=== PATIENT | female | born 1955 | race Two or more races ===

== ENCOUNTER → 2020-01-13 13:39 | Outpatient (REF) | payer MEDICAID, SELFPAY ==
--- NOTE | 2020-01-13 14:00 | CA_ITS ---
Transthoracic Echocardiogram Patient (Last, First, Middle): Zina Kennedy M Gender: Female Date of : 1955 Age: 64 Procedure Date: 01/13/2020 Procedure Type: Transthoracic Echocardiogram Location: OP Height: 157.48 cm Weight: 75.3 kg BSA: 1.77 m2 Heart Rate: bpm BP: 125 / 80 mmHg Svp: BIJAN Referring MD: Vic See MD Symptoms: Orthopnea and shortness of breath on exertion Study Quality: Fair ECG Rhythm: Sinus Conclusions: - The left ventricular systolic function is normal. The visually estimated ejection fraction is between 55-60%. - No obvious valvular pathology seen on this study. Findings Left Ventricle Normal left ventricular cavity size. There is normal left ventricular wall thickness. The left ventricular systolic function is normal. The visually estimated ejection fraction is between 55-60%. There is no evidence of regional wall motion abnormalities. Diastolic function is normal for age. Right Ventricle Normal right ventricular cavity size and systolic function. Atria The left atrium is normal in size. The right atrium is normal in size. Aortic Valve There is a normal trileaflet aortic valve. There is no aortic valve stenosis. There is trace (trivial) aortic valve regurgitation. Mitral Valve The mitral valve appears normal. There is trace mitral valve regurgitation. There is no mitral valve stenosis. Pulmonic Valve The pulmonic valve was not well visualized. Tricuspid Valve Normal tricuspid valve structure. There is trace tricuspid valve regurgitation. The pulmonary artery systolic pressure is normal. Great Vessels The aortic annulus, sinuses of valsalva, and asc aorta are normal in size. Venous The inferior vena cava is normal in size and collapses greater than 50% with inspiration. Pericardium/Pleural There is no evidence of pericardial effusion. Prior Study Comparison No prior study available for comparison. Recommendations, Care & Conclusions No obvious valvular pathology seen on this study. Measurements 2D Linear Measurements IVSd: 0.91 0.6-0.9/0.6-1.0 cm LVIDd: 4.58 3.9-5.3/4.2-5.9 cm LVIDd Index: 2.59 2.4-3.2/2.2-3.1 cm/m2 LVIDs: 3.36 2.0-3.6 cm LVPWd: 0.90 0.7-1.1 cm Ao Root: 2.60 2.1-3.5 cm LA Diam: 3.20 2.7-3.8/3.0-4.0 cm LAIDs Index: 1.81 1.5-2.3 cm/m2 LV Mass: 172.33 67-162/88-224 g LV Mass Index: 97.36 43-95/49-115 g/m2 LVOT Diam: 2.10 3.0+(-)1.3 cm 2D Systolic Function EF 4C: 65.00 >55% EF 2C: 53.70 >55% EF BiP: 59.30 >55% Mitral Valve MV Pk E: 0.66 MV PK A: 0.87 MV Decel Time: 157.00 E/A: 0.80 E'Lateral: 9.96 E'Medial: 8.03 E/E' Med: 8.20 E/E' Lat: 6.60 PHT: 46.00 MVA PHT: 4.78 Decel Colbert: 4.20 Aortic Valve AoV Pk Tone: 1.26 AoV Pk Grad: 6.00 LVOT LVOT Pk Tone: 0.98 LVOT Mn Tone: 0.66 LVOT VTI: 0.20 LVOT Pk Grad: 4.00 LVOT Mn Grad: 2.00 LVOT Diam: 2.10 LVOT Area: 3.46 Diastolic Function MV Pk E: 0.66 MV Pk A: 0.87 E/A: 0.80 E'Medial: 8.03 E/E' Med: 8.20 E' Laterial: 9.96 E/E' Lat: 6.60 Tricuspid Valve TR Pk Tone: 2.23 TR Pk Grad: 20.00 RA Press: 3.00 RVSP: 23.00 Great Vessels Aorta Ao Root-2D: 2.60 2.0-3.7 cm Ao Asc: 3.00 2.1-3.4 cm Updated in Other Vendor System with Status of Final Jaya Rosas MD electronically signed on 01/15/2020 4:58:11 PM with status of Final
== END ==
LOC: HO.CARD 13:39
PROVIDERS: PCP Internal Medicine; Visit Provider Internal Medicine
DX: R06.01 Orthopnea (principal)
CPT/HCPCS: 93306

== ENCOUNTER 2020-01-20 08:40 | Outpatient (REF) | payer MEDICAID, SELFPAY ==
--- NOTE | 2020-01-20 | PFT_ITS ---
FLOWS: FEV1 98% of predicted at 2.19 L. FVC 85% of predicted at 2.44 L. FEV1 to FVC ratio of 0.90. No bronchodilator response. LUNG VOLUMES: Total lung capacity 91% of predicted at 4.35 L. Residual volume 84% of predicted at 1.66 L. Slow vital capacity 96% of predicted at 2.68 L. Expiratory reserve volume 3% of predicted at 0.05 L. Diffusion capacity is normal. IMPRESSION: No obstructive or restrictive ventilatory defect. No bronchodilator response. Decreased expiratory reserve volume suggests extrathoracic restriction likely secondary to abdominal obesity. Miguel Rodriguez MD AP/MODL / [id number] MTDD
== END 2020-01-20 08:41 | disposition home or self-care (01) ==
LOC: HO.RESP 08:40
PROVIDERS: Visit Provider Internal Medicine Pulmonary Disease
DX: G47.33 Obstructive sleep apnea (adult) (pediatric) (principal); J45.991 Cough variant asthma; R05 Cough; R06.02 Shortness of breath; Z79.51 Long term (current) use of inhaled steroids
CPT/HCPCS: 94060; 94727; 94729; 95806

== ENCOUNTER → 2020-03-30 10:57 | Outpatient (BNVA) | payer MEDICAID, SELFPAY | PROVIDERS: PCP Internal Medicine; Visit Provider Internal Medicine Pulmonary Disease | DX: R05 Cough (principal); J45.30 Mild persistent asthma, uncomplicated; G47.33 Obstructive sleep apnea (adult) (pediatric) | CPT/HCPCS: 99212 ==

== ENCOUNTER 2020-06-02 10:21 | Outpatient (REF) | payer MEDICARE, MEDICAID, SELFPAY ==
--- NOTE | ~2020-06-02 | MM_ITS ---
EXAMINATION: BONE DENSITOMETRY CLINICAL INDICATION: Menopause. COMPARISON: None (current study represents initial baseline exam). TECHNIQUE: Using a MYTRND DXA System (software version: 13.1) manufactured by [employer], dual-energy x-ray absorptiometry was performed of the lumbar spine and left hip. The images are of good technical quality. Summary results are attached. FINDINGS: AP SPINE L1-L4: BMD 1.095 g/cm2, Z-score 0.5, T-score -0.7, normal. LEFT FEMUR, NECK: BMD 0.789 g/cm2, Z-score -0.6, T-score -1.8, osteopenia. LEFT FEMUR, TOTAL: BMD 0.933 g/cm2, Z-score 0.3, T-score -0.6, normal. IDENTIFIED RISK FACTORS: Early menopause, secondary osteoporosis. HISTORY OF FRACTURE: None listed. MEDICATIONS: Vitamin D. MM/XR DEXA axial skeleton IMPRESSION: 1. DIAGNOSIS: Osteopenia based on the lowest T-score value of -1.8 in the femoral neck applying World Health Organization criteria. 2. 10-YEAR FRACTURE RISK PREDICTION, FRAX: Major osteoporotic fracture (clinical spine, forearm, hip or shoulder) 5.3%. Hip fracture 0.7%. 3. Treatment Recommendations: NOF guidelines recommend consideration for treatment in postmenopausal women and men age 50 and older presenting with the following: -A hip or vertebral (clinical or morphometric) fracture. -T-score less than or equal to -2.5 at the femoral neck or spine after appropriate evaluation to exclude secondary causes. -Low bone mass at the hip or spine and a 10-year fracture probability by FRAX of greater than or equal to 3% for hip fracture or greater than or equal to 20% for major osteoporotic fracture based on the [place] adapted WHO algorithm. 4. Other Recommendations: All treatment decisions require clinical judgment and consideration of individual patient factors, including patient preferences, comorbidities, previous drug use, risk factors not captured in the FRAX model (e.g. frailty, falls, vitamin D deficiency, increased bone turnover, interval significant decline in bone density) and possible under or overestimation of fracture risk by FRAX. Additional medical evaluation for secondary cause of low bone mineral density may be appropriate. FUTURE SCAN RECOMMENDATION: People with diagnosed cases of osteoporosis or at high risk for fracture should have regular bone mineral density tests. For patients eligible for Medicare, routine testing is allowed once every 2 years. The testing frequency can be increased to one year for patients who have rapidly progressing disease, those who are receiving or discontinuing medical therapy to restore bone mass, or have additional risk factors.
--- NOTE | ~2020-06-02 | MM_ITS ---
EXAMINATION: MM SCREENING DIGITAL BREAST TOMOSYNTHESIS, BILATERAL CLINICAL INFORMATION: Screening. Asymptomatic. The lifetime risk of breast cancer based on the Tyrer-Cuzick Model is 4%. COMPARISON: Mammography: 05/27/2019, 03/18/2018 TECHNIQUE: Digital breast tomosynthesis is performed in both the craniocaudal and mediolateral oblique views along with computer-aided detection (CAD). Synthesized 2D images are generated from the tomosynthesis. FINDINGS: There are scattered areas of fibroglandular density (ACR BI-RADS breast composition Category b). There are no significant masses, abnormal calcifications, or other abnormalities. Parenchymal pattern is similar to prior studies. No developing density. No significant changes. MM/MM tomosynthesis screening BI IMPRESSION: No mammographic evidence of malignancy. ASSESSMENT: BI-RADS 1: Negative RECOMMENDATION: Routine annual mammography screening. This patient's information was entered into a reminder system with a target due date for their next mammogram.
== END 2020-06-02 10:22 | disposition home or self-care (01) ==
LOC: HO.MAMMO 10:21
PROVIDERS: PCP Internal Medicine; Visit Provider Internal Medicine
DX: Z12.31 Encounter for screening mammogram for malignant neoplasm of breast (principal); Z13.820 Encounter for screening for osteoporosis; Z78.0 Asymptomatic menopausal state; Z79.899 Other long term (current) drug therapy
CPT/HCPCS: 77063; 77067; 77080

== ENCOUNTER 2020-07-12 12:49 | Outpatient (REF) | payer MEDICARE, MEDICAID, SELFPAY ==
[2020-07-12 13:00] VITALS: BP 121/67; PULSE 63; RESP 16; TEMP 36.4; O2SAT 99; BMI 31.4
[2020-07-12 13:15] VITALS: BP 113/68; PULSE 76; RESP 16; O2SAT 99
== END 2020-07-12 12:50 | disposition home or self-care (01) ==
LOC: HO.MS 12:49
PROVIDERS: PCP Internal Medicine; Visit Provider Ophthalmology
PROC: (CPT 67840; principal; 2020-07-12 15:20)
DX: H02.824 Cysts of left upper eyelid (principal); H40.1231 Low-tension glaucoma, bilateral, mild stage; Z79.899 Other long term (current) drug therapy
CPT/HCPCS: 67840; 88304; 88305

== ENCOUNTER → 2020-10-21 10:35 | Outpatient (REF) | payer MEDICARE, MEDICAID, SELFPAY | LOC: HO.SL 10:35 | PROVIDERS: PCP Internal Medicine; Visit Provider Internal Medicine Pulmonary Disease | DX: G47.33 Obstructive sleep apnea (adult) (pediatric) (principal) | CPT/HCPCS: 95806 ==

== ENCOUNTER 2020-10-27 10:35 | Outpatient (REF) | payer MEDICARE, MEDICAID, SELFPAY ==
--- NOTE | ~2020-10-27 | XR_ITS ---
EXAMINATION: XR KNEE, RIGHT CLINICAL INFORMATION: Fibromyalgia COMPARISON: None TECHNIQUE: 3 views of the right knee of the right knee. FINDINGS: There is no evidence of acute fracture or dislocation of the right knee. No right knee effusion. There is irregularity with spurring about the undersurface of the patella. This is most prominent about the medial facet. XR/XR knee RT 3V IMPRESSION: Degenerative change of the right patellofemoral joint.
== END 2020-10-27 10:36 | disposition home or self-care (01) ==
LOC: HO.XRAY 10:35
PROVIDERS: PCP Internal Medicine; Visit Provider Student in an Organized Health Care Education/Training Program
DX: M79.7 Fibromyalgia (principal)
CPT/HCPCS: 73562; 99212

== ENCOUNTER → 2020-11-03 10:03 | Outpatient (BNVA) | payer MEDICARE, MEDICAID, SELFPAY | PROVIDERS: PCP Internal Medicine; Visit Provider Internal Medicine Pulmonary Disease | DX: J45.30 Mild persistent asthma, uncomplicated (principal); G47.33 Obstructive sleep apnea (adult) (pediatric); Z79.899 Other long term (current) drug therapy | CPT/HCPCS: 99212 ==

== ENCOUNTER 2020-12-08 10:21 | Outpatient (REF) | payer MEDICARE, MEDICAID, SELFPAY ==
[2020-12-08 11:47] LABS: Hematocrit 41.7 % (37-47); Hemoglobin 13.8 g/dl (12.0-16.0); Mean Corpuscular HGB Conc 33.1 g/dl (31.0-35.0); Mean Corpuscular Hemoglobin 29.2 pg (27.0-33.0); Mean Corpuscular Volume 88.3 fL (80-98); Mean Platelet Volume 10.5 fL (9.4-12.3); Platelet Count 272 X10*3/uL (160-400); Red Blood Count 4.72 X10*6/uL (4.20-5.50); Red Cell Distribution Width 12.4 % (11.0-16.0); White Blood Count 6.8 X10*3/uL (4.8-10.8)
[2020-12-08 12:20] LABS: Alanine Aminotransferase 21 U/L (0-31); Albumin Level 4.4 g/dL (3.5-5.0); Alkaline Phosphatase 76 U/L (39-117); Anion Gap 12 (12-20); Aspartate Amino Transferase 18 U/L (5-31); Bilirubin Total 0.4 mg/dL (0.0-1.0); Blood Urea Nitrogen 12 mg/dL (9-16); C Reactive Protein 0.74 mg/dL (< or = 0.50); Calcium 10.3 mg/dL (8.4-10.2); Carbon Dioxide 29 mmol/L (22-29); Chloride 104 mmol/L (96-108); Estimated Glomerular Filt Rate > 60; Glucose Random 92 mg/dL (60-115); Potassium 4.4 mmol/L (3.3-5.1); Sodium 141 mmol/L (135-145)
[2020-12-08 12:40] LABS: TSH reflex Free T4 0.88 uIU/mL (0.32-4.0)
[2020-12-10 21:41] LABS: Transglutaminase Ab IgG 1 U/mL; Transglutaminase IgA 1 U/mL
== END 2020-12-08 10:22 | disposition home or self-care (01) ==
LOC: HO.LAB 10:21
PROVIDERS: PCP Internal Medicine; Referring Provider Internal Medicine; Visit Provider Nurse Practitioner Family
DX: K58.2 Mixed irritable bowel syndrome (principal); K21.9 Gastro-esophageal reflux disease without esophagitis; R14.0 Abdominal distension (gaseous); R10.11 Right upper quadrant pain; Z79.899 Other long term (current) drug therapy
CPT/HCPCS: 36415; 80053; 83516; 84443; 85027; 86140; 99202

== ENCOUNTER 2020-12-10 11:58 | Outpatient (REF) | payer MEDICARE, MEDICAID, SELFPAY | END 2020-12-10 11:59 | disposition home or self-care (01) | LOC: HO.LNP 11:58 | PROVIDERS: Visit Provider Nurse Practitioner Family | DX: K21.9 Gastro-esophageal reflux disease without esophagitis (principal) | CPT/HCPCS: 87338 ==

== ENCOUNTER 2021-01-12 10:16 | Outpatient (REF) | payer MEDICARE, MEDICAID, SELFPAY ==
--- NOTE | ~2021-01-12 | XR_ITS ---
EXAMINATION: XR KNEE, LEFT CLINICAL INFORMATION: Pain. COMPARISON: None TECHNIQUE: AP, lateral, tunnel, and sunrise views of the left knee. FINDINGS: Bony alignment and mineralization are normal. The lateral and medial joint space compartments are well-maintained. The patellofemoral joint space compartment is well-maintained. There are tiny peripheral osteophytes of the upper, lateral and lower articular surfaces of the patella. There is no fracture or dislocation. There is a very small joint effusion. No foreign body is seen. XR/XR knee LT 4V IMPRESSION: 1. No left knee fracture or dislocation is seen. 2. There is a very small left knee joint effusion. 3. There is mild osteoarthritic change of the left patellofemoral compartment.
== END 2021-01-12 10:17 | disposition home or self-care (01) ==
LOC: HO.XRAY 10:16
PROVIDERS: Absent Provider Internal Medicine; PCP Internal Medicine; Visit Provider General Practice
DX: M25.562 Pain in left knee (principal)
CPT/HCPCS: 73564

== ENCOUNTER → 2021-01-21 10:44 | Outpatient (BNVA) | payer MEDICARE, MEDICAID, SELFPAY | PROVIDERS: Referring Provider Internal Medicine; Visit Provider Nurse Practitioner Family | DX: Z12.11 Encounter for screening for malignant neoplasm of colon (principal); K58.2 Mixed irritable bowel syndrome; K21.9 Gastro-esophageal reflux disease without esophagitis; G47.33 Obstructive sleep apnea (adult) (pediatric) | CPT/HCPCS: 99212 ==

== ENCOUNTER → 2021-01-27 10:39 | Outpatient (BNVA) | payer MEDICARE, MEDICAID, SELFPAY | PROVIDERS: PCP Internal Medicine; Visit Provider Internal Medicine Pulmonary Disease | DX: J45.30 Mild persistent asthma, uncomplicated (principal); G47.33 Obstructive sleep apnea (adult) (pediatric) | CPT/HCPCS: 99212 ==

== ENCOUNTER 2021-03-29 08:48 | Day surgery (SDC) | payer MEDICARE, MEDICAID, SELFPAY ==
[2021-03-22 15:17] VITALS: BMI 31.8
--- NOTE | 2021-03-28 10:07 | P.CONAN_ITS ---
Documented by User: Keiry Garcia NP 03/28/21 10:08 HPI - Anesthesia Eval Consult details Narrative: 65yo F for Upper Endoscopy and Colonoscopy PMFSH Active Problems Active Problems: All Active Problems (Updated 03/22/21 @ 15:17 by Yesi Watson RN) Mild persistent asthma (Acute) ИВАН (obstructive sleep apnea) (Acute) Fibromyalgia (Acute) Past Medical History Medical History (Updated 03/22/21 @ 15:17 by Yesi Watson RN) Asthma GERD (gastroesophageal reflux disease) IBS (irritable bowel syndrome) Sleep apnea Surgical History Surgical History (Updated 03/22/21 @ 14:54 by Yesi Watson RN) Hx of colonoscopy Hx of endoscopy Hx of eye surgery Social History Social History (Updated 03/22/21 @ 15:20 by Yesi Watson RN) Household Members: Spouse and Children Housing: House Are you a primary home health care social worker to a significant other at home: No Do you presently have visiting nurse or other home services: No Patient Tobacco Use Status: Never used Tobacco Use of substances other than those prescribed or required for medical reasons: No Have you been hit, kicked, punched, or otherwise hurt by someone within the past year? If so, by whom?: No Are you DNR?: No Advance Directives: No Advance Directives Information Provided: Yes (informational brochure mailed) Advance Directives on File: No Recently lost weight without trying: No Nutrition Risks: No Nutritional Risk Meds Allergies Allergy/AdvReac Type Severity Reaction Status Date / Time No Known Allergies Allergy Verified 01/27/21 10:44 Home Medications Medication Instructions Recorded Confirmed Last Taken Type acetaminophen 650 mg 650 mg PO Q8H 03/30/20 03/22/21 Unknown History tablet,extended release (Tylenol Arthritis Pain) cetirizine 10 mg capsule (Zyrtec) 10 mg PO DAILY 03/30/20 03/22/21 Unknown History cholecalciferol (vitamin D3) 25 25 mcg PO DAILY 03/30/20 03/22/21 Unknown History mcg (1,000 unit) capsule latanoprost 0.005 % eye drops 1 drp OPHTHALMIC (EYE) DAILY 03/30/20 03/22/21 Unknown History omeprazole 20 mg capsule,delayed 20 mg PO DAILY 03/30/20 03/22/21 Unknown History release fluticasone furoate 200 1 puff PO DAILY 03/22/21 03/22/21 03/29/21 History mcg-vilanterol 25 mcg/dose inhalation powder (Breo Ellipta) Exam Exam Date and Time: March 28, 2021 1007 Height,Weight and Vital Signs: Height 5 ft 2 in Weight 78.925 kg Pertinent Lab Results Pertinent Lab Results: Laboratory Tests 12/08/20 12/08/20 11:15 11:15 WBC 6.8 Hgb 13.8 Hct 41.7 Plt Count 272 Sodium 141 Potassium 4.4 Chloride 104 Carbon Dioxide 29 BUN 12 Creatinine 0.72 Assessment and Plan Assessment Anesthesia Assessment: Chart Reviewed Documented by User: Soren Magana 03/29/21 10:23 [facility] Past Medical History Medical History (Updated 03/22/21 @ 15:17 by Yesi Watson RN) Asthma GERD (gastroesophageal reflux disease) IBS (irritable bowel syndrome) Sleep apnea Functional capacity: independent ambulation Family History Family history of problems with anesthesia: No Surgical History Surgical History (Updated 03/22/21 @ 14:54 by Yesi Watson RN) Hx of colonoscopy Hx of endoscopy Hx of eye surgery History of Problems with Anesthesia: No Social History Social History (Updated 03/22/21 @ 15:20 by Yesi Watson RN) Household Members: Spouse and Children Housing: House Are you a primary home health care social worker to a significant other at home: No Do you presently have visiting nurse or other home services: No Patient Tobacco Use Status: Never used Tobacco Use of substances other than those prescribed or required for medical reasons: No Have you been hit, kicked, punched, or otherwise hurt by someone within the past year? If so, by whom?: No Are you DNR?: No Advance Directives: No Advance Directives Information Provided: Yes (informational brochure mailed) Advance Directives on File: No Recently lost weight without trying: No Nutrition Risks: No Nutritional Risk Meds Allergies Allergy/AdvReac Type Severity Reaction Status Date / Time No Known Allergies Allergy Verified 01/27/21 10:44 Home Medications Medication Instructions Recorded Confirmed Last Taken Type acetaminophen 650 mg 650 mg PO Q8H 03/30/20 03/22/21 Unknown History tablet,extended release (Tylenol Arthritis Pain) cetirizine 10 mg capsule (Zyrtec) 10 mg PO DAILY 03/30/20 03/22/21 Unknown History cholecalciferol (vitamin D3) 25 25 mcg PO DAILY 03/30/20 03/22/21 Unknown History mcg (1,000 unit) capsule latanoprost 0.005 % eye drops 1 drp OPHTHALMIC (EYE) DAILY 03/30/20 03/22/21 Unknown History omeprazole 20 mg capsule,delayed 20 mg PO DAILY 03/30/20 03/22/21 Unknown History release fluticasone furoate 200 1 puff PO DAILY 03/22/21 03/22/21 03/29/21 History mcg-vilanterol 25 mcg/dose inhalation powder (Breo Ellipta) Exam Airway Mallampati Class: II Loose/Missing/Broken Teeth: Yes (Caps) Assessment and Plan Final Anesthetic Review Family History of Problems with Anesthesia: No History of Problems with Anesthesia: No NPO: Yes ASA Class: II Final Preanesthetic Review: Meds/Allgs Chart Reviewed Patient Risk: Intermediate Procedure Risk: Intermediate Anesthetic Plan Anesthetic Plan: MAC: Disposition: Standard PACU
[2021-03-29 09:13] VITALS: BP 149/70; PULSE 82; RESP 17; TEMP 36.6; O2SAT 96
[2021-03-29] MEDS: Lactated Ringers 1,000 ML 100 ML IVCONT (09:26)
--- NOTE | 2021-03-29 10:15 | MHC.SHP ---
Pre-Procedural Eval Section A Date of Service: 03/29/21 The patient is an INPATIENT: No The History & Physical has been completed within 30 days and I have reviewed it.: No Section B Chief Complaint: Screening, Acid Reflux Details of Present Illness: GERD, colon cancer screening Relevant Family History (Specify if Yes): No Relevant Social History: None Present Medications: see Short Stay Collaborative assessment Medical History: Significant History (asthma, ИВАН, Fibromyalgia, IBS) History of Previous Operations: Relevant previous surgery/procedure and date(s) (Hx of colonoscopy Hx of endoscopy) Allergies: Allergies Allergy/AdvReac Type Severity Reaction Status Date / Time No Known Allergies Allergy Verified 01/27/21 10:44 Review of Systems Sugical H&P ROS: Negative: Constitution, Cardiovascular, Respiratory and Gastrointestinal Exam Surgical H&P Exam: Normal: Heart, Normal: Lungs, Normal: Extremities and Normal: Abdomen Plan Diagnosis/Plan: Change (EGD and Colonoscopy) I have reviewed the history and physical and performed a pertinent physical examination on my patient. No changes have occurred unless specified.
--- NOTE | 2021-03-29 10:17 | PCN2_ITS ---
Brief Operative Note Date of procedure: 03/29/21 Pre-op diagnosis: Colon cancer screening, GERD, history of H pylori infection Post-op diagnosis: other (GERD, gastritis, colon polyps, diverticulosis, hemorrhoids) Procedure: Procedure:? FLEXIBLE TRANSORAL UPPER GASTROINTESTINAL ENDOSCOPY WITH BIOPSIES AND COLONOSCOPY TILL CECUM WITH SNARE POLYPECTOMY AND SUBMUCOSAL INJECTION UPPER ENDOSCOPY Consent:?Indications for the procedure and potential complications of bleeding, perforation, reaction to medications and missed diagnosis were discussed with the patient and informed consent was obtained. Instrument:?Olympus GIF H 190 mid size upper endoscope Monitoring: Vital signs and clinical assessment, continuous EKG monitoring, Pulse oximetry, Carbon Dioxide monitoring and blood pressure monitoring were done throughout the procedure. Procedure:?The patient was placed in the left lateral decubitis position and pre-procedure medications were administered and a bite block was placed. The endoscope was inserted into the mouth and advanced under direct vision to the third part of duodenum. A careful inspection was made as the upper endoscope was withdrawn including a retroflexed examination of the proximal stomach; Findings and interventions are described below. Findings: Larynx:? Normal Esophagus:?GE junction at 34 cms.? Multiple 1-2 cms tongues of possible Bhat's - biopsied. Stomach:?Mild gastric erythema. Biopsies were obtained. Grade 2 flap valve on retroflexed examination of the cardia. Duodenum:?Normal bulb and descending duodenum.? Biopsies were obtained from 3rd part of duodenum to check for celiac sprue. Intervention:?Biopsies as noted above COLONOSCOPY PROCEDURE NOTE Consent:?Indications for the procedure and potential complications of bleeding, perforation, reaction to medications and missed diagnosis were discussed with the patient and informed consent was obtained. Instrument:?Olympus PCF H 190 L variable stiffness pediatric colonoscope Monitoring:?Vital signs and clinical assessment, intermittent blood pressure monitoring, continuous EKG monitoring, Pulse oximetry and Carbon Dioxide monitoring were done throughout the procedure. Colon withdrawl time was 28 minutes. Procedure:?The patient was placed in the left lateral decubitis position and pre-procedure medications were administered. After a digital rectal examination of the ano-rectum, the video colonoscope was inserted into the rectum and advanced through the colon to the cecum. The colonoscope was slowly withdrawn in a retrograde panoramic fashion and the colon mucosa was carefully examined including a retroflexed view of the rectum. Findings and interventions are described below. Procedure Difficulty:?: Without difficulty Findings: Terminal Ileum: Not evaluated Cecum:? Normal Ascending Colon:??An 8-9 mm sessile polyp removed with a cold snare.? Four 1.5 to 2 cms sessile polyps at 80 cms removed with a hot snare.? Polypectomy site of largest polyp was marked with soo ink Transverse Colon:??Normal Descending Colon:? Moderate diverticulosis Sigmoid Colon:??Moderate diverticulosis Rectum:??Normal Ano-rectum:??Moderate internal hemorrhoids Colon preparation:? Good? Impression and Post Procedure Diagnosis: Endoscopy Findings: ESOPHAGUS: GE junction at 34 cms.? Multiple 1-2 cms tongues of possible Bhat's - biopsied. STOMACH:? Gastritis DUODENUM:? Normal - biopsied to check for celiac sprue Colonoscopy Findings: Six medium to large sized polyps removed Moderate diverticulosis seen in the left colon Moderate hemorrhoids on retroflexed exam. Plan: Await pathology results Patient has an appointment on 04/11/20 in the GI Clinic with Blanquita Hawkins FNP- BC. Repeat Colonoscopy interval based on path results - in 1-2 years if polyps are adenomatous and 10 years if polyps are hyperplastic. Above findings were reviewed with the patient and GERD, colon polyps and diverticulosis handouts were given in the discharge area Surgeon:?King Morales MD Anesthesia: MAC (Yanelis Johnson CRNA) Surgeon: King Morales Cutting Machine Tender: Ronda Sr Estimated blood loss (mL): 0 Pathology: other (A. small bowel bxs, R/O sprue? B. gastric antrum bxs, R/O H. pylori? C. distal esophagus bxs, R/O Bhat's? D. ascending colon polyps at 80cm? x4? e- sigmoid polyp)) Condition: stable Disposition: PACU
--- NOTE | 2021-03-29 10:17 | PM.OP ---
Brief Operative Note Date of Service: 03/29/21 Pre-op diagnosis: Colon cancer screening, GERD, hx of H Pylori infection Post-op diagnosis: other (GERD, gastritis, colon polyp, diverticulosis, hemorrhoids) Procedure: FLEXIBLE TRANSORAL UPPER GASTROINTESTINAL ENDOSCOPY WITH BIOPSIES AND COLONOSCOPY TILL CECUM WITH SNARE POLYPECTOMY AND SUBMUCOSAL INJECTION UPPER ENDOSCOPY Consent: Indications for the procedure and potential complications of bleeding, perforation, reaction to medications and missed diagnosis were discussed with the patient and informed consent was obtained. Instrument: Olympus GIF H 190 mid size upper endoscope Monitoring: Vital signs and clinical assessment, continuous EKG monitoring, Pulse oximetry, Carbon Dioxide monitoring and blood pressure monitoring were done throughout the procedure. Procedure: The patient was placed in the left lateral decubitis position and pre-procedure medications were administered and a bite block was placed. The endoscope was inserted into the mouth and advanced under direct vision to the third part of duodenum. A careful inspection was made as the upper endoscope was withdrawn including a retroflexed examination of the proximal stomach; Findings and interventions are described below. Findings: Larynx: Normal Esophagus: GE junction at 34 cms. Multiple 1-2 cms tongues of possible Bhat's - biopsied. Stomach: Mild gastric erythema. Biopsies were obtained. Grade 2 flap valve on retroflexed examination of the cardia. Duodenum: Normal bulb and descending duodenum. Biopsies were obtained from 3rd part of duodenum to check for celiac sprue. Intervention: Biopsies as noted above COLONOSCOPY PROCEDURE NOTE Consent: Indications for the procedure and potential complications of bleeding, perforation, reaction to medications and missed diagnosis were discussed with the patient and informed consent was obtained. Instrument: Olympus PCF H 190 L variable stiffness pediatric colonoscope Monitoring: Vital signs and clinical assessment, intermittent blood pressure monitoring, continuous EKG monitoring, Pulse oximetry and Carbon Dioxide monitoring were done throughout the procedure. Colon withdrawl time was 28 minutes. Procedure: The patient was placed in the left lateral decubitis position and pre-procedure medications were administered. After a digital rectal examination of the ano-rectum, the video colonoscope was inserted into the rectum and advanced through the colon to the cecum. The colonoscope was slowly withdrawn in a retrograde panoramic fashion and the colon mucosa was carefully examined including a retroflexed view of the rectum. Findings and interventions are described below. Procedure Difficulty: : Without difficulty Findings: Terminal Ileum: Not evaluated Cecum: Normal Ascending Colon: An 8-9 mm sessile polyp removed with a cold snare. Four 1.5 to 2 cms sessile polyps at 80 cms removed with a hot snare. Polypectomy site of largest polyp was marked with soo ink Transverse Colon: Normal Descending Colon: Moderate diverticulosis Sigmoid Colon: Moderate diverticulosis Rectum: Normal Ano-rectum: Moderate internal hemorrhoids Colon preparation: Good Impression and Post Procedure Diagnosis: Endoscopy Findings: ESOPHAGUS: GE junction at 34 cms. Multiple 1-2 cms tongues of possible Bhat's - biopsied. STOMACH: Gastritis DUODENUM: Normal - biopsied to check for celiac sprue Colonoscopy Findings: Six medium to large sized polyps removed Moderate diverticulosis seen in the left colon Moderate hemorrhoids on retroflexed exam. Plan: Await pathology results Patient has an appointment on 04/11/20 in the GI Clinic with Blanquita Hawkins FNP-BC. Repeat Colonoscopy interval based on path results - in 1-2 years if polyps are adenomatous and 10 years if polyps are hyperplastic. Above findings were reviewed with the patient and GERD, colon polyps and diverticulosis handouts were given in the discharge area Surgeon: King Morales MD Anesthesia: MAC (Yanelis Johnson CRNA) Was an Correctional Maintenance Technician used for this Procedure?: Yes Correctional Maintenance Technician: Ronda Sr Estimated blood loss (mL): 0 Pathology: other (A. small bowel bxs, R/O sprue B. gastric antrum bxs, R/O H. pylori C. distal esophagus bxs, R/O Bhat's D. ascending colon polyps at 80cm x4 e- sigmoid polyp) Condition: stable Disposition: PACU
[2021-03-29 11:33] VITALS: BP 116/62; PULSE 92; RESP 13; TEMP 36.3; O2SAT 100
[2021-03-29 11:48] VITALS: BP 130/70; PULSE 75; RESP 17; TEMP 36.3; O2SAT 99
== END 2021-03-29 12:10 ==
LOC: HO.SSS 08:48
PROVIDERS: PCP Internal Medicine; Visit Provider Internal Medicine Gastroenterology
PROC: (CPT 45385; principal; 2021-03-29 10:10)
DX: Z12.11 Encounter for screening for malignant neoplasm of colon (principal); D12.2 Benign neoplasm of ascending colon; D12.5 Benign neoplasm of sigmoid colon; K57.30 Diverticulosis of large intestine without perforation or abscess without bleeding; K64.8 Other hemorrhoids; K58.2 Mixed irritable bowel syndrome; K21.9 Gastro-esophageal reflux disease without esophagitis; K29.50 Unspecified chronic gastritis without bleeding; Z86.19 Personal history of other infectious and parasitic diseases; J45.30 Mild persistent asthma, uncomplicated; G47.33 Obstructive sleep apnea (adult) (pediatric); Z79.899 Other long term (current) drug therapy
CPT/HCPCS: 45385; 45381; 43239; 88305; 88342

== ENCOUNTER → 2021-05-11 10:19 | Outpatient (BNVA) | payer MEDICARE, MEDICAID, SELFPAY | PROVIDERS: PCP Internal Medicine; Referring Provider Internal Medicine; Visit Provider Nurse Practitioner Family | DX: K21.9 Gastro-esophageal reflux disease without esophagitis (principal); K59.04 Chronic idiopathic constipation; D36.9 Benign neoplasm, unspecified site; Z98.890 Other specified postprocedural states | CPT/HCPCS: 99212 ==

== ENCOUNTER 2021-06-20 10:50 | Outpatient (REF) | payer MEDICARE, MEDICAID, SELFPAY ==
--- NOTE | ~2021-06-20 | MM_ITS ---
EXAMINATION: MM SCREENING DIGITAL BREAST TOMOSYNTHESIS, BILATERAL CLINICAL INFORMATION: Screening. Asymptomatic. The lifetime risk of breast cancer based on the Tyrer-Cuzick Model is 3%. COMPARISON: Mammography: 06/02/2020, 05/27/2019, 03/18/2018 TECHNIQUE: Digital breast tomosynthesis is performed in both the craniocaudal and mediolateral oblique views along with computer-aided detection (CAD). Synthesized 2D images are generated from the tomosynthesis. FINDINGS: There are scattered areas of fibroglandular density (ACR BI-RADS breast composition Category b). There are no significant masses, abnormal calcifications, or other abnormalities. Parenchymal pattern is similar to prior studies. There is no developing density or architectural abnormality. The axilla and skin contours are unremarkable. No significant changes. MM/MM tomosynthesis screening BI IMPRESSION: No mammographic evidence of malignancy. ASSESSMENT: BI-RADS 1: Negative RECOMMENDATION: Routine annual mammography screening. This patient's information was entered into a reminder system with a target due date for their next mammogram.
== END 2021-06-20 10:51 | disposition home or self-care (01) ==
LOC: HO.MAMMO 10:50
PROVIDERS: PCP Internal Medicine; Visit Provider Internal Medicine
DX: Z12.31 Encounter for screening mammogram for malignant neoplasm of breast (principal)
CPT/HCPCS: 77063; 77067

== ENCOUNTER 2021-07-27 09:43 | Outpatient (REF) | payer MEDICARE, MEDICAID, SELFPAY ==
[2021-07-27 10:45] LABS: MANUAL DIFF FLAG NO
[2021-07-27 11:45] LABS: Basophils Percent Auto 0.9 % (0-2); Eosinophils Absolute Auto 0.1 X10*3/uL (0.0-0.4); Eosinophils Percent Auto 2.8 % (0-4); Hematocrit 43.1 % (37.0-47.0); Hemoglobin 14.1 g/dl (12.0-16.0); Imm Gran Abs Auto 0.01 X10*3/uL (0.00-0.03); Imm Gran Pct Auto 0.2 % (0.0-0.4); Mean Corpuscular HGB Conc 32.7 g/dl (31.0-35.0); Mean Corpuscular Volume 88.7 fL (80.0-98.0); Mean Platelet Volume 10.7 fL (9.4-12.3); Monocytes Absolute Auto 0.4 X10*3/uL (0.1-1.2); Monocytes Percent Auto 9.2 % (2-11); Neutrophils Absolute Auto 3.1 x10*3/uL (2.0-8.3); Neutrophils Percent Auto 65.9 % (45-73); Platelet Count 252 X10*3/uL (160-400); Red Blood Count 4.86 X10*6/uL (4.20-5.50); Red Cell Distribution Width 12.4 % (11.0-16.0); White Blood Count 4.7 X10*3/uL (4.8-10.8)
[2021-07-30 07:18] LABS: Rast Allergen SEE NOTES
== END 2021-07-27 09:44 | disposition home or self-care (01) ==
LOC: HO.LAB 09:43
PROVIDERS: PCP Internal Medicine; Visit Provider Internal Medicine Pulmonary Disease
DX: Z91.09 Other allergy status, other than to drugs and biological substances (principal); J45.909 Unspecified asthma, uncomplicated
CPT/HCPCS: 36415; 82785; 85025; 86003; 99212

== ENCOUNTER 2021-08-16 09:52 | Outpatient (REF) | payer MEDICARE, MEDICAID, SELFPAY ==
[2021-08-16 12:09] LABS: Lipase 24 U/L (8-78)
[2021-08-16 12:35] LABS: Folate 12.3 ng/mL (> or = 4.0); Vitamin B12 499 pg/mL (200-900)
[2021-08-20 16:25] LABS: Vitamin D 25-OH, D2 32 ng/mL; Vitamin D 25-OH, D3 15 ng/mL; Vitamin D 25-OH, Total 47 ng/mL (30-100)
== END 2021-08-16 09:53 | disposition home or self-care (01) ==
LOC: HO.LAB 09:52
PROVIDERS: PCP Internal Medicine; Referring Provider Internal Medicine; Visit Provider Nurse Practitioner Family
DX: R19.7 Diarrhea, unspecified (principal); R10.9 Unspecified abdominal pain; E55.9 Vitamin D deficiency, unspecified; Z12.11 Encounter for screening for malignant neoplasm of colon
CPT/HCPCS: 36415; 82306; 82607; 82746; 83690; 84443; 99212

== ENCOUNTER 2021-08-18 09:51 | Outpatient (REF) | payer MEDICARE, MEDICAID, SELFPAY | END 2021-08-18 09:52 | disposition home or self-care (01) | LOC: HO.MDS 09:51 | PROVIDERS: PCP Internal Medicine; Visit Provider Internal Medicine Pulmonary Disease | DX: J45.50 Severe persistent asthma, uncomplicated (principal) | CPT/HCPCS: 96372; J2357 ==

== ENCOUNTER → 2021-09-07 15:20 | Outpatient (BNVA) | payer MEDICARE, MEDICAID, SELFPAY | PROVIDERS: PCP Internal Medicine; Visit Provider Internal Medicine Pulmonary Disease | DX: J45.909 Unspecified asthma, uncomplicated (principal); Z91.09 Other allergy status, other than to drugs and biological substances | CPT/HCPCS: 99212 ==

== ENCOUNTER 2021-09-15 08:55 | Outpatient (REF) | payer MEDICARE, MEDICAID, SELFPAY ==
--- NOTE | ~2021-09-15 | US_ITS ---
EXAMINATION: US ABDOMEN COMPLETE CLINICAL INFORMATION: Unspecified abdominal pain. COMPARISON: None TECHNIQUE: Real-time imaging of the abdominal viscera. FINDINGS: PANCREAS: The head of the pancreas are normal. The body and tail are not well visualized due to bowel gas. ABDOMINAL AORTA: The proximal, mid, and distal segments are normal in caliber. INFERIOR VENA CAVA: Visualized portions are normal. LIVER: Liver echotexture is increased probably representing fatty infiltration. There are hypoechoic areas adjacent to the gallbladder, characteristic location of focal fatty sparing. No other focal liver lesion. No biliary duct dilatation. GALLBLADDER: Normal. The gallbladder is physiologically distended without evidence of stones, sludge, polyps, wall thickening or pericholecystic fluid. COMMON BILE DUCT: Normal in caliber measuring 0.6 cm in diameter. RIGHT KIDNEY: Normal. No hydronephrosis. No renal calculi or focal parenchymal lesions. The kidney measures 12.5 cm in maximum dimension. LEFT KIDNEY: Normal. No hydronephrosis. No renal calculi or focal parenchymal lesions. The kidney measures 11.8 cm in maximum dimension. SPLEEN: Normal. The spleen measures 8.9 cm in maximum dimension. FREE FLUID: None. US/US abdomen complete IMPRESSION: Echogenic liver probably representing fatty infiltration. Limited visualization of the pancreas.
== END 2021-09-15 08:56 | disposition home or self-care (01) ==
LOC: HO.US 08:55
PROVIDERS: PCP Internal Medicine; Visit Provider Nurse Practitioner Family
DX: R10.9 Unspecified abdominal pain (principal); K52.9 Noninfective gastroenteritis and colitis, unspecified
CPT/HCPCS: 76700

== ENCOUNTER 2021-10-14 09:44 | Outpatient (REF) | payer MEDICARE, MEDICAID, SELFPAY | END 2021-10-14 09:45 | disposition home or self-care (01) | LOC: HO.MDS 09:44 | PROVIDERS: PCP Internal Medicine; Visit Provider Internal Medicine Pulmonary Disease | DX: J45.50 Severe persistent asthma, uncomplicated (principal) | CPT/HCPCS: 96372; J2357 ==

== ENCOUNTER → 2021-10-19 09:48 | Outpatient (BNVA) | payer MEDICARE, MEDICAID, SELFPAY | PROVIDERS: PCP Internal Medicine; Visit Provider Internal Medicine Pulmonary Disease | DX: J45.909 Unspecified asthma, uncomplicated (principal); G47.33 Obstructive sleep apnea (adult) (pediatric); Z91.09 Other allergy status, other than to drugs and biological substances; Z99.89 Dependence on other enabling machines and devices | CPT/HCPCS: 99212 ==

== ENCOUNTER → 2021-10-27 10:50 | Outpatient (BNVA) | payer MEDICARE, MEDICAID, SELFPAY | PROVIDERS: PCP Internal Medicine; Visit Provider Nurse Practitioner Family | DX: Z79.899 Other long term (current) drug therapy (principal); M79.7 Fibromyalgia | CPT/HCPCS: Q3014 ==

== ENCOUNTER 2021-11-10 09:06 | Outpatient (REF) | payer MEDICARE, MEDICAID, SELFPAY ==
[2021-11-10 10:12] LABS: Alanine Aminotransferase 31 U/L (0-31); Aspartate Amino Transferase 29 U/L (5-31); Estimated Glomerular Filt Rate > 60
== END 2021-11-10 09:07 | disposition home or self-care (01) ==
LOC: HO.LAB 09:06
PROVIDERS: PCP Internal Medicine; Visit Provider Nurse Practitioner Family
DX: Z79.899 Other long term (current) drug therapy (principal)
CPT/HCPCS: 36415; 82565; 84450; 84460

== ENCOUNTER 2021-11-11 09:48 | Outpatient (REF) | payer MEDICARE, MEDICAID, SELFPAY | END 2021-11-11 09:49 | disposition home or self-care (01) | LOC: HO.MDS 09:48 | PROVIDERS: Visit Provider Internal Medicine Pulmonary Disease | DX: J45.50 Severe persistent asthma, uncomplicated (principal) | CPT/HCPCS: 96372; J2357 ==

== ENCOUNTER 2021-12-09 09:49 | Outpatient (REF) | payer MEDICARE, MEDICAID, SELFPAY | END 2021-12-09 09:50 | disposition home or self-care (01) | LOC: HO.MDS 09:49 | PROVIDERS: PCP Internal Medicine; Visit Provider Internal Medicine Pulmonary Disease | DX: J45.50 Severe persistent asthma, uncomplicated (principal) | CPT/HCPCS: 96372; J2357 ==

== ENCOUNTER 2022-01-06 09:47 | Outpatient (REF) | payer MEDICARE, MEDICAID, SELFPAY | END 2022-01-06 09:48 | disposition home or self-care (01) | LOC: HO.MDS 09:47 | PROVIDERS: Visit Provider Internal Medicine Pulmonary Disease | DX: J45.50 Severe persistent asthma, uncomplicated (principal) | CPT/HCPCS: 96372; J2357 ==

== ENCOUNTER 2022-02-03 09:54 | Outpatient (REF) | payer MEDICARE, MEDICAID, SELFPAY | END 2022-02-03 09:55 | disposition home or self-care (01) | LOC: HO.MDS 09:54 | PROVIDERS: Visit Provider Internal Medicine Pulmonary Disease | DX: J45.50 Severe persistent asthma, uncomplicated (principal) | CPT/HCPCS: 96372; J2357 ==

== ENCOUNTER → 2022-02-07 10:50 | Outpatient (BNVA) | payer MEDICARE, MEDICAID, SELFPAY | PROVIDERS: PCP Internal Medicine; Visit Provider Internal Medicine Pulmonary Disease | DX: J45.909 Unspecified asthma, uncomplicated (principal); Z91.09 Other allergy status, other than to drugs and biological substances; G47.33 Obstructive sleep apnea (adult) (pediatric) | CPT/HCPCS: 99212 ==

== ENCOUNTER → 2022-02-14 11:07 | Outpatient (BNVA) | payer MEDICARE, MEDICAID, SELFPAY | PROVIDERS: PCP Internal Medicine; Referring Provider Internal Medicine; Visit Provider Nurse Practitioner Family | DX: M79.7 Fibromyalgia (principal) | CPT/HCPCS: 99212 ==

== ENCOUNTER 2022-02-22 10:09 | Outpatient (REF) | payer MEDICARE, MEDICAID, SELFPAY ==
--- NOTE | ~2022-02-22 | XR_ITS ---
EXAMINATION: XR LUMBOSACRAL SPINE CLINICAL INFORMATION: Low back pain COMPARISON: Previous x-ray January 2019 TECHNIQUE: Three views of the lumbosacral spine. FINDINGS: Bone alignment is normal. No fracture or dislocation. Mild disc space narrowing at L2-L3. Lower lumbar spine facet arthritis. XR/XR lumbar spine 2-3V IMPRESSION: Mild degenerative changes.
== END 2022-02-22 10:10 | disposition home or self-care (01) ==
LOC: HO.XRAY 10:09
PROVIDERS: PCP Internal Medicine; Visit Provider Nurse Practitioner Family
DX: M54.50 Low back pain, unspecified (principal)
CPT/HCPCS: 72100

== ENCOUNTER → 2022-02-28 10:03 | Outpatient (BNVA) | payer MEDICARE, MEDICAID, SELFPAY | PROVIDERS: PCP Internal Medicine; Visit Provider Nurse Practitioner Family | DX: R10.13 Epigastric pain (principal); R10.12 Left upper quadrant pain; R14.0 Abdominal distension (gaseous) | CPT/HCPCS: 99212 ==

== ENCOUNTER 2022-03-10 08:51 | Outpatient (REF) | payer MEDICARE, MEDICAID, SELFPAY ==
[2022-03-10 09:50] LABS: Blood Urea Nitrogen 10 mg/dL (9-16); Estimated Glomerular Filt Rate > 60; Lipase 31 U/L (8-78)
== END 2022-03-10 08:52 | disposition home or self-care (01) ==
LOC: HO.LAB 08:51
PROVIDERS: PCP Nurse Practitioner Family; Visit Provider Nurse Practitioner Family
DX: Z13.89 Encounter for screening for other disorder (principal)
CPT/HCPCS: 36415; 82565; 83690; 84520

== ENCOUNTER 2022-03-10 09:02 | Outpatient (REF) | payer MEDICARE, MEDICAID, SELFPAY | END 2022-03-10 09:03 | disposition home or self-care (01) | LOC: HO.MDS 09:02 | PROVIDERS: Visit Provider Internal Medicine Pulmonary Disease | DX: J45.50 Severe persistent asthma, uncomplicated (principal) | CPT/HCPCS: 36415; 82565; 82656; 83690; 84520; 87177; 87209; 89055; 96372 ==

== ENCOUNTER 2022-03-10 09:17 | Outpatient (REF) | payer MEDICARE, MEDICAID, SELFPAY ==
[2022-03-10 10:28] LABS: Leukocytes Stool Qualitative NEGATIVE (NEGATIVE)
[2022-03-17 20:49] LABS: Pancreatic Elastase-1 >500 mcg/g
== END 2022-03-10 09:18 | disposition home or self-care (01) ==
LOC: HO.LNP 09:17
PROVIDERS: Visit Provider Nurse Practitioner Family
DX: Z13.89 Encounter for screening for other disorder (principal)
CPT/HCPCS: 82656; 87177; 87209; 87507; 89055

== ENCOUNTER 2022-03-16 12:58 | Outpatient (REF) | payer MEDICARE, MEDICAID, SELFPAY ==
[2022-03-16 15:07] LABS: Campylobacter Not Detected (Not Detect.); Cryptosporidium Not Detected (Not Detect.); Cyclospora cayetanensis Not Detected (Not Detect.); E. coli EAEC Not Detected (Not Detect.); E. coli EPEC Not Detected (Not Detect.); E. coli ETEC Not Detected (Not Detect.); E. coli STEC Not Detected (Not Detect.); Entamoeba histolytica Not Detected (Not Detect.); Giardia lamblia Not Detected (Not Detect.); Plesiomonas shigelloides Not Detected (Not Detect.); Salmonella Not Detected (Not Detect.); Sapovirus Not Detected (Not Detect.); Shigella sp./EIEC Not Detected (Not Detect.); Vibrio Not Detected (Not Detect.); Vibrio Cholerae Not Detected (Not Detect.)
[2022-03-16 15:08] LABS: Adenovirus F 40/41 Not Detected (Not Detect.); Astrovirus Not Detected (Not Detect.); Norovirus GI/GII Not Detected (Not Detect.); Rotavirus A Not Detected (Not Detect.)
[2022-03-16 15:45] LABS: Yersinia enterocolitica Detected (Not Detect.)
[2022-03-23 13:09] LABS: Pancreatic Elastase-1 >500 mcg/g
== END 2022-03-16 12:59 | disposition home or self-care (01) ==
LOC: HO.LNP 12:58
PROVIDERS: Visit Provider Nurse Practitioner Family
DX: R19.7 Diarrhea, unspecified (principal); R10.13 Epigastric pain; R14.0 Abdominal distension (gaseous)
CPT/HCPCS: 82656; 87177; 87209; 87507

== ENCOUNTER 2022-03-27 08:52 | Outpatient (REF) | payer MEDICARE, MEDICAID, SELFPAY ==
--- NOTE | ~2022-03-27 | CT_ITS ---
EXAMINATION: CT ABDOMEN AND PELVIS WITH CONTRAST CLINICAL INFORMATION: Unspecified abdominal pain. COMPARISON: None TECHNIQUE: Multidetector volumetric images were obtained from the superior aspect of the liver through the pubic symphysis following administration 85 mL of Omnipaque 350 intravenous contrast. Sagittal and coronal reformatted images were obtained on the technologist's workstation. Oral contrast: No This CT examination was performed using dose optimization techniques as appropriate, variously including the following: *Automated exposure control *Adjustment of mA and/or kV according to patient size (this includes techniques or standardized protocols for targeted exams where dose is matched to indication/reason for exam; i.e. extremities or head) *Use of iterative reconstruction technique DLP: 703 mGy-cm FINDINGS: LUNG BASES: The visualized lung bases are unremarkable. LIVER, GALLBLADDER, AND BILIARY TREE: The liver is normal in size, shape, and attenuation. No focal hepatic lesion or biliary ductal dilatation is present. The gallbladder is unremarkable with no evidence of radiopaque gallstones, gallbladder wall thickening, or obvious pericholecystic inflammatory changes. PANCREAS: Unremarkable SPLEEN: Unremarkable ADRENAL GLANDS: Unremarkable KIDNEYS AND URETERS: The kidneys are normal in size, shape, and attenuation. No hydronephrosis, hydroureter, or calculi seen. No perinephric stranding. BLADDER: Unremarkable GASTROINTESTINAL TRACT: There is scattered stool, gas and diverticuli seen throughout the colon without distention. The small bowel loops are normal caliber. Appendix normal caliber. The stomach is nondistended. No free air or free fluid seen. ABDOMINAL WALL: No significant hernia is appreciated. LYMPH NODES: Normal VASCULAR: Unremarkable PELVIC VISCERA: The uterus is anteverted and appears unremarkable. No free air or free fluid seen. OSSEOUS STRUCTURES: No aggressive lytic or sclerotic process seen. CT/CT abdomen pelvis w IV con IMPRESSION: 1. No acute intra-abdominal process seen. 2. Mild colonic diverticulosis and constipation. Normal appendix. Fleischner guidelines were followed.
[2022-03-27] MEDS: Barium Sulfate Oral (Vanilla) 450 ML ORAL.SUSP 900 ML PO (11:21)
[2022-03-27] MEDS: iohexoL 350 MG/ML 100 ML INFUS..BTL IV (11:21)
== END 2022-03-27 08:53 | disposition home or self-care (01) ==
LOC: HO.CT 08:52
PROVIDERS: PCP Internal Medicine; Visit Provider Nurse Practitioner Family
DX: R10.13 Epigastric pain (principal); R14.0 Abdominal distension (gaseous)
CPT/HCPCS: 74177; Q9967

== ENCOUNTER 2022-04-17 12:31 | Outpatient (REF) | payer MEDICARE, MEDICAID, SELFPAY | END 2022-04-17 12:32 | disposition home or self-care (01) | LOC: HO.MDS 12:31 | PROVIDERS: Visit Provider Internal Medicine Pulmonary Disease | DX: J45.50 Severe persistent asthma, uncomplicated (principal); A28 Other zoonotic bacterial diseases, not elsewhere classified; R10.13 Epigastric pain; R14.0 Abdominal distension (gaseous); R19.7 Diarrhea, unspecified | CPT/HCPCS: 96372; 99212 ==

== ENCOUNTER 2022-05-15 09:54 | Outpatient (REF) | payer MEDICARE, MEDICAID, SELFPAY | END 2022-05-15 09:55 | disposition home or self-care (01) | LOC: HO.MDS 09:54 | PROVIDERS: Visit Provider Internal Medicine Pulmonary Disease | DX: J45.50 Severe persistent asthma, uncomplicated (principal) | CPT/HCPCS: 96372 ==

== ENCOUNTER → 2022-05-17 10:11 | Outpatient (BNVA) | payer MEDICARE, MEDICAID, SELFPAY | PROVIDERS: Visit Provider Nurse Practitioner Family | DX: A09 Infectious gastroenteritis and colitis, unspecified (principal); R10.13 Epigastric pain | CPT/HCPCS: 99212 ==

== ENCOUNTER → 2022-07-05 11:05 | Outpatient (BNVA) | payer MEDICARE, MEDICAID, SELFPAY | PROVIDERS: Visit Provider Nurse Practitioner Family | DX: K59.1 Functional diarrhea (principal); K58.2 Mixed irritable bowel syndrome; R10.13 Epigastric pain | CPT/HCPCS: 99212 ==

== ENCOUNTER 2022-07-06 12:19 | Outpatient (REF) | payer MEDICARE, MEDICAID, SELFPAY | END 2022-07-06 12:20 | disposition home or self-care (01) | LOC: HO.MDS 12:19 | PROVIDERS: Visit Provider Internal Medicine Pulmonary Disease | DX: J45.50 Severe persistent asthma, uncomplicated (principal) | CPT/HCPCS: 96372; J2357 ==

== ENCOUNTER 2022-07-28 12:08 | Outpatient (REF) | payer MEDICARE, MEDICAID, SELFPAY ==
--- NOTE | ~2022-07-28 | MM_ITS ---
EXAMINATION: MM SCREENING DIGITAL BREAST TOMOSYNTHESIS, BILATERAL CLINICAL INFORMATION: Screening. Asymptomatic. The lifetime risk of breast cancer based on the Tyrer-Cuzick Model is 3%. COMPARISON: Mammography: 06/20/2021, 06/02/2020, 05/27/2019 TECHNIQUE: Digital breast tomosynthesis is performed in both the craniocaudal and mediolateral oblique views along with computer-aided detection (CAD). Synthesized 2D images are generated from the tomosynthesis. FINDINGS: There are scattered areas of fibroglandular density (ACR BI-RADS breast composition Category b). There are no significant masses, abnormal calcifications, or other abnormalities. No architectural abnormality or developing density or significant change from prior studies. The axilla are unremarkable. The skin contours are smooth. MM/MM tomosynthesis screening BI IMPRESSION: No mammographic evidence of malignancy. ASSESSMENT: BI-RADS 1: Negative RECOMMENDATION: Routine annual mammography screening. This patient's information was entered into a reminder system with a target due date for their next mammogram.
== END 2022-07-28 12:09 | disposition home or self-care (01) ==
LOC: HO.MAMMO 12:08
PROVIDERS: Visit Provider Internal Medicine
DX: Z12.31 Encounter for screening mammogram for malignant neoplasm of breast (principal)
CPT/HCPCS: 77063; 77067

== ENCOUNTER 2022-08-03 09:10 | Outpatient (REF) | payer MEDICARE, MEDICAID, SELFPAY | END 2022-08-03 09:11 | disposition home or self-care (01) | LOC: HO.MDS 09:10 | PROVIDERS: Visit Provider Internal Medicine Pulmonary Disease | DX: J45.50 Severe persistent asthma, uncomplicated (principal) | CPT/HCPCS: 96372 ==

== ENCOUNTER → 2022-08-24 11:01 | Outpatient (BNVA) | payer MEDICARE, MEDICAID, SELFPAY | PROVIDERS: Visit Provider Nurse Practitioner Family | DX: M79.7 Fibromyalgia (principal); R20.0 Anesthesia of skin; R20.2 Paresthesia of skin | CPT/HCPCS: 99212 ==

== ENCOUNTER 2022-09-01 09:43 | Outpatient (REF) | payer MEDICARE, MEDICAID, SELFPAY | END 2022-09-01 09:44 | disposition home or self-care (01) | LOC: HO.MDS 09:43 | PROVIDERS: Visit Provider Internal Medicine Pulmonary Disease | DX: J45.50 Severe persistent asthma, uncomplicated (principal) | CPT/HCPCS: 96372 ==

== ENCOUNTER → 2022-09-18 09:56 | Outpatient (BNVA) | payer OTHER, SELFPAY | PROVIDERS: PCP General Practice; Visit Provider Nurse Practitioner Family | DX: K58.9 Irritable bowel syndrome, unspecified (principal); K21.9 Gastro-esophageal reflux disease without esophagitis; D36.9 Benign neoplasm, unspecified site; R10.13 Epigastric pain | CPT/HCPCS: 99212 ==

== ENCOUNTER 2022-09-29 11:39 | Outpatient (REF) | payer OTHER, SELFPAY | END 2022-09-29 11:40 | disposition home or self-care (01) | LOC: HO.MDS 11:39 | PROVIDERS: Visit Provider Internal Medicine Pulmonary Disease | DX: J45.50 Severe persistent asthma, uncomplicated (principal) | CPT/HCPCS: 96372; 99212 ==

== ENCOUNTER 2022-10-24 10:07 | Outpatient (REF) | payer OTHER, SELFPAY | END 2022-10-24 10:08 | disposition home or self-care (01) | LOC: HO.MDS 10:07 | PROVIDERS: Visit Provider Internal Medicine Pulmonary Disease | DX: J45.50 Severe persistent asthma, uncomplicated (principal) | CPT/HCPCS: 96372; J2357 ==

== ENCOUNTER 2022-11-17 10:34 | Day surgery (SDC) | payer OTHER, SELFPAY ==
[2022-11-15 09:18] VITALS: BMI 32.6
--- NOTE | 2022-11-16 10:29 | HO.ANESPROP2 ---
Documented by User: Keiry Garcia NP 11/16/22 10:31 HPI - Anesthesia Eval Consult details Narrative: 67yo F for Upper Endoscopy and Colonoscopy PMFSH Active Problems Active Problems: All Active Problems (Updated 09/18/22 @ 10:42 by Blanquita Hawkins, [facility]) ИВАН (obstructive sleep apnea) (Acute) Fibromyalgia (Acute) Environmental allergies (Acute) Tubulovillous adenoma (Acute) Extraintestinal yersiniosis (Acute) Asthma (Acute) Past Medical History Medical History Asthma Extraintestinal yersiniosis GERD (gastroesophageal reflux disease) IBS (irritable bowel syndrome) Sleep apnea Tubulovillous adenoma Family History Family History Mother Diabetes Hypertension Father Prostate cancer Family history of problems with anesthesia: No Surgical History Surgical History Hx of colonoscopy Hx of endoscopy Hx of eye surgery History of Problems with Anesthesia: No Social History Social History Household Members: Spouse and Children Housing: House Are you a primary animal care worker to a significant other at home: No Do you presently have visiting nurse or other home services: No Patient Tobacco Use Status: Never used Tobacco Use of substances other than those prescribed or required for medical reasons: No Are you DNR?: No Advance Directives: No Advance Directives Information Provided: Yes Meds Allergies Allergy/AdvReac Type Severity Reaction Status Date / Time No Known Allergies Allergy Verified 09/29/22 13:19 Home Medications Medication Instructions Recorded Confirmed Last Taken Type acetaminophen 650 mg 650 mg PO Q8H 03/30/20 11/15/22 Unknown History tablet,extended release (Tylenol Arthritis Pain) cetirizine 10 mg capsule (Zyrtec) 10 mg PO DAILY 03/30/20 11/15/22 Unknown History latanoprost 0.005 % eye drops 1 drp ophthalmic (eye) DAILY 03/30/20 11/15/22 Unknown History cyanocobalamin (vitamin B-12) 50 50 mcg PO DAILY 10/27/21 11/15/22 Unknown History mcg tablet (Vitamin B-12) cholecalciferol (vitamin D3) 50 50 mcg PO DAILY 02/14/22 11/15/22 Unknown History mcg (2,000 unit) capsule (Vitamin D3) escitalopram oxalate 10 mg tablet 10 mg PO DAILY 02/14/22 11/15/22 Unknown History rosuvastatin 5 mg tablet 5 mg PO DAILY 02/14/22 11/15/22 Unknown History ibuprofen 800 mg tablet 800 mg PO TID 08/24/22 11/15/22 Unknown History losartan 25 mg tablet 25 mg PO QAM 09/18/22 11/15/22 11/17/22 History Exam Exam Date and Time: November 16, 2022 1029 Height,Weight and Vital Signs: Height 5 ft 2 in Weight 80.739 kg Assessment and Plan Assessment Anesthesia Assessment: Chart Reviewed Final Anesthetic Review Family History of Problems with Anesthesia: No History of Problems with Anesthesia: No Documented by User: Orquidea Molina MD 11/17/22 13:12 [facility] Past Medical History Medical History Asthma Extraintestinal yersiniosis GERD (gastroesophageal reflux disease) IBS (irritable bowel syndrome) Sleep apnea Tubulovillous adenoma Family History Family History Mother Diabetes Hypertension Father Prostate cancer Surgical History Surgical History Hx of colonoscopy Hx of endoscopy Hx of eye surgery Social History Social History Household Members: Spouse and Children Housing: House Are you a primary animal care worker to a significant other at home: No Do you presently have visiting nurse or other home services: No Patient Tobacco Use Status: Never used Tobacco Use of substances other than those prescribed or required for medical reasons: No Are you DNR?: No Advance Directives: No Advance Directives Information Provided: Yes Meds Allergies Allergy/AdvReac Type Severity Reaction Status Date / Time No Known Allergies Allergy Verified 09/29/22 13:19 Home Medications Medication Instructions Recorded Confirmed Last Taken Type acetaminophen 650 mg 650 mg PO Q8H 03/30/20 11/15/22 Unknown History tablet,extended release (Tylenol Arthritis Pain) cetirizine 10 mg capsule (Zyrtec) 10 mg PO DAILY 03/30/20 11/15/22 Unknown History latanoprost 0.005 % eye drops 1 drp ophthalmic (eye) DAILY 03/30/20 11/15/22 Unknown History cyanocobalamin (vitamin B-12) 50 50 mcg PO DAILY 10/27/21 11/15/22 Unknown History mcg tablet (Vitamin B-12) cholecalciferol (vitamin D3) 50 50 mcg PO DAILY 02/14/22 11/15/22 Unknown History mcg (2,000 unit) capsule (Vitamin D3) escitalopram oxalate 10 mg tablet 10 mg PO DAILY 02/14/22 11/15/22 Unknown History rosuvastatin 5 mg tablet 5 mg PO DAILY 02/14/22 11/15/22 Unknown History ibuprofen 800 mg tablet 800 mg PO TID 08/24/22 11/15/22 Unknown History losartan 25 mg tablet 25 mg PO QAM 09/18/22 11/15/22 11/17/22 History Exam Airway Mallampati Class: II TM Dist: >3cm Neck ROM: Full Heart: rrr Lungs: cta Assessment and Plan Assessment Anesthesia Assessment: Anesthesia Plan Discussed Final Anesthetic Review NPO: Yes ASA Class: II Final Preanesthetic Review: No Changes in Pt Med Stat, Meds/Allgs Chart Reviewed, Consent Obtained/Reviewed and Anes Risks/Benef Reviewed Patient Risk: Low Procedure Risk: Low Anesthetic Plan Anesthetic Plan: MAC: Disposition: Standard PACU
--- NOTE | 2022-11-17 12:43 | MHC.SHP ---
Pre-Procedural Eval Section A Date of Service: 11/17/22 The patient is an INPATIENT: No The History & Physical has been completed within 30 days and I have reviewed it.: No Section B Chief Complaint: Surveillance for colon polyps, GERD Relevant Family History (Specify if Yes): No Present Medications: see Short Stay Collaborative assessment Medical History: Significant History (Asthma Extraintestinal yersiniosis GERD (gastroesophageal reflux disease) IBS (irritable bowel syndrome) Sleep apnea Tubulovillous adenoma) History of Previous Operations: Relevant previous surgery/procedure and date(s) (Hx of colonoscopy Hx of endoscopy Hx of eye surgery) Allergies: Allergies Allergy/AdvReac Type Severity Reaction Status Date / Time No Known Allergies Allergy Verified 09/29/22 13:19 Review of Systems Sugical H&P ROS: Negative: Constitution, Cardiovascular, Respiratory and Gastrointestinal Exam Surgical H&P Exam: Normal: Heart, Normal: Lungs, Normal: Extremities and Normal: Abdomen Plan Diagnosis/Plan: Unchanged I have reviewed the history and physical and performed a pertinent physical examination on my patient. No changes have occurred unless specified. Time Spent With Patient Time: Total time managing care of this patient today ____ minutes.
[2022-11-17 12:48] VITALS: PULSE 68; RESP 18; TEMP 36.4; O2SAT 98; BMI 32.0
[2022-11-17 12:52] VITALS: BMI 32.0
[2022-11-17] MEDS: Lactated Ringers 1,000 ML 100 ML IVCONT (13:13)
[2022-11-17 13:14] VITALS: BP 149/67
--- NOTE | 2022-11-17 13:24 | P.OP_ITS ---
Operative Note Operative Note Date of Service: 11/17/22 Narrative: FLEXIBLE TRANSORAL UPPER GASTROINTESTINAL ENDOSCOPY WITH BIOPSIES AND COLONOSCOPY TILL CECUM WITH BIOPSIES Pre-op diagnosis: Surveillance of colon polyps, GERD Post-op diagnosis: GERD, gastritis, gastric polyps, colon polyps, diverticulosis hemorrhoids? Endoscopist:? King Morales MD Anesthesia:?MAC UPPER ENDOSCOPY Consent: Indications for the procedure and potential complications of bleeding, perforation, reaction to medications and missed diagnosis were discussed with the patient and informed consent was obtained. Instrument: Olympus GIF H 190 mid size upper endoscope Monitoring: Vital signs and clinical assessment, continuous EKG monitoring, Pulse oximetry, Carbon Dioxide monitoring and blood pressure monitoring were done throughout the procedure. Procedure: The patient was placed in the left lateral decubitis position and pre-procedure medications were administered and a bite block was placed. The endoscope was inserted into the mouth and advanced under direct vision to the third part of duodenum. A careful inspection was made as the upper endoscope was withdrawn including a retroflexed examination of the proximal stomach; Findings and interventions are described below. Findings: Larynx: Normal Esophagus: GE junction at 34 cms.? Multiple 1-2 cms tongues of possible Bhat's - biopsied. Stomach:?Multiple 10 to 15 mm benign appearing nodules in the antrum with central erosions - biopsied. Mild gastric antral erythema. Biopsies were obtained. Grade 2 flap valve on retroflexed examination of the cardia. Duodenum: Normal bulb and descending duodenum Intervention: Biopsies as noted above COLONOSCOPY PROCEDURE NOTE Consent: Indications for the procedure and potential complications of bleeding, perforation, reaction to medications and missed diagnosis were discussed with the patient and informed consent was obtained. Instrument: Olympus PCF H 190 L variable stiffness pediatric colonoscope Monitoring: Vital signs and clinical assessment, intermittent blood pressure monitoring, continuous EKG monitoring, Pulse oximetry and Carbon Dioxide monitoring were done throughout the procedure. Colon withdrawl time was 15 minutes. Procedure: The patient was placed in the left lateral decubitis position and pre-procedure medications were administered. After a digital rectal examination of the ano-rectum, the video colonoscope was inserted into the rectum and advanced through the colon to the cecum. The colonoscope was slowly withdrawn in a retrograde panoramic fashion and the colon mucosa was carefully examined including a retroflexed view of the rectum. Findings and interventions are described below. Procedure Difficulty: : Without difficulty Findings: Terminal Ileum: Not evaluated Cecum: Normal Ascending Colon: Polypectomy site visualized at 80 cms and no recurrent polyp seen. Scattered moderate diverticulosis in the entire colon Transverse Colon: A 4-5 mm sessile polyp - removed with a cold biopsy. Scattered moderate diverticulosis in the entire colon Descending Colon: Scattered moderate diverticulosis in the entire colon Sigmoid Colon: Moderate diverticulosis Rectum: Normal Ano-rectum: Moderate internal hemorrhoids Colon preparation: Good Impression and Post Procedure Diagnosis: Endoscopy Findings: ESOPHAGUS: Multiple 1-2 cms tongues of possible Bhat's - biopsied. STOMACH: Multiple 10 to 15 mm benign appearing nodules in the antrum with central erosions - biopsied. Mild gastric antral erythema. Biopsies were obtained. Colonoscopy Findings: One small polyp removed Moderate diverticulosis seen in the entire colon Moderate hemorrhoids on retroflexed exam. Plan: Await pathology results Patient has an appointment on 11/28/22 in the GI [facility] with Blanquita Hawkins FNP- [facility]. Repeat Colonoscopy interval based on path results - in 3 years if polyps are adenomatous and due to a history of multiple adenomatous colon polyps. Above findings were reviewed with the patient and colon polyps handout was given in the discharge area
[2022-11-17 14:45] VITALS: BP 99/55; PULSE 102; RESP 16; TEMP 36.8; O2SAT 96
[2022-11-17 14:59] VITALS: BP 112/55; PULSE 84; RESP 18; O2SAT 98
== END 2022-11-17 15:18 | disposition home or self-care (01) ==
PROVIDERS: PCP General Practice; Visit Provider Internal Medicine Gastroenterology
PROC: (CPT 45380; principal; 2022-11-17 12:50)
DX: Z12.11 Encounter for screening for malignant neoplasm of colon (principal); Z86.010 Personal history of colon polyps; K63.5 Polyp of colon; K57.30 Diverticulosis of large intestine without perforation or abscess without bleeding; K64.8 Other hemorrhoids; K58.9 Irritable bowel syndrome, unspecified; K21.9 Gastro-esophageal reflux disease without esophagitis; K29.50 Unspecified chronic gastritis without bleeding; K31.89 Other diseases of stomach and duodenum; J45.909 Unspecified asthma, uncomplicated; A28 Other zoonotic bacterial diseases, not elsewhere classified; G47.33 Obstructive sleep apnea (adult) (pediatric); Z79.899 Other long term (current) drug therapy
CPT/HCPCS: 45380; 43239; 88305; 88342

== ENCOUNTER → 2022-11-17 10:34 | Outpatient (BNV) | payer OTHER, SELFPAY | PROVIDERS: PCP General Practice; Visit Provider Internal Medicine Gastroenterology | DX: Z12.11 Encounter for screening for malignant neoplasm of colon (principal); Z86.010 Personal history of colon polyps; K29.70 Gastritis, unspecified, without bleeding; D12.3 Benign neoplasm of transverse colon; K57.30 Diverticulosis of large intestine without perforation or abscess without bleeding | CPT/HCPCS: 43239; 45380 ==

== ENCOUNTER 2022-11-21 10:43 | Outpatient (REF) | payer OTHER, SELFPAY | END 2022-11-21 10:44 | disposition home or self-care (01) | LOC: HO.MDS 10:43 | PROVIDERS: Visit Provider Internal Medicine Pulmonary Disease | DX: J45.50 Severe persistent asthma, uncomplicated (principal) | CPT/HCPCS: 96372 ==

== ENCOUNTER 2022-11-28 10:05 | Outpatient (AMB) | payer OTHER, MEDICAID, SELFPAY ==
--- NOTE | 2022-11-28 10:26 | A.OFFVIS_ITS ---
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 Patient will be scheduled for repeat colonoscopy today. Patient denies any melena, hematochezia, unintentional weight loss ribbon like stools. Patient denies any respiratory or cardiac symptoms. Taking her asthma medication and reports having no issues. No trouble with anesthesia in the past. No history of sleep apnea. Patient is not on any anticoagulation medication. Reminded patient about the importance of good bowel prep in clear liquid diet day before the procedure. What to expect before, during and after the procedure discussed with patient. Postprandial epigastric pain Occasional postprandial abdominal cramping and epigastric discomfort. Continue avoiding dietary triggers. IBS (irritable bowel syndrome) Occasional abdominal cramping and soft stool with certain food. Continue low FODMAP diet GERD (gastroesophageal reflux disease) Occasional postprandial epigastric discomfort. Discussed with patient avoiding dietary triggers in late night snacking. Staying upright for minimum 3 hours after meals discussed with patient. Patient will go for upper endoscopy. If patient continues to have inflammatory changes we will need to increase her pantoprazole to twice a day. I will see patient after the procedure, sooner on as needed basis. Patient is agreeable to this plan and verbalizes understanding of instructions. She was given the opportunity to ask questions and all questions answered. ? Thank you for allowing me to participate in her care Plan Medications New bisacodyl (Dulcolax (bisacodyl)) take 2 tabs at noon the day before your colonoscopy 10 mg (2 x 5 mg) PO ONCE 1 day 2 tabs 0RF Z12.11 polyethylene glycol 3350 (Miralax) As directed by gastroenterology department at [facility] 238 grams PO ONCE 238 grams 0RF Z12.11 Refilled pantoprazole 40 mg PO DAILY 90 tabs 2RF K21.9 UPPER ENDOSCOPY AND COLONOSCOPY Findings: Larynx:? Normal Esophagus:?GE junction at 34 cms.? Multiple 1-2 cms tongues of possible Bhat's - biopsied. Stomach:?Multiple 10 to 15 mm benign appearing nodules in the antrum with central erosions - biopsied. Mild gastric antral erythema. Biopsies were obtained. Grade 2 flap valve on retroflexed examination of the cardia. Duodenum:?Normal bulb and descending duodenum Intervention:?Biopsies as noted above Findings: Terminal Ileum: Not evaluated Cecum:? Normal Ascending Colon:??Polypectomy site visualized at 80 cms and no recurrent polyp seen. Scattered moderate diverticulosis in the entire colon Transverse Colon:??A 4-5 mm sessile polyp - removed with a cold biopsy.?? Scattered moderate diverticulosis in the entire colon Descending Colon:? Scattered moderate diverticulosis in the entire colon Sigmoid Colon:??Moderate diverticulosis Rectum:??Normal Ano-rectum:??Moderate internal hemorrhoids Colon preparation:? Good? Impression and Post Procedure Diagnosis: Endoscopy Findings: ESOPHAGUS: Multiple 1-2 cms tongues of possible Bhat's - biopsied. STOMACH: Multiple 10 to 15 mm benign appearing nodules in the antrum with central erosions - biopsied. Mild gastric antral erythema. Biopsies were obtained. Colonoscopy Findings: One small polyp removed Moderate diverticulosis seen in the entire colon Moderate hemorrhoids on retroflexed exam. Plan: Repeat Colonoscopy interval based on path results - in 3 years if polyps are adenomatous and due to a history of multiple adenomatous colon polyps. PATHOLOGY RESULTS Diagnosis A.? Stomach, antrum, biopsy:? Antral-type mucosa with mild chronic inactive inflammation; no Helicobacter organisms seen. B.? Stomach, antral nodule:? Antral-type mucosa with surface hyperplastic and regenerative changes, focal intestinal metaplasia and moderate chronic inactive inflammation; negative for dysplasia; no Helicobacter organisms seen. C.? EG junction, biopsy: - Cardiofundic-type mucosa with moderate chronic, focally active, inflammation; no intestinal metaplasia seen. - Squamous mucosa within normal limits. D.? Colon, transverse, polypectomy:? Hyperplastic mucosal polyp. TODAY'S VISIT: Patient is here today for follow-up and to discuss upper endoscopy and colonoscopy results. Patient reports that she has been feeling well for the most part. Reports that pantoprazole has been working. Patient states that she is having less epigastric discomfort and dyspepsia. Patient denies dysphagia or odynophagia. However patient does admit that occasionally she will feel anxious or depressed and will munch on food. Patient states that sometimes she feels like she overeats. She is seeing therapist right now. Patient does want to lose weight. Patient denies any ill effects from the prep, anesthesia or procedure itself. Patient denies melena, hematochezia, unintentional weight loss or ribbon like stools. Upper endoscopy and colonoscopy results and biopsy results discussed with patient. [facility] Medical History Asthma Extraintestinal yersiniosis GERD (gastroesophageal reflux disease) IBS (irritable bowel syndrome) Sleep apnea Tubulovillous adenoma Surgical History (Updated 11/28/22 @ 10:32 by Jatin Sanchez) History of esophagogastroduodenoscopy (EGD) Hx of colonoscopy Hx of endoscopy Hx of eye surgery Family History Mother Diabetes Hypertension Father Prostate cancer Social History Household Members: Spouse and Children Housing: House Are you a primary hospice care transitions coordinator to a significant other at home: No Do you presently have visiting nurse or other home services: No Patient Tobacco Use Status: Never used Tobacco Review of Systems Const Denies weight gain and Denies weight loss ENT Reports no additional complaints, Denies dysphagia and Denies odynophagia Card Reports no additional complaints Resp Reports no additional complaints GI Denies abdominal pain, Denies belching, Denies melena, Denies bloating, Denies change in bowel habits, Denies dysphagia, Denies excessive flatus, Denies dyspepsia, Denies heartburn, Denies diarrhea, Denies loose stools, Denies nause a, Denies odynophagia and Denies vomiting Musc Reports no additional complaints Neuro Reports no additional complaints Psych Reports no additional complaints Endo Reports no additional complaints Physical Exam Vital Signs: Last Vital Signs Pulse 66 11/28/22 10:27 BP 149/80 H 11/28/22 10:27 BMI result Body Mass Index 32.7 Const General: healthy appearing, no acute distress and well developed Nutritional Appearance: obese Orientation/consciousness: patient oriented x3 HEENT Head: Yes normal to inspection, Yes normocephalic and Yes atraumatic Face and sinus: Yes normal facial exam Mouth: Normal oral and palatal mucosa present Throat: Yes posterior oropharynx normal, Yes tonsils normal and Yes uvula midline Eyes General: appearance normal, both eyes and all related structures Neck Neck: Yes normal visual inspection, Yes full ROM and Yes trachea midline Thyroid: Thyroid normal Resp Effort & Inspection: normal respiratory effort, able to speak in complete sentences, no tracheal deviation and symmetric chest movement Auscultation: clear to auscultation bilaterally Cardio Rate: regular rate Heart sounds: S1 normal heart sound present and S2 normal heart sound present GI Inspection: Yes normal to inspection, No distended and Yes obesity Palpation (GI): Soft to palpation, not firm, nontender and No hepatosplenomegaly present Auscultation: normal bowel sounds General: Yes no CVA tenderness Back/Spine/Pelvis Back: no CVA tenderness Skin General skin exam: elasticity normal, turgor normal and dry skin Neuro General: patient oriented x3 Psych Appearance: grossly normal Mental Status: mental status grossly normal Speech and movement: Normal speech and movement present Affect: normal affect Assessment & Plan Assessment & Plan (1) Postprandial epigastric pain: Code(s): R10.13 - Epigastric pain Plan: Occasional postprandial epigastric pain. Patient was encouraged to eat smaller meals and more often avoid eating late at night. (2) IBS (irritable bowel syndrome): Code(s): K58.9 - Irritable bowel syndrome without diarrhea Qualifiers: Irritable bowel syndrome type: without diarrhea Qualified Code(s): K58.9 - Irritable bowel syndrome without diarrhea Plan: Low FODMAP diet discussed with patient. Patient admits that when she eats bread she has postprandial bloating. Patient will try to decrease carbs. Patient will increase fluid intake and activity to promote better bowel motility (3) Status post colonoscopy: Code(s): Z98.890 - Other specified postprocedural states Plan: Patient denies any ill effects from the prep, anesthesia or procedure itself. Hyperplastic polyp found however patient had tubulovillous adenoma in 2020 and will need to repeat colonoscopy in 3 years, sooner if clinically necessary (4) GERD (gastroesophageal reflux disease): Code(s): K21.9 - Gastro-esophageal reflux disease without esophagitis Qualifiers: Esophagitis presence: with esophagitis Esophagitis bleeding: without hemorrhage Qualified Code(s): K21.00 - Gastro-esophageal reflux disease with esophagitis, without bleeding Plan: Continue pantoprazole every morning half an hour before breakfast. Avoid dietary triggers and late night snacking. Staying upright for minimum 3 hours after meals discussed with patient. I will see patient in 6 months, sooner on as needed basis. Patient is agreeable to this plan and verbalizes understanding of instructions. She was given the opportunity to ask questions and all questions answered. Thank you for allowing me to participate in her care see his Medications: Discontinued sennosides (Natural Senna Laxative) Discontinued Reason: Patient no longer taking 8.6 mg PO BEDTIME 90 tabs 3RF constipation K59.00 - Constipation, unspecified Coding Level of Care Code Est Pt Level 3 (92431) Diagnoses Postprandial epigastric pain R10.13 IBS (irritable bowel syndrome) K58.9 Irritable bowel syndrome type: without diarrhea Status post colonoscopy Z98.890 GERD (gastroesophageal reflux disease) K21.00 Esophagitis presence: with esophagitis Esophagitis bleeding: without hemorrhage Time Spent (min) 35 Comment 20 minutes spent with patient and additional 15 minutes spent reviewing her records
[2022-11-28 10:27] VITALS: BP 149/80; PULSE 66; BMI 32.7
== END 2022-11-28 11:15 | disposition home or self-care (01) ==
PROVIDERS: PCP General Practice; Visit Provider Nurse Practitioner Family
DX: R10.13 Epigastric pain (principal); K58.9 Irritable bowel syndrome, unspecified; Z98.890 Other specified postprocedural states; K21.00 Gastro-esophageal reflux disease with esophagitis, without bleeding
CPT/HCPCS: 99213

== ENCOUNTER → 2022-11-28 10:05 | Outpatient (BNVA) | payer OTHER, MEDICAID, SELFPAY | PROVIDERS: PCP General Practice; Visit Provider Nurse Practitioner Family | DX: R10.13 Epigastric pain (principal); K21.00 Gastro-esophageal reflux disease with esophagitis, without bleeding; K58.9 Irritable bowel syndrome, unspecified; Z98.890 Other specified postprocedural states | CPT/HCPCS: 99212 ==

== ENCOUNTER 2022-12-19 11:09 | Outpatient (REF) | payer OTHER, MEDICAID, SELFPAY | END 2022-12-19 11:10 | disposition home or self-care (01) | LOC: HO.MDS 11:09 | PROVIDERS: Visit Provider Internal Medicine Pulmonary Disease | DX: J45.50 Severe persistent asthma, uncomplicated (principal) | CPT/HCPCS: 96372 ==

== ENCOUNTER 2023-01-08 11:33 | Outpatient (AMB) | payer OTHER, SELFPAY ==
[2023-01-08 11:35] VITALS: BP 130/67; PULSE 78; O2SAT 95; BMI 33.1
--- NOTE | 2023-01-08 11:35 | A.OFFVIS_ITS ---
Intake Vital Signs 01/08/23 11:35 Height 5 ft 2 in Weight 180 lb 12.465 oz BMI 33.1 BP 130/67 Blood Pressure Location Rt brachial Position Sitting Pulse 78 Pulse Source Doppler Pulse Oximetry (%) 95 Oxygen Delivery Method Room Air Intake Visit Reasons: asthma Allergies No Known Allergies Allergy (Verified 01/08/23 11:36) HPI asthma HPI Details 67-year-old lady, nonsmoker, followed fo r asthma and severe obstructive sleep apnea.? She continues to use CPAP with good control of her underlying sleep apnea symptoms.? After the last office visit patient states that his symptoms worsen despite being on Xolair. She continues to use Symbicort and albuterol MDI. She denies an acute exacerbation. [facility] Medical History Tubulovillous adenoma Extraintestinal yersiniosis GERD (gastroesophageal reflux disease) IBS (irritable bowel syndrome) Sleep apnea Asthma Surgical History (Updated 11/28/22 @ 10:32 by Jatin Sanchez) History of esophagogastroduodenoscopy (EGD) Hx of eye surgery Hx of endoscopy Hx of colonoscopy Family History Mother Diabetes Hypertension Father Prostate cancer Social History Household Members: Spouse and Children Housing: House Are you a primary manager critical care unit to a significant other at home: No Do you presently have visiting nurse or other home services: No Patient Tobacco Use Status: Never used Tobacco Review of Systems Const Denies daytime sleepiness, Denies excessive sweating, Denies fatigue, Denies fever(s), Denies lethargy, Denies malaise, Denies night sweats, Denies snoring and Denies weight loss Eyes Denies blurry vision and Denies itchy eyes ENT Denies nasal congestion, Denies post nasal drip, Denies sinus pain, Denies sinus pressure and Denies other ( Thrush) Card Denies chest pain, Denies pedal edema, Denies dyspnea, Denies orthopnea and Denies paroxysmal nocturnal dyspnea Resp Reports cough, Denies hemoptysis, Denies excessive phlegm production, Denies dyspnea, Denies snoring and Denies wheezing GI Denies abdominal pain and Denies heartburn Musc Denies myalgias, Denies arthralgias and Denies joint swelling Skin/Breast Denies rash Neuro Denies memory loss and Denies seizure-like activity Psych Denies abnormal sleep pattern, Denies anxiety and Denies memory loss Endo Denies excessive sweating, Denies fatigue and Denies heat intolerance Jose/Lymph Denies easy bruising Aller/Immun Denies itchy eyes, Denies seasonal rhinorrhea and Denies wheezing Physical Exam Vital Signs: Last Vital Signs Pulse 78 01/08/23 11:35 BP 130/67 01/08/23 11:35 Pulse Ox 95 01/08/23 11:35 Oxygen Delivery Method Room Air 01/08/23 11:35 BMI result Body Mass Index 33.1 Const General: no acute distress and alert Nutritional Appearance: not obese Orientation/consciousness: Other orientation findings ( oriented) HEENT Head: Yes atraumatic Eyes General: appearance normal, both eyes and all related structures Sclerae: sclerae normal EOM: EOMs intact bilaterally Neck Neck: Yes supple Lymphatic: no lymphadenopathy noted Resp Effort & Inspection: normal respiratory effort and no use of accessory muscles Auscultation: clear to auscultation bilaterally Cardio Rate: regular rate Rhythm: regular rhythm Heart sounds: no gallops, no murmurs and no rubs Skin General skin exam: other ( warm) Extrem General: No clubbing, No cyanosis and No edema Assessment & Plan Assessment & Plan (1) Asthma: Code(s): J45.909 - Unspecified asthma, uncomplicated Plan: Suboptimal control on Xolair, will switch to Dupixent. Continue Symbicort and albuterol MDI. (2) Environmental allergies: Code(s): Z91.09 - Other allergy status, other than to drugs and biological substances Plan: Expect to improve Dupixent. (3) ИВАН (obstructive sleep apnea): Code(s): G47.33 - Obstructive sleep apnea (adult) (pediatric) Plan: Well controlled on current CPAP therapy. Continue CPAP therapy. Coding Level of Care Code Est Pt Level 4 (91702) Diagnoses Asthma J45.909 Environmental allergies Z91.09 ИВАН (obstructive sleep apnea) G47.33
== END 2023-01-08 11:52 | disposition home or self-care (01) ==
PROVIDERS: PCP General Practice; Visit Provider Internal Medicine Pulmonary Disease
DX: J45.909 Unspecified asthma, uncomplicated (principal); Z91.09 Other allergy status, other than to drugs and biological substances; G47.33 Obstructive sleep apnea (adult) (pediatric)
CPT/HCPCS: 99214

== ENCOUNTER → 2023-01-08 11:33 | Outpatient (BNVA) | payer OTHER, SELFPAY | PROVIDERS: PCP General Practice; Visit Provider Internal Medicine Pulmonary Disease | DX: J45.909 Unspecified asthma, uncomplicated (principal); G47.33 Obstructive sleep apnea (adult) (pediatric); Z91.09 Other allergy status, other than to drugs and biological substances; Z99.89 Dependence on other enabling machines and devices | CPT/HCPCS: 99212 ==

== ENCOUNTER 2023-01-29 09:57 | Outpatient (AMB) | payer MEDICARE, SELFPAY ==
[2023-01-29 11:19] VITALS: BP 122/60; PULSE 79; O2SAT 94
--- NOTE | 2023-01-29 11:19 | MHC.OFFVIS ---
Intake Vital Signs 01/29/23 11:19 Weight 81 kg BP 122/60 Blood Pressure Location Rt brachial Position Sitting Pulse 79 Pulse Source Pulse Oximeter Pulse Oximetry (%) 94 Oxygen Delivery Method Room Air Intake Visit Reasons: Dupixent teach Allergies No Known Allergies Allergy (Verified 01/29/23 11:20) Medication List - Last Reconciled 01/29/23 by Kathy Jimenes LPN acetaminophen ER (Tylenol Arthritis Pain) 650 mg PO Q8H albuterol sulfate 90 mcg/actuation (Ventolin HFA) 2 puffs PO Q4-6H PRN budesonide-formoterol 160-4.5 mcg/actuation (Symbicort) 2 puffs PO BID 30 days cetirizine (Zyrtec) 10 mg PO DAILY cholecalciferol (vitamin D3) (Vitamin D3) 50 mcg PO DAILY [cock up splint wear at night ] cyanocobalamin (vitamin B-12) (Vitamin B-12) 50 mcg PO DAILY dupilumab (Dupixent) 300 mg (2 mL) subcut Q2W 28 days escitalopram oxalate 10 mg PO DAILY ibuprofen 800 mg PO TID latanoprost 0.005% 1 drp ophthalmic (eye) DAILY losartan 25 mg PO QAM methylcellulose (laxative) (Citrucel) 500 mg PO DAILY pantoprazole 40 mg PO DAILY rosuvastatin 5 mg PO DAILY tizanidine 4 mg PO BEDTIME PRN HPI Dupixent teach HPI Details Zina is here for a Dupixent teach she was educated on hand washing, injection preparation, administration, and disposal.?Zina was able to return demonstrate proper technique for hand washing, injection preparation, administration and disposal of needle and states she has no questions at this time. Medication Dupixent 300mg/2mL pre-filled pens (patient?s own meds) Loading dose of 600mg given by the patient in 2 SQ injections; injection #1 R abdomen ;? injection #2 L abdomen Lot# [id number] expires 11/06/2024. Patient aware her next injection is in 15 days. Nurse visit only.? [facility] Medical History Tubulovillous adenoma Extraintestinal yersiniosis GERD (gastroesophageal reflux disease) IBS (irritable bowel syndrome) Sleep apnea Asthma Surgical History (Updated 11/28/22 @ 10:32 by Jatin Sanchez) History of esophagogastroduodenoscopy (EGD) Hx of eye surgery Hx of endoscopy Hx of colonoscopy Family History Mother Diabetes Hypertension Father Prostate cancer Social History Household Members: Spouse and Children Housing: House Are you a primary director of managed care to a significant other at home: No Do you presently have visiting nurse or other home services: No Patient Tobacco Use Status: Never used Tobacco Assessment & Plan Assessment & Plan (1) Asthma: Code(s): J45.909 - Unspecified asthma, uncomplicated Coding Level of Care Code Established Pt Est Pt Level 1 (21302) Patient Type Established Diagnoses Asthma J45.909 Comment NURSE VISIT ONLY
== END 2023-01-29 10:38 | disposition home or self-care (01) ==
PROVIDERS: PCP General Practice; Visit Provider Internal Medicine Pulmonary Disease
DX: J45.909 Unspecified asthma, uncomplicated (principal)

== ENCOUNTER → 2023-01-29 09:57 | Outpatient (BNVA) | payer MEDICARE, SELFPAY | PROVIDERS: PCP General Practice; Visit Provider Internal Medicine Pulmonary Disease | DX: Z71.89 Other specified counseling (principal); J45.909 Unspecified asthma, uncomplicated | CPT/HCPCS: 99211 ==

== ENCOUNTER 2023-03-08 11:01 | Outpatient (REF) | payer MEDICARE, SELFPAY ==
--- NOTE | ~2023-03-08 | XR_ITS ---
EXAMINATION: XR HIP, RIGHT CLINICAL INFORMATION: Chronic hip pain radiating from lower back no fracture or dislocation. COMPARISON: None available. TECHNIQUE: Two views of the right hip. FINDINGS: No significant hip joint narrowing. Visualized SI joint within normal limits. Visualized bony pelvis is intact. Phleboliths. XR/XR hip RT min 2V IMPRESSION: No acute bony pathology right hip.
== END 2023-03-08 11:02 | disposition home or self-care (01) ==
LOC: HO.HHCX 11:01
PROVIDERS: Visit Provider General Practice
DX: M25.551 Pain in right hip (principal)
CPT/HCPCS: 73502

== ENCOUNTER 2023-03-13 10:13 | Outpatient (AMB) | payer MEDICARE, SELFPAY ==
[2023-03-13 10:15] VITALS: BP 118/74; PULSE 83; O2SAT 95; BMI 33.1
--- NOTE | 2023-03-13 10:15 | A.OFFVIS_ITS ---
Intake Vital Signs 03/13/23 10:15 Height 5 ft 2 in Weight 180 lb 12.465 oz BMI 33.1 BP 118/74 Blood Pressure Location Rt brachial Position Sitting Pulse 83 Pulse Source Doppler Pulse Oximetry (%) 95 Oxygen Delivery Method Room Air Intake Visit Reasons: Asthma f/u Allergies No Known Allergies Allergy (Verified 03/13/23 10:19) HPI Asthma f/u HPI Details 67-year-old lady, nonsmoker, followed fo r asthma and severe obstructive sleep apnea.? Patient states that she can on the use CPAP as she fell that her symptoms are worse while using it. She also continues Symbicort, Ventolin, and she has been recently switched from Xolair to Dupixent though still with suboptimal control of her underlying chronic cough. [facility] Medical History (Updated 03/13/23 @ 10:28 by Miguel Rodriguez MD) Tubulovillous adenoma Extraintestinal yersiniosis GERD (gastroesophageal reflux disease) IBS (irritable bowel syndrome) Sleep apnea Asthma Surgical History (Updated 11/28/22 @ 10:32 by Jatin Sanchez) History of esophagogastroduodenoscopy (EGD) Hx of eye surgery Hx of endoscopy Hx of colonoscopy Family History Mother Diabetes Hypertension Father Prostate cancer Social History Household Members: Spouse and Children Housing: House Are you a primary geriatric personal care aide to a significant other at home: No Do you presently have visiting nurse or other home services: No Patient Tobacco Use Status: Never used Tobacco Review of Systems Const Denies daytime sleepiness, Denies excessive sweating, Denies fatigue, Denies fever(s), Denies lethargy, Denies malaise, Denies night sweats, Denies snoring and Denies weight loss Eyes Denies blurry vision and Denies itchy eyes ENT Denies nasal congestion, Denies post nasal drip, Denies sinus pain, Denies sinus pressure and Denies other ( Thrush) Card Denies chest pain, Denies pedal edema, Denies dyspnea, Denies orthopnea and Denies paroxysmal nocturnal dyspnea Resp Reports cough, Denies hemoptysis, Denies excessive phlegm production, Denies dyspnea, Denies snoring and Denies wheezing GI Denies abdominal pain and Denies heartburn Musc Denies myalgias, Denies arthralgias and Denies joint swelling Skin/Breast Denies rash Neuro Denies memory loss and Denies seizure-like activity Psych Denies abnormal sleep pattern, Denies anxiety and Denies memory loss Endo Denies excessive sweating, Denies fatigue and Denies heat intolerance Jose/Lymph Denies easy bruising Aller/Immun Denies itchy eyes, Denies seasonal rhinorrhea and Denies wheezing Physical Exam Vital Signs: Last Vital Signs Pulse 83 03/13/23 10:15 BP 118/74 03/13/23 10:15 Pulse Ox 95 03/13/23 10:15 Oxygen Delivery Method Room Air 03/13/23 10:15 BMI result Body Mass Index 33.1 Const General: no acute distress and alert Nutritional Appearance: not obese Orientation/consciousness: Other orientation findings ( oriented) HEENT Head: Yes atraumatic Eyes General: appearance normal, both eyes and all related structures Sclerae: sclerae normal EOM: EOMs intact bilaterally Neck Neck: Yes supple Lymphatic: no lymphadenopathy noted Resp Effort & Inspection: normal respiratory effort and no use of accessory muscles Auscultation: clear to auscultation bilaterally Cardio Rate: regular rate Rhythm: regular rhythm Heart sounds: no gallops, no murmurs and no rubs Skin General skin exam: other ( warm) Extrem General: No clubbing, No cyanosis and No edema Assessment & Plan Assessment & Plan (1) Asthma: Code(s): J45.909 - Unspecified asthma, uncomplicated Plan: Seizure from Xolair to Dupixent and had only several injections so far. Continue to monitor clinically. Continue Symbicort and albuterol MDI. (2) Environmental allergies: Code(s): Z91.09 - Other allergy status, other than to drugs and biological substances Plan: Expect to improve after switching Xolair to Dupixent. (3) ИВАН (obstructive sleep apnea): Code(s): G47.33 - Obstructive sleep apnea (adult) (pediatric) Plan: Patient is unable to tolerate CPAP at this time. (4) ILD (interstitial lung disease): Code(s): J84.9 - Interstitial pulmonary disease, unspecified Plan: Will obtain CT chest for further evaluation. Orders: Orders CT chest wo IV con Today J84.9 - Interstitial pulmonary disease, unspecified Medications: New codeine-guaifenesin 10-100 mg/5 mL 10 mL PO Q4-6H PRN 473 mL 0RF cold symptoms 15 days Coding Level of Care Code Est Pt Level 4 (33401) Diagnoses Asthma J45.909 Environmental allergies Z91.09 ИВАН (obstructive sleep apnea) G47.33 ILD (interstitial lung disease) J84.9
== END 2023-03-13 10:29 | disposition home or self-care (01) ==
PROVIDERS: PCP General Practice; Visit Provider Internal Medicine Pulmonary Disease
DX: J45.909 Unspecified asthma, uncomplicated (principal); Z91.09 Other allergy status, other than to drugs and biological substances; G47.33 Obstructive sleep apnea (adult) (pediatric); J84.9 Interstitial pulmonary disease, unspecified
CPT/HCPCS: 99214

== ENCOUNTER → 2023-03-13 10:13 | Outpatient (BNVA) | payer MEDICARE, SELFPAY | PROVIDERS: PCP General Practice; Visit Provider Internal Medicine Pulmonary Disease | DX: J45.909 Unspecified asthma, uncomplicated (principal); G47.33 Obstructive sleep apnea (adult) (pediatric); J84.9 Interstitial pulmonary disease, unspecified; Z91.09 Other allergy status, other than to drugs and biological substances | CPT/HCPCS: 99212 ==

== ENCOUNTER 2023-03-23 09:50 | Outpatient (AMB) | payer MEDICARE, SELFPAY ==
--- NOTE | 2023-03-23 10:00 | MHC.OFFVIS ---
Intake Vital Signs 03/23/23 10:01 Height 5 ft 2 in Weight 181 lb 10.574 oz BMI 33.2 BP 132/72 Blood Pressure Location Rt brachial Position Sitting Pulse 68 Pulse Source Pulse Oximeter Pulse Oximetry (%) 96 Oxygen Delivery Method Room Air Intake Visit Reasons: FM Intake Note: Patient presents today to follow up on fibromyalgia and hand pains.Patient presents today to follow up on fibromyalgia and hand pains. [employer] Required: No Allergies No Known Allergies Allergy (Verified 03/23/23 10:05) HPI HPI Comments History of Present Illness Details Mrs. Izaguirre is a 67yoF who presents for follow-up of fibromyalgia and multiple joint pain. Last seen in August 2022. His reports nothing has changed she continues to have pain over her body. Sleeping is a challenge at night she cannot sleep on either side due to the pain in her hips. The pain is also present more significantly on her right side when she tries to get up from seated position and walk. She also demonstrated that there is pain across her low back involving the top part of her buttocks right across. Patient reports that she has received an injection to her hips before that has helped her. The last injection was over 3 years ago. She reports that she has not received an injection since she started in this practice in though she has asked for it. She continues with ibuprofen 800 mg and tizanidine. She is also reporting of general feeling of malaise, fatigue and weakness. Prior visit Patient states she had increased low back pain last month. She states she saw her PCP and was prescribed flexeril and ibuprofen 800mg, she took these medications for a week and her symptoms improved. She states she is taking ibuprofen intermittently and was referred to physiatry, her first appt. is tomorrow. She states that her back pain is well controlled today. She reports bilateral hand pain and swelling in the morning. She states the swelling is throughout the entire hand and resolves during the day. She she reports a tingling feeling throughout both hands at this time. She reports continued head to toe pain due to her fibromyalgia. Fibromyalgia was diagnosed over 20 years ago. She states that pain is in her muscles and joints. She admits to skin sensitivity and feeling that ants are crawling on her skin. Admits to depression now follows with a psychiatrist. She admits to increased stress at home, she has a daughter with cerebral palsy. She admits to sleep disturbance. She states that she sleeps 1-2 hours a night. She states that she gets up to take care of her daughter at night. She tried multiple sleep medications in the past but they did not help her sleep. She continues to take escitalopram by her PCP. She states she does not exercise. She states that she tried Lyrica for 13 years and then gabapentin and found neither helpful. She has tried Cymbalta and had side effect of feeling in fight or flight. She states that the tizanidine helps her some and she continues to take this. Follows with [facility] for knee injections which help, last injection was approximately 1.5 yearsago. Also following with [facility] for a previous partial meniscus tear on the left knee. She states that her knee pain is intermittent and stable at this time. Following with pulmonary for asthma. She was started on Xolair with improvement in her symptoms. Following with GI for irritable bowel. Blood work in 2018 per review of note by Dr. Pfeiffer- C3, C4 normal, CRP 0.3, RF negative, TSH normal, FT4 normal, CMP wnl, BEN 1/80, CBC wnl, CCP negative, YO negative, SSA, SSB negative. These labs are not available to me for review. [facility] Medical History (Updated 03/26/23 @ 10:01 by NIKI SchroederH[facility]) Right sciatic nerve pain Piriformis syndrome of right side Inflammatory arthropathy Tubulovillous adenoma Extraintestinal yersiniosis GERD (gastroesophageal reflux disease) IBS (irritable bowel syndrome) Sleep apnea Asthma Surgical History History of esophagogastroduodenoscopy (EGD) Hx of eye surgery Hx of endoscopy Hx of colonoscopy Family History Mother Diabetes Hypertension Father Prostate cancer Social History Household Members: Spouse and Children Housing: House Are you a primary manager progressive care to a significant other at home: No Do you presently have visiting nurse or other home services: No Patient Tobacco Use Status: Never used Tobacco Review of Systems Const All systems reviewed & are unremarkable except as noted in HPI and below Physical Exam Vital Signs: Last Vital Signs Pulse 68 03/23/23 10:01 BP 132/72 03/23/23 10:01 Pulse Ox 96 03/23/23 10:01 Oxygen Delivery Method Room Air 03/23/23 10:01 BMI result Body Mass Index 33.2 APPEARANCE: Patient in no acute distress, well groomed and nourished. EYES: no redness, eyelids normal THROAT: Oral mucosa moist, no ulcerations NECK: No thyromegaly or masses, no adenopathy, trachea midline. HEART: Regular rhythm, S1-S2 heard, no murmurs, rubs or gallops. LUNG: Clear to auscultation, respiratory rate regular and non-labored. EXTREMITIES: No edema, no calf tenderness, normal peripheral pulses. NEURO: Oriented and alert x3. No focal weakness. Gait normal. SKIN: No inflammatory or neoplastic lesions. Normal color and turgor JOINT EXAM:.?? Cervical Spine:? Full range of motion without pain; no tenderness to palpation of the cervical spine. Wide spread diffuse tenderness to palpation of the cervical spinal muscles. Thoracic Spine:? No tenderness on palpation. Lumbar Spine:? Alignment normal.? Full range of motion without pain. No tenderness. Hands:? Normal pain-free range of motion. Slight tenderness to palpation of bilateral CMC. No swelling, increased warmth or erythema. Able to make a full fist and has a good miller rod mill strength. Possibly some early Heberden's nodes throughout bilaterally. Tingling reported throughout both hands. Wrists:? Normal pain-free range of motion without tenderness, swelling, increased warmth or erythema. Elbows: Normal pain-free range of motion without tenderness, swelling, increased warmth or erythema. Shoulders:? Full range of motion without pain. No tenderness, weakness, swelling, increased warmth or erythema. Wide spread diffuse tenderness to palpation over the biceps and forearms. Hips: Full range of motion without pain. Marked tenderness to glutes right greater than left in the area of the piriformis Hip bursa: Mild tenderness R>L Knees: Normal pain-free range of motion without tenderness, swelling, increased warmth or erythema.? There is no effusion or crepitation Ankles:? Normal pain-free range of motion without tenderness, swelling, increased warmth or erythema. Feet:? Normal pain-free range of motion without tenderness, swelling, increased warmth or erythema. Tender points: Tenderness to digital palpation at the occiput, trapezius, second rib, lateral epicondyle, knees, greater trochanter and gluteal area bilaterally. Office Procedures Joint Injection/Drain Joint Injection/Drain Injected: 40 mg of, Kenalog, with 1 mL of and 1% plain lidocaine Approach Used: posterolateral Coding 82433 - Sternocleidomastoid/Piriformis Procedure code (CPT) selection complete Results Reviewed Results Reviewed: 07/28/2022 mammogram within normal limits 02/25/2022 abdominal/pelvis CT CT/CT abdomen pelvis w IV con IMPRESSION: 1. No acute intra-abdominal process seen. 2. Mild colonic diverticulosis and constipation. Normal appendix. 02/22/2022 lumbar sacral spine x-ray FINDINGS: Bone alignment is normal. No fracture or dislocation. Mild disc space narrowing at L2-L3. Lower lumbar spine facet arthritis. XR/XR lumbar spine 2-3V IMPRESSION: Mild degenerative changes. 01/12/2021 left knee x-ray FINDINGS: Bony alignment and mineralization are normal. The lateral and medial joint space compartments are well-maintained. The patellofemoral joint space compartment is well-maintained. There are tiny peripheral osteophytes of the upper, lateral and lower articular surfaces of the patella. There is no fracture or dislocation. There is a very small joint effusion. No foreign body is seen. XR/XR knee LT 4V IMPRESSION: 1. No left knee fracture or dislocation is seen. 2. There is a very small left knee joint effusion 3. There is mild osteoarthritic change of the left patellofemoral compartment. 10/27/2020 right knee x-ray FINDINGS: There is no evidence of acute fracture or dislocation of the right knee. No right knee effusion. There is irregularity with spurring about the undersurface of the patella. This is most prominent about the medial facet. XR/XR knee RT 3V IMPRESSION: Degenerative change of the right patellofemoral joint. 06/02/2020 bone density MM/XR DEXA axial skeleton IMPRESSION: 1. DIAGNOSIS: Osteopenia based on the lowest T-score value of -1.8 in the femoral neck applying World Health Organization criteria. 2. 10-YEAR FRACTURE RISK PREDICTION, FRAX: Major osteoporotic fracture (clinical spine, forearm, hip or shoulder) 5.3%. Hip fracture 0.7%. Assessment & Plan Assessment & Plan (1) Fibromyalgia: Code(s): M79.7 - Fibromyalgia (2) Numbness and tingling in both hands: Code(s): R20.0 - Anesthesia of skin; R20.2 - Paresthesia of skin Plan: Will trial cock-up splints as above. 30 minutes spent reviewing chart, evaluating patient and documenting. (3) Right sciatic nerve pain: Code(s): M54.31 - Sciatica, right side (4) Piriformis syndrome of right side: Code(s): G57.01 - Lesion of sciatic nerve, right lower limb Plan # Right Piriformis syndrome/sciatic nerve pain: There was marked tenderness to these areas on exam today. It seems reasonable that I gave her a cortisone injection to help to ease the discomfort. Also explained to patient that it is important to exercise to strgnthen and stretch these muscles to help reduce the risk of recurrent and persistence. We discuss and demonstrated what exercises can be beneficial - also recommended Youtube. #Hand Pain/Paraesthesia:There was no synovitis or joint dysfunction noted but she does have tenderness and mild redness to some heberden nodes She does have some osteoarthritis in both hands, I will obtain Xrays today to evaluate further for features of inflammation such as Osteopenia and erosions. She continues to use the cock-up splints at night and it helps her to s;eep with less feelings of paraesthesia. #Fibromyalgia: Patient with widespread diffuse tenderness to palpation over her muscles and multiple fibromyalgia tender points on exam. She has tried and failed lyrica, gabapentin and cymbalta. She is able to tolerate tizanidine, will continue tizanidine as needed. Encouraged patient to follow up with PCP and mental health providers. Continue escitalopram. Her back pain also continues on exam today. We will obtain updated labs for CB, CMP and inflammatory markers and others to assess any contributory causes to her general feeling of malaise, fatigue and weakness. Last available from 03/2022. Orders: Orders XR hand LT min 3V 03/23/23 M19.90 - Unspecified osteoarthritis, unspecified site XR foot RT min 3V 03/23/23 M19.90 - Unspecified osteoarthritis, unspecified site Comprehensive Met. Panel 03/23/23 M1. - Unspecified osteoarthritis, unspecified site Hepatitis A,B,C Profile 03/23/23 - Unspecified osteoarthritis, unspecified site T Spot TB 03/23/23 M1. - Unspecified osteoarthritis, unspecified site Cyclic Citrullinated Peptide 03/23/23 M1. - Unspecified osteoarthritis, unspecified site Rheumatoid Factor 03/23/23 - Unspecified osteoarthritis, unspecified site Creatine Kinase Total 03/23/23 - Unspecified osteoarthritis, unspecified site AMB Joint Injection/Aspiration 03/23/23 G57.01 - Lesion of sciatic nerve, right lower limb, M54.31 - Sciatica, right side XR hand RT min 3V 03/23/23 M1 - Unspecified osteoarthritis, unspecified site XR foot LT min 3V 03/23/23 M1 - Unspecified osteoarthritis, unspecified site Complete Blood Count Auto Diff 03/23/23 - Unspecified osteoarthritis, unspecified site C Reactive Protein 03/23/23. - Unspecified osteoarthritis, unspecified site Erythrocyte Sedimentation Rate 03/23/23. - Unspecified osteoarthritis, unspecified site Uric Acid 03/23/23 - Unspecified osteoarthritis, unspecified site HLA B27 03/23/23 - Unspecified osteoarthritis, unspecified site Medications: New prednisone 3 tablets per x 7 days, 2 tablets per day x 7 days, 1 tablet per day x 7 days 60 tabs 0RF Coding Level of Care Code Est Pt Level 4 (87663) Diagnoses Fibromyalgia M79.7 Numbness and tingling in both hands R20.0; R20.2 Right sciatic nerve pain M54.31 Piriformis syndrome of right side G57.01 CPT Codes Coding - Joint 3: 03448 - Sternocleidomastoid/Piriformis ([id number])
[2023-03-23 10:01] VITALS: BP 132/72; PULSE 68; O2SAT 96; BMI 33.2
== END 2023-03-23 11:14 | disposition home or self-care (01) ==
PROVIDERS: PCP General Practice; Visit Provider Nurse Practitioner Family
DX: M79.7 Fibromyalgia (principal); R20.0 Anesthesia of skin; R20.2 Paresthesia of skin; M54.31 Sciatica, right side; G57.01 Lesion of sciatic nerve, right lower limb
CPT/HCPCS: 20552; 99214

== ENCOUNTER 2023-03-23 09:50 | Outpatient (REF) | payer MEDICARE, SELFPAY ==
--- NOTE | ~2023-03-23 | XR_ITS ---
EXAMINATION: XR BILATERAL HAND AND WRIST SERIES XR BILATERAL FOOT SERIES CLINICAL INFORMATION: Unspecified arthritis. COMPARISON: None available. TECHNIQUE: 3 views of each hand and wrist. 3 views of each foot. FINDINGS: RIGHT HAND AND WRIST: First Carpometacarpal Joint: Mild osteoarthritis manifested by marginal osteophytes. No marginal erosions or joint space narrowing. The remaining bones, joints and soft tissues are unremarkable. LEFT HAND AND WRIST: The bones, joints and soft tissues are normal. No marginal erosions or joint space narrowing. RIGHT FOOT: First Metatarsophalangeal Joint: Small marginal osteophytes without joint space narrowing indicative of mild osteoarthritis. Fourth DIP and PIP Joint: Mild osteoarthritis manifested by small subchondral cysts. Third DIP Joint: Subchondral cyst in the middle phalanx. No marginal erosions. No soft tissue calcification or malalignment. Small calcaneal spurs. LEFT FOOT: Small calcaneal spurs. The bones, joints and soft tissues are otherwise normal. No marginal erosions, joint space narrowing or abnormal soft tissue calcifications. XR/XR foot LT min 3V IMPRESSION: RIGHT HAND AND WRIST: Mild osteoarthritis of the 1st carpometacarpal joint. LEFT HAND AND WRIST: Normal. RIGHT FOOT: Mild osteoarthritis of the 1st metatarsophalangeal joint. Mild osteoarthritis of the 4th DIP and PIP joint. Calcaneal spurs. Left foot: Small calcaneal spurs.
--- NOTE | ~2023-03-23 | XR_ITS ---
EXAMINATION: XR BILATERAL HAND AND WRIST SERIES XR BILATERAL FOOT SERIES CLINICAL INFORMATION: Unspecified arthritis. COMPARISON: None available. TECHNIQUE: 3 views of each hand and wrist. 3 views of each foot. FINDINGS: RIGHT HAND AND WRIST: First Carpometacarpal Joint: Mild osteoarthritis manifested by marginal osteophytes. No marginal erosions or joint space narrowing. The remaining bones, joints and soft tissues are unremarkable. LEFT HAND AND WRIST: The bones, joints and soft tissues are normal. No marginal erosions or joint space narrowing. RIGHT FOOT: First Metatarsophalangeal Joint: Small marginal osteophytes without joint space narrowing indicative of mild osteoarthritis. Fourth DIP and PIP Joint: Mild osteoarthritis manifested by small subchondral cysts. Third DIP Joint: Subchondral cyst in the middle phalanx. No marginal erosions. No soft tissue calcification or malalignment. Small calcaneal spurs. LEFT FOOT: Small calcaneal spurs. The bones, joints and soft tissues are otherwise normal. No marginal erosions, joint space narrowing or abnormal soft tissue calcifications. XR/XR hand RT min 3V IMPRESSION: RIGHT HAND AND WRIST: Mild osteoarthritis of the 1st carpometacarpal joint. LEFT HAND AND WRIST: Normal. RIGHT FOOT: Mild osteoarthritis of the 1st metatarsophalangeal joint. Mild osteoarthritis of the 4th DIP and PIP joint. Calcaneal spurs. Left foot: Small calcaneal spurs.
--- NOTE | ~2023-03-23 | XR_ITS ---
EXAMINATION: XR BILATERAL HAND AND WRIST SERIES XR BILATERAL FOOT SERIES CLINICAL INFORMATION: Unspecified arthritis. COMPARISON: None available. TECHNIQUE: 3 views of each hand and wrist. 3 views of each foot. FINDINGS: RIGHT HAND AND WRIST: First Carpometacarpal Joint: Mild osteoarthritis manifested by marginal osteophytes. No marginal erosions or joint space narrowing. The remaining bones, joints and soft tissues are unremarkable. LEFT HAND AND WRIST: The bones, joints and soft tissues are normal. No marginal erosions or joint space narrowing. RIGHT FOOT: First Metatarsophalangeal Joint: Small marginal osteophytes without joint space narrowing indicative of mild osteoarthritis. Fourth DIP and PIP Joint: Mild osteoarthritis manifested by small subchondral cysts. Third DIP Joint: Subchondral cyst in the middle phalanx. No marginal erosions. No soft tissue calcification or malalignment. Small calcaneal spurs. LEFT FOOT: Small calcaneal spurs. The bones, joints and soft tissues are otherwise normal. No marginal erosions, joint space narrowing or abnormal soft tissue calcifications. XR/XR hand LT min 3V IMPRESSION: RIGHT HAND AND WRIST: Mild osteoarthritis of the 1st carpometacarpal joint. LEFT HAND AND WRIST: Normal. RIGHT FOOT: Mild osteoarthritis of the 1st metatarsophalangeal joint. Mild osteoarthritis of the 4th DIP and PIP joint. Calcaneal spurs. Left foot: Small calcaneal spurs.
--- NOTE | ~2023-03-23 | XR_ITS ---
EXAMINATION: XR BILATERAL HAND AND WRIST SERIES XR BILATERAL FOOT SERIES CLINICAL INFORMATION: Unspecified arthritis. COMPARISON: None available. TECHNIQUE: 3 views of each hand and wrist. 3 views of each foot. FINDINGS: RIGHT HAND AND WRIST: First Carpometacarpal Joint: Mild osteoarthritis manifested by marginal osteophytes. No marginal erosions or joint space narrowing. The remaining bones, joints and soft tissues are unremarkable. LEFT HAND AND WRIST: The bones, joints and soft tissues are normal. No marginal erosions or joint space narrowing. RIGHT FOOT: First Metatarsophalangeal Joint: Small marginal osteophytes without joint space narrowing indicative of mild osteoarthritis. Fourth DIP and PIP Joint: Mild osteoarthritis manifested by small subchondral cysts. Third DIP Joint: Subchondral cyst in the middle phalanx. No marginal erosions. No soft tissue calcification or malalignment. Small calcaneal spurs. LEFT FOOT: Small calcaneal spurs. The bones, joints and soft tissues are otherwise normal. No marginal erosions, joint space narrowing or abnormal soft tissue calcifications. XR/XR foot RT min 3V IMPRESSION: RIGHT HAND AND WRIST: Mild osteoarthritis of the 1st carpometacarpal joint. LEFT HAND AND WRIST: Normal. RIGHT FOOT: Mild osteoarthritis of the 1st metatarsophalangeal joint. Mild osteoarthritis of the 4th DIP and PIP joint. Calcaneal spurs. Left foot: Small calcaneal spurs.
[2023-03-23 11:44] LABS: MANUAL DIFF FLAG NO
[2023-03-23 11:57] LABS: Basophils Absolute Auto 0.1 X10*3/uL (0.0-0.2); Basophils Percent Auto 0.9 % (0-2); Eosinophils Absolute Auto 0.1 X10*3/uL (0.0-0.4); Hemoglobin 14.3 g/dl (12.0-16.0); Imm Gran Abs Auto 0.01 X10*3/uL (0.00-0.03); Imm Gran Pct Auto 0.2 % (0.0-0.4); Lymphocytes Absolute Auto 1.5 X10*3/uL (1.2-4.9); Lymphocytes Percent Auto 27.5 % (20-40); Mean Corpuscular Hemoglobin 29.7 pg (27.0-33.0); Mean Corpuscular Volume 87.3 fL (80.0-98.0); Mean Platelet Volume 10.4 fL (9.4-12.3); Monocytes Absolute Auto 0.5 X10*3/uL (0.1-1.2); Monocytes Percent Auto 8.8 % (2-11); Neutrophils Absolute Auto 3.4 x10*3/uL (2.0-8.3); Neutrophils Percent Auto 60.6 % (45-73); Platelet Count 291 X10*3/uL (160-400); Red Blood Count 4.81 X10*6/uL (4.20-5.50); Red Cell Distribution Width 12.3 % (11.0-16.0); White Blood Count 5.6 X10*3/uL (4.8-10.8)
[2023-03-23 12:18] LABS: Rheumatoid Factor < 13.0 IU/mL (<15.0)
[2023-03-23 12:21] LABS: Alanine Aminotransferase 18 U/L (0-31); Albumin Level 4.4 g/dL (3.5-5.0); Alkaline Phosphatase 71 U/L (39-117); Anion Gap 12 (12-20); Aspartate Amino Transferase 19 U/L (5-31); Bilirubin Total 0.3 mg/dL (0.0-1.0); Blood Urea Nitrogen 14 mg/dL (9-16); C Reactive Protein 0.41 mg/dL (< or = 0.50); Calcium 9.5 mg/dL (8.4-10.2); Carbon Dioxide 27 mmol/L (22-29); Chloride 104 mmol/L (96-108); Estimated Glomerular Filt Rate > 60; Glucose Random 100 mg/dL (60-115); Potassium 3.8 mmol/L (3.3-5.1); Sodium 139 mmol/L (135-145); Total Protein 7.3 g/dL (6.5-8.0); Uric Acid 3.7 mg/dL (2.4-5.7)
[2023-03-23 12:34] LABS: Erythrocyte Sedimentation Rate 9 MM/HR (0-20)
[2023-03-23 12:39] LABS: HBS Num1 0.62 mIU/mL (0-7.99); HBc Num1 0.13 S/CO (0.00-0.79); HBsAGNum1 0.24 S/CO (0.00-0.99); Hepatitis A Antibody IgM 0.21 Index (0-0.79); Hepatitis B Core Antibody Nonreactive (Nonreactive); Hepatitis B Surface Antigen Negative (Negative); ~HepC Num1 0.24 S/CO (0.00-0.79); ~Hepatitis A Antibody IgM Nonreactive (Nonreactive); ~Hepatitis B Surface Antibody NONREACTIVE (Nonreactive); ~Hepatitis C Antibody Nonreactive (Nonreactive)
[2023-03-25 23:54] LABS: TS Negative Control Passed; TS Panel A 0; TS Panel B 0; TS Positive Control Passed; TSpotTB Negative (Negative)
[2023-03-26 15:32] LABS: Cyclic Citrullinated Peptide <16 UNITS
[2023-03-28 20:22] LABS: HLA B27 Negative (Negative)
== END 2023-03-23 09:51 | disposition home or self-care (01) ==
LOC: HO.XRAY 09:50
PROVIDERS: PCP General Practice; Visit Provider Nurse Practitioner Family
DX: Z11.1 Encounter for screening for respiratory tuberculosis (principal); G57.01 Lesion of sciatic nerve, right lower limb; M19.90 Unspecified osteoarthritis, unspecified site; M79.7 Fibromyalgia; R20.0 Anesthesia of skin; R20.2 Paresthesia of skin
CPT/HCPCS: 20552; 36415; 73130; 73630; 80053; 82550; 84550; 85025; 85652; 86140; 86200; 86431; 86481; 86704; 86706; 86709; 86803; 86812; 87340; 99212

== ENCOUNTER 2023-04-18 08:52 | Outpatient (REF) | payer MEDICARE, SELFPAY ==
--- NOTE | ~2023-04-18 | CT_ITS ---
EXAMINATION: CT CHEST WITHOUT CONTRAST CLINICAL INFORMATION: Interstitial pulmonary disease. COMPARISON: CT abdomen and pelvis 03/27/2022, chest radiograph 12/23/2019. TECHNIQUE: Multidetector volumetric CT imaging of the chest was done. Axial MIP volume rendering provided. Sagittal and coronal reformatted images were obtained. This CT examination was performed using dose optimization techniques as appropriate, variously including the following: *Automated exposure control *Adjustment of mA and/or kV according to patient size (this includes techniques or standardized protocols for targeted exams where dose is matched to indication/reason for exam; i.e. extremities or head) *Use of iterative reconstruction technique DLP: 181 mGy-cm FINDINGS: CORPORATE TRAVEL EXPERT: Unremarkable. LUNGS: There is a 2 mm subpleural right upper lobe pulmonary nodule (11:69). The lungs are otherwise clear with no evidence of inflammation or concerning nodules. There is no evidence of interstitial lung disease. MEDIASTINUM: The mediastinum is normal. CORONARY ARTERY CALCIFICATION: None visualized on this study. PLEURA: There is no pleural effusion. No pleural mass or thickening. AXILLA: No lymphadenopathy. UPPER ABDOMEN: Liver demonstrates decreased attenuation consistent with steatosis. OSSEOUS STRUCTURES: Unremarkable. CT/CT chest wo IV con IMPRESSION: 1. No evidence of interstitial lung disease. 2. A 2 mm subpleural right upper lobe pulmonary nodule should need no followup. 3. Hepatic steatosis. According to the UPDATED 2017 Fleischner Society recommendations, the advised follow-up imaging for nodules <6 mm in the upper lobes is not necessarily required in low-risk patients. In high-risk patients with a nodule in the upper lobe and/or demonstrating suspicious morphology, an optional CT followup at 12 months may be obtained. If stable at 12 months, no further follow-up is recommended.
== END 2023-04-18 08:53 | disposition home or self-care (01) ==
LOC: HO.CT 08:52
PROVIDERS: PCP General Practice; Visit Provider Internal Medicine Pulmonary Disease
DX: J84.9 Interstitial pulmonary disease, unspecified (principal)
CPT/HCPCS: 71250

== ENCOUNTER 2023-05-08 10:38 | Outpatient (AMB) | payer MEDICARE, SELFPAY ==
--- NOTE | 2023-05-08 10:39 | A.OFFVIS_ITS ---
Intake Vital Signs 05/08/23 10:40 Height 5 ft 2 in Weight 182 lb 5.156 oz BMI 33.3 BP 102/60 Blood Pressure Location Lt brachial Position Sitting Pulse 72 Pulse Source Pulse Oximeter Temp 97 F Temp Source Skin Pulse Oximetry (%) 94 Oxygen Delivery Method Room Air Intake Visit Reasons: INflammatory Arthropathy, Right Sciatic Intake Note: Patient last seen 03/23/23 by Karl, presents today for follow up and test results. 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 Izaguirre is a 67yoF who presents for follow-up of Right sciatica and piriformis pain after injection at last visit 03/23/2023. She reports that her hips and buttocks is feeling beter and has no tenderness and she can sleep better, walk and sit without hesitation. She has been doing exercises whiich she says also helps. She still continues diffused body pain for which takes ibuprofen 800 mg, tylenol and tizanidine. Prior visit Patient states she had increased low back pain last month. She states she saw her PCP and was prescribed flexeril and ibuprofen 800mg, she took these medications for a week and her symptoms improved. She states she is taking ib uprofen intermittently and was referred to physiatry, her first appt. is tomorrow. She states that her back pain is well controlled today. She reports bilateral hand pain and swelling in the morning. She states the swelling is throughout the entire hand and resolves during the day. She she reports a tingling feeling throughout both hands at this time. She reports continued head to toe pain due to her fibromyalgia. Fibromyalgia was diagnosed over 20 years ago. She states that pain is in her muscles and joints. She admits to skin sensitivity and feeling that ants are crawling on her skin. Admits to depression now follows with a psychiatrist. She admits to increased stress at home, she has a daughter with cerebral palsy. She admits to sleep disturbance. She states that she sleeps 1-2 hours a night. She states that she gets up to take care of her daughter at night. She tried multiple sleep medications in the past but they did not help her sleep. She continues to take escitalopram by her PCP. She states she does not exercise. She states that she tried Lyrica for 13 years and then gabapentin and found neither helpful. She has tried Cymbalta and had side effect of feeling in fight or flight. She states that the tizanidine helps her some and she continues to take this. Follows with [facility] for knee injections which help, last injection was approximately 1.5 yearsago. Also following with [facility] for a previous partial meniscus tear on the left knee. She states that her knee pain is intermittent and stable at this time. Following with pulmonary for asthma. She was started on Xolair with improvement in her symptoms. Following with GI for irritable bowel. Blood work in 2018 per review of note by Dr. Pfeiffer- C3, C4 normal, CRP 0.3, RF negative, TSH normal, FT4 normal, CMP wnl, BEN 1/80, CBC wnl, CCP negative, YO negative, SSA, SSB negative. These labs are not available to me for review. [facility] Medical History (Updated 05/08/23 @ 11:26 by GABRIEL Schroeder-DRE) Elevated CK Osteoarthritis of hands, bilateral Right sciatic nerve pain Piriformis syndrome of right side Inflammatory arthropathy Tubulovillous adenoma Extraintestinal yersiniosis GERD (gastroesophageal reflux disease) IBS (irritable bowel syndrome) Sleep apnea Asthma Surgical History History of esophagogastroduodenoscopy (EGD) Hx of eye surgery Hx of endoscopy Hx of colonoscopy Family History Mother Diabetes Hypertension Father Prostate cancer Social History Household Members: Spouse and Children Housing: House Are you a primary reproductive healthcare assistant to a significant other at home: No Do you presently have visiting nurse or other home services: No Patient Tobacco Use Status: Never used Tobacco Review of Systems Const All systems reviewed & are unremarkable except as noted in HPI and below Physical Exam Vital Signs: Last Vital Signs Temp 97 F 05/08/23 10:40 Pulse 72 05/08/23 10:40 BP 102/60 05/08/23 10:40 Pulse Ox 94 05/08/23 10:40 Oxygen Delivery Method Room Air 05/08/23 10:40 BMI result Body Mass Index 33.3 APPEARANCE: Patient in no acute distress, well groomed and nourished. EYES: no redness, eyelids normal THROAT: Oral mucosa moist, no ulcerations NECK: No thyromegaly or masses, no adenopathy, trachea midline. HEART: Regular rhythm, S1-S2 heard, no murmurs, rubs or gallops. LUNG: Clear to auscultation, respiratory rate regular and non-labored. EXTREMITIES: No edema, no calf tenderness, normal peripheral pulses. NEURO: Oriented and alert x3. No focal weakness. Gait normal. SKIN: No inflammatory or neoplastic lesions. Normal color and turgor JOINT EXAM:.?? Cervical Spine:? Full range of motion without pain; no tenderness to palpation of the cervical spine. Wide spread diffuse tenderness to palpation of the cervical spinal muscles. Thoracic Spine:? No tenderness on palpation. Lumbar Spine:? Alignment normal.? Full range of motion without pain. No tenderness. Hands:? Normal pain-free range of motion. Slight tenderness to palpation of bilateral CMC. No swelling, increased warmth or erythema. Able to make a full fist and has a good associate director of development strength. Possibly some early Heberden's nodes throughout bilaterally. Tingling reported throughout both hands. Wrists:? Normal pain-free range of motion without tenderness, swelling, increased warmth or erythema. Elbows: Normal pain-free range of motion without tenderness, swelling, increased warmth or erythema. Shoulders:? Full range of motion without pain. No tenderness, weakness, swelling, increased warmth or erythema. Wide spread diffuse tenderness to palpation over the biceps and forearms. Hips: Full range of motion without pain. mild tenderness to left prirformis Hip bursa: Mild tenderness to Left Knees: Normal pain-free range of motion without tenderness, swelling, increased warmth or erythema.? There is no effusion or crepitation Ankles:? Normal pain-free range of motion without tenderness, swelling, increased warmth or erythema. Feet:? Normal pain-free range of motion without tenderness, swelling, increased warmth or erythema. Tender points: Tenderness to digital palpation at the occiput, trapezius, second rib, lateral epicondyle, knees. Results Reviewed Results Reviewed: Laboratory Tests 03/23/23 11:42 ESR 9 BUN 14 Creatinine 0.72 Estimated GFR > 60 Uric Acid 3.7 Total Creatine Kinase 216 H C-Reactive Protein 0.41 Rheumatoid Factor < 13.0 Cycl Citrul Peptide IgG <16 HLA-B27 Negative EXAMINATION: XR BILATERAL HAND AND WRIST SERIES XR BILATERAL FOOT SERIES CLINICAL INFORMATION: Unspecified arthritis. COMPARISON: None available. TECHNIQUE: 3 views of each hand and wrist. 3 views of each foot. FINDINGS: RIGHT HAND AND WRIST: First Carpometacarpal Joint: Mild osteoarthritis manifested by marginal osteophytes. No marginal erosions or joint space narrowing. The remaining bones, joints and soft tissues are unremarkable. LEFT HAND AND WRIST: The bones, joints and soft tissues are normal. No marginal erosions or joint space narrowing. RIGHT FOOT: First Metatarsophalangeal Joint: Small marginal osteophytes without joint space narrowing indicative of mild osteoarthritis. Fourth DIP and PIP Joint: Mild osteoarthritis manifested by small subchondral cysts. Third DIP Joint: Subchondral cyst in the middle phalanx. No marginal erosions. No soft tissue calcification or malalignment. Small calcaneal spurs. LEFT FOOT: Small calcaneal spurs. The bones, joints and soft tissues are otherwise normal. No marginal erosions, joint space narrowing or abnormal soft tissue calcifications. XR/XR hand RT min 3V IMPRESSION: RIGHT HAND AND WRIST: Mild osteoarthritis of the 1st carpometacarpal joint. LEFT HAND AND WRIST: Normal. RIGHT FOOT: Mild osteoarthritis of the 1st metatarsophalangeal joint. Mild osteoarthritis of the 4th DIP and PIP joint. Calcaneal spurs. Left foot: Small calcaneal spurs. Assessment & Plan Assessment & Plan (1) Right sciatic nerve pain: Code(s): M54.31 - Sciatica, right side (2) Piriformis syndrome of right side: Code(s): G57.01 - Lesion of sciatic nerve, right lower limb (3) Osteoarthritis of hands, bilateral: Code(s): M19.041 - Primary osteoarthritis, right hand; M19.042 - Primary osteoarthritis, left hand Qualifiers: Osteoarthritis type: primary Qualified Code(s): M19.041 - Primary osteoarthritis, right hand; M19.042 - Primary osteoarthritis, left hand (4) Elevated CK: Code(s): R74.8 - Abnormal levels of other serum enzymes Plan # Right Piriformis syndrome/sciatic nerve pain: The patient reports that this is better for her. The tenderness is resolved and she can walk and sleep better. She has also been doing exercises to stregnthen and stretch these muscles to help reduce the risk of recurrence and persistence. #OA/Hand Pain/Paraesthesia: Conitnues without synovitis or joint dysfunction. There is no tenderness or mild redness heberden nodes today. Xrays does show mild osteoarthritis in both hands,without features of inflammation such as Osteopenia and erosions. She says she occasionally uses the cock-up splints at night and it helps her to sleep with less feelings of paraesthesia. The serology for CCP, RF, HLAB27 and BEN is negative; Uric acid, ESR/CRP are WNL and no signs of symptoms of underlying CTD or inflammatory process. #Elevated CK: She was foind to have mild elevation (216). I do not know if this is chronic so will monitor with labs. She was started on statin last year and this may be related. The Liver enzymes are WNL. There is no marked weakness to her muscles on exams. -Fibromyalgia: Patient with widespread diffuse tenderness to palpation over her muscles and multiple fibromyalgia tender points on exam. She has tried and failed lyrica, gabapentin and cymbalta. She is able to tolerate tizanidine, will continue tizanidine as needed. Encouraged patient to follow up with PCP and mental health providers. Continue escitalopram. I spent 25 minutes reviewing chart and diagnostics, evaluating patient and documenting. Orders: Orders Erythrocyte Sedimentation Rate Today M19.041 - Primary osteoarthritis, right hand, M19.042 - Primary osteoarthritis, left hand, R74.8 - Abnormal levels of other serum enzymes C Reactive Protein Today M19.041 - Primary osteoarthritis, right hand, M19.042 - Primary osteoarthritis, left hand, R74.8 - Abnormal levels of other serum enzymes Creatine Kinase Total Today M19.041 - Primary osteoarthritis, right hand, M19.042 - Primary osteoarthritis, left hand, R74.8 - Abnormal levels of other serum enzymes Aldolase Today M19.041 - Primary osteoarthritis, right hand, M19.042 - Primary osteoarthritis, left hand, R74.8 - Abnormal levels of other serum enzymes Coding Level of Care Code Est Pt Level 3 (23204) Diagnoses Right sciatic nerve pain M54.31 Piriformis syndrome of right side G57.01 Primary osteoarthritis of both hands M19.041; M19.042 Osteoarthritis type: primary Elevated CK R74.8
[2023-05-08 10:40] VITALS: BP 102/60; PULSE 72; TEMP 36.1; O2SAT 94; BMI 33.3
== END 2023-05-08 11:07 | disposition home or self-care (01) ==
PROVIDERS: PCP General Practice; Visit Provider Nurse Practitioner Family
DX: G57.01 Lesion of sciatic nerve, right lower limb (principal); M19.041 Primary osteoarthritis, right hand; M19.042 Primary osteoarthritis, left hand; R74.8 Abnormal levels of other serum enzymes
CPT/HCPCS: 99213

== ENCOUNTER → 2023-05-08 10:38 | Outpatient (BNVA) | payer MEDICARE, SELFPAY | PROVIDERS: PCP General Practice; Visit Provider Nurse Practitioner Family | DX: M54.31 Sciatica, right side (principal); G57.01 Lesion of sciatic nerve, right lower limb; M19.041 Primary osteoarthritis, right hand; M19.042 Primary osteoarthritis, left hand; R74.8 Abnormal levels of other serum enzymes | CPT/HCPCS: 99212 ==

== ENCOUNTER 2023-05-16 10:23 | Outpatient (AMB) | payer MEDICARE, SELFPAY ==
[2023-05-16 10:26] VITALS: BP 132/78; PULSE 85; O2SAT 95; BMI 34.1
--- NOTE | 2023-05-16 10:26 | A.OFFVIS_ITS ---
Intake Vital Signs 05/16/23 10:26 Height 5 ft 2 in Weight 186 lb 4.65 oz BMI 34.1 BP 132/78 Blood Pressure Location Rt brachial Position Sitting Pulse 85 Pulse Source Doppler Pulse Oximetry (%) 95 Oxygen Delivery Method Room Air Intake Visit Reasons: Asthma Allergies No Known Allergies Allergy (Verified 05/16/23 10:30) HPI Asthma HPI Details 68-year-old lady, nonsmoker, followed fo r asthma and severe obstructive sleep apnea.? Patient states that she can on the use CPAP as she fell that her symptoms are worse while using it. She also continues Symbicort, Ventolin, and Dupixent with some improvement in symptoms. However, she still continues to complain of her chronic cough. She did have COVID in the beginning of April, but now has recovered from it. [facility] Medical History (Updated 05/16/23 @ 10:38 by Miguel Rodriguez MD) Elevated CK Osteoarthritis of hands, bilateral Right sciatic nerve pain Piriformis syndrome of right side Inflammatory arthropathy Tubulovillous adenoma Extraintestinal yersiniosis GERD (gastroesophageal reflux disease) IBS (irritable bowel syndrome) Sleep apnea Asthma Surgical History History of esophagogastroduodenoscopy (EGD) Hx of eye surgery Hx of endoscopy Hx of colonoscopy Family History Mother Diabetes Hypertension Father Prostate cancer Social History Household Members: Spouse and Children Housing: House Are you a primary skin care technician to a significant other at home: No Do you presently have visiting nurse or other home services: No Patient Tobacco Use Status: Never used Tobacco Review of Systems Const Denies daytime sleepiness, Denies excessive sweating, Denies fatigue, Denies fever(s), Denies lethargy, Denies malaise, Denies night sweats, Denies snoring and Denies weight loss Eyes Denies blurry vision and Denies itchy eyes ENT Denies nasal congestion, Denies post nasal drip, Denies sinus pain, Denies sinus pressure and Denies other ( Thrush) Card Denies chest pain, Denies pedal edema, Denies dyspnea, Denies orthopnea and Denies paroxysmal nocturnal dyspnea Resp Reports cough, Denies hemoptysis, Denies excessive phlegm production, Denies dyspnea, Denies snoring and Denies wheezing GI Denies abdominal pain and Denies heartburn Musc Denies myalgias, Denies arthralgias and Denies joint swelling Skin/Breast Denies rash Neuro Denies memory loss and Denies seizure-like activity Psych Denies abnormal sleep pattern, Denies anxiety and Denies memory loss Endo Denies excessive sweating, Denies fatigue and Denies heat intolerance Jose/Lymph Denies easy bruising Aller/Immun Denies itchy eyes, Denies seasonal rhinorrhea and Denies wheezing Physical Exam Vital Signs: Last Vital Signs Pulse 85 05/16/23 10:26 BP 132/78 05/16/23 10:26 Pulse Ox 95 05/16/23 10:26 Oxygen Delivery Method Room Air 05/16/23 10:26 BMI result Body Mass Index 34.1 Const General: no acute distress and alert Nutritional Appearance: not obese Orientation/consciousness: Other orientation findings ( oriented) HEENT Head: Yes atraumatic Eyes General: appearance normal, both eyes and all related structures Sclerae: sclerae normal EOM: EOMs intact bilaterally Neck Neck: Yes supple Lymphatic: no lymphadenopathy noted Resp Effort & Inspection: normal respiratory effort and no use of accessory muscles Auscultation: clear to auscultation bilaterally Cardio Rate: regular rate Rhythm: regular rhythm Heart sounds: no gallops, no murmurs and no rubs Skin General skin exam: other ( warm) Extrem General: No clubbing, No cyanosis and No edema Assessment & Plan Assessment & Plan (1) Asthma: Code(s): J45.909 - Unspecified asthma, uncomplicated Plan: Baseline control on Symbicort and albuterol MDI. Cough component with some improvement on Dupixent. Will continue with therapeutic trial for another few months. (2) Environmental allergies: Code(s): Z91.09 - Other allergy status, other than to drugs and biological substances Plan: Some improvement on Dupixent, continue current regimen. Coding Level of Care Code Est Pt Level 4 (24649) Diagnoses Asthma J45.909 Environmental allergies Z91.09
== END 2023-05-16 10:37 | disposition home or self-care (01) ==
PROVIDERS: PCP General Practice; Visit Provider Internal Medicine Pulmonary Disease
DX: J45.909 Unspecified asthma, uncomplicated (principal); Z91.09 Other allergy status, other than to drugs and biological substances
CPT/HCPCS: 99214

== ENCOUNTER → 2023-05-16 10:23 | Outpatient (BNVA) | payer MEDICARE, SELFPAY | PROVIDERS: PCP General Practice; Visit Provider Internal Medicine Pulmonary Disease | DX: J45.909 Unspecified asthma, uncomplicated (principal); Z91.09 Other allergy status, other than to drugs and biological substances | CPT/HCPCS: 99212 ==

== ENCOUNTER 2023-05-29 10:11 | Outpatient (AMB) | payer MEDICARE, SELFPAY ==
[2023-05-29 10:16] VITALS: BP 141/66; PULSE 74; BMI 33.5
--- NOTE | 2023-05-29 10:16 | A.OFFVIS_ITS ---
Intake Vital Signs 05/29/23 10:16 Height 5 ft 2 in Weight 183 lb BMI 33.5 BP 141/66 H Blood Pressure Location Rt brachial Position Sitting Pulse 74 Pulse Source Monitor Intake Visit Reasons: 6 month follow up Intake Note: Patient states she is feeling well no GI concerns for today. 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 Patient was encouraged to eat smaller meals and more often avoid eating late at night. IBS (irritable bowel syndrome) Low FODMAP diet discussed with patient. Patient admits that when she eats bread she has postprandial bloating. Patient will try to decrease carbs. Patient will increase fluid intake and activity to promote better bowel motility Status post colonoscopy Patient denies any ill effects from the prep, anesthesia or procedure itself. Hyperplastic polyp found however patient had tubulovillous adenoma in 2020 and will need to repeat colonoscopy in 3 years, sooner if clinically necessary GERD (gastroesophageal reflux disease) Continue pantoprazole every morning half an hour before breakfast. Avoid dietary triggers and late night snacking. Staying upright for minimum 3 hours after meals discussed with patient. I will see patient in 6 months, sooner on as needed basis. Patient is agreeable to this plan and verbalizes understanding of instructions. She was given the opportunity to ask questions and all questions answered. ? Thank you for allowing me to participate in her care see his Plan Medications Discontinued sennosides (Natural Senna Laxative) Discontinued Reason: Patient no longer taking 8.6 mg PO BEDTIME 90 tabs 3RF constipation K59.00 - Constipation, unspecified TODAY'S VISIT Patient is here today for follow-up. Patient reports that she has been feeling better. Continues to take pantoprazole every morning in her symptoms of acid reflux are suppressed. Patient denies any dyspepsia, dysphagia or odynophagia. Patient reports that she is moving her bowels well and using senna only on as needed basis. Patient however does admit that she came few lb, recently has been more depressed as she is having issues taking care of her daughter. Patient reports that she is having hard time managing her daughter's behavior. Patient states that her daughter was diagnosed with cerebral palsy and it has been harder to take care of her. Patient denies any melena, hematochezia, unintentional weight loss or ribbon like stools. Patient denies any other GI concerning symptoms. [facility] Medical History (Updated 05/16/23 @ 10:38 by Miguel Rodriguez MD) Elevated CK Osteoarthritis of hands, bilateral Right sciatic nerve pain Piriformis syndrome of right side Inflammatory arthropathy Tubulovillous adenoma Extraintestinal yersiniosis GERD (gastroesophageal reflux disease) IBS (irritable bowel syndrome) Sleep apnea Asthma Surgical History History of esophagogastroduodenoscopy (EGD) Hx of eye surgery Hx of endoscopy Hx of colonoscopy Family History Mother Diabetes Hypertension Father Prostate cancer Social History Household Members: Spouse and Children Housing: House Are you a primary school child care attendant to a significant other at home: No Do you presently have visiting nurse or other home services: No Patient Tobacco Use Status: Never used Tobacco Review of Systems Const Denies weight gain and Denies weight loss ENT Reports no additional complaints, Denies dysphagia and Denies odynophagia Card Reports no additional complaints Resp Reports no additional complaints GI Denies abdominal pain, Denies belching, Denies melena, Denies bloating, Denies change in bowel habits, Denies dysphagia, Denies excessive flatus, Denies dyspepsia, Denies heartburn, Denies diarrhea, Denies loose stools, Denies nausea, Denies odynophagia and Denies vomiting Musc Reports no additional complaints Neuro Reports no additional complaints Psych Reports no additional complaints Endo Reports no additional complaints Physical Exam Vital Signs: Last Vital Signs Pulse 74 05/29/23 10:16 BP 141/66 H 05/29/23 10:16 BMI result Body Mass Index 33.5 Const General: healthy appearing, no acute distress and well developed Nutritional Appearance: obese Orientation/consciousness: patient oriented x3 Resp Effort & Inspection: normal respiratory effort, able to speak in complete sentences, no tracheal deviation and symmetric chest movement Auscultation: clear to auscultation bilaterally Cardio Rate: regular rate GI Inspection: Yes normal to inspection, No distended and Yes obesity Palpation (GI): Soft to palpation, not firm, nontender and No hepatosplenomegaly present Auscultation: normal bowel sounds General: Yes no CVA tenderness Back/Spine/Pelvis Back: no CVA tenderness Skin General skin exam: elasticity normal, turgor normal and dry skin Neuro General: patient oriented x3 Psych Appearance: grossly normal Mental Status: mental status grossly normal Assessment & Plan Assessment & Plan (1) Postprandial epigastric pain: Code(s): R10.13 - Epigastric pain (2) IBS (irritable bowel syndrome): Code(s): K58.9 - Irritable bowel syndrome without diarrhea Qualifiers: Irritable bowel syndrome type: without diarrhea Qualified Code(s): K58.9 - Irritable bowel syndrome without diarrhea (3) GERD (gastroesophageal reflux disease): Code(s): K21.9 - Gastro-esophageal reflux disease without esophagitis Qualifiers: Esophagitis presence: without esophagitis Qualified Code(s): K21.9 - Gastro-esophageal reflux disease without esophagitis Plan Patient will continue taking pantoprazole every morning. Discussed with patient avoiding dietary triggers and late night snacking. Staying upright for minimum 3 hours after meals discussed with patient. Patient was encouraged to increase fluid intake and activity to promote better bowel motility. I will see patient in 6 months, sooner on as needed basis. Patient is agreeable to this plan and verbalizes understanding of instructions. She was given the opportunity to ask questions all questions answered. Thank you for allowing me to participate in her care Medications: Refilled pantoprazole 40 mg PO DAILY 90 tabs 2RF K21.9 - Gastro-esophageal reflux disease without esophagitis Coding Level of Care Code Est Pt Level 3 (43179) Diagnoses Postprandial epigastric pain R10.13 Irritable bowel syndrome without diarrhea K58.9 Irritable bowel syndrome type: without diarrhea Gastroesophageal reflux disease without esophagitis K21.9 Esophagitis presence: without esophagitis Time Spent (min) 25 Comment 15 minutes spent with patient and additional 10 minutes spent reviewing her records
== END 2023-05-29 10:44 | disposition home or self-care (01) ==
PROVIDERS: PCP General Practice; Visit Provider Nurse Practitioner Family
DX: R10.13 Epigastric pain (principal); K58.9 Irritable bowel syndrome, unspecified; K21.9 Gastro-esophageal reflux disease without esophagitis
CPT/HCPCS: 99213

== ENCOUNTER → 2023-05-29 10:11 | Outpatient (BNVA) | payer MEDICARE, SELFPAY | PROVIDERS: PCP General Practice; Visit Provider Nurse Practitioner Family | DX: K58.9 Irritable bowel syndrome, unspecified (principal); K21.9 Gastro-esophageal reflux disease without esophagitis; R10.13 Epigastric pain | CPT/HCPCS: 99212 ==

== ENCOUNTER 2023-08-01 10:09 | Outpatient (AMB) | payer MEDICARE, MEDICAID, SELFPAY ==
--- NOTE | 2023-08-01 10:13 | A.OFFVIS_ITS ---
Vital Signs 08/01/23 10:14 Height 5 ft 2 in Weight 187 lb BMI 34.2 BP 136/78 Blood Pressure Location Rt brachial Position Sitting Pulse 81 Pulse Source Doppler Pulse Oximetry (%) 95 Oxygen Delivery Method Room Air Intake Visit Reasons: Asthma Allergies No Known Allergies Allergy (Verified 05/29/23 10:20) HPI HPI Asthma: Details: 68-year-old lady, nonsmoker, followed for asthma and severe obstructive sleep apnea.? Patient states that she cannot the use CPAP as she fell that her symptoms are worse while using it. She also continues Symbicort, Ventolin, and Dupixent with Good control of her underlying symptoms. She denies recent exacerbations. [facility] Medical History (Updated 05/16/23 @ 10:38 by Miguel Rodriguez MD) Elevated CK Osteoarthritis of hands, bilateral Right sciatic nerve pain Piriformis syndrome of right side Inflammatory arthropathy Tubulovillous adenoma Extraintestinal yersiniosis GERD (gastroesophageal reflux disease) IBS (irritable bowel syndrome) Sleep apnea Asthma Surgical History History of esophagogastroduodenoscopy (EGD) Hx of eye surgery Hx of endoscopy Hx of colonoscopy Family History Mother Diabetes Hypertension Father Prostate cancer Social History Household Members: Spouse and Children Housing: House Are you a primary career advisor to a significant other at home: No Do you presently have visiting nurse or other home services: No Patient Tobacco Use Status: Never used Tobacco Review of Systems Const Denies daytime sleepiness, Denies excessive sweating, Denies fatigue, Denies fever(s), Denies lethargy, Denies malaise, Denies night sweats, Denies snoring and Denies weight loss Eyes Denies blurry vision and Denies itchy eyes ENT Denies nasal congestion, Denies post nasal drip, Denies sinus pain, Denies sinus pressure and Denies other ( Thrush) Card Denies chest pain, Denies pedal edema, Denies dyspnea, Denies orthopnea and Denies paroxysmal nocturnal dyspnea Resp Denies cough, Denies hemoptysis, Denies excessive phlegm production, Denies dyspnea, Denies snoring and Denies wheezing GI Denies abdominal pain and Denies heartburn Musc Denies myalgias, Denies arthralgias and Denies joint swelling Skin/Breast Denies rash Neuro Denies memory loss and Denies seizure-like activity Psych Denies abnormal sleep pattern, Denies anxiety and Denies memory loss Endo Denies excessive sweating, Denies fatigue and Denies heat intolerance Jose/Lymph Denies easy bruising Aller/Immun Denies itchy eyes, Denies seasonal rhinorrhea and Denies wheezing Physical Exam Vital Signs: Last Vital Signs Pulse 81 08/01/23 10:14 BP 136/78 08/01/23 10:14 Pulse Ox 95 08/01/23 10:14 Oxygen Delivery Method Room Air 08/01/23 10:14 BMI result Body Mass Index 34.2 Const General: no acute distress and alert Nutritional Appearance: obese Orientation/consciousness: Other orientation findings ( oriented) HEENT Head: Yes atraumatic Eyes General: appearance normal, both eyes and all related structures Sclerae: sclerae normal EOM: EOMs intact bilaterally Neck Neck: Yes supple Lymphatic: no lymphadenopathy noted Resp Effort & Inspection: normal respiratory effort and no use of accessory muscles Auscultation: clear to auscultation bilaterally Cardio Rate: regular rate Rhythm: regular rhythm Heart sounds: no gallops, no murmurs and no rubs Skin General skin exam: other ( warm) Extrem General: No clubbing, No cyanosis and No edema Assessment & Plan Assessment & Plan (1) Environmental allergies: Code(s): Z91.09 - Other allergy status, other than to drugs and biological substances Category: Medical Plan: Well controlled on Dupixent and Zyrtec. Continue current regimen. (2) Asthma: Code(s): J45.909 - Unspecified asthma, uncomplicated Category: Medical Plan: Well controlled on Dupixent, Symbicort, and albuterol MDI. Continue current regimen. Coding Level of Care Code Est Pt Level 4 (14438) Diagnoses Environmental allergies Z91.09 Asthma J45.909
[2023-08-01 10:14] VITALS: BP 136/78; PULSE 81; O2SAT 95; BMI 34.2
== END 2023-08-01 10:26 | disposition home or self-care (01) ==
PROVIDERS: PCP General Practice; Visit Provider Internal Medicine Pulmonary Disease
DX: Z91.09 Other allergy status, other than to drugs and biological substances (principal); J45.909 Unspecified asthma, uncomplicated
CPT/HCPCS: 99214

== ENCOUNTER → 2023-08-01 10:09 | Outpatient (BNVA) | payer MEDICARE, SELFPAY | PROVIDERS: PCP General Practice; Visit Provider Internal Medicine Pulmonary Disease | DX: J45.909 Unspecified asthma, uncomplicated (principal); Z91.09 Other allergy status, other than to drugs and biological substances | CPT/HCPCS: 99212 ==

== ENCOUNTER 2023-08-03 09:03 | Outpatient (REF) | payer MEDICARE, SELFPAY | END 2023-08-03 09:04 | disposition home or self-care (01) | LOC: HO.MAMMO 09:03 | PROVIDERS: PCP General Practice | DX: Z12.31 Encounter for screening mammogram for malignant neoplasm of breast (principal) | CPT/HCPCS: 77063; 77067 ==

== ENCOUNTER → 2023-08-03 09:30 | Outpatient (BNV) | payer MEDICARE, SELFPAY | PROVIDERS: PCP General Practice; Visit Provider Radiology Diagnostic Radiology | DX: Z12.31 Encounter for screening mammogram for malignant neoplasm of breast (principal) | CPT/HCPCS: 77063; 77067 ==

== ENCOUNTER 2023-11-06 10:23 | Outpatient (AMB) | payer MEDICARE, SELFPAY ==
--- NOTE | 2023-11-06 10:24 | MHC.OFFVIS ---
Vital Signs 11/06/23 10:27 Height 5 ft 2 in Weight 185 lb 10.067 oz BMI 33.9 BP 140/80 H Blood Pressure Location Rt brachial Position Sitting Pulse 67 Pulse Source Pulse Oximeter Pulse Oximetry (%) 94 Oxygen Delivery Method Room Air Intake Visit Reasons: RIght Sicatica/Piriformis. Intake Note: Patient presents for right Sicatica/Piriformis. Allergies No Known Allergies Allergy (Verified 11/06/23 10:27) Medication List - Last Reconciled 11/06/23 by Rosita Al MD acetaminophen ER (Tylenol Arthritis Pain) 650 mg PO Q8H albuterol sulfate 90 mcg/actuation (Ventolin HFA) 2 puffs PO Q4-6H PRN budesonide-formoterol 160-4.5 mcg/actuation (Symbicort) 2 puffs PO BID bupropion HCl XL 150 mg PO DAILY cetirizine (Zyrtec) 10 mg PO DAILY cholecalciferol (vitamin D3) (Vitamin D3) 50 mcg PO DAILY [cock up splint wear at night ] codeine-guaifenesin 10-100 mg/5 mL 10 mL PO Q4-6H PRN 15 days cyanocobalamin (vitamin B-12) (Vitamin B-12) 50 mcg PO DAILY dupilumab (Dupixent) 300 mg (2 mL) subcut Q2W 28 days escitalopram oxalate 10 mg PO DAILY ibuprofen 800 mg PO TID latanoprost 0.005% 1 drp ophthalmic (eye) DAILY losartan 25 mg PO QAM methylcellulose (laxative) (Citrucel) 500 mg PO DAILY pantoprazole 40 mg PO DAILY prednisone orally as directed PRN; 3 tablets per x 7 days, 2 tablets per day x 7 days, 1 tablet per day x 7 days rosuvastatin 5 mg PO DAILY tizanidine 4 mg PO BEDTIME PRN HPI Comments Details: This is a 68-year-old female with fibromyalgia who presents for follow-up. When evaluated by Kathryn 03/2023 she had a right pyriformis injection with relief. Patient states that the pain has come back. She has pain across her lower back bilaterally and radiates down her right lower extremity, she also has pain in her shoulders and pain on the outside of her right hip. [facility] Medical History Osteoarthritis of hands, bilateral Right sciatic nerve pain Piriformis syndrome of right side Tubulovillous adenoma Extraintestinal yersiniosis GERD (gastroesophageal reflux disease) IBS (irritable bowel syndrome) Sleep apnea Asthma Surgical History History of esophagogastroduodenoscopy (EGD) Hx of eye surgery Hx of endoscopy Hx of colonoscopy Family History Mother Diabetes Hypertension Father Prostate cancer Social History Household Members: Spouse and Children Housing: House Are you a primary hearing care professional to a significant other at home: No Do you presently have visiting nurse or other home services: No Patient Tobacco Use Status: Never used Tobacco Review of Systems Musc Reports back pain, Reports arthralgias and Reports radiating pain into limb Physical Exam Vital Signs: Last Vital Signs Pulse 67 11/06/23 10:27 BP 140/80 H 11/06/23 10:27 Pulse Ox 94 11/06/23 10:27 Oxygen Delivery Method Room Air 11/06/23 10:27 BMI result Body Mass Index 33.9 Const General: no acute distress and alert Nutritional Appearance: obese HEENT Head: Yes normocephalic and Yes atraumatic Resp Effort & Inspection: normal respiratory effort, able to speak in complete sentences and no use of accessory muscles Extrem Other: Few fibromyalgia tender points Bilateral lower lumbar paraspinal muscle tenderness Right trochanteric bursa area tenderness with negative Kellen's test Right buttock tenderness Positive straight leg raise test on the right Assessment & Plan Assessment & Plan (1) Right sciatic nerve pain: Code(s): M54.31 - Sciatica, right side Category: Medical Plan: This is a 68-year-old female with history of fibromyalgia who presents for follow-up. On exam patient has multiple pain generators. Some of it is fibromyalgia however has enough findings suggesting right lumbar radiculopathy as well as right trochanteric bursitis. I will refer patient to pain management for further evaluation follow-up with me as needed Plan I spent 15 minutes reviewing patient's chart, evaluating patient, counseling patient and documenting in the chart Orders: Referrals Pain Management Referral M54.31 - Sciatica, right side Coding Level of Care Code Est Pt Level 3 (85740) Diagnoses Right sciatic nerve pain M54.31
[2023-11-06 10:27] VITALS: BP 140/80; PULSE 67; O2SAT 94; BMI 33.9
== END 2023-11-06 10:44 | disposition home or self-care (01) ==
PROVIDERS: PCP General Practice; Visit Provider Student in an Organized Health Care Education/Training Program
DX: M54.31 Sciatica, right side (principal)
CPT/HCPCS: 99213

== ENCOUNTER → 2023-11-06 10:23 | Outpatient (BNVA) | payer MEDICARE, SELFPAY | PROVIDERS: PCP General Practice; Visit Provider Student in an Organized Health Care Education/Training Program | DX: M54.31 Sciatica, right side (principal) | CPT/HCPCS: 99212 ==

== ENCOUNTER 2023-11-19 09:23 | Outpatient (AMB) | payer MEDICARE, SELFPAY ==
--- NOTE | 2023-11-19 09:24 | MHC.OFFVIS ---
Vital Signs 11/19/23 09:30 Height 5 ft 2 in Weight 185 lb BMI 33.8 BP 141/66 H Blood Pressure Location Rt brachial Position Sitting Pulse 67 Pulse Source Pulse Oximeter Pulse Oximetry (%) 98 Oxygen Delivery Method Room Air Intake Visit Reasons: Sciatica, right side Intake Note: Pain today 08/16 Social Work Supervisor Required: No Accompanied by: Self / Same As Patient Allergies No Known Allergies Allergy (Verified 11/19/23 09:30) HPI HPI Sciatica, right side: Details: Patient is a pleasant 68-year-old female with history of osteoarthritis, glaucoma, asthma, osteopenia, chronic low back pain, fibromyalgia, right hip and knee pain, right sciatic nerve pain, piriformis syndrome of right side, presents today for initial evaluation of low back pain with radiation into her right lateral hip. Denies any past recent trauma, injury or falls. Patient reports she takes care of her 41-year-old daughter the cerebral palsy who has been wheelchair dependent since 2017. Patient's also assists with daughter's care. Patient reports increasing pain with bending,heavy lifting, twisting, movements, ADLs, and flexing forward. She reports imbalance with walking or movements at times. Patient completed physical therapy at [facility] in May this year and has received therapeutic injections by Rheumatology provider with partial relief. Denies previous spine surgery or injections. Pain affects her daily activities, functioning, mobility, sleep, mood, and social interactions. Back pain has been resistant to conservative treatments. Denies any fever, chills, weight loss, abdominal or groin pain, bladder or bowel dysfunction or saddle anesthesia. Oswestry low back disability score =24 (moderate disability) Location: Right lateral hip, lower back, widespread body pain Duration: Chronic pain for 10 + years Characteristics of symptom or complaint: Aching, searing, tingling, numbness, burning, stabbing, throbbing Aggravating or associated factors: Standing, sitting, laying flat, bending, pulling, heavy lifting, twisting Relieving factors: Ibuprofen, heat therapy, rest, Tylenol, tizanidine Treatment: PT, injections [facility] Medical History Osteoarthritis of hands, bilateral Right sciatic nerve pain Piriformis syndrome of right side Tubulovillous adenoma Extraintestinal yersiniosis GERD (gastroesophageal reflux disease) IBS (irritable bowel syndrome) Sleep apnea Asthma Surgical History History of esophagogastroduodenoscopy (EGD) Hx of eye surgery Hx of endoscopy Hx of colonoscopy Family History Mother Diabetes Hypertension Father Prostate cancer Social History Household Members: Spouse and Children Housing: House Are you a primary medicare specialist to a significant other at home: No Do you presently have visiting nurse or other home services: No Patient Tobacco Use Status: Never used Tobacco Review of Systems Const All systems reviewed & are unremarkable except as noted in HPI and below Physical Exam Vital Signs: Last Vital Signs Pulse 67 11/19/23 09:30 BP 141/66 H 11/19/23 09:30 Pulse Ox 98 11/19/23 09:30 Oxygen Delivery Method Room Air 11/19/23 09:30 BMI result Body Mass Index 33.8 General: Appears afebrile. Alert and oriented. Mood and affect appropriate. Follows and participates in conversation appropriately. Respiratory effort is unlabored. No cough. Able to transition from sit to stand unassisted. Ambulates with bilaterally normal heel strike and toe off. General: Yes no CVA tenderness Back/Spine/Pelvis Other: Limited lumbar ROM. Mildly antalgic gait with no limping. Can flex forward to 70-75 degrees and extend to 5-10 degrees before experiencing lumbar pain. Lumbar extension and flexion forward reproduces moderate pain. Demonstrates 5/5 left 4/5 right strength of quadriceps bilaterally as well as flexion/dorsiflexion of bilateral feet against resistance. 2+ pedal pulses bilaterally. Seated and supine straight leg rise with dorsiflexion negative bilaterally. +2 patellar and achilles reflexes bilaterally. Facet loading test positive bilaterally. Kai sign, Gu[place]ito?s, Gaenslen, Pelvic compression and Stinchfield tests are positive on the right. No groin pain with I/E hip rotations. Valsalva maneuver negative. Back: no CVA tenderness Cervical Spine: loss of normal cervical lordosis, cervical muscular tenderness, pain with cervical ROM and No Cervical spine tenderness Thoracic/Lumbar Spine: thoracic and lumbar spine normal to inspection, No Thoracic/lumbar spine scar(s), Lasegue's sign positive on the right and localized, pain with thoraco-lumbar ROM, paraspinal muscle tenderness, thoraco-lumbar ROM limited, No thoracic spinal tenderness and lumbar spinal tenderness (L3-S1) Pelvis: buttock tenderness on the right Sacroiliac joints: bilaterally tender to palpation Results Reviewed Results Reviewed: XR LUMBOSACRAL SPINE 02/22/22 CLINICAL INFORMATION: Low back pain COMPARISON: Previous x-ray January 2019 FINDINGS: Bone alignment is normal. No fracture or dislocation. Mild disc space narrowing at L2-L3. Lower lumbar spine facet arthritis. IMPRESSION: Mild degenerative changes. XR DEXA axial skeleton 06/02/20 Osteopenia based on the lowest T-score value of -1.8 in the femoral neck applying World Health Organization criteria. Assessment & Plan Assessment & Plan (1) Lumbosacral spondylosis: Code(s): M47.817 - Spondylosis without myelopathy or radiculopathy, lumbosacral region Category: Medical (2) Sacroiliac joint pain: Code(s): M53.3 - Sacrococcygeal disorders, not elsewhere classified Category: Medical (3) Right sciatic nerve pain: Code(s): M54.31 - Sciatica, right side Category: Medical (4) Lumbar radiculopathy, right: Code(s): M54.16 - Radiculopathy, lumbar region Category: Medical Plan Discussed treatments for right sacroiliac joint pain, axial low back pain and radiculopathy. Tentatively plan for Right Diagnostic Sacroiliac Joint Injection with local and fluoroscopy. Expectations, risks and benefits were reviewed. Patient is aware she will be contacted to schedule this procedure after review of imaging. Will obtain imaging of her lumbar spine and sacroiliac joint to assess degree of degenerative changes, any subluxation, listhesis, compression fractures or pars defects and MRI to assess for neural integrity and compression. All questions were answered and the patient is in agreement of plan. Follow-up after injections and sooner as needed. Orders: Orders XR lumbar spine 4V min 11/19/23 M47.817 - Spondylosis without myelopathy or radiculopathy, lumbosacral region, M53.3 - Sacrococcygeal disorders, not elsewhere classified MR lumbar spine wo con 11/19/23 M47.817 - Spondylosis without myelopathy or radiculopathy, lumbosacral region, M54.16 - Radiculopathy, lumbar region XR sacroiliac joint min 3V 11/19/23 M47.817 - Spondylosis without myelopathy or radiculopathy, lumbosacral region, M53.3 - Sacrococcygeal disorders, not elsewhere classified Coding Level of Care Code New Pt Level 4 (00821) Diagnoses Lumbosacral spondylosis M47.817 Sacroiliac joint pain M53.3 Right sciatic nerve pain M54.31 Lumbar radiculopathy, right M54.16
[2023-11-19 09:30] VITALS: BP 141/66; PULSE 67; O2SAT 98; BMI 33.8
== END 2023-11-19 10:15 | disposition home or self-care (01) ==
PROVIDERS: PCP General Practice; Visit Provider Nurse Practitioner Family
DX: M47.817 Spondylosis without myelopathy or radiculopathy, lumbosacral region (principal); M53.3 Sacrococcygeal disorders, not elsewhere classified; M54.31 Sciatica, right side; M54.16 Radiculopathy, lumbar region
CPT/HCPCS: 99204

== ENCOUNTER → 2023-11-19 09:23 | Outpatient (BNVA) | payer MEDICARE, SELFPAY | PROVIDERS: PCP General Practice; Visit Provider Nurse Practitioner Family | DX: M47.817 Spondylosis without myelopathy or radiculopathy, lumbosacral region (principal); M53.3 Sacrococcygeal disorders, not elsewhere classified; M54.31 Sciatica, right side; M54.16 Radiculopathy, lumbar region | CPT/HCPCS: 99202 ==

== ENCOUNTER 2023-11-27 10:02 | Outpatient (REF) | payer MEDICARE, SELFPAY ==
--- NOTE | ~2023-11-27 | XR_ITS ---
EXAMINATION: XR SACROILIAC JOINTS CLINICAL INFORMATION: Sacrococcygeal disorders, not elsewhere classified. COMPARISON: Right hip radiographs dated 03/13/2023. TECHNIQUE: AP and bilateral Judet views of the sacroiliac joints FINDINGS: Bones and soft tissues are normal. No fracture. Alignment is anatomic. Sacroiliac joint spaces are well-maintained without erosions or surrounding sclerosis. The acetabular joint spaces are well-maintained, and the femoral heads appear smooth. There are right pelvic phleboliths. XR/XR sacroiliac joint min 3V IMPRESSION: Normal sacroiliac joints. Electronically signed by: Jesus Polk MD 12/20/2023 04:06 PM EDT
--- NOTE | ~2023-11-27 | XR_ITS ---
EXAMINATION: XR LUMBOSACRAL SPINE CLINICAL INFORMATION: Lumbar spondylosis, without myelopathy radiculopathy. COMPARISON: Radiographs dated 02/22/2022. TECHNIQUE: AP , bilateral oblique and lateral views of the lumbar spine and lateral view of the lumbosacral junction. FINDINGS: The vertebral bodies and posterior elements are normal. The disc spaces are preserved , and the vertebral alignment is normal. There is multi-level mild lumbar endplate arthropathy. The paraspinal soft tissues are normal. XR/XR lumbar spine 4V min IMPRESSION: 1. No acute fracture or spondylolisthesis is seen. There is no spondylolysis defect. 2. The lumbar disc spaces are well-maintained. 3. There is multi-level mild lumbar endplate arthropathy. Electronically signed by: Jesus Polk MD 12/20/2023 04:09 PM EDT
== END 2023-11-27 10:03 | disposition home or self-care (01) ==
LOC: HO.XRAY 10:02
PROVIDERS: PCP General Practice; Visit Provider Nurse Practitioner Family
DX: M47.817 Spondylosis without myelopathy or radiculopathy, lumbosacral region (principal); M53.3 Sacrococcygeal disorders, not elsewhere classified
CPT/HCPCS: 72110; 72202

== ENCOUNTER 2023-12-27 12:54 | Outpatient (REF) | payer MEDICARE, SELFPAY ==
[2023-12-27 13:34] LABS: MANUAL DIFF FLAG NO
[2023-12-27 13:44] LABS: Basophils Percent Auto 0.6 % (0-2); Eosinophils Absolute Auto 0.1 X10*3/uL (0.0-0.4); Eosinophils Percent Auto 2.1 % (0-4); Hematocrit 38.8 % (37.0-47.0); Imm Gran Abs Auto 0.01 X10*3/uL (0.00-0.03); Imm Gran Pct Auto 0.2 % (0.0-0.4); Lymphocytes Absolute Auto 1.2 X10*3/uL (1.2-4.9); Lymphocytes Percent Auto 25.6 % (20-40); Mean Corpuscular HGB Conc 33.5 g/dl (31.0-35.0); Mean Corpuscular Hemoglobin 29.3 pg (27.0-33.0); Mean Corpuscular Volume 87.6 fL (80.0-98.0); Mean Platelet Volume 10.5 fL (9.4-12.3); Monocytes Absolute Auto 0.4 X10*3/uL (0.1-1.2); Monocytes Percent Auto 8.7 % (2-11); Neutrophils Percent Auto 62.8 % (45-73); Platelet Count 255 X10*3/uL (160-400); Red Blood Count 4.43 X10*6/uL (4.20-5.50); Red Cell Distribution Width 12.9 % (11.0-16.0); White Blood Count 4.7 X10*3/uL (4.8-10.8)
[2023-12-27 13:49] LABS: INTERNATIONAL NORM RATIO 0.9 (0.9-1.1); Prothrombin Time 10.7 SEC (10.9-12.4)
[2023-12-27 13:52] LABS: Partial Thromboplastin Time 29.2 SEC (26.0-36.8)
[2023-12-27 14:22] LABS: Alanine Aminotransferase 23 U/L (0-31); Albumin Level 4.2 g/dL (3.5-5.0); Alkaline Phosphatase 61 U/L (39-117); Anion Gap 10 (12-20); Aspartate Amino Transferase 24 U/L (5-31); Bilirubin Total 0.3 mg/dL (0.0-1.0); Blood Urea Nitrogen 17 mg/dL (9-16); Calcium 9.7 mg/dL (8.4-10.2); Carbon Dioxide 29 mmol/L (22-29); Chloride 105 mmol/L (96-108); Estimated Glomerular Filt Rate > 60; Glucose Random 100 mg/dL (60-115); Potassium 3.3 mmol/L (3.3-5.1); Sodium 141 mmol/L (135-145); Total Protein 6.9 g/dL (6.5-8.0)
== END 2023-12-27 12:55 | disposition home or self-care (01) ==
LOC: HO.HHCL 12:54
PROVIDERS: Visit Provider Student in an Organized Health Care Education/Training Program
DX: R23.3 Spontaneous ecchymoses (principal)
CPT/HCPCS: 36415; 80053; 85025; 85610; 85730

== ENCOUNTER 2023-12-29 14:15 | Outpatient (REF) | payer MEDICARE, SELFPAY ==
--- NOTE | ~2023-12-29 | MR_ITS ---
MRI OF THE LUMBAR SPINE WITHOUT CONTRAST CLINICAL INFORMATION: Spondylosis without myelopathy radiculopathy. COMPARISON: Lumbar spine radiographs November 27, 2023. TECHNIQUE: Multiplanar multisequence MR imaging of the lumbar spine obtained without contrast. FINDINGS: There are 5 nonrib-bearing lumbar-type vertebral bodies. Lumbar alignment is normal. The vertebral body heights are maintained. There is mild disc volume loss at L2-L3. The remaining disc volumes are preserved. There is disc desiccation at all lumbar levels. There is no bone marrow edema. There are no acute fractures. The conus terminates at the T12-L1 level. Left-sided parapelvic cysts. No significant extraspinal soft tissue findings. L1-L2: Disc contour is normal. Mild bilateral facet arthropathy. No central canal stenosis and no foraminal stenosis. L2-L3: Small annular disc bulge and mild bilateral facet arthropathy. There is no central canal stenosis and there is no foraminal stenosis. L3-L4: Small diffuse annular disc bulge and moderate bilateral facet arthropathy and ligamentum flavum containing. Findings in concert result in mild central canal stenosis and mild left-sided foraminal encroachment. L4-L5: There is a diffuse annular disc bulge with a superimposed shallow right paracentral disc protrusion and there is severe bilateral facet arthropathy and ligamentum flavum giving. Findings in concert result in severe central canal stenosis, severe right greater than left subarticular zone stenosis with compression of the traversing right greater than the left L5 nerve roots, and a right lateral disc protrusion results in moderate right-sided foraminal stenosis and mild mass effect on the exiting right L4 nerve root. L5-S1: There is a diffuse annular disc bulge and there is severe bilateral facet arthropathy and ligamentum flavum thickening. There is no central canal stenosis. There is mild foraminal encroachment bilaterally. MR/MR lumbar spine wo con IMPRESSION: Multilevel lumbar spondylosis that is greatest at L4-L5 where multifactorial degenerative changes result in severe central canal stenosis, severe right greater than left subarticular zone stenosis with compression of the traversing right greater than the left L5 nerve roots, and a right lateral disc protrusion results in moderate right-sided foraminal stenosis and mild mass effect on the exiting right L4 nerve root. Additional degenerative changes as discussed above. Electronically signed by: Corby Pena MD 12/29/2023 04:01 PM EDT RP
== END 2023-12-29 14:16 | disposition home or self-care (01) ==
LOC: HO.MRI 14:15
PROVIDERS: PCP General Practice; Visit Provider Nurse Practitioner Family
DX: M47.817 Spondylosis without myelopathy or radiculopathy, lumbosacral region (principal); M54.16 Radiculopathy, lumbar region
CPT/HCPCS: 72148

== ENCOUNTER 2024-01-11 10:49 | Outpatient (AMB) | payer MEDICARE, SELFPAY ==
--- NOTE | 2024-01-11 10:55 | HO.SPINEOV ---
Intake Visit Reasons: lumbar radiculopathy Intake Note: Ms. Kennedy is here today c/o low back pain Real Estate Paralegal Required: No Allergies No Known Allergies Allergy (Verified 01/11/24 10:59) Assessment & Plan Assessment & Plan (1) Lumbar spinal stenosis: Code(s): M48.061 - Spinal stenosis, lumbar region without neurogenic claudication Category: Medical Plan Dear Ivette, Thank you for referring Mrs Kennedy to our office today. She is a very nice 68-year-old female who has had chronic back pain for decades. 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 She has had chronic back pain and chronic right hip pain into her lateral thigh for years. She has gone through numerous rounds of conservative treatment including physical therapy, chiropractic, cortisone injections and acupuncture. She does not recall if she ever specifically had a shot in her back but she has had hip injections numerous times. These do seem to give her some relief. It is only temporary however. Standing for any length of time is particularly difficult or bending forward. She takes Motrin 800 mg every day. She has tried other things like Celebrex and Lodine but they do not seem to give her the same relief is the Motrin. She is here today to see us for evaluation of an MRI showing disc degeneration and stenosis at L4-5. PMH: Hypertension, fibromyalgia, glaucoma, gastritis, asthma, seasonal allergies, tubal ligation. Other than that she tells me she is reasonably healthy with no other major medical problems Social hx: She does not smoke, occasionally uses alcohol, no marijuana Medications: Pantoprazole, Zyrtec, losartan, Ventolin, Symbicort, bupropion, sertraline Allergies: No known Physical exam: Awake alert oriented no acute distress, able to get up on examining table without any issue. When she lies flat on the examining table she does get back pain. Her strength and reflexes are normal. She does have some pain with JOSIE testing on the right which does give her some back pain and it goes down into her lateral thigh. Some local tenderness over the right lateral hip region as well. Imaging review: Lumbar MRI shows excellent quality of her discs including disc height. She does have some [id number] degeneration at L4-5 that is causing some crowding of the central canal. There is a very tiny disc bulge on the right at L4-5 causing some crowding of the lateral recess. It extends into the foramen slightly but no overt compression in the foramen. Impression: 68-year-old female presents with chronic low back pain localized over the middle of her lumbar spine radiating out to both sides and intermittent pain in the right hip and lateral thigh. In terms of anatomical structure of her lumbar spine, her disc quality is excellent. I do not think her pain is discogenic. There are no Modic endplate changes, spondylolisthesis or other significant osteophyte overgrowth. There are no disc herniations. She does have some mild disc bulging on the right at L4-5 which may cause some crowding of the lateral recess impinging on the right L5 nerve root. I am not sure if her symptoms qualify as a true radiculopathy or if it is more localized to the hip. She does respond to the hip injections. I told her we could consider doing a right L5 TFESI with Dr. Heath to see if the L5 nerve is involved in her right hip pain and lateral thigh pain. She really did not want to proceed with injections at this time. In terms of the back pain, things get a little more complicated because she does significant amount of lifting of her disabled 40-year-old daughter and certainly she could have some overuse and muscular strain in her back. Certainly she has no discogenic issues as her disc quality is excellent given her age. I do not think spinal fusion would help her back pain. Right now she is really not interested in surgery or intervention at all. Thank you for allowing us to care for your patient. The total time spent with this visit with this patient was 45 minutes reviewing history, physical exam, lumbar imaging review, and implementation of treatment plan or further diagnostic testing Monster Brennan MD,PhD [facility] Coding Level of Care Code New Pt Level 4 (31048) Diagnoses Lumbar spinal stenosis M48.061
== END 2024-01-11 11:29 | disposition home or self-care (01) ==
PROVIDERS: PCP General Practice; Referring Provider Nurse Practitioner Family; Visit Provider Physician Assistant
DX: M48.061 Spinal stenosis, lumbar region without neurogenic claudication (principal)
CPT/HCPCS: 99204

== ENCOUNTER → 2024-01-11 10:49 | Outpatient (BNVA) | payer MEDICARE, SELFPAY | PROVIDERS: PCP General Practice; Visit Provider Physician Assistant | DX: M48.061 Spinal stenosis, lumbar region without neurogenic claudication (principal) | CPT/HCPCS: 99202 ==

== ENCOUNTER 2024-01-14 13:11 | Outpatient (REF) | payer MEDICARE, SELFPAY ==
--- NOTE | ~2024-01-14 | US_ITS ---
EXAMINATION: MM DIAGNOSTIC DIGITAL BREAST TOMOSYNTHESIS, LEFT US BREAST LIMITED, LEFT MAMMOGRAPHY: CLINICAL INFORMATION: Lower inner quadrant palpable lump x3 weeks with large overlying bruise. Patient denies known injury. 68-year-old female, no history of surgery or family history of breast CA. COMPARISON: Mammography: 08/03/2023, 07/28/2022, 06/20/2021, 03/18/2018. TECHNIQUE: Digital left breast tomosynthesis is performed in both the craniocaudal and mediolateral oblique views along with computer-aided detection (CAD). Synthesized 2D images are generated from the tomosynthesis. In addition, a full field 3-D left mediolateral view was obtained, as well as 3-D spot compression left MLO and CC views. FINDINGS: There are scattered areas of fibroglandular density (ACR BI-RADS breast composition Category b). BB marker has been placed over the palpable abnormality in the lower inner quadrant of the left breast, approximate 7:00 axis, anterior one third. Immediately subjacent to the BB marker, there is a dense circumscribed oval mass with subtle internal fat density, measuring an estimated 8 mm in diameter. This is in the region of bruising. Findings are consistent with either a small hematoma or focus of fat necrosis. We will evaluate this region with ultrasound. No additional abnormalities in the left breast. ULTRASOUND: CLINICAL INFORMATION: As above COMPARISON: None relevant TECHNIQUE: Targeted sonographic evaluation was performed using a high frequency linear transducer. Attention was given to the 8:00 axis left breast, to include the area of palpable concern. Selected archived documentation. FINDINGS: LEFT BREAST: -There is a fairly classic focus of fat necrosis with cystic component lying within echogenic fat correlating with the mammographic abnormality and the palpable abnormality. This lies at the 8:00 axis, 4 cm from the nipple, with the cystic component measuring 5 x 7 x 6 mm. No internal color Doppler flow or solid component. There are echogenic contusive changes surrounding the abnormality with minimal skin thickening consistent with fat contusion/bruising. This finding is benign. No further follow-up recommended. No suspicious findings identified. US/US breast LT limited mamm only IMPRESSION: There are no findings suspicious for malignancy left breast. Palpable focus with overlying bruising correlates to a developing/evolving region of fat necrosis measuring 5 x 7 x 6 mm. This is benign and no further follow-up recommended. Recommend the patient resume routine annual screening. OVERALL ASSESSMENT: Mammography: BI-RADS 2 - Benign Findings Ultrasound: BI-RADS 2 - Benign Findings RECOMMENDATION: 1 year F/U This patient's information was entered into a reminder system with a target due date for their next mammogram. Electronically signed by: Mani Das MD 01/14/2024 02:07 PM EDT RP
== END 2024-01-14 13:12 | disposition home or self-care (01) ==
LOC: HO.MAMMO 13:11
PROVIDERS: PCP General Practice; Visit Provider Student in an Organized Health Care Education/Training Program
DX: N63.24 Unspecified lump in the left breast, lower inner quadrant (principal)
CPT/HCPCS: 76642; 77061; 77065

== ENCOUNTER → 2024-01-14 13:30 | Outpatient (BNV) | payer MEDICARE, SELFPAY | PROVIDERS: PCP General Practice; Visit Provider Radiology Diagnostic Radiology | DX: N64.1 Fat necrosis of breast (principal) | CPT/HCPCS: 76642; 77065; G0279 ==

== ENCOUNTER 2024-01-23 10:13 | Outpatient (AMB) | payer MEDICARE, SELFPAY ==
[2024-01-23 10:21] VITALS: BP 122/74; PULSE 80; O2SAT 96; BMI 34.1
--- NOTE | 2024-01-23 10:21 | MHC.OFFVIS ---
Vital Signs 01/23/24 10:21 Height 5 ft 2 in Weight 186 lb 4.65 oz BMI 34.1 BP 122/74 Blood Pressure Location Lt brachial Position Sitting Pulse 80 Pulse Source Doppler Pulse Oximetry (%) 96 Oxygen Delivery Method Room Air Intake Visit Reasons: Asthma Allergies No Known Allergies Allergy (Verified 01/11/24 10:59) HPI HPI Asthma: Details: 68-year-old lady, nonsmoker, followed for asthma and severe obstructive sleep apnea.? Patient states that she cannot the use CPAP as she fell that her symptoms are worse while using it. She also continues Symbicort, Ventolin, and Dupixent with suboptimal control of her underlying symptoms. She denies recent exacerbations. Patient does not think that Dupixent as helping at all at this time. She does think Symbicort provide the most relief, however still insufficient. [facility] Medical History Osteoarthritis of hands, bilateral Right sciatic nerve pain Piriformis syndrome of right side Tubulovillous adenoma Extraintestinal yersiniosis GERD (gastroesophageal reflux disease) IBS (irritable bowel syndrome) Sleep apnea Asthma Surgical History History of esophagogastroduodenoscopy (EGD) Hx of eye surgery Hx of endoscopy Hx of colonoscopy Family History Mother Diabetes Hypertension Father Prostate cancer Social History Household Members: Spouse and Children Housing: House Are you a primary laboratory animal care veterinarian to a significant other at home: No Do you presently have visiting nurse or other home services: No Patient Tobacco Use Status: Never used Tobacco Review of Systems Const Denies daytime sleepiness, Denies excessive sweating, Denies fatigue, Denies fever(s), Denies lethargy, Denies malaise, Denies night sweats, Denies snoring and Denies weight loss Eyes Denies blurry vision and Denies itchy eyes ENT Denies nasal congestion, Denies post nasal drip, Denies sinus pain, Denies sinus pressure and Denies other ( Thrush) Card Denies chest pain, Denies pedal edema, Denies dyspnea, Denies orthopnea and Denies paroxysmal nocturnal dyspnea Resp Reports cough, Denies hemoptysis, Denies excessive phlegm production, Denies dyspnea, Denies snoring and Denies wheezing GI Denies abdominal pain and Denies heartburn Musc Denies myalgias, Denies arthralgias and Denies joint swelling Skin/Breast Denies rash Neuro Denies memory loss and Denies seizure-like activity Psych Denies abnormal sleep pattern, Denies anxiety and Denies memory loss Endo Denies excessive sweating, Denies fatigue and Denies heat intolerance Jose/Lymph Denies easy bruising Aller/Immun Denies itchy eyes, Denies seasonal rhinorrhea and Denies wheezing Physical Exam Vital Signs: Last Vital Signs Pulse 80 01/23/24 10:21 BP 122/74 01/23/24 10:21 Pulse Ox 96 01/23/24 10:21 Oxygen Delivery Method Room Air 01/23/24 10:21 BMI result Body Mass Index 34.1 Const General: no acute distress and alert Nutritional Appearance: obese Orientation/consciousness: Other orientation findings ( oriented) HEENT Head: Yes atraumatic Eyes General: appearance normal, both eyes and all related structures Sclerae: sclerae normal EOM: EOMs intact bilaterally Neck Neck: Yes supple Lymphatic: no lymphadenopathy noted Resp Effort & Inspection: normal respiratory effort and no use of accessory muscles Auscultation: clear to auscultation bilaterally Cardio Rate: regular rate Rhythm: regular rhythm Heart sounds: no gallops, no murmurs and no rubs Skin General skin exam: other ( warm) Extrem General: No clubbing, No cyanosis and No edema Assessment & Plan Assessment & Plan (1) Asthma: Code(s): J45.909 - Unspecified asthma, uncomplicated Category: Medical Plan: Suboptimal control. Patient does not think Dupixent is helping. Will stop Dupixent. Will switch Symbicort to BrezTri. Continue albuterol MDI. (2) Environmental allergies: Code(s): Z91.09 - Other allergy status, other than to drugs and biological substances Category: Medical Plan: Poor response to Dupixent. Will stop at this time. Will start on Singulair. Medications: New montelukast 10 mg PO DAILY 30 tabs 6RF jdvyqgjplp-jbgegfwc-ugjhyukffl 160-9-4.8 mcg/actuation (Breztri Aerosphere) 2 inhalations inhalation BID 1 ea 6RF Discontinued dupilumab (Dupixent) Discontinued Reason: Doctor's Order 300 mg (2 mL) subcut Q2W 28 days 4 mL 12RF budesonide-formoterol 160-4.5 mcg/actuation (Symbicort) Discontinued Reason: Doctor's Order 2 puffs PO BID 10.2 grams 6RF Coding Level of Care Code Est Pt Level 4 (93984) Diagnoses Asthma J45.909 Environmental allergies Z91.09
== END 2024-01-23 10:46 | disposition home or self-care (01) ==
PROVIDERS: PCP General Practice; Visit Provider Internal Medicine Pulmonary Disease
DX: J45.909 Unspecified asthma, uncomplicated (principal); Z91.09 Other allergy status, other than to drugs and biological substances
CPT/HCPCS: 99214

== ENCOUNTER → 2024-01-23 10:13 | Outpatient (BNVA) | payer MEDICARE, SELFPAY | PROVIDERS: PCP General Practice; Visit Provider Internal Medicine Pulmonary Disease | DX: J45.909 Unspecified asthma, uncomplicated (principal); Z91.09 Other allergy status, other than to drugs and biological substances | CPT/HCPCS: 99212 ==

== ENCOUNTER 2024-02-13 10:04 | Outpatient (AMB) | payer MEDICARE, SELFPAY ==
[2024-02-13 10:07] VITALS: BP 130/64; PULSE 68; O2SAT 94; BMI 33.1
--- NOTE | 2024-02-13 10:07 | A.OFFVIS_ITS ---
Vital Signs 02/13/24 10:07 Height 5 ft 2 in Weight 181 lb 3.52 oz BMI 33.1 BP 130/64 Blood Pressure Location Rt brachial Position Sitting Pulse 68 Pulse Source Pulse Oximeter Pulse Oximetry (%) 94 Oxygen Delivery Method Room Air Intake Visit Reasons: 6 mnth follow up Intake Note: PRESCRIPTIONS LAST GENERATED pantoprazole 40 mg tablet,delayed release?40 mg PO DAILY 90 tabs 2RF Blanquita Hawkins D 05/29/23 10:39 (Transmitted) Pt has still been taking this but needs a refill. Relevant Flags or Indicators ? Requires Residential Supervisor? N Zina presents in office today for a scheduled 6 mos FUV. CC; No recent diagnostics, placed. Pt has had med order as well as labs within the last 2 mos. Relevant GI Sx as reported per pt? Reflux -- Due to not having pantoprazole. ? Hx of any recent surgeries? None Residential Supervisor Required: Yes Allergies No Known Allergies Allergy (Verified 02/22/24 10:25) HPI HPI 6 mnth follow up: Details: LAST VISIT: Postprandial epigastric pain IBS (irritable bowel syndrome) GERD (gastroesophageal reflux disease) Plan Patient will continue taking pantoprazole every morning. Discussed with patient avoiding dietary triggers and late night snacking. Staying upright for minimum 3 hours after meals discussed with patient. Patient was encouraged to increase fluid intake and activity to promote better bowel motility. I will see patient in 6 months, sooner on as needed basis. Patient is agreeable to this plan and verbalizes understanding of instructions. She was given the opportunity to ask questions all questions answered. ? Thank you for allowing me to participate in her care Medications Refilled pantoprazole 40 mg PO DAILY 90 tabs 2RF K21.9 TODAY'S VISIT Patient is here today for follow-up. Patient reports that in the past few weeks she has been having worsening symptoms of acid reflux and dyspepsia without dysphagia or odynophagia. Patient reports that she has not received refills for the past few weeks of pantoprazole. Patient did not have any pkok-yqb-ztduaqs medication to help her with her symptoms. Patient denies nausea or vomiting. Denies any abdominal pain or discomfort. Epigastric pain postprandially occasionally. Patient denies any nausea or vomiting. Denies any melena, hematochezia, unintentional weight loss or ribbon like stools. Patient denies any other GI concerning symptoms. [facility] Medical History (Updated 02/24/24 @ 16:28 by GABRIEL Rosado) Glaucoma Osteoarthritis of hands, bilateral Right sciatic nerve pain Piriformis syndrome of right side Tubulovillous adenoma Extraintestinal yersiniosis GERD (gastroesophageal reflux disease) IBS (irritable bowel syndrome) Sleep apnea Asthma Surgical History History of esophagogastroduodenoscopy (EGD) Hx of eye surgery Hx of endoscopy Hx of colonoscopy Family History Mother Diabetes Hypertension Father Prostate cancer Social History Household Members: Spouse and Children Housing: House Are you a primary animal caretaker supervisor to a significant other at home: No Do you presently have visiting nurse or other home services: No Patient Tobacco Use Status: Never used Tobacco Review of Systems Const Denies weight gain and Denies weight loss ENT Reports no additional complaints, Denies dysphagia and Denies odynophagia Card Reports no additional complaints Resp Reports no additional complaints GI Denies abdominal pain, Denies belching, Denies melena, Denies bloating, Denies change in bowel habits, Denies dysphagia, Denies excessive flatus, Denies dyspepsia, Reports heartburn, Denies diarrhea, Denies loose stools, Denies nausea, Denies odynophagia and Denies vomiting Reports no additional complaints Musc Reports no additional complaints Neuro Reports no additional complaints Psych Reports no additional complaints Endo Reports no additional complaints Physical Exam Vital Signs: Last Vital Signs Pulse 68 02/13/24 10:07 BP 130/64 02/13/24 10:07 Pulse Ox 94 02/13/24 10:07 Oxygen Delivery Method Room Air 02/13/24 10:07 BMI result Body Mass Index 33.1 Const General: healthy appearing and no acute distress Nutritional Appearance: obese Orientation/consciousness: patient oriented x3 Resp Effort & Inspection: normal respiratory effort, able to speak in complete sentences, no tracheal deviation and symmetric chest movement Auscultation: clear to auscultation bilaterally Cardio Rate: regular rate GI Inspection: Yes normal to inspection, No distended and Yes obesity Palpation (GI): Soft to palpation, not firm, nontender and No hepatosplenomegaly present Auscultation: normal bowel sounds General: Yes no CVA tenderness Back/Spine/Pelvis Back: no CVA tenderness Skin General skin exam: elasticity normal, turgor normal and dry skin Neuro General: patient oriented x3 Psych Appearance: grossly normal Mental Status: mental status grossly normal Assessment & Plan Assessment & Plan (1) Postprandial epigastric pain: Code(s): R10.13 - Epigastric pain (2) IBS (irritable bowel syndrome): Code(s): K58.9 - Irritable bowel syndrome, unspecified Qualifiers: Irritable bowel syndrome type: without diarrhea Qualified Code(s): K58.9 - Irritable bowel syndrome, unspecified (3) GERD (gastroesophageal reflux disease): Code(s): K21.9 - Gastro-esophageal reflux disease without esophagitis Qualifiers: Esophagitis presence: esophagitis presence not specified Qualified Code(s): K21.9 - Gastro-esophageal reflux disease without esophagitis Plan Patient will restart taking pantoprazole as she reports that she was doing well she was taking it. Patient was also encouraged to avoid dietary triggers and late night snacking. Staying upright for minimum 3 hours after meals discussed with patient. Patient was instructed to call our office if at any time she will not receive her medications. Patient will be due to go for colonoscopy in November of 2025. Follow-up in the office in 6 months, sooner on as needed basis. She is agreeable to this plan and verbalizes understanding of instructions. She was given the opportunity to ask questions and all questions answered. Thank you for allowing me to participate in her care Medications: Refilled pantoprazole 40 mg PO DAILY 90 tabs 4RF K21.9 - Gastro-esophageal reflux disease without esophagitis Coding Level of Care Code Est Pt Level 3 (10909) Diagnoses Postprandial epigastric pain R10.13 Irritable bowel syndrome without diarrhea K58.9 Irritable bowel syndrome type: without diarrhea Gastroesophageal reflux disease, unspecified whether esophagitis present K21.9 Esophagitis presence: esophagitis presence not specified Time Spent (min) 25 Comment 15 minutes spent with patient and additional 10 minutes spent reviewing her records
== END 2024-02-13 10:47 | disposition home or self-care (01) ==
PROVIDERS: PCP General Practice; Visit Provider Nurse Practitioner Family
DX: R10.13 Epigastric pain (principal); K58.9 Irritable bowel syndrome, unspecified; K21.9 Gastro-esophageal reflux disease without esophagitis
CPT/HCPCS: 99213

== ENCOUNTER → 2024-02-13 10:04 | Outpatient (BNVA) | payer MEDICARE, SELFPAY | PROVIDERS: PCP General Practice; Visit Provider Nurse Practitioner Family | DX: K21.9 Gastro-esophageal reflux disease without esophagitis (principal); K58.9 Irritable bowel syndrome, unspecified; R10.13 Epigastric pain | CPT/HCPCS: 99212 ==

== ENCOUNTER 2024-02-20 12:36 | Outpatient (AMB) | payer MEDICARE, SELFPAY ==
--- NOTE | 2024-02-20 13:02 | MHC.OFFVIS ---
Vital Signs 02/20/24 13:03 Weight 182 lb 15.739 oz BP 132/70 Blood Pressure Location Rt brachial Position Sitting Pulse 90 Pulse Source Pulse Oximeter Pulse Oximetry (%) 98 Oxygen Delivery Method Room Air Intake Visit Reasons: Asthma Allergies No Known Allergies Allergy (Verified 02/20/24 13:09) Medication List - Last Reconciled 02/20/24 by Kathy Jimenes LPN acetaminophen ER (Tylenol Arthritis Pain) 650 mg PO Q8H albuterol sulfate 90 mcg/actuation (Ventolin HFA) 2 puffs PO Q4-6H PRN qhzambmeog-tntkyien-tqpdoqyiix 160-9-4.8 mcg/actuation (Breztri Aerosphere) 2 inhalations inhalation BID bupropion HCl XL 150 mg PO DAILY cetirizine (Zyrtec) 10 mg PO DAILY cholecalciferol (vitamin D3) (Vitamin D3) 50 mcg PO DAILY [cock up splint wear at night ] cyanocobalamin (vitamin B-12) (Vitamin B-12) 50 mcg PO DAILY ibuprofen 800 mg PO TID latanoprost 0.005% 1 drp ophthalmic (eye) DAILY losartan 100 mg PO DAILY methylcellulose (laxative) (Citrucel) 500 mg PO DAILY montelukast 10 mg PO DAILY pantoprazole 40 mg PO DAILY rosuvastatin 5 mg PO DAILY sertraline 25 mg PO DAILY tizanidine 4 mg PO BEDTIME PRN HPI HPI Asthma: Details: 68-year-old lady, nonsmoker, followed for asthma and severe obstructive sleep apnea.? Patient states that she cannot the use CPAP as she fell that her symptoms are worse while using it. Patient was tried on Dupixent, however she did not have any significant symptomatic benefit. At the last office visit she was switched to Breztri and Singulair with improved symptom control. She denies any recent exacerbations. [facility] Medical History Osteoarthritis of hands, bilateral Right sciatic nerve pain Piriformis syndrome of right side Tubulovillous adenoma Extraintestinal yersiniosis GERD (gastroesophageal reflux disease) IBS (irritable bowel syndrome) Sleep apnea Asthma Surgical History History of esophagogastroduodenoscopy (EGD) Hx of eye surgery Hx of endoscopy Hx of colonoscopy Family History Mother Diabetes Hypertension Father Prostate cancer Social History Household Members: Spouse and Children Housing: House Are you a primary careers counsellor to a significant other at home: No Do you presently have visiting nurse or other home services: No Patient Tobacco Use Status: Never used Tobacco Review of Systems Const Denies daytime sleepiness, Denies excessive sweating, Denies fatigue, Denies fever(s), Denies lethargy, Denies malaise, Denies night sweats, Denies snoring and Denies weight loss Eyes Denies blurry vision and Denies itchy eyes ENT Denies nasal congestion, Denies post nasal drip, Denies sinus pain, Denies sinus pressure and Denies other ( Thrush) Card Denies chest pain, Denies pedal edema, Denies dyspnea, Denies orthopnea and Denies paroxysmal nocturnal dyspnea Resp Denies cough, Denies hemoptysis, Denies excessive phlegm production, Denies dyspnea, Denies snoring and Denies wheezing GI Denies abdominal pain and Denies heartburn Musc Denies myalgias, Denies arthralgias and Denies joint swelling Skin/Breast Denies rash Neuro Denies memory loss and Denies seizure-like activity Psych Denies abnormal sleep pattern, Denies anxiety and Denies memory loss Endo Denies excessive sweating, Denies fatigue and Denies heat intolerance Jose/Lymph Denies easy bruising Aller/Immun Denies itchy eyes, Denies seasonal rhinorrhea and Denies wheezing Physical Exam Vital Signs: Last Vital Signs Pulse 90 02/20/24 13:03 BP 132/70 02/20/24 13:03 Pulse Ox 98 02/20/24 13:03 Oxygen Delivery Method Room Air 02/20/24 13:03 Const General: no acute distress and alert Nutritional Appearance: not obese Orientation/consciousness: Other orientation findings ( oriented) HEENT Head: Yes atraumatic Eyes General: appearance normal, both eyes and all related structures Sclerae: sclerae normal EOM: EOMs intact bilaterally Neck Neck: Yes supple Lymphatic: no lymphadenopathy noted Resp Effort & Inspection: normal respiratory effort and no use of accessory muscles Auscultation: clear to auscultation bilaterally Cardio Rate: regular rate Rhythm: regular rhythm Heart sounds: no gallops, no murmurs and no rubs Skin General skin exam: other ( warm) Extrem General: No clubbing, No cyanosis and No edema Assessment & Plan Assessment & Plan (1) Asthma: Code(s): J45.909 - Unspecified asthma, uncomplicated Category: Medical Plan: Well controlled on Breztri, Singulair, and albuterol MDI. Continue current regimen. (2) Environmental allergies: Code(s): Z91.09 - Other allergy status, other than to drugs and biological substances Category: Medical Plan: Well controlled on Singulair. Continue current regimen. Coding Level of Care Code Est Pt Level 4 (03799) Diagnoses Asthma J45.909 Environmental allergies Z91.09
[2024-02-20 13:03] VITALS: BP 132/70; PULSE 90; O2SAT 98
== END 2024-02-20 13:20 | disposition home or self-care (01) ==
PROVIDERS: PCP General Practice; Visit Provider Internal Medicine Pulmonary Disease
DX: J45.909 Unspecified asthma, uncomplicated (principal); Z91.09 Other allergy status, other than to drugs and biological substances
CPT/HCPCS: 99214

== ENCOUNTER → 2024-02-20 12:36 | Outpatient (BNVA) | payer MEDICARE, SELFPAY | PROVIDERS: PCP General Practice; Visit Provider Internal Medicine Pulmonary Disease | DX: J45.909 Unspecified asthma, uncomplicated (principal); G47.33 Obstructive sleep apnea (adult) (pediatric); Z91.09 Other allergy status, other than to drugs and biological substances; Z79.899 Other long term (current) drug therapy | CPT/HCPCS: 99212 ==

== ENCOUNTER 2024-02-22 10:20 | Outpatient (AMB) | payer MEDICARE, SELFPAY ==
--- NOTE | 2024-02-22 10:21 | A.OFFVIS_ITS ---
Vital Signs 02/22/24 10:25 Height 5 ft 2 in Weight 180 lb BMI 32.9 BP 145/67 H Blood Pressure Location Lt brachial Position Sitting Pulse 65 Pulse Source Pulse Oximeter Pulse Oximetry (%) 97 Oxygen Delivery Method Room Air Intake Visit Reasons: discuss right L5 TFESI Intake Note: Pain today 07/17 Sustainable Communities Designer Required: No Accompanied by: Self / Same As Patient Allergies No Known Allergies Allergy (Verified 02/22/24 10:25) HPI Comments Details: Patient presents today for follow-up to discuss potential right L5 selective nerve block after recent neurosurgical evaluation at [facility]. She continues to endorse right-sided radiculopathy with activities, rest and sleep. Lumbar spine MRI was completed on 12/29/23 as noted below. Denies any recent cough, cold, infection, fever or other significant changes in medical history since last office visit. Neurosurgery evaluation by Monster Garcia PA-C 01/11/24: 68-year-old female presents with chronic low back pain localized over the middle of her lumbar spine radiating out to both sides and intermittent pain in the right hip and lateral thigh. In terms of anatomical structure of her lumbar spine, her disc quality is excellent. I do not think her pain is discogenic. There are no Modic endplate changes, spondylolisthesis or other significant osteophyte overgrowth. There are no disc herniations. She does have some mild disc bulging on the right at L4-5 which may cause some crowding of the lateral recess impinging on the right L5 nerve root. I am not sure if her symptoms qualify as a true radiculopathy or if it is more localized to the hip. She does respond to the hip injections. I told her we could consider doing a right L5 TFESI with Dr. Heath to see if the L5 nerve is involved in her right hip pain and lateral thigh pain. She really did not want to proceed with injections at this time. In terms of the back pain, things get a little more complicated because she does significant amount of lifting of her disabled 40-year-old daughter and certainly she could have some overuse and muscular strain in her back. Certainly she has no discogenic issues as her disc quality is excellent given her age. I do not think spinal fusion would help her back pain. Right now she is really not interested in surgery or intervention at all. PRIOR: Patient is a pleasant 68-year-old female with history of osteoarthritis, glaucoma, asthma, osteopenia, chronic low back pain, fibromyalgia, right hip and knee pain, right sciatic nerve pain, piriformis syndrome of right side, presents today for initial evaluation of low back pain with radiation into her right lateral hip. Denies any past recent trauma, injury or falls. Patient reports she takes care of her 41-year-old daughter the cerebral palsy who has been wheelchair dependent since 2017. Patient's also assists with daughter's care. Patient reports increasing pain with bending,heavy lifting, twisting, movements, ADLs, and flexing forward. She reports imbalance with walking or movements at times. Patient completed physical therapy at [facility] in May this year and has received therapeutic injections by Rheumatology provider with partial relief. Denies previous spine surgery or injections. Pain affects her daily activities, functioning, mobility, sleep, mood, and social interactions. Back pain has been resistant to conservative treatments. Denies any fever, chills, weight loss, abdominal or groin pain, bladder or bowel dysfunction or saddle anesthesia. Oswestry low back disability score =24 (moderate disability) Location: Right lateral hip, lower back, widespread body pain Duration: Chronic pain for 10 + years Characteristics of symptom or complaint: Aching, searing, tingling, numbness, burning, stabbing, throbbing Aggravating or associated factors: Standing, sitting, laying flat, bending, pulling, heavy lifting, twisting Relieving factors: Ibuprofen, heat therapy, rest, Tylenol, tizanidine Treatment: PT, injections PFSH Medical History (Updated 02/24/24 @ 16:28 by GABRIEL Rosado) Glaucoma Osteoarthritis of hands, bilateral Right sciatic nerve pain Piriformis syndrome of right side Tubulovillous adenoma Extraintestinal yersiniosis GERD (gastroesophageal reflux disease) IBS (irritable bowel syndrome) Sleep apnea Asthma Surgical History History of esophagogastroduodenoscopy (EGD) Hx of eye surgery Hx of endoscopy Hx of colonoscopy Family History Mother Diabetes Hypertension Father Prostate cancer Social History (Reviewed 02/24/24 @ 16:22 by TALA Rosado Household Members: Spouse and Children Housing: House Are you a primary managed care specialist to a significant other at home: No Do you presently have visiting nurse or other home services: No Patient Tobacco Use Status: Never used Tobacco Review of Systems Const All systems reviewed & are unremarkable except as noted in HPI and below Physical Exam Vital Signs: Last Vital Signs Pulse 65 02/22/24 10:25 BP 145/67 H 02/22/24 10:25 Pulse Ox 97 02/22/24 10:25 Oxygen Delivery Method Room Air 02/22/24 10:25 BMI result Body Mass Index 32.9 General: Appears afebrile. Alert and oriented. Mood and affect appropriate. Follows and participates in conversation appropriately. Respiratory effort is unlabored. No cough. Able to transition from sit to stand unassisted. Ambulates with bilaterally normal heel strike and toe off. General: Yes no CVA tenderness Back/Spine/Pelvis Other: Limited lumbar ROM. Mildly antalgic gait with no limping. Can flex forward to 65-70 degrees and extend to 5-10 degrees before experiencing lumbar pain. Lumbar extension and flexion forward reproduces moderate pain. Demonstrates 5/5 left 4/5 right strength of quadriceps bilaterally as well as flexion/dorsiflexion of bilateral feet against resistance. 2+ pedal pulses bilaterally. Straight leg rise with dorsiflexion positive on the right. +1 patellar and achilles reflexes bilaterally. Facet loading test positive biljoey alejo. Kai sign, [place]ito?s, Ga[place]len, Pelvic compression and Stinchfield tests reproduce right hip and right low back pain. Slight groin pain with right I/E hip rotations. Valsalva maneuver negative. Back: no CVA tenderness Cervical Spine: loss of normal cervical lordosis, cervical muscular tenderness, pain with cervical ROM and No Cervical spine tenderness Thoracic/Lumbar Spine: thoracic and lumbar spine normal to inspection, No Thoracic/lumbar spine scar(s), Lasegue's sign positive on the right and local ized, pain with thoraco-lumbar ROM, paraspinal muscle tenderness, thoraco-lumbar ROM limited, No thoracic spinal tenderness and lumbar spinal tenderness (L3-S1) Pelvis: buttock tenderness on the right Sacroiliac joints: bilaterally (right>left) tender to palpation Extrem General: Yes capillary refill normal, Yes no clubbing, cyanosis or edema and Yes no calf tenderness Results Reviewed Results Reviewed: XR LUMBOSACRAL SPINE 02/22/22 CLINICAL INFORMATION: Low back pain COMPARISON: Previous x-ray January 2019 FINDINGS: Bone alignment is normal. No fracture or dislocation. Mild disc space narrowing at L2-L3. Lower lumbar spine facet arthritis. IMPRESSION: Mild degenerative changes. XR DEXA axial skeleton 06/02/20 Osteopenia based on the lowest T-score value of -1.8 in the femoral neck applying World Health Organization criteria. MRI OF THE LUMBAR SPINE WITHOUT CONTRAST 12/29/23 CLINICAL INFORMATION: Spondylosis without myelopathy radiculopathy. COMPARISON: Lumbar spine radiographs November 27, 2023. FINDINGS: There are 5 nonrib-bearing lumbar-type vertebral bodies. Lumbar alignment is normal. The vertebral body heights are maintained. There is mild disc volume loss at L2-L3. The remaining disc volumes are preserved. There is disc desiccation at all lumbar levels. There is no bone marrow edema. There are no acute fractures. The conus terminates at the T12-L1 level. Left-sided parapelvic cysts. No significant extraspinal soft tissue findings. L1-L2: Disc contour is normal. Mild bilateral facet arthropathy. No central canal stenosis and no foraminal stenosis. L2-L3: Small annular disc bulge and mild bilateral facet arthropathy. There is no central canal stenosis and there is no foraminal stenosis. L3-L4: Small diffuse annular disc bulge and moderate bilateral facet arthropathy and ligamentum flavum containing. Findings in concert result in mild central canal stenosis and mild left-sided foraminal encroachment. L4-L5: There is a diffuse annular disc bulge with a superimposed shallow right paracentral disc protrusion and there is severe bilateral facet arthropathy and ligamentum flavum giving. Findings in concert result in severe central canal stenosis, severe right greater than left subarticular zone stenosis with compression of the traversing right greater than the left L5 nerve roots, and a right lateral disc protrusion results in moderate right-sided foraminal stenosis and mild mass effect on the exiting right L4 nerve root. L5-S1: There is a diffuse annular disc bulge and there is severe bilateral facet arthropathy and ligamentum flavum thickening. There is no central canal stenosis. There is mild foraminal encroachment bilaterally. IMPRESSION: Multilevel lumbar spondylosis that is greatest at L4-L5 where multifactorial degenerative changes result in severe central canal stenosis, severe right greater than left subarticular zone stenosis with compression of the traversing right greater than the left L5 nerve roots, and a right lateral disc protrusion results in moderate right-sided foraminal stenosis and mild mass effect on the exiting right L4 nerve root. Additional degenerative changes as discussed above. Assessment & Plan Assessment & Plan (1) Lumbosacral spondylosis: Code(s): M47.817 - Spondylosis without myelopathy or radiculopathy, lumbosacral region Category: Medical (2) Lumbar radiculopathy, right: Code(s): M54.16 - Radiculopathy, lumbar region Category: Medical (3) Lumbar spinal stenosis: Code(s): M48.061 - Spinal stenosis, lumbar region without neurogenic claudication Category: Medical (4) Sacroiliac joint pain: Code(s): M53.3 - Sacrococcygeal disorders, not elsewhere classified Category: Medical (5) Right sciatic nerve pain: Code(s): M54.31 - Sciatica, right side Category: Medical Plan Discussed treatments for right sacroiliac joint pain, axial low back pain and right sided radiculopathy. Per Neurosurgery evaluation and recent lumbar spine MRI findings, will proceed with Right L5 TFESI without steroids (patient reports glaucoma) with local and fluoroscopy. Expectations, risks and benefits were reviewed. Patient is aware she will be contacted to schedule this procedure after review of imaging. Script provided for oral diclofenac. Patient will hold Ibuprofen. Side effects and precautions were discussed with patient. All questions were answered and the patient is in agreement of plan. Follow-up after injections and sooner as needed. Medications: New diclofenac sodium Take it with food and glass of water. Avoid Ibuprofen while taking this. 50 mg PO Q12H 30 days PRN 60 tabs 0RF pain M47.817 - Spondylosis without myelopathy or radiculopathy, lumbosacral region, M48.061 - Spinal stenosis, lumbar region without neurogenic claudication, M54.16 - Radiculopathy, lumbar region Coding Level of Care Code Est Pt Level 4 (60811) Complex EM visit Add On G2211 Diagnoses Lumbosacral spondylosis M47.817 Lumbar radiculopathy, right M54.16 Lumbar spinal stenosis M48.061 Sacroiliac joint pain M53.3 Right sciatic nerve pain M54.31
[2024-02-22 10:25] VITALS: BP 145/67; PULSE 65; O2SAT 97; BMI 32.9
== END 2024-02-22 10:53 | disposition home or self-care (01) ==
PROVIDERS: PCP General Practice; Visit Provider Nurse Practitioner Family
DX: M47.817 Spondylosis without myelopathy or radiculopathy, lumbosacral region (principal); M54.16 Radiculopathy, lumbar region; M48.061 Spinal stenosis, lumbar region without neurogenic claudication; M53.3 Sacrococcygeal disorders, not elsewhere classified; M54.31 Sciatica, right side
CPT/HCPCS: 99214; G2211

== ENCOUNTER → 2024-02-22 10:20 | Outpatient (BNVA) | payer MEDICARE, SELFPAY | PROVIDERS: PCP General Practice; Visit Provider Nurse Practitioner Family | DX: M47.817 Spondylosis without myelopathy or radiculopathy, lumbosacral region (principal); M54.16 Radiculopathy, lumbar region; M48.061 Spinal stenosis, lumbar region without neurogenic claudication; M53.3 Sacrococcygeal disorders, not elsewhere classified; M54.31 Sciatica, right side | CPT/HCPCS: 99212 ==

== ENCOUNTER 2024-08-04 11:00 | Outpatient (AMB) | payer MEDICARE, SELFPAY ==
--- NOTE | 2024-08-04 11:04 | A.SPINEOV_ITS ---
Intake Visit Reasons: back pain getting worse Intake Note: Ms. Kennedy is here today c/o back pain that is getting worse. Student Development Dean Required: No Allergies No Known Allergies Allergy (Verified 08/04/24 11:04) Assessment & Plan Assessment & Plan (1) Lumbar radiculopathy, right: Code(s): M54.16 - Radiculopathy, lumbar region Category: Medical Plan Mrs Kennedy comes back in today to discuss her symptoms again. Please refer to my previous note for the specifics of the problem, but this is a 69-year-old female who has had chronic right-sided low back pain going down into her right leg, lateral thigh into her calf now for number of months. When I originally saw her the leg pain was more localize just over to her hip and it was often related to her lifting her daughter who is disabled. Her disc quality overall is quite good for her age, but there was a small disc bulge on the right at L4-5 which is crowding the lateral recess slightly. Since she did not have typical radiculopathy symptoms, we deferred and wanted to just see how this would evolve and consider a cortisone injection as 1 potential treatment. The symptoms are now starting to evolve into more of a radicular symptom shooting down the leg into her calf. She has been trying to avoid lifting her daughter but obviously there some limitations here with how much she can avoid. She is responsible for a lot of the care involved with her. She is also reporting new symptoms today which is feeling of stumbling and that her feet are not coordinated. There is no numbness or tingling of her feet it is just a feeling of lack of coordination. On examination, she has full strength and normal reflexes and can stand up out of a chair and ambulate without any obvious distress, antalgia or instability. At this point, I can explain the right leg pain, but I am at a loss to explain the issue with the feet. I would like to get a new MRI just to be sure the disc bulge did not retract itself. Her last MRI is 8-month-old. I would also like to get the MRI just to exclude something going on that might explain this clumsiness of her feet. I will see her back after the MRI. Total amount of time spent in this visit was 20 minutes in discussion of symptoms, ordering lumbar imaging and subsequent plan of care Monster Brennan MD,PhD [facility] Orders: Orders MR lumbar spine wo con Today M54.16 - Radiculopathy, lumbar region Coding Level of Care Code Est Pt Level 3 (80965) Diagnoses Lumbar radiculopathy, right M54.16
--- OUTSIDE RECORDS SUMMARY | 2024-08-04 13:15 | XMS_ITS | Encounter Summary ---
Author Organization [employer] [facility] Address [address] [place] [address] Care Team Providers Care Carbide Powder Processor Name Role Phone Vic See MD Primary Care Provider Erlinda Johnson Primary Care Provider [phone] Vera Crowe MD Primary Care Provider [phone] Encounter Details Date Type Department Care Team (Latest Contact Info) Description 04/30/2018 Abstract [facility] Dental, Provider, DDS Social History Tobacco Use Types Packs/Day Years Used Date Smoking Tobacco: Never Assessed Comments Unknown Sex and Gender Information Value Date Recorded Sex Assigned at Female 02/06/2022 10:32 AM EDT Legal Sex Female 10:32 AM EDT Gender Identity Female 02/06/2022 10:32 AM EDT Sexual Orientation Choose not to disclose 2021 10:32 AM EDT documented as of this encounter Plan of Treatment Upcoming Encounters Date Type Department Care Team (Late st Contact Info) Description 09/05/2024 11:15 AM EDT Office Visit [facility] [address] [place] [address] Vera Crowe MD [address] [place] [address] documented as of this encounter Visit Diagnoses Not on filedocumented in this encounter Care Teams Carbide Powder Processor Relationship Specialty Start Date End Date Vic See MD PCP - General Family Medicine 09/26/19 05/02/22 Erlinda Fink FNP PCP - General Family Medicine 05/03/22 06/15/22 Vera Crowe MD [address] [place] [address] PCP - General Family Medicine 06/16/22 documented as of this encounter
--- OUTSIDE RECORDS SUMMARY | 2024-08-04 13:15 | XMS_ITS | Encounter Summary ---
Author Organization [employer] Address [address] [place] [address] Care Team Providers Care Java Analyst Name Role Phone Vera Crowe MD Primary Care Provider [phone] Reason for Visit * Reason Comments Med Refill Encounter Details Date Type Department Care Team ([facility] st Contact Info) Description 08/15/2023 Refill [facility] [address] [place], [place] [phone] Vera Crowe MD [address], [place] [phone] Social History Tobacco Use Types Packs/Day Years Used Date Smoking Tobacco: Never Passive Smoke Exposure: Never Smokeless Tobacco: Never Alcohol Use Standard Drinks/Week Comments Never 0 (1 standard drink = 0.6 oz pur e alcohol) Housing Stability Answer Date Recorded What is your housing situation today? I have lreoyadam fisher 01/24/[address] you li ve. Do you have problems with any of the following? None of the above 01/24/2023 Food Insecurity Answer Date Recorded Within the past 12 months, y ou worried that your food would run out before you got money to buy more: Never True 01/24/2023 Within the past 12 months,th e food you bought just didn't last and you didn't have enough money to get more: Never True Transportation Answer Date Recorded In the past 12 months, has l ack of transportation kept you from medical appts, meetings, work or from getting things needed for daily living? Yes, it has kept me from medical appointments or getting medications. 01/14/2023 Utilities Answer Date Recorded In the past 12 months, has t he electric, gas, oil or water company threatened to shut off services in your home? No 01/24/2023 Depression Answer Date Recorded Patient Health Questionnaire-2 Score 0 08/25/2022 Comments Unknown Sex and Gender Information Value [...] Description 09/05/2024 11:15 AM EDT Office Visit [facility] [address] [place] [address] Vera Crowe MD [address] [place] [phone] documented as of this encounter Visit Diagnoses Not on filedocumented in this encounter Care Teams Java Analyst Relationship Specialty Start Date End Date Vera Crowe MD [address] [place] [phone] PCP - General Family Medicine 06/16/22 documented as of this encounter
--- OUTSIDE RECORDS SUMMARY | 2024-08-04 13:15 | XMS_ITS | Clinical Summary ---
Author Organization [employer] Address [address] [place] [address] Care Team Providers Care Biodiesel Process Control Technician Name Role Phone Vera Crowe MD Primary Care Provider [phone] Allergies No known active allergies Medications Ventolin HFA 108 (90 Base) MCG/ACT inhaler INHALE 2 PUFFS BY MOUTH EVERY 4 TO 6 HOURS NEEDED FOR WHEEZING OR SHORTNESS OF BREATH 3 Active Symbicort 160-4.5 MCG/ACT inhaler Inhale 2 puffs 2 times daily. 3 Active diphenhydrAMINE (BENADryl) 25 MG capsule TAKE 2 CAPSULES BY MOUTH EVERY 4 TO 6 HOURS NEEDED 2 Active latanoprost (Xalatan) 0.005 % ophthalmic solution INSTILL 1 DROP IN EACH EYE AT BEDTIME 3 Active SM Fiber Laxative 500 MG tablet TAKE 1 TABLET BY MOUTH DAILY WITH GLASS OF WATER 3 Active pantoprazole (ProtoNix) 40 MG EC tablet Take 40 mg by mouth in the morning. 3 Active Senna-Time 8.6 MG tablet TAKE 1 TABLET BY MOUTH AT BEDTIME FOR CONSTIPATION 3 Active escitalopram (Lexapro) 10 MG tabletIndication s:Depression, unspecified depression type TAKE 1 TABLET BY MOUTH EVERY DAY 90 tablet 3 3 Active cholecalciferol (D3 Super Strength) 50 MCG (2000 UT) capsule Take 1 capsule (50 mcg) by mouth in the morning. 90 capsule 1 3 Active cetirizine (ZyrTEC) 10 MG tablet Take 1 tablet (10 mg) by mouth if needed each day for allergies. 90 tablet 3 3 Active ibuprofen 800 MG tabletIndication s:Low back pain at multiple sites TAKE 1 TABLET BY MOUTH THREE TIMES DAILY 90 tablet 3 Active Bisacodyl EC 5 MG EC tablet TAKE 2 TABLETS BY MOUTH AT NOON THE DAY BEFORE COLONOSCOPY 3 Active polyethylene glycol, PEG, 3350 (Glycolax) 17 GM/SCOOP powder MIX 238 GRAM WITH WATER AND TAKE BY MOUTH DIRECTED BY PHYSICIAN. 3 Active cyanocobalamin (Vitamin B-12) 500 MCG tabletIndication s:Gastroesophage al reflux disease without esophagitis TAKE 1 TABLET BY MOUTH EVERY DAY 90 tablet 3 3 Active buPROPion XL (Wellbutrin XL) 150 MG 24 hr tablet Take 1 tablet (150 mg) by mouth in the morning. Do not crush, chew, or split. For anxiety 30 tablet 11 3 Active Dupixent 300 MG/2ML injection 3 Active guaiFENesin-code ine (Robitussin-AC) 100-10 MG/5ML syrup TAKE 10 ML BY MOUTH EVERY 4 TO 6 HOURS NEEDED FOR SYMPTOMS del resfriado FOR 15 DAYS 3 Active rosuvastatin (Crestor) 5 MG tablet TAKE 1 TABLET BY MOUTH DAILY IN THE MORNING 90 tablet 3 4 Active QUEtiapine (SEROquel) 25 MG tablet TAKE 1 TABLET BY MOUTH EVERY DAY BEFORE BEDTIME NEEDED 4 Active ramelteon (Rozerem) 8 MG tablet Take 8 mg by mouth at bedtime. for sleep 4 Active sertraline (Zoloft) 25 MG tablet Take 25 mg by mouth Once per day. 4 Active Breztri Aerosphere 160-9-4.8 MCG/ACT aerosol 4 Active montelukast (Singulair) 10 MG tablet 4 Active losartan (Cozaar) 100 MG tabletIndication s:Essential hypertension TAKE 1 TABLET BY MOUTH EVERY DAY 90 tablet 5 Active Active Problems Problem Noted Date Diagnosed Date Acute upper respiratory infection 06/10/2024 Assessment & Plan (06/10/2024 11:44 AM EST): COVID and follow up negative. No evidence of respiratory distress. Symptoms mild. No evidence of dehydration. Has been ongoing for >1 week, will start on abx. -Prescribed Augmentin, Take 1 tablet by mouth 2 times daily for 10 days, due to being on amoxicillin previously In the past month. -Supportive care advised. -Isolation recommendations discussed. Fat necrosis (segmental) of breast 01/30/2024 Overview (01/30/2024): FINDINGS: There are scattered areas of fibroglandular density (ACR BI-RADS breast composition Category b). BB marker has been placed over the palpable abnormality in the lower inner quadrant of the left breast, approximate 7:00 axis, anterior one third. Immediately subjacent to the BB marker, there is a dense circumscribed oval mass with subtle internal fat density, measuring an estimated 8 mm in diameter. This is in the region of bruising. Findings are consistent with either a small hematoma or focus of fat necrosis. We will evaluate this region with ultrasound. No additional abnormalities in the left breast. ULTRASOUND: CLINICAL INFORMATION: As above COMPARISON: None relevant TECHNIQUE: Targeted sonographic evaluation was performed using a high frequency linear transducer. Attention was given to the 8:00 axis left breast, to include the area of palpable concern. Selected archived documentation. FINDINGS: LEFT BREAST: -There is a fairly classic focus of fat necrosis with cystic component lying within echogenic fat correlating with the mammographic abnormality and the palpable abnormality. This lies at the 8:00 axis, 4 cm from the nipple, with the cystic component measuring 5 x 7 x 6 mm. No internal color Doppler flow or solid component. There are echogenic contusive changes surrounding the abnormality with minimal skin thickening consistent with fat contusion/bruising. This finding is benign. No further follow-up recommended. No suspicious findings identified. Assessment & Plan (01/30/2024 11:34 AM EDT): Continue to monitor Breast mass 12/27/2023 Assessment & Plan (12/27/2023 8:04 PM EDT): Spontaneous bruise in her left breast w small mass palpation beneath -MM 07/2023 BIRADS 2 -CBC and chem 03/2023 wnl -referred today for Dx MM and US in left breast -CBC,chem,PT,INR -continue care w PCP --scheduled already for 01/14/2024 Obesity (BMI 30.0-34.9) 07/23/2023 Assessment & Plan (07/23/2023 1:27 PM EDT): Continue Topimax Start Metformin 500mg BID, A1C 5.9 today Has seen merchandising consultant Urinary frequency 07/20/2023 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 Assessment & Plan (02/28/2023 11:31 AM EST): Seen on 07/2022 colonoscopy, will need repeat Right hip pain 02/28/2023 Assessment & Plan (02/28/2023 12:09 PM EST): Will get xray and then decide rheum, ortho, pain mgmt referral Anxiety 11/06/2022 Assessment & Plan (02/28/2023 12:10 PM EST): Continue Wellbutrin 150mg XR in the morning to Lexapro 10mg daily Await therapy coverage with insurance Assessment & Plan (11/06/2022 6:24 AM EDT): Add Wellbutrin 150mg XR in the morning to Lexapro 10mg daily Moderate persistent asthma without complication 08/28/2022 Assessment & Plan (06/10/2024 11:42 AM EST): Controlled on current regimen. No indication for steroids at this time. Lungs clear on exam. Suspect upper respiratory infection. Assessment & Plan (02/28/2023 12:11 PM EST): Continue Dupixent, Symbicort, TIM Cont f/u with pulm Lungs are clear today and normal O2 sat 97% Assessment & Plan (11/06/2022 6:20 AM EDT): Continue Xolair, Symbicort, TIM See pulm next month, they will switch to Dupixent if not better Assessment & Plan (08/28/2022 5:20 AM EDT): Continue Flovent, Symbicort, TIM See pulm next month Low back pain at multiple sites 07/20/2022 Assessment & Plan (08/28/2022 5:21 AM EDT): Start PT Continue OTC meds as needed Assessment & Plan (07/20/2022 11:15 AM EDT): No red flags Low back pain versus piriformis syndrome Ibuprofen 800mg and Flexeril 5mg TID prn PT referral for strengthening followup with me in 4 weeks for transfer patient and we will revisit her pain then Essential hypertension 05/01/2022 Assessment & Plan (12/27/2023 8:04 PM EDT): Multiple times elevtaed BP up to 160s at house per pt -increase losartan 100 mg daily -advised to Bring BP readings at next apt -continue care w PCP --scheduled already for 01/14/2024 --will need repeat chem after losartan dose was increased today Assessment & Plan (07/23/2023 1:25 PM EDT): On average, BP above 140/90 Increase Losartan to 50mg daily Assessment & Plan (11/06/2022 6:21 AM EDT): On average, BP above 140/90 Continue Losartan 25mg daily, will increase at next visit if > 140/90 Assessment & Plan (08/28/2022 5:20 AM EDT): On average, BP above 140/90 Start Losartan 25mg daily Assessment & Plan (07/20/2022 11:16 AM EDT): Ordered CMP, A1C, lipids today After results are available, will recommend medication, likely CCB versus ARB Continue daily BP monitoring at home Call/come to clinic if >160/100 Obstructive sleep apnea syndrome 05/01/2022 Assessment & Plan (11/06/2022 6:20 AM EDT): Trial of other masks to see if she can tolerate Aim for at least 4 hours a night of usage Cont Pulm followup Assessment & Plan (08/28/2022 5:19 AM EDT): Trial of other masks to see if she can tolerate Aim for at least 4 hours a night of usage Allergic rhinitis 03/20/2017 Fibromyalgia 03/20/2017 Gastroesophageal reflux disease 03/20/2017 Assessment & Plan (11/06/2022 6:21 AM EDT): Continue PPI Wean if possible, take as needed Assessment & Plan (08/28/2022 5:20 AM EDT): Continue PPI Wean if possible, take as needed Glaucoma 03/20/2017 Overview (05/01/2022): Care managed by [facility] Appt 03/23/22 Continue medications for eyes: Latanoprost Followup 4 months Primary insomnia 03/20/2017 Assessment & Plan (08/28/2022 5:19 AM EDT): Sleep hygiene Challenging because her daughter needs care during the night Primary osteoarthritis involving multiple joints 03/20/2017 Assessment & Plan (11/06/2022 6:21 AM EDT): Hips are especially bothersome Will communicate with rheum to request hip injections Encounters Date Type Department Care Team Description 06/18/2024 Refill [facility] [address] [address] Haile Mccoy MD Essential hypertension 06/10/2024 11:20 AM EST Office Visit [facility] [address] [address] Meghan Phoenix MD Moderate persistent asthma without complication (Primary Dx); Acute upper respiratory infection 05/29/2024 Patient Outreach [facility] [address] [place] [phone] Vera Crowe MD Pre-visit Planning (SDOH screening negative and tobacco screening negative) from Last 3 Months Immunizations Name Administration Dates Next Due Influenza High-dose Quadrivalent Preservative Fr ee 02/28/2023,12/22/2021 Influenza injectable quadriv alent IIV4 with preservative 05/15/2017 Influenza injectable quadrivalent preservative f ree 01/22/2019 Moderna Covid-19 Vaccine 12+ 05/13/2020 Pfizer Covid-19 Vaccine 12+ Bivalent 03/16/2022 Tdap 12/22/2021 Zoster, Recombinant 01/09/2022,07/24/2021 Social History Tobacco Use Types Packs/Day Years Used Date Smoking Tobacco: Never Passive Smoke Exposure: Never Smokeless Tobacco: Never Tobacco Cessation:Counseling Given: Not Answered Alcohol Use Standard Drinks/Week Comments Never 0 (1 standard drink = 0.6 oz pur e alcohol) Housing Stability Answer Date Recorded What is your housing situation today? I have leroy fisher 05/29/[address] you li ve. Do you have problems with any of the following? None of the above 05/29/2024 Food Insecurity Answer Date Recorded Within the past 12 months, y ou worried that your food would run out before you got money to buy more: Never True 05/29/2024 Within the past 12 months,th e food you bought just didn't last and you didn't have enough money to get more: Never True Transportation Answer Date Recorded In the past 12 months, has l ack of transportation kept you from medical appts, meetings, work or from getting things needed for daily living? No 05/29/2024 Utilities Answer Date Recorded In the past 12 months, has t he electric, gas, oil or water company threatened to shut off services in your home? No 05/29/2024 Depression Answer Date Recorded Patient Health Questionnaire-2 Score 0 08/25/2022 Internet Access Answer Date Recorded Internet Access Q1 Yes 05/29/2024 Internet Access Q2 Not on file 05/29/2024 Comments Unknown Sex and Gender Information Value Date Recorded Sex Assigned at Female 02/06/2022 10:32 AM EDT Legal Sex Female 10:32 AM EDT Gender Identity Female 02/06/2022 10:32 AM EDT Sexual Orientation Choose not to disclose 2021 10:32 AM EDT Last Filed Vital Signs Vital Sign Reading Time Taken Comments Blood Pressure 166/92 06/10/2024 11:19 AM EST Pulse 93 06/10/2024 11:19 AM EST Temperature 37.2 ??C (98.9 ??F) 06/10/2024 11:[address] Respiratory Rate 20 06/10/2024 11:19 AM EST Oxygen Saturation 97% 06/10/2024 11:36 AM EST Inhaled Oxygen Concentration - - Weight 84.1 kg (185 lb 6.4 oz) 06/10/2024 11:19 AM EST Height 157.5 cm (5' 2 ) 01/30/2024 10:28 AM EDT Body Mass Index 33.91 01/30/2024 10:28 AM EDT Plan of Treatment Upcoming Encounters Date Type Department Care Team (Late st Contact Info) Description 09/05/2024 11:15 AM EDT Office Visit [facility] [address], [place] [phone] Vera Crowe MD [address] [place], [place] [phone] Health Maintenance Due Date Last Done Comments CT Colonography 1955 FIT DNA/Cologuard 1955 FIT 1955 FOBT 1955 Sigmoidoscopy 1955 Alcohol/Substance Use Screening 1967 Pneumococcal Vaccine: 50+ Years (1 of 2 - PCV) 1974 RSV Patients and Patients Aged 60 years or older (1 - Risk 60-74 years 1-dose series) 2015 Depression Screening 08/26/2023 08/25/2022, 08/26/19 23 COVID-19 Vaccine ( season) 2023 03/16/2022, 07/24/2021, 02/24/2021, Additional history exists Influenza Vaccine (#1) 2023 , 12/22/2021, 01/22/2019, Additional history exists Tobacco Screening 01/29/2025 01/30/2024 SDOH Screening 05/29/2025 05/29/2024 Mammogram 01/13/2026 01/14/2024, 10/2023, 08/03/2023, Additional history exists Lipid Panel 07/21/2027 07/20/2022, 12/08, 10/21/2020 Colonoscopy 03/29/2031 03/29/2021 Colorectal Cancer Screening 03/29/2031 DTaP/Tdap/Td Vaccines (2 - Td or Tdap) 12/23/2031 12/22/2021 Zoster Vaccines Completed 01/09/2022, 07/24/2021 Hepatitis C Screening Completed 03/23/2023 HIB Vaccines Aged Out No longer eligi ble based on patient's age to complete this topic HPV Vaccines Aged Out No longer eligi ble based on patient's age to complete this topic Hepatitis A Vaccines Aged Out No long er eligible based on patient's age to complete this topic Hepatitis B Vaccines Aged Out No long er eligible based on patient's age to complete this topic IPV Vaccines Aged Out No longer eligi ble based on patient's age to complete this topic Meningococcal Vaccine Aged Out No michelle suzette eligible based on patient's age to complete this topic RSV under 20 months Aged Out No longe r eligible based on patient's age to complete this topic Rotavirus Vaccines Aged Out No longer eligible based on patient's age to complete this topic Procedures Procedure Name Priority Date/Time Associated Diagnosis Comments POCT INFLUENZA B Routine 06/10/2024 11:3 8 AM EST Moderate persistent asthma without complication POCT INFLUENZA A Routine 06/10/2024 11:3 8 AM EST Moderate persistent asthma without complication POCT RAPID COVID ANTIGEN Routine 06/10/2024 11:37 AM EST Moderate persistent asthma without complication BI US BREAST LIMITED LEFT Routine 01/14/2024 1:42 PM EDT HEPATITIS PANEL, GENERAL Routine 03/23/2023 11:42 AM EST LIPID PANEL, STANDARD Routine 07/20/2022 11:15 AM EDT Essential hypertension HM COLONOSCOPY Routine 03/29/2021 from Last 3 Months or Most Recently Relevant to Health Maintenance Results * POCT Influenza B manually resulted (06/10/2024 11:38 AM EST) Rapid Influenza B Ag Negative Negative, Indeterminate QC Media Lot # [id number] Lot# Expiration Date [id number] Swab 06/10/2024 11:3 8 AM EST us Meghan Phoenix MD POINT OF CARE TEST ENTER/E DIT ORDERABLES Final Result * POCT Influenza A manually resulted (06/10/2024 11:38 AM EST) Rapid Influenza A Ag Negative Negative, Indeterminate QC Media Lot # [id number] Lot# Expiration Date 826 Swab Nasopharyngeal structure / Unknown 06/10/2024 11:38 AM EST Meghan Phoenix MD POINT OF CARE TEST ENTER/E DIT ORDERABLES Final Result * POCT Rapid COVID Ag (06/10/2024 11:37 AM EST) Rapid COVID Ag Negative QC Media Lot # [id number] Lot# Expiration Date [id number] Swab 06/10/2024 11:3 7 AM EST us Meghan Phoenix MD POINT OF CARE TEST ENTER/E DIT ORDERABLES Final Result * BI US Breast Limited Left (01/14/2024 1:42 PM EDT) Anatomical Region Laterality Modality Breast Left Ultrasound 01/14/2024 1:42 PM EDT Narrative 01/14/2024 2:10 PM EDT ? [facility] ? [address] ?[place] [address] ? Ultrasound Report ? Signed ? Patient: Kennedy,Caty ?MR#: [id number] ?? 0 ? : 1955 ?Acct:[id number] ? Age/Sex: 68 / F ?ADM Date: 10/07/24 ? Loc: HO.MAMMO ? Attending Dr: Zina Honeycutt MD ? Ordering Physician: Zina Mejia MD ?? Date of Service: 01/14/24 ?? Procedure(s): US breast LT limited mamm only ?? Accession Number(s): [id number] ? cc: Vera Crowe; Zina Mejia MD ? EXAMINATION: ?? MM DIAGNOSTIC DIGITAL BREAST TOMOSYNTHESIS, LEFT ?? US BREAST LIMITED, LEFT ? MAMMOGRAPHY: ?? CLINICAL INFORMATION: ? Lower inner quadrant palpable lump x3 weeks with large overlying ?? bruise. Patient denies known injury. 68-year-old female, no history of ?? surgery or family history of breast CA. ? COMPARISON: ?? Mammography: 08/03/2023, 07/28/2022, 06/20/2021, 03/18/2018. ? TECHNIQUE: ?? Digital left breast tomosynthesis is performed in both the craniocaudal ?? and mediolateral oblique views along with computer-aided detection ?? (CAD). Synthesized 2D images are generated from the tomosynthesis. In ?? addition, a full field 3-D left mediolateral view was obtained, as well ?? as 3-D spot compression left MLO and CC views. ? FINDINGS: ?? There are scattered areas of fibroglandular density (ACR BI-RADS breast ?? composition Category b). ? BB marker has been placed over the palpable abnormality in the lower ?? inner quadrant of the left breast, approximate 7:00 axis, anterior one ?? third. ? Immediately subjacent to the BB marker, there is a dense circumscribed ?? oval mass with subtle internal fat density, measuring an estimated 8 mm ?? in diameter. This is in the region of bruising. Findings are consistent ?? with either a small hematoma or focus of fat necrosis. We will evaluate ?? this region with ultrasound. ? No additional abnormalities in the left breast. ? ULTRASOUND: ?? CLINICAL INFORMATION: ?? As above ? COMPARISON: ?? None relevant ? TECHNIQUE: ?? Targeted sonographic evaluation was performed using a high frequency ?? linear transducer. Attention was given to the 8:00 axis left breast, to ?? include the area of palpable concern. Selected archived documentation. ? FINDINGS: ? LEFT BREAST: ?? -There is a fairly classic focus of fat necrosis with cystic component ?? lying within echogenic fat correlating with the mammographic ?? abnormality and the palpable abnormality. This lies at the 8:00 axis, 4 ?? cm from the nipple, with the cystic component measuring 5 x 7 x 6 mm. ?? No internal color Doppler flow or solid component. There are echogenic ?? contusive changes surrounding the abnormality with minimal skin ?? thickening consistent with fat contusion/bruising. ? This finding is benign. No further follow-up recommended. ? No suspicious findings identified. ? US/US breast LT limited mamm only ?? IMPRESSION: ?? There are no findings suspicious for malignancy left breast. ? Palpable focus with overlying bruising correlates to a ?? developing/evolving region of fat necrosis measuring 5 x 7 x 6 mm. This ?? is benign and no further follow-up recommended. ? Recommend the patient resume routine annual screening. ? OVERALL ASSESSMENT: ?? Mammography: BI-RADS 2 - Benign Findings ?? Ultrasound: BI-RADS 2 - Benign Findings ? RECOMMENDATION: ?? 1 year F/U ? This patient's information was entered into a reminder system with a ?? target due date for their next mammogram. ? Electronically signed by: ??Mani Das MD ??01/14/2024 02:07 PM EDT RP ? Dictated By: ?Mani Das MD ? Signed By: ?<Electronically signed by Mani Das MD in OV> ?01/14/24 1407 ? DD/ 1342 ? TD/TT: 01/14/24 1353 ? Systems Spec: ? Procedure Note Stacey, Image - 01/14/2024 [facility] [address] [place] [address] Dr. Larios, PRANEETH [address] Ultrasound Report Signed Patient: Zina Kennedy MMR#: [id number] 0 : 6Acct:[id number] Age/Sex: 68 / FADM Date: 01/14/24 Loc: [facility] Attending Dr: Zina Honeycutt MD Ordering Physician: Zina Mejia MD Date of Service: 01/14/24 Procedure(s): US breast LT limited mamm only Accession Number(s): [id number] cc: Vera Crowe; Zina Mejia MD EXAMINATION: MM DIAGNOSTIC DIGITAL BREAST TOMOSYNTHESIS, LEFT US BREAST LIMITED, LEFT MAMMOGRAPHY: CLINICAL INFORMATION: Lower inner quadrant palpable lump x3 weeks with large overlying bruise. Patient denies known injury. 68-year-old female, no history of surgery or family history of breast CA. COMPARISON: Mammography: 08/03/2023, 07/28/2022, 06/20/2021, 03/18/2018. TECHNIQUE: Digital left breast tomosynthesis is performed in both the craniocaudal and mediolateral oblique views along with computer-aided detection (CAD). Synthesized 2D images are generated from the tomosynthesis. In addition, a full field 3-D left mediolateral view was obtained, as well as 3-D spot compression left MLO and CC views. FINDINGS: There are scattered areas of fibroglandular density (ACR BI-RADS breast composition Category b). BB marker has been placed over the palpable abnormality in the lower inner quadrant of the left breast, approximate 7:00 axis, anterior one third. Immediately subjacent to the BB marker, there is a dense circumscribed oval mass with subtle internal fat density, measuring an estimated 8 mm in diameter. This is in the region of bruising. Findings are consistent with either a small hematoma or focus of fat necrosis. We will evaluate this region with ultrasound. No additional abnormalities in the left breast. ULTRASOUND: CLINICAL INFORMATION: As above COMPARISON: None relevant TECHNIQUE: Targeted sonographic evaluation was performed using a high frequency linear transducer. Attention was given to the 8:00 axis left breast, to include the area of palpable concern. Selected archived documentation. FINDINGS: LEFT BREAST: -There is a fairly classic focus of fat necrosis with cystic component lying within echogenic fat correlating with the mammographic abnormality and the palpable abnormality. This lies at the 8:00 axis, 4 cm from the nipple, with the cystic component measuring 5 x 7 x 6 mm. No internal color Doppler flow or solid component. There are echogenic contusive changes surrounding the abnormality with minimal skin thickening consistent with fat contusion/bruising. This finding is benign. No further follow-up recommended. No suspicious findings identified. US/US breast LT limited mamm only IMPRESSION: There are no findings suspicious for malignancy left breast. Palpable focus with overlying bruising correlates to a developing/evolving region of fat necrosis measuring 5 x 7 x 6 mm. This is benign and no further follow-up recommended. Recommend the patient resume routine annual screening. OVERALL ASSESSMENT: Mammography: BI-RADS 2 - Benign Findings Ultrasound: BI-RADS 2 - Benign Findings RECOMMENDATION: 1 year F/U This patient's information was entered into a reminder system with a target due date for their next mammogram. Electronically signed by: Mani Das MD 01/14/2024 02:07 PM EDT Workstation: [employer] Dictated By: Mani Das MD Signed By: <Electronically signed by Mani Das MD in OV> 01/14/24 1407 DD/ 1342 TD/TT: 01/14/24 1353 Systems Spec: us Zina Honeycutt MD IMG US PROCEDURES Final Result * Hepatitis Panel, General (03/23/2023 11:42 AM EST) Hepatitis A IgM Nonreactive Nonreactive [facility] Comment:IgM antibodies to HOWARD V not detected; does not exclude earlyacute or recovered HAV infection. ~Hepatitis B Surface Antibody NONREACTIVE Nonreactive [facility] Comment:Nonreactive: < 8.00 mIU/mL Hepatitis B Core Antibody Nonreactive Nonreactive [facility] Hepatitis C Antibody Nonreactive Nonreactive [facility] Comment:Antibodies to HCV no t detected; does not exclude early acuteHCV infection. Hepatitis B Surface Ag Negative Negative [facility] 03/23/2023 11:4 2 AM EST 03/23/2023 11:42 AM EST us Generic External Data Provider LAB BLOOD ORDERAB LES Final Result [facility] [address] [place] [phone] * Lipid Panel, Standard (07/20/2022 11:15 AM EDT) Cholesterol, Total 149 <200 mg/dL [facility] [employer] HDL Cholesterol 62 > OR = 50 mg/dL [facility] Triglycerides 130 <150 mg/dL [facility] [employer] LDL Cholesterol 66 mg/dL (calc) [facility] Comment: Reference range: <100 Desirable range <100 mg/dL for primary prevention; ?? <70 mg/dL for patients with CHD or diabetic patients with > or = 2 CHD risk factors. LDL-C is now calculated using the Vinay calculation, which is a validated novel method providing better accuracy than the Friedewald equation in the estimation of LDL-C. Wolf SS et al. DALILA. 2013;310(19): 3526-4409 (http://education.[employer]/faq/ZPZ200) Chol/HDLC Ratio 2.4 <5.0 (calc) [facility] Non-HDL Cholesterol 87 <130 mg/dL (calc) [facility] Comment: For patients with diabetes plus 1 major ASCVD risk factor, treating to a non-HDL-C goal of <100 mg/dL (LDL-C of <70 mg/dL) is considered a therapeutic option. Blood Venous blood specimen / Unknown 07/20/2022 11:15 AM EDT 07/20/2022 11:15 AM EDT Narrative [facility] - 07/21/2022 6:33 AM EDT FASTING:NO FASTING: NO Vera Crowe MD LAB BLOOD ORDERABLES Final Res ult [facility] [address], [place] [address] [facility] [address] [place] [address] * Hm Colonoscopy (03/29/2021) Colonoscopy Normal Normal Comment:Repeat procedure in 10 yrs, ( see scanned report) 03/29/2021 Vera Crowe MD HEALTH MAINTENANCE Final Resul t from Last 3 Months or Most Recently Relevant to Health Maintenance Insurance [id number] ASSISTED OPTIONS (HMO D-SNP) [employer]ELD [id number] Care Teams Biodiesel Process Control Technician Relationship Specialty Start Date End Date Vera Crowe MD [address] [place] [id number] PCP - General Family Medicine 06/16/22
== END 2024-08-04 11:19 | disposition home or self-care (01) ==
LOC: HO.HNS 11:01
PROVIDERS: PCP General Practice; Visit Provider Physician Assistant
DX: M54.16 Radiculopathy, lumbar region (principal)
CPT/HCPCS: 99213

== ENCOUNTER → 2024-08-04 11:00 | Outpatient (BNVA) | payer MEDICARE, SELFPAY | PROVIDERS: PCP General Practice; Visit Provider Physician Assistant | DX: M54.16 Radiculopathy, lumbar region (principal) | CPT/HCPCS: 99212 ==

== ENCOUNTER 2024-08-11 10:03 | Outpatient (AMB) | payer MEDICARE, MEDICAID, SELFPAY ==
--- NOTE | 2024-08-11 10:05 | A.OFFVIS_ITS ---
Vital Signs 08/11/24 10:14 Height 5 ft 2 in Weight 180 lb BMI 32.9 BP 152/66 H Blood Pressure Location Rt brachial Position Sitting Pulse 68 Pulse Source Pulse Oximeter Pulse Oximetry (%) 95 Oxygen Delivery Method Room Air Intake Visit Reasons: 6 mo f/u Intake Note: ESTABLISHED PATIENT for mgmt of GERD + IBS. 6 mos FUV. Chief Complaint; Pt denies any sx or concerns at this time. PPI still effective. Pt states that she stopped her citrucel as she no longer felt it was necessary and is doing fine without it. Flat Surfacer Jewel Required: No Accompanied by: Self / Same As Patient Allergies No Known Allergies Allergy (Verified 08/11/24 10:05) HPI HPI 6 mo f/u: Details: LAST VISIT Postprandial epigastric pain IBS (irritable bowel syndrome) GERD (gastroesophageal reflux disease) Plan Patient will restart taking pantoprazole as she reports that she was doing well she was taking it. Patient was also encouraged to avoid dietary triggers and late night snacking. Staying upright for minimum 3 hours after meals discussed with patient. Patient was instructed to call our office if at any time she will not receive her medications. Patient will be due to go for colonoscopy in November of 2025. Follow-up in the office in 6 months, sooner on as needed basis. She is agreeable to this plan and verbalizes understanding of instructions. She was given the opportunity to ask questions and all questions answered. ? Thank you for allowing me to participate in her care Medications Refilled pantoprazole 40 mg PO DAILY 90 tabs 4RF K21.9 TODAY'S VISIT Patient is here today for follow-up. Patient reports that since last visit she has been doing better. Patient is taking pantoprazole every morning and her symptoms are suppressed. Patient denies any acid reflux, dyspepsia, dysphagia or odynophagia. Patient also reports changing her diet. Denies having any abdominal pain or discomfort. Denies any abdominal bloating. Reports that she is moving her bowels well. However patient states that she was placed on antibiotics for to infection and she started with diarrhea. Patient denies any abdominal pain or discomfort with these symptoms. Denies melena, hematochezia. Patient encouraged to continue her antibiotic and take Citrucel or [id number] Imodium. Patient is due to go for colonoscopy next year in November. [facility] Medical History Glaucoma Osteoarthritis of hands, bilateral Right sciatic nerve pain Piriformis syndrome of right side Tubulovillous adenoma Extraintestinal yersiniosis GERD (gastroesophageal reflux disease) IBS (irritable bowel syndrome) Sleep apnea Asthma Surgical History History of esophagogastroduodenoscopy (EGD) Hx of eye surgery Hx of endoscopy Hx of colonoscopy Family History Mother Diabetes Hypertension Father Prostate cancer Social History Household Members: Spouse and Children Housing: House Are you a primary nanny caregiver to a significant other at home: No Do you presently have visiting nurse or other home services: No Patient Tobacco Use Status: Never used Tobacco Review of Systems Const Denies weight gain and Denies weight loss ENT Reports no additional complaints, Denies dysphagia and Denies odynophagia Card Reports no additional complaints Resp Reports no additional complaints GI Denies abdominal pain, Denies belching, Denies melena, Denies bloating, Denies change in bowel habits, Denies dysphagia, Denies excessive flatus, Denies dyspepsia, Reports heartburn (occasional), Reports diarrhea (taking antibiotics), Denies loose stools, Denies nausea, Denies odynophagia and Denies vomiting Reports no additional complaints Musc Reports no additional complaints Neuro Reports no additional complaints Psych Reports no additional complaints Endo Reports no additional complaints Physical Exam Vital Signs: Last Vital Signs Pulse 68 08/11/24 10:14 BP 152/66 H 08/11/24 10:14 Pulse Ox 95 08/11/24 10:14 Oxygen Delivery Method Room Air 08/11/24 10:14 BMI result Body Mass Index 32.9 Const General: healthy appearing and no acute distress Nutritional Appearance: obese Orientation/consciousness: patient oriented x3 Resp Effort & Inspection: normal respiratory effort, able to speak in complete sentences, no tracheal deviation and symmetric chest movement Auscultation: clear to auscultation bilaterally Cardio Rate: regular rate GI Inspection: Yes normal to inspection, No distended and Yes obesity Palpation (GI): Soft to palpation, not firm, nontender and No hepatosplenomegaly present Auscultation: normal bowel sounds General: Yes no CVA tenderness Back/Spine/Pelvis Back: no CVA tenderness Skin General skin exam: elasticity normal, turgor normal and dry skin Neuro General: patient oriented x3 Psych Appearance: grossly normal Mental Status: mental status grossly normal Assessment & Plan Assessment & Plan (1) Postprandial epigastric pain: Code(s): R10.13 - Epigastric pain (2) IBS (irritable bowel syndrome): Code(s): K58.9 - Irritable bowel syndrome, unspecified Qualifiers: Irritable bowel syndrome type: with diarrhea Qualified Code(s): K58.0 - Irritable bowel syndrome with diarrhea (3) GERD (gastroesophageal reflux disease): Code(s): K21.9 - Gastro-esophageal reflux disease without esophagitis Qualifiers: Esophagitis presence: esophagitis presence not specified Qualified Code(s): K21.9 - Gastro-esophageal reflux disease without esophagitis Plan Continue pantoprazole 40 mg daily. Patient is taking it after breakfast, however she was encouraged to take it before breakfast. Avoid dietary triggers in late night snacking. Staying upright for minimal 3 hours after meals discussed with patient. Continue antibiotic for her to infection. Patient can take Citrucel to help her bulk stools and if she continues to have diarrhea patient can take Imodium. Patient will follow-up in 1 year, we will discuss going for colonoscopy and possible endoscopy. Patient will call our office if she will have any GI concerning symptoms. She is agreeable to current plan of care and verbalizes understanding of instructions. She was given the opportunity to ask questions and all questions answered. Thank you for allowing me to participate in her care Medications: Refilled pantoprazole 40 mg PO DAILY 90 tabs 4RF K21.9 - Gastro-esophageal reflux disease without esophagitis Coding Level of Care Code Est Pt Level 3 (07118) Diagnoses Postprandial epigastric pain R10.13 Irritable bowel syndrome with diarrhea K58.0 Irritable bowel syndrome type: with diarrhea Gastroesophageal reflux disease, unspecified whether esophagitis present K21.9 Esophagitis presence: esophagitis presence not specified Time Spent (min) 25 Comment 15 minutes spent with patient and additional 10 minutes spent reviewing her records
[2024-08-11 10:14] VITALS: BP 152/66; PULSE 68; O2SAT 95; BMI 32.9
--- OUTSIDE RECORDS SUMMARY | 2024-08-11 11:19 | XMS_ITS | Encounter Summary ---
Author Organization [facility] Address [address] [facility] 7t [place] [address] Care Team Providers Care Machine Heel Seat Laster Name Role Phone Vic See MD Primary Care Provider Erlinda Johnson Primary Care Provider [phone] Vera Crowe MD Primary Care Provider [phone] Encounter Details Date Type Department Care Team (Latest Contact Info) Description 04/30/2018 Abstract [facility] CONVERSIONS Dental, Provider, DDS Social History Tobacco [...] Description 09/05/2024 11:15 AM EDT Office Visit [facility] MEDICINE [address] [place] [address] Vera Crowe MD [address] [place] [address] documented as of this encounter Visit Diagnoses Not on filedocumented in this encounter Care Teams Machine Heel Seat Laster Relationship Specialty Start Date End Date Vic See MD PCP - General Family Medicine 09/26/19 05/02/22 Erlinda Fink FNP PCP - General Family Medicine 05/03/22 06/15/22 Vera Crowe MD [address] [place] [address] PCP - General Family Medicine 06/16/22 documented as of this encounter
--- OUTSIDE RECORDS SUMMARY | 2024-08-11 11:19 | XMS_ITS | Encounter Summary ---
Author Organization [employer] [facility] Address [address] [facility] 7t [place] [address] Care Team Providers Care Communications Specialist Name Role Phone Vera Crowe MD Primary Care Provider [phone] Reason for Visit * Reason Comments Med Refill Encounter Details Date Type Department Care Team ([facility] st Contact Info) Description 08/15/2023 Refill [facility] MEDICINE [address] [place], [place] [phone] Vera Crowe MD [address] [place], [place] [phone] Social History Tobacco Use Types Packs/Day Years Used Date Smoking Tobacco: Never Passive Smoke Exposure: Never Smokeless Tobacco: Never Alcohol Use Standard Drinks/Week Comments Never 0 (1 standard drink = 0.6 oz pur e alcohol) Housing Stability Answer Date Recorded What is your housing situation today? I have leroyadam fisher 01/24/[address] you [...] Description 09/05/2024 11:15 AM EDT Office Visit [facility] MEDICINE [address] [place] [address] Vera Crowe MD [address] [place] [address] documented as of this encounter Visit Diagnoses Not on filedocumented in this encounter Care Teams Communications Specialist Relationship Specialty Start Date End Date Vera Crowe MD [address] [place] [address] PCP - General Family Medicine 06/16/22 documented as of this encounter
--- OUTSIDE RECORDS SUMMARY | 2024-08-11 11:19 | XMS_ITS | Clinical Summary ---
Author Organization [facility] Address [address] [facility] 7t [place] [address] Care Team Providers Care Film Masker Name Role Phone Vera Crowe MD Primary Care Provider Allergies No known active allergies Medications Ventolin [...] 500mg BID, A1C 5.9 today Has seen practice managers Urinary frequency 07/20/2023 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 Assessment [...] Glaucoma 03/20/2017 Overview (05/01/2022): Care managed by [facility] Appt 03/23/22 Continue medications for eyes: Latanoprost [...] Type Department Care Team Description 06/18/2024 Refill [facility] WALK-IN [address] [address] Haile Mccoy MD Essential hypertension 06/10/2024 11:20 AM EST Office Visit [facility] WALK-IN [address] [address] Meghan Phoenix MD Moderate persistent asthma without complication (Primary Dx); Acute upper respiratory infection 05/29/2024 Patient Outreach [facility] MEDICINE [address] [place] [address] Vera Crowe MD Pre-visit Planning (SDOH screening [...] Description 09/05/2024 11:15 AM EDT Office Visit [facility] MEDICINE [address] [place], [place] [phone] Vera Crowe MD [address] [place], [place] [phone] Health Maintenance Due Date Last Done Comments [...] Negative Negative, Indeterminate QC Media Lot # [id number] Lot# Expiration Date [id number] Swab 06/10/2024 11:3 8 AM EST us Meghan Phoenix MD POINT OF CARE TEST ENTER/E DIT ORDERABLES Final Result * POCT Influenza A manually resulted (06/10/2024 11:38 AM EST) Rapid Influenza A Ag Negative Negative, Indeterminate QC Media Lot # [id number] Lot# Expiration Date 826 Swab Nasopharyngeal structure / Unknown 06/10/2024 11:38 AM EST Meghan Phoenix MD POINT OF CARE TEST ENTER/E DIT ORDERABLES Final Result * POCT Rapid COVID Ag (06/10/2024 11:37 AM EST) Rapid COVID Ag Negative QC Media Lot # [id number] Lot# Expiration Date 9,426 Swab 06/10/2024 11:3 7 AM EST us Meghan Phoenix MD POINT OF CARE TEST ENTER/E DIT ORDERABLES Final Result * BI US Breast Limited Left (01/14/2024 1:42 PM EDT) Anatomical Region Laterality Modality Breast Left Ultrasound 01/14/2024 1:42 PM EDT Narrative 01/14/2024 2:10 PM EDT ? [facility] [place] ? [address] ?[place] [address] ? Ultrasound Report ? Signed ? Patient: Kennedy,Caty ?MR#: [id number] ?? 0 ? : 1955 ?Acct:[id number] ? Age/Sex: 68 / F ?ADM Date: 10/07/24 ? Loc: HO.MAMMO ? Attending Dr: Zina Honeycutt MD ? Ordering Physician: Zina Mejia MD ?? Date of Service: 01/14/24 ?? Procedure(s): US breast LT limited mamm only ?? Accession Number(s): [id number] ? cc: Vera Crowe; Zina Mejia MD [...] DD/ 1342 ? TD/TT: 01/14/24 1353 ? Dog Control Officer: ? Procedure Note Stacey, Image - 01/14/2024 [facility] [address] [place] [address] Dr. Larios, PRANEETH [address] Ultrasound Report Signed Patient: Zina Kennedy MMR#: [id number] 0 : 6Acct:[id number] Age/Sex: 68 / FADM Date: 01/14/24 Loc: [facility] Attending Dr: Zina Honeycutt MD Ordering Physician: Zina Mejia MD Date of Service: 01/14/24 Procedure(s): US breast LT limited mamm only Accession Number(s): [id number] cc: Vera Crowe; Zina Mejia MD EXAMINATION: [...] Das MD 01/14/2024 02:07 PM EDT Workstation: [id number] Dictated By: Mani Das MD Signed By: <Electronically signed by Mani Das MD in OV> 01/14/24 1407 DD/ 1342 TD/TT: 01/14/24 1353 Dog Control Officer: us Zina Honeycutt MD IMG US PROCEDURES Final Result * Hepatitis Panel, General (03/23/2023 11:42 AM EST) Hepatitis A IgM Nonreactive Nonreactive [facility] Comment:IgM antibodies to HOWARD V not detected; does not exclude earlyacute or recovered HAV infection. ~Hepatitis B Surface Antibody NONREACTIVE Nonreactive [facility] Comment:Nonreactive: < 8.00 mIU/mL Hepatitis B Core Antibody Nonreactive Nonreactive [facility] Hepatitis C Antibody Nonreactive Nonreactive [facility] Comment:Antibodies to HCV no t detected; does not exclude early acuteHCV infection. Hepatitis B Surface Ag Negative Negative [facility] 03/23/2023 11:4 2 AM EST 03/23/2023 11:42 AM EST us Generic External Data Provider LAB BLOOD ORDERAB LES Final Result [facility] [address] [place] [phone] * Lipid Panel, Standard (07/20/2022 11:15 AM EDT) Cholesterol, Total 149 <200 mg/dL [facility] HDL Cholesterol 62 > OR = 50 mg/dL [facility] Triglycerides 130 <150 mg/dL [facility] LDL Cholesterol 66 mg/dL (calc) [facility] Comment: Reference range: <100 Desirable range <100 mg/dL for primary prevention; ?? <70 mg/dL for patients with CHD or diabetic patients with > or = 2 CHD risk factors. LDL-C is now calculated using the Vinay calculation, which is a validated novel method providing better accuracy than the Friedewald equation in the estimation of LDL-C. Wolf SS et al. DALILA. 2013;310(19): 0852-4994 (http://education.[employer]/faq/HBW742) Chol/HDLC Ratio 2.4 <5.0 (calc) [facility] Non-HDL Cholesterol 87 <130 mg/dL (calc) [facility] Comment: For patients with diabetes plus 1 major ASCVD risk factor, treating to a non-HDL-C goal of <100 mg/dL (LDL-C of <70 mg/dL) is considered a therapeutic option. Blood Venous blood specimen / Unknown 07/20/2022 11:15 AM EDT 07/20/2022 11:15 AM EDT Narrative [facility] - 07/21/2022 6:33 AM EDT FASTING:NO FASTING: NO Vera Crowe MD LAB BLOOD ORDERABLES Final Res ult [facility] [address], [place] [address] [facility] [address] [place] [address] * Hm Colonoscopy (03/29/2021) Colonoscopy Normal Normal Comment:Repeat procedure in 10 yrs, ( see scanned report) 03/29/2021 Vera Crowe MD HEALTH MAINTENANCE Final Resul t from Last 3 Months or Most Recently Relevant to Health Maintenance Insurance [id number] USP OPTIONS (HMO D-SNP) [employer] [id number] Care Teams Film Masker Relationship Specialty Start Date End Date Vera Crowe MD [address] [place] [address] PCP - General Family Medicine 06/16/22
== END 2024-08-11 10:30 | disposition home or self-care (01) ==
PROVIDERS: PCP General Practice; Visit Provider Nurse Practitioner Family
DX: R10.13 Epigastric pain (principal); K58.0 Irritable bowel syndrome with diarrhea; K21.9 Gastro-esophageal reflux disease without esophagitis
CPT/HCPCS: 99213

== ENCOUNTER → 2024-08-11 10:03 | Outpatient (BNVA) | payer MEDICARE, SELFPAY | PROVIDERS: PCP General Practice; Visit Provider Nurse Practitioner Family | DX: K21.9 Gastro-esophageal reflux disease without esophagitis (principal); K58.0 Irritable bowel syndrome with diarrhea; R10.13 Epigastric pain | CPT/HCPCS: 99212 ==

== ENCOUNTER → 2024-08-19 10:03 | Outpatient (BNV) | payer MEDICARE, MEDICAID, SELFPAY | PROVIDERS: PCP General Practice; Visit Provider Radiology Diagnostic Radiology | DX: M51.26 Other intervertebral disc displacement, lumbar region (principal); M99.63 Osseous and subluxation stenosis of intervertebral foramina of lumbar region | CPT/HCPCS: 72148 ==

== ENCOUNTER 2024-08-19 10:04 | Outpatient (REF) | payer MEDICARE, MEDICAID, SELFPAY ==
--- NOTE | ~2024-08-19 | MR_ITS ---
EXAMINATION: MR LUMBAR SPINE WITHOUT CONTRAST CLINICAL INFORMATION: Radiculopathy, lumbar region. COMPARISON: December 29, 2023. TECHNIQUE: MRI of the lumbar spine was obtained using routine sequences without contrast. FINDINGS: Last rib-bearing vertebra labeled T12. No bone marrow STIR signal abnormality. Multilevel disc desiccation, T12 L1/L4 5 level. Grade 1 retrolisthesis L5-S1 on a degenerative basis. Conus medullaris ends at the intervertebral disc T12-L1 with normal signal. T11-12: No disc herniation. No neuroforamina stenosis. T12-L1: No disc herniation. No neuroforamina stenosis. L1-2: No disc herniation. No neuroforamina stenosis. L2-3: Broad-based disc bulging. Facet joint and ligamentum flavum hypertrophy. No compression upon neural elements. L3-4: Broad-based disc bulging. Facet joint and ligamentum flavum hypertrophy. Reduced AP diameter of the thecal sac and neuroforamina. L4-5: Right subarticular and foraminal broad-based disc herniation encroaching likely compressing the right L5 nerve root on its lateral recess. There is right neuroforamina narrowing encroaching the right L4 nerve root. Central spinal canal stenosis. L5-S1: Broad-based disc bulging. Facet joint and ligamentum flavum hypertrophy. Reduced AP diameter of the thecal sac and the neural foramina likely encroaching the exiting nerve roots. No prevertebral compartment hematoma, mass or fluid collection. Probable multiple bilateral renal cysts, bilaterally. MR/MR lumbar spine wo con IMPRESSION: Right subarticular and foraminal broad-based disc herniation L4-5 encroaching likely compressing right L5 nerve root and encroaching right L4 nerve root. There is central spinal canal stenosis at L4-5. Electronically signed by: Greg Asif MD 08/19/2024 10:58 AM EDT
--- OUTSIDE RECORDS SUMMARY | 2024-08-19 11:00 | XMS_ITS | Encounter Summary ---
Author Organization [employer] Address [address] [facility] [address] [place] [address] Care Team Providers Care Hand Bunch Maker Name Role Phone Vic See MD Primary Care Provider Erlinda Johnson Primary Care Provider [phone] Vera Crowe MD Primary Care Provider [phone] Encounter Details Date Type Department Care Team (Latest Contact Info) Description 04/30/2018 Abstract [facility] CONVERSIONS Dental, Provider, DDS Social History Tobacco [...] Upcoming Encounters Date Type Department Care Team ( st Contact Info) Description 09/05/2024 11:15 AM EDT Office Visit [facility] MEDICINE [address] [place] [address] Vera Crowe MD [address] [place] [address] documented as of this encounter Visit Diagnoses Not on filedocumented in this encounter Care Teams Hand Bunch Maker Relationship Specialty Start Date End Date Vic See MD PCP - General Family Medicine 09/26/19 05/02/22 Erlinda Fink FNP PCP - General Family Medicine 05/03/22 06/15/22 Vera Crowe MD [address] [place] [address] PCP - General Family Medicine 06/16/22 documented as of this encounter
--- OUTSIDE RECORDS SUMMARY | 2024-08-19 11:00 | XMS_ITS | Encounter Summary ---
Author Organization [employer] Address [address] [facility] 7t [place] [address] Care Team Providers Care Clinical Program Manager Name Role Phone Vera Crowe MD Primary Care Provider [phone] Reason for Visit * Reason Comments Med Refill Encounter Details Date Type Department Care Team ([facility] st Contact Info) Description 08/15/2023 Refill [facility] MEDICINE [address] [place], [place] [phone] Vera Crowe MD [address] [place], [place] [phone] Social History Tobacco Use Types Packs/Day Years [...] Description 09/05/2024 11:15 AM EDT Office Visit [facility] MEDICINE [address] [place] [address] Vera Crowe MD [address] [place] [address] documented as of this encounter Visit Diagnoses Not on filedocumented in this encounter Care Teams Clinical Program Manager Relationship Specialty Start Date End Date Vera Crowe MD [address] [place] [address] PCP - General Family Medicine 06/16/22 documented as of this encounter
--- OUTSIDE RECORDS SUMMARY | 2024-08-19 11:00 | XMS_ITS | Clinical Summary ---
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 Assessment [...] Glaucoma 03/20/2017 Overview (05/01/2022): Care managed by [facility] Appt 03/23/22 Continue medications for eyes: Latanoprost [...] Type Department Care Team Description 06/18/2024 Refill [facility] [address] [place] [phone] Haile Mccoy MD Essential hypertension 06/10/2024 11:20 AM EST Office Visit [facility] [address] [address] Meghan Phoenix MD Moderate persistent asthma without complication (Primary Dx); Acute upper respiratory infection 05/29/2024 Patient Outreach [facility] [address] [place] [address] Vera Crowe MD Pre-visit Planning (SDOH screening [...] Office Visit [facility] [address] [place], [place] [phone] Vera Crowe MD [address] [place], [place] [phone] Health Maintenance Due Date Last Done Comments [...] SDOH Screening 05/29/2025 05/29/2024 Mammogram 01/13/2026 01/14/2024, 10/10/2023, 08/03/2023, Additional history exists Lipid Panel 07/21/2027 [...] Negative Negative, Indeterminate QC Media Lot # [id number] Lot# Expiration Date 100,826 Swab 06/10/2024 11:3 8 AM EST us Meghan Phoenix MD POINT OF CARE TEST ENTER/E DIT ORDERABLES Final Result * POCT Influenza A manually resulted (06/10/2024 11:38 AM EST) Rapid Influenza A Ag Negative Negative, Indeterminate QC Media Lot # [id number] Lot# Expiration Date 826 Swab Nasopharyngeal structure / Unknown 06/10/2024 11:38 AM EST Meghan Phoenix MD POINT OF CARE TEST ENTER/E DIT ORDERABLES Final Result * POCT Rapid COVID Ag (06/10/2024 11:37 AM EST) Rapid COVID Ag Negative QC Media Lot # [id number] Lot# Expiration Date 9,426 Swab 06/10/2024 11:3 7 AM EST us Meghan Phoenix MD POINT OF CARE TEST ENTER/E DIT ORDERABLES Final Result * BI US Breast Limited Left (01/14/2024 1:42 PM EDT) Anatomical Region Laterality Modality Breast Left Ultrasound 01/14/2024 1:42 PM EDT Narrative 01/14/2024 2:10 PM EDT ? [facility] [place] ? [address] ?[place] [address] ? Ultrasound Report ? Signed ? Patient: Kennedy,Caty ?MR#: [id number] ?? 0 ? : 1955 ?Acct:[id number] ? Age/Sex: 68 / F ?ADM Date: 10/07/24 ? Loc: HO.MAMMO ? Attending Dr: Zina Honeycutt MD ? Ordering Physician: Zina Mejia MD ?? Date of Service: 01/14/24 ?? Procedure(s): US breast LT limited mamm only ?? Accession Number(s): [id number] ? cc: Vera Crowe; Zina Mejia MD [...] DD/ 1342 ? TD/TT: 01/14/24 1353 ? 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 Procedure Note Stacey, Image - 01/14/2024 [facility] [address] [place] [address] [place] [address] Ultrasound Report Signed Patient: Zina Kennedy MMR#: [id number] 0 : 6Acct:[id number] Age/Sex: 68 / FADM Date: 01/14/24 Loc: ROCIO Attending Dr: Zina Honeycutt MD Ordering Physician: Zina Mejia MD Date of Service: 01/14/24 Procedure(s): US breast LT limited mamm only Accession Number(s): [id number] cc: Vera Crowe; Zina Mejia MD EXAMINATION: [...] Das MD 01/14/2024 02:07 PM EDT Workstation: [employer] Dictated By: Mani Das MD Signed By: <Electronically signed by Mani Das MD in OV> 01/14/24 1407 DD/ 1342 TD/TT: 01/14/24 1353 [employer] Operator: us Zina Honeycutt MD IMG US PROCEDURES Final Result * Hepatitis Panel, General (03/23/2023 11:42 AM EST) Hepatitis A IgM Nonreactive Nonreactive [facility] Comment:IgM antibodies to HOWARD V not detected; does not exclude earlyacute or recovered HAV infection. ~Hepatitis B Surface Antibody NONREACTIVE Nonreactive [facility] Comment:Nonreactive: < 8.00 mIU/mL Hepatitis B Core Antibody Nonreactive Nonreactive [facility] Hepatitis C Antibody Nonreactive Nonreactive [facility] Comment:Antibodies to HCV no t detected; does not exclude early acuteHCV infection. Hepatitis B Surface Ag Negative Negative [facility] 03/23/2023 11:4 2 AM EST 03/23/2023 11:42 AM EST us Generic External Data Provider LAB BLOOD ORDERAB LES Final Result [facility] [address] [place] [address] [phone] * Lipid Panel, Standard (07/20/2022 11:15 AM EDT) Cholesterol, Total 149 <200 mg/dL [facility] [place] [facility] HDL Cholesterol 62 > OR = 50 mg/dL [facility] [place] [facility] Triglycerides 130 <150 mg/dL [facility] [place] [facility] LDL Cholesterol 66 mg/dL (calc) [facility] [place] [facility] Comment: Reference range: <100 Desirable range <100 mg/dL for primary prevention; ?? <70 mg/dL for patients with CHD or diabetic patients with > or = 2 CHD risk factors. LDL-C is now calculated using the Vinay calculation, which is a validated novel method providing better accuracy than the Friedewald equation in the estimation of LDL-C. Wolf SS et al. DALILA. 2013;310(19): 7295-5331 (http://education.[employer]/faq/QHT039) Chol/HDLC Ratio 2.4 <5.0 (calc) [facility] [place] [facility] Non-HDL Cholesterol 87 <130 mg/dL (calc) [facility] [place] [facility] Comment: For patients with diabetes plus 1 major ASCVD risk factor, treating to a non-HDL-C goal of <100 mg/dL (LDL-C of <70 mg/dL) is considered a therapeutic option. Blood Venous blood specimen / Unknown 07/20/2022 11:15 AM EDT 07/20/2022 11:15 AM EDT Narrative [facility] - 07/21/2022 6:33 AM EDT FASTING:NO FASTING: NO Vera Crowe MD LAB BLOOD ORDERABLES Final Res ult [facility] [address], [place] [address] [facility] [place] [facility] [address] [place] [address] * Hm Colonoscopy (03/29/2021) Colonoscopy Normal Normal Comment:Repeat procedure in 10 yrs, ( see scanned report) 03/29/2021 us Vera Crowe MD HEALTH MAINTENANCE Final Resul t from Last 3 Months or Most Recently Relevant to Health Maintenance Insurance [id number] OPTIONS (HMO D-SNP) [employer] [id number] Care Teams Hadoop Software Engineer Relationship Specialty Start Date End Date Vera Crowe MD [address] [place] [phone] PCP - General Family Medicine 06/16/22
== END 2024-08-19 10:05 | disposition home or self-care (01) ==
LOC: HO.MRI 10:04
PROVIDERS: PCP General Practice; Visit Provider Physician Assistant
DX: M54.16 Radiculopathy, lumbar region (principal)
CPT/HCPCS: 72148

== ENCOUNTER 2024-08-22 12:40 | Outpatient (AMB) | payer MEDICARE, MEDICAID, SELFPAY ==
--- OUTSIDE RECORDS SUMMARY | 2024-08-22 12:43 | XMS_ITS | Clinical Summary ---
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 [address] [address] Name, MD Haile Essential hypertension 06/10/2024 11:20 AM EST Office Visit [facility] [address] [address] Meghan Phoenix MD Moderate persistent asthma without complication (Primary Dx); Acute upper respiratory infection 05/29/2024 Patient Outreach [facility] [address] [place] [phone] Vera Croew MD Pre-visit Planning (SDOH screening negative and tobacco screening negative) from Last 3 Months Immunizations Immunization Administration Dates Next Due Influenza High-dose Quadrivalent [...] the past 12 months, has t he [employer], gas, oil or water company threatened to [...] 11:15 AM EDT Office Visit [facility] [address] [place] [address] Vera Crowe MD [address] [place], [place] [phone] Health Maintenance Due Date Last Done Comments [...] SDOH Screening 05/29/2025 05/29/2024 Mammogram 01/13/2026 01/14/2024, 1010/2023, 08/03/2023, Additional history exists Lipid Panel 07/21/2027 [...] patient's age to complete this topic Meningococcal B Vaccine Aged Out No l onger eligible based on patient's age to complete [...] Procedure Name Priority Date/Time Associated Diagnosis Comments MR LUMBAR SPINE WO CONTRAST Routine 08/19/2024 10:16 AM EDT POCT INFLUENZA B Routine 06/10/2024 11:3 8 [...] Recently Relevant to Health Maintenance Results * MR Lumbar Spine w/o Contrast (08/19/2024 10:16 AM EDT) Anatomical Region Laterality Modality Spine, L-spine Magnetic Resonan ce 08/19/2024 10:1 6 AM EDT Narrative 08/19/2024 11:01 AM EDT ? [facility] ?[address] ?[place] [address] ? Magnetic Resonance Report ? Signed ? Patient: Zina Kennedy ?MR#: [id number] ?? 0 ? : 1955 ?Acct:[id number] ? Age/Sex: 69 / F ?ADM Date: 08/19/24 ? Loc: HO.MRI ? Attending Dr: Monster PAULA ? Ordering Physician: Monster Garcia ?? Date of Service: 08/19/24 ?? Procedure(s): MR lumbar spine wo con ?? Accession Number(s): [id number] ? cc: Monster Garcia; Vera Crowe ? EXAMINATION: ?? MR LUMBAR SPINE WITHOUT CONTRAST ? CLINICAL INFORMATION: ?? Radiculopathy, lumbar region. ? COMPARISON: ?? December 29, 2023. ? TECHNIQUE: ?? MRI of the lumbar spine was obtained using routine sequences without ?? contrast. ? FINDINGS: ?? Last rib-bearing vertebra labeled T12. ?? No bone marrow STIR signal abnormality. ?? Multilevel disc desiccation, T12 L1/L4 5 level. ?? Grade 1 retrolisthesis L5-S1 on a degenerative basis. ?? Conus medullaris ends at the intervertebral disc T12-L1 with normal ?? signal. ? T11-12: ?? No disc herniation. No neuroforamina stenosis. ? T12-L1: ?? No disc herniation. No neuroforamina stenosis. ? L1-2: ?? No disc herniation. No neuroforamina stenosis. ? L2-3: ?? Broad-based disc bulging. Facet joint and ligamentum flavum ?? hypertrophy. No compression upon neural elements. ? L3-4: ?? Broad-based disc bulging. Facet joint and ligamentum flavum ?? hypertrophy. Reduced AP diameter of the thecal sac and neuroforamina. ? L4-5: ?? Right subarticular and foraminal broad-based disc herniation ?? encroaching likely compressing the right L5 nerve root on its lateral ?? recess. There is right neuroforamina narrowing encroaching the right L4 ?? nerve root. ?? Central spinal canal stenosis. ? L5-S1: ?? Broad-based disc bulging. Facet joint and ligamentum flavum ?? hypertrophy. Reduced AP diameter of the thecal sac and the neural ?? foramina likely encroaching the exiting nerve roots. ? No prevertebral compartment hematoma, mass or fluid collection. ?? Probable multiple bilateral renal cysts, bilaterally. ? MR/MR lumbar spine wo con ?? IMPRESSION: ?? Right subarticular and foraminal broad-based disc herniation L4-5 ?? encroaching likely compressing right L5 nerve root and encroaching ?? right L4 nerve root. There is central spinal canal stenosis at L4-5. ? Electronically signed by: ??Greg Asif MD ??08/19/2024 10:58 AM ?? EDT ? Dictated By: ?Greg Weber MD ? Signed By: ?<Electronically signed by Greg Escobar MD in OV> ? 08/19/24 1058 ? DD/ 1016 ? TD/TT: 08/19/24 1031 ? Reference Data Expert: ? Procedure Note Wil Ibarra - 08/19/[address] [address] Magnetic Resonance Report Signed Patient: Zina Kennedy [facility]#: [id number] 0 : 6Acct:[id number] Age/Sex: 69 / FADM Date: 08/19/24 Loc: HO.MRI Attending Dr: Monster PAULA Ordering Physician: Monster Garica Date of Service: 08/19/24 Procedure(s): MR lumbar spine wo con Accession Number(s): [id number] cc: Monster Garcia; Vera Crowe EXAMINATION: MR LUMBAR SPINE WITHOUT CONTRAST CLINICAL INFORMATION: Radiculopathy, lumbar region. COMPARISON: December 29, 2023. TECHNIQUE: MRI of the lumbar spine was obtained using routine sequences without contrast. FINDINGS: Last rib-bearing vertebra labeled T12. No bone marrow STIR signal abnormality. Multilevel disc desiccation, T12 L1/L4 5 level. Grade 1 retrolisthesis L5-S1 on a degenerative basis. Conus medullaris ends at the intervertebral disc T12-L1 with normal signal. T11-12: No disc herniation. No neuroforamina stenosis. T12-L1: No disc herniation. No neuroforamina stenosis. L1-2: No disc herniation. No neuroforamina stenosis. L2-3: Broad-based disc bulging. Facet joint and ligamentum flavum hypertrophy. No compression upon neural elements. L3-4: Broad-based disc bulging. Facet joint and ligamentum flavum hypertrophy. Reduced AP diameter of the thecal sac and neuroforamina. L4-5: Right subarticular and foraminal broad-based disc herniation encroaching likely compressing the right L5 nerve root on its lateral recess. There is right neuroforamina narrowing encroaching the right L4 nerve root. Central spinal canal stenosis. L5-S1: Broad-based disc bulging. Facet joint and ligamentum flavum hypertrophy. Reduced AP diameter of the thecal sac and the neural foramina likely encroaching the exiting nerve roots. No prevertebral compartment hematoma, mass or fluid collection. Probable multiple bilateral renal cysts, bilaterally. MR/MR lumbar spine wo con IMPRESSION: Right subarticular and foraminal broad-based disc herniation L4-5 encroaching likely compressing right L5 nerve root and encroaching right L4 nerve root. There is central spinal canal stenosis at L4-5. Electronically signed by: Greg Asif MD 08/19/2024 10:58 AM EDT Dictated By: Greg Weber MD Signed By: <Electronically signed by Greg Escobar MDin OV> 08/19/24 1058 DD/ 1016 TD/TT: 08/19/24 1031 Reference Data Expert: [facility] External Provider IMG MRI PROCEDURES Final Result * POCT Influenza B manually resulted (06/10/2024 11:38 AM EST) Rapid Influenza B Ag Negative Negative, Indeterminate QC Media Lot # [id number] Lot# Expiration Date 100,826 Swab 06/10/2024 11:3 8 AM EST Meghan Phoenix MD POINT OF CARE TEST ENTER/E DIT ORDERABLES Final Result * POCT Influenza A manually resulted (06/10/2024 11:38 AM EST) Pathologist [facility] Rapid Influenza A Ag Negative Negative, Indeterminate QC Media Lot # [id number] Lot# Expiration Date 10,826 Swab Nasopharyngeal structure / Unknown 06/10/2024 11:38 AM EST Meghan Phoenix MD POINT OF CARE TEST ENTER/E DIT ORDERABLES Final Result * POCT Rapid COVID Ag (06/10/2024 11:37 AM EST) Pathologist [facility] Rapid COVID Ag Negative QC Media Lot # [id number] Lot# Expiration Date 9,426 Swab 06/10/2024 11:3 7 AM EST Meghan Phoenix MD POINT OF CARE TEST ENTER/E DIT ORDERABLES Final Result * BI US Breast Limited Left (01/14/2024 1:42 PM EDT) Anatomical Region Laterality Modality Breast Left Ultrasound 01/14/2024 1:42 PM EDT Narrative 01/14/2024 2:10 PM EDT ? [place] [facility] ? [address] ?[place] [address] ? Ultrasound Report ? Signed ? Patient: Kennedy,Caty ?MR#: [id number] ?? 0 ? : 1955 ?Acct:[id number] ? Age/Sex: 68 / F ?ADM Date: 01/14/24 ? Loc: HO.MAMMO ? Attending Dr: Zina Honeycutt MD ? Ordering Physician: Zina Mejia MD ?? Date of Service: 01/14/24 ?? Procedure(s): US breast LT limited mamm only ?? Accession Number(s): [id number] ? cc: Vera Crowe; Zina Mejia MD [...] DD/ 1342 ? TD/TT: 01/14/24 1353 ? Reference Data Expert: ? Procedure Note Wil Ibarra - 01/14/2024 [facility] [address] [place], [place] [address] Ultrasound Report Signed Patient: Zina Kennedy [facility]#: [id number] 0 : 6Acct:[id number] Age/Sex: 68 / FADM Date: 01/14/24 Loc: HO.MAMMO Attending Dr: Zina Honeycutt MD Ordering Physician: Zina Mejia MD Date of Service: 01/14/24 Procedure(s): US breast LT limited mamm only Accession Number(s): [id number] cc: Vera Crowe; Zina Mejia MD EXAMINATION: [...] Mani Das MD 01/14/2024 02:07 PM EDT Dictated By: Mani Das MD Signed By: <Electronically signed by Mani Das MD in OV> 01/14/24 1407 DD/ 1342 TD/TT: 01/14/24 1353 Reference Data Expert: Zina Honeycutt MD IMG US PROCEDURES Final Result * Hepatitis Panel, General (03/23/2023 11:42 AM EST) Hepatitis A IgM Nonreactive Nonreactive [facility] Comment:IgM antibodies to HOWARD V not detected; does not exclude earlyacute or recovered HAV infection. ~Hepatitis B Surface Antibody NONREACTIVE Nonreactive [facility] Comment:Nonreactive: < 8.00 mIU/mL Hepatitis B Core Antibody Nonreactive Nonreactive [facility] Hepatitis C Antibody Nonreactive Nonreactive [facility] Comment:Antibodies to HCV no t detected; does not exclude early acuteHCV infection. Hepatitis B Surface Ag Negative Negative [facility] 03/23/2023 11:4 2 AM EST 03/23/2023 11:42 AM EST us Generic External Data Provider LAB BLOOD ORDERAB LES Final Result Performing Organization Address City/[facility]/ZIP Co de Phone Number [facility] [address] [place] [phone] * Lipid Panel, Standard (07/20/2022 11:15 AM EDT) Cholesterol, Total 149 <200 mg/dL [facility] [place] [facility] HDL Cholesterol 62 > OR = 50 mg/dL [facility] [place] [facility] Triglycerides 130 <150 mg/dL [facility] [place] [facility] LDL Cholesterol 66 mg/dL (calc) [facility] [place] [facility] Comment: Reference range: <100 Desirable range <100 mg/dL for primary prevention; ?? <70 mg/dL for patients with CHD or diabetic patients with > or = 2 CHD risk factors. LDL-C is now calculated using the Vinay calculation, which is a validated novel method providing better accuracy than the Friedewald equation in the estimation of LDL-C. Wolf SS et al. DALILA. 2013;310(19): 9168-7147 (http://education.[employer]/faq/GBM857) Chol/HDLC Ratio 2.4 <5.0 (calc) [facility] [place] [facility] Non-HDL Cholesterol 87 <130 mg/dL (calc) [facility] [place] [facility] Comment: For patients with diabetes plus 1 major ASCVD risk factor, treating to a non-HDL-C goal of <100 mg/dL (LDL-C of <70 mg/dL) is considered a therapeutic option. Blood Venous blood specimen / Unknown 07/20/2022 11:15 AM EDT 07/20/2022 11:15 AM EDT Narrative [facility] - 07/21/2022 6:33 AM EDT FASTING:NO FASTING: NO us Vera Crowe MD LAB BLOOD ORDERABLES Final Res ult [facility] [address], [place] [address] [facility] [place] [facility] [address] [place] [address] * Hm Colonoscopy (03/29/2021) Colonoscopy Normal Normal Comment:Repeat procedure in 10 yrs, ( see scanned report) 03/29/2021 Vera Crowe MD HEALTH MAINTENANCE Final Resul t from Last 3 Months or Most Recently Relevant to Health Maintenance Insurance [id number] RES[facility] OPTIONS (HMO D-SNP) [employer] [id number] Care Teams Saw Man Relationship Specialty Start Date End Date Vera Crowe MD [address] [place] [address] PCP - General Family Medicine 06/16/22
--- OUTSIDE RECORDS SUMMARY | 2024-08-22 12:43 | XMS_ITS | Encounter Summary ---
Author Organization [employer] Address [address] [facility] 7t [place] [address] Care Team Providers Care Embroidery Finisher Name Role Phone Vera Crowe MD Primary Care Provider [phone] Reason for Visit * Reason Comments Med Refill Encounter Details Date Type Department Care Team ([facility] st Contact Info) Description 08/15/2023 Refill [facility] [address] [place], [place] [phone] Vera Crowe MD [address] [place], [place] [phone] Social History Tobacco Use Types Packs/Day Years [...] Visit [facility] [address] [place] [address] Vera Crowe MD [address] [place] [phone] documented as of this encounter Visit Diagnoses Not on filedocumented in this encounter Care Teams Embroidery Finisher Relationship Specialty Start Date End Date Vera Crowe MD [address] [place] [phone] PCP - General Family Medicine 06/16/22 documented as of this encounter
--- OUTSIDE RECORDS SUMMARY | 2024-08-22 12:43 | XMS_ITS | Encounter Summary ---
Author Organization [employer] Address [address] [facility] 7t [place] [address] Care Team Providers Care Merchandise Deliverer Name Role Phone Vera Crowe MD Primary Care Provider [phone] Encounter Details Date Type Department Care Team (Late st Contact Info) Description 08/19/2024 Orders Only [facility] External Provider, [facility] Social History Tobacco Use Types Packs/Day Years [...] Description 09/05/2024 11:15 AM EDT Office Visit [facility] [address] [facility] [place] [address] Vera Crowe MD [address] [place] [address] documented as of this encounter Procedures Procedure Name Priority Date/Time Associated Diagnosis Comments MR LUMBAR SPINE WO CONTRAST Routine 08/19/2024 10:16 AM EDT documented in this encounter Results * MR Lumbar Spine w/o Contrast (08/19/2024 10:16 AM EDT) Anatomical Region Laterality Modality Spine, L-spine Magnetic Resonan ce 08/19/2024 10:1 6 AM EDT Narrative 08/19/2024 11:01 AM EDT ? [facility] ?[address] ?[place] [address] ? Magnetic Resonance Report ? Signed ? Patient: Zina Kennedy ?MR#: [id number] ?? 0 ? : 1955 ?Acct:[id number] ? Age/Sex: 69 / F ?ADM Date: 08/19/24 ? Loc: HO.MRI ? Attending Dr: Monster PAULA ? Ordering Physician: Monster Garcia ?? Date of Service: 08/19/24 ?? Procedure(s): MR lumbar spine wo con ?? Accession Number(s): [id number] ? cc: Monster Garcia; Vera Crowe ? [...] Asif MD ??08/19/2024 10:58 AM ?? EDT RP ? Dictated By: ?Greg Weber MD ? Signed By: ?<Electronically signed by Greg Escobar MD in OV> ? // 1058 ? DD/ 1016 ? TD/TT: 05// 1031 ? Clerical Assistant: ? Procedure Note Donotuseinterpreter, Image - 08/19/2024 [place] [id number] Magnetic Resonance Report Signed Patient: Zina Kennedy MMR#: [id number] 0 : 6Acct:[id number] Age/Sex: 69 / FADM Date: 08/19/24 Loc: HO.MRI Attending Dr: Monster PAULA Ordering Physician: Monster Garcia Date of Service: 08/19/24 Procedure(s): MR lumbar spine wo con Accession Number(s): [id number] cc: Monster Garcia; Vera Crowe EXAMINATION: MR [...] Greg Asif MD 08/19/2024 10:58 AM EDT RP Dictated By: Greg Weber MD Signed By: <Electronically signed by Greg Escobar MDin OV> 08/19/24 1058 DD/ 1016 TD/TT: 08/19/24 1031 Clerical Assistant: [facility] External Provider IMG MRI PROCEDURES Final Result documented in this encounter Visit Diagnoses Not on filedocumented in this encounter Care Teams Merchandise Deliverer Relationship Specialty Start Date End Date Vera Crowe MD [address] [place] [id number] PCP - General Family Medicine 06/16/22 documented as of this encounter
--- OUTSIDE RECORDS SUMMARY | 2024-08-22 12:43 | XMS_ITS | Encounter Summary ---
Author Organization [employer] Address [address] [facility] [address] [place] [address] Care Team Providers Care Welfare Eligibility Worker Name Role Phone Vic See MD Primary Care Provider Erlinda Johnson Primary Care Provider [phone] Vera Crowe MD Primary Care Provider [phone] Encounter Details Date Type Department Care Team (Latest Contact Info) Description 04/30/2018 Abstract [facility] CONVERSIONS Dental, Provider, DDS Social History [...] Description 09/05/2024 11:15 AM EDT Office Visit [facility] [address] [place] [address] Vera Crowe MD [address] [place] [address] documented as of this encounter Visit Diagnoses Not on filedocumented in this encounter Care Teams Welfare Eligibility Worker Relationship Specialty Start Date End Date Vic See MD PCP - General Family Medicine 09/26/19 05/02/22 Erlinda Fink FNP PCP - General Family Medicine 05/03/22 06/15/22 Vera Crowe MD [address] [place] [address] PCP - General Family Medicine 06/16/22 documented as of this encounter
[2024-08-22 13:00] VITALS: BP 124/67; PULSE 80; O2SAT 95; BMI 33.5
--- NOTE | 2024-08-22 13:00 | MHC.OFFVIS ---
Vital Signs 08/22/24 13:00 Height 5 ft 2 in Weight 183 lb BMI 33.5 BP 124/67 Blood Pressure Location Lt brachial Position Sitting Pulse 80 Pulse Source Doppler Pulse Oximetry (%) 95 Oxygen Delivery Method Room Air Intake Visit Reasons: Asthma Allergies No Known Allergies Allergy (Verified 08/22/24 13:04) HPI HPI Asthma: Details: 69-year-old lady, nonsmoker, followed for asthma and severe obstructive sleep apnea.? Patient cannot the use CPAP as she fell that her symptoms are worse while using it. Patient was tried on Dupixent, however she did not have any significant symptomatic benefit. She continues on Breztri and Singulair with excellent symptom control. She denies any recent exacerbations. [facility] Medical History Glaucoma Osteoarthritis of hands, bilateral Right sciatic nerve pain Piriformis syndrome of right side Tubulovillous adenoma Extraintestinal yersiniosis GERD (gastroesophageal reflux disease) IBS (irritable bowel syndrome) Sleep apnea Asthma Surgical History History of esophagogastroduodenoscopy (EGD) Hx of eye surgery Hx of endoscopy Hx of colonoscopy Family History Mother Diabetes Hypertension Father Prostate cancer Social History Household Members: Spouse and Children Housing: House Are you a primary home care music therapist to a significant other at home: No Do you presently have visiting nurse or other home services: No Patient Tobacco Use Status: Never used Tobacco Review of Systems Const Denies daytime sleepiness, Denies excessive sweating, Denies fatigue, Denies fever(s), Denies lethargy, Denies malaise, Denies night sweats, Denies snoring and Denies weight loss Eyes Denies blurry vision and Denies itchy eyes ENT Denies nasal congestion, Denies post nasal drip, Denies sinus pain, Denies sinus pressure and Denies other ( Thrush) Card Denies chest pain, Denies pedal edema, Denies dyspnea, Denies orthopnea and Denies paroxysmal nocturnal dyspnea Resp Denies cough, Denies hemoptysis, Denies excessive phlegm production, Denies dyspnea, Denies snoring and Denies wheezing GI Denies abdominal pain and Denies heartburn Musc Denies myalgias, Denies arthralgias and Denies joint swelling Skin/Breast Denies rash Neuro Denies memory loss and Denies seizure-like activity Psych Denies abnormal sleep pattern, Denies anxiety and Denies memory loss Endo Denies excessive sweating, Denies fatigue and Denies heat intolerance Jose/Lymph Denies easy bruising Aller/Immun Denies itchy eyes, Denies seasonal rhinorrhea and Denies wheezing Physical Exam Vital Signs: Last Vital Signs Pulse 80 08/22/24 13:00 BP 124/67 08/22/24 13:00 Pulse Ox 95 08/22/24 13:00 Oxygen Delivery Method Room Air 08/22/24 13:00 BMI result Body Mass Index 33.5 Const General: no acute distress and alert Nutritional Appearance: not obese Orientation/consciousness: Other orientation findings ( oriented) HEENT Head: Yes atraumatic Eyes General: appearance normal, both eyes and all related structures Sclerae: sclerae normal EOM: EOMs intact bilaterally Neck Neck: Yes supple Lymphatic: no lymphadenopathy noted Resp Effort & Inspection: normal respiratory effort and no use of accessory muscles Auscultation: clear to auscultation bilaterally Cardio Rate: regular rate Rhythm: regular rhythm Heart sounds: no gallops, no murmurs and no rubs Skin General skin exam: other ( warm) Extrem General: No clubbing, No cyanosis and No edema Assessment & Plan Assessment & Plan (1) Asthma: Code(s): J45.909 - Unspecified asthma, uncomplicated Category: Medical Plan: Well controlled on current regimen of Breztri and albuterol MDI. Continue current regimen. (2) Environmental allergies: Code(s): Z91.09 - Other allergy status, other than to drugs and biological substances Category: Medical Plan: Well controlled on Singulair. Continue current regimen. Coding Level of Care Code Est Pt Level 4 (23637) Diagnoses Asthma J45.909 Environmental allergies Z91.09
== END 2024-08-22 13:47 | disposition home or self-care (01) ==
LOC: HO.HPS 12:40
PROVIDERS: PCP General Practice; Visit Provider Internal Medicine Pulmonary Disease
DX: J45.909 Unspecified asthma, uncomplicated (principal); Z91.09 Other allergy status, other than to drugs and biological substances
CPT/HCPCS: 99214

== ENCOUNTER → 2024-08-22 12:40 | Outpatient (BNVA) | payer MEDICARE, MEDICAID, SELFPAY | PROVIDERS: PCP General Practice; Visit Provider Internal Medicine Pulmonary Disease | DX: J45.909 Unspecified asthma, uncomplicated (principal); G47.33 Obstructive sleep apnea (adult) (pediatric); Z91.09 Other allergy status, other than to drugs and biological substances | CPT/HCPCS: 99212 ==

== ENCOUNTER 2024-08-29 10:46 | Outpatient (AMB) | payer MEDICARE, MEDICAID, SELFPAY ==
--- OUTSIDE RECORDS SUMMARY | 2024-08-29 10:49 | XMS_ITS | Encounter Summary ---
Author Organization [employer] Address [address] [facility] [address] [place] [address] Care Team Providers Care Horticulture Teacher Name Role Phone Vera Crowe MD Primary Care Provider [phone] Reason for Visit * Reason Comments Pre-visit Planning SDOH screening compl eted on 05/29/2024 Encounter Details Date Type Department Care Team (Late st Contact Info) Description 08/25/2024 Patient Outreach [facility] [address] [place], [place] [phone] Vera Crowe MD [address] [place], [place] [phone] Pre-visit Planning (SDOH screening completed on 05/29/2024) Social History Tobacco Use Types Packs/Day Years [...] AM EDT documented as of this encounter Progress Notes * Angelica Mueller - 08/25/2024 11:18 AM EDT CC Angelica placed successful outbound call to patient for pre-visit planning. Patient name and confirmed. Patient confirms appt date and time, and has transportation. Biggest concern for appointment at this time is none Patient advised to bring to appointment a photo id and insurance card. Appropriate screenings completed in anticipation of appointment. documented in this encounter Plan of Treatment Upcoming Encounters Date Type Department Care Team (Late st Contact Info) Description 09/05/2024 11:15 AM EDT Office Visit [facility] [address] [place] [address] Vera Crowe MD [address] [place] [id number] documented as of this encounter Visit Diagnoses Not on filedocumented in this encounter Care Teams Horticulture Teacher Relationship Specialty Start Date End Date Vera Crowe MD [address] [place] [phone] PCP - General Family Medicine 06/16/22 documented as of this encounter
--- NOTE | 2024-08-29 11:17 | HO.SPINEOV ---
Intake Visit Reasons: discuss MRI/surgery Intake Note: Ms. Kennedy is here today to Discuss MRI results and Surgery. Mobile Mechanic Required: No Allergies No Known Allergies Allergy (Verified 08/29/24 11:17) Assessment & Plan Assessment & Plan (1) Lumbar spinal stenosis: Code(s): M48.061 - Spinal stenosis, lumbar region without neurogenic claudication Category: Medical Plan Mrs Kennedy is here in follow-up. Her most recent MRI done at [place] shows she has progression of the disc bulge at L4-5 on the right side causing nerve compression. Dr. Brennan and I previously reviewed her films and thought she would be a good candidate for right L4-5 decompression possible diskectomy. I sat down with the patient and reviewed all the indications for surgery, risks, benefits as well as recovery. Success rate quoted at 90%. She is very nervous about surgery so I told her just to go home and think about it, that there is no urgency here, it is more of a pain situation and if she feels like she wants to go ahead to give me a call. She has done physical therapy and medication trials and has no interested in injections. Total amount of time spent in this visit was 20 minutes in discussion of symptoms, lumbar MRI imaging results and subsequent plan of care Monster Brennan MD,PhD [facility] Coding Level of Care Code Est Pt Level 3 (82237) Diagnoses Lumbar spinal stenosis M48.061
== END 2024-08-29 11:48 | disposition home or self-care (01) ==
LOC: HO.HNS 10:46
PROVIDERS: PCP General Practice; Visit Provider Physician Assistant
DX: M48.061 Spinal stenosis, lumbar region without neurogenic claudication (principal)
CPT/HCPCS: 99213

== ENCOUNTER → 2024-08-29 10:46 | Outpatient (BNVA) | payer MEDICARE, MEDICAID, SELFPAY | PROVIDERS: PCP General Practice; Visit Provider Physician Assistant | DX: M48.061 Spinal stenosis, lumbar region without neurogenic claudication (principal) | CPT/HCPCS: 99212 ==

== ENCOUNTER 2024-09-05 11:46 | Outpatient (REF) | payer MEDICARE, MEDICAID, SELFPAY ==
--- OUTSIDE RECORDS SUMMARY | 2024-09-05 12:38 | XMS_ITS | Clinical Summary ---
Author Organization [employer] Address [address] [facility] [address] [place] [address] Care Team Providers Care Operations Trainer Name Role Phone Vera Crowe MD Primary Care Provider [phone] Allergies No known active allergies Medications Ventolin HFA 108 (90 Base) MCG/ACT inhaler INHALE 2 PUFFS BY MOUTH EVERY 4 TO 6 HOURS NEEDED FOR WHEEZING OR SHORTNESS OF BREATH 07/14/19 23 Active Symbicort 160-4.5 MCG/ACT inhaler Inhale 2 puffs 2 times daily. 05/15/19 23 Active diphenhydrAMINE (BENADryl) 25 MG capsule TAKE 2 CAPSULES BY MOUTH EVERY 4 TO 6 HOURS NEEDED 08/30/19 22 Active latanoprost (Xalatan) 0.005 % ophthalmic solution INSTILL 1 DROP IN EACH EYE AT BEDTIME 07/07/19 23 Active SM Fiber Laxative 500 MG tablet TAKE 1 TABLET BY MOUTH DAILY WITH GLASS OF WATER 07/14/19 23 Active pantoprazole (ProtoNix) 40 MG EC tablet Take 40 mg by mouth in the morning. 07/14/19 23 Active Senna-Time 8.6 MG tablet TAKE 1 TABLET BY MOUTH AT BEDTIME FOR CONSTIPATION 07/14/19 23 Active escitalopram (Lexapro) 10 MG tabletIndication s:Depression, unspecified depression type TAKE 1 TABLET BY MOUTH EVERY DAY 90 tablet 3 09/07/19 23 Active cholecalciferol (D3 Super Strength) 50 MCG (2000 UT) capsule Take 1 capsule (50 mcg) by mouth in the morning. 90 capsule 1 10/03/19 23 Active cetirizine (ZyrTEC) 10 MG tablet Take 1 tablet (10 mg) by mouth if needed each day for allergies. 90 tablet 3 10/21/19 23 Active ibuprofen 800 MG tabletIndication s:Low back pain at multiple sites TAKE 1 TABLET BY MOUTH THREE TIMES DAILY 90 tablet 11/04/19 23 Active Bisacodyl EC 5 MG EC tablet TAKE 2 TABLETS BY MOUTH AT NOON THE DAY BEFORE COLONOSCOPY 09/19/19 23 Active polyethylene glycol, PEG, 3350 (Glycolax) 17 GM/SCOOP powder MIX 238 GRAM WITH WATER AND TAKE BY MOUTH DIRECTED BY PHYSICIAN. 09/19/19 23 Active cyanocobalamin (Vitamin B-12) 500 MCG tabletIndication s:Gastroesophage al reflux disease without esophagitis TAKE 1 TABLET BY MOUTH EVERY DAY 90 tablet 3 11/07/19 23 Active buPROPion XL (Wellbutrin XL) 150 MG 24 hr tablet Take 1 tablet (150 mg) by mouth in the morning. Do not crush, chew, or split. For anxiety 30 tablet 11 11/07/19 23 Active Dupixent 300 MG/2ML injection 02/13/20 23 Active guaiFENesin-code ine (Robitussin-AC) 100-10 MG/5ML syrup TAKE 10 ML BY MOUTH EVERY 4 TO 6 HOURS NEEDED FOR SYMPTOMS del resfriado FOR 15 DAYS 03/15/20 23 Active rosuvastatin (Crestor) 5 MG tablet TAKE 1 TABLET BY MOUTH DAILY IN THE MORNING 90 tablet 3 01/09/20 24 Active ramelteon (Rozerem) 8 MG tablet Take 8 mg by mouth at bedtime. for sleep 10/01/19 24 Active sertraline (Zoloft) 25 MG tablet Take 25 mg by mouth Once per day. 12/26/19 24 Active Breztri Aerosphere 160-9-4.8 MCG/ACT aerosol 01/23/20 24 Active montelukast (Singulair) 10 MG tablet 01/23/20 24 Active losartan (Cozaar) 100 MG tabletIndication s:Essential hypertension TAKE 1 TABLET BY MOUTH EVERY DAY 90 tablet 06/20/19 25 Active diclofenac (Voltaren) 50 MG EC tablet TAKE 1 TABLET BY MOUTH EVERY TWELVE HOURS NEEDED FOR PAIN WITH FOOD AND A FULL GLASS OF WATER. AVOID IBUPROFEN WHILE TAKING. 08/30/19 25 Active sertraline (Zoloft) 100 MG tablet Take 1 tablet by mouth Once per day. 08/06/19 25 Active Semaglutide-Weig ht Management (Wegovy) 0.25 MG/0.5ML solution auto-injector Inject 0.5 mL (0.25 mg) under the skin 1 (one) time per week. 2 mL 1 09/06/19 25 Active QUEtiapine (SEROquel) 25 MG tablet TAKE 1 TABLET BY MOUTH EVERY DAY BEFORE BEDTIME NEEDED 11/08/19 24 025 Discontin ued(Thera py completed ) Active Problems Problem Noted Date Diagnosed Date Fat necrosis (segmental) of breast 01/30/2024 Overview [...] care w PCP --scheduled already for 01/14/2024 Class 1 obesity with serious comorbidity and body mass index (BMI) of 33.0 to 33.9 in adult 07/23/2023 Assessment & Plan (07/23/2023 1:27 PM EDT): Continue Topimax Start Metformin 500mg BID, A1C 5.9 today Has seen travel money advisor Urinary frequency 07/20/2023 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 Assessment [...] Glaucoma 03/20/2017 Overview (05/01/2022): Care managed by [facility] Appt 03/23/22 Continue medications for eyes: Latanoprost Followup 4 months Primary insomnia 03/20/2017 Assessment & Plan (08/28/2022 5:19 AM EDT): Sleep hygiene Challenging because her daughter needs care during the night Primary osteoarthritis involving multiple joints 03/20/2017 Assessment & Plan (11/06/2022 6:21 AM EDT): Hips are especially bothersome Will communicate with rheum to request hip injections Resolved Problems Problem Noted Date Diagnosed Date Resolved Date Acute upper respiratory infection 06/10/2024 09/05/2024 Assessment & Plan (06/10/2024 11:44 AM EST): COVID and follow up negative. No evidence of respiratory distress. Symptoms mild. No evidence of dehydration. Has been ongoing for >1 week, will start on abx. -Prescribed Augmentin, Take 1 tablet by mouth 2 times daily for 10 days, due to being on amoxicillin previously In the past month. -Supportive care advised. -Isolation recommendations discussed. Encounters Date Type Department Care Team Description 09/05/2024 11:15 AM EDT Office Visit [facility] [address] [place] [phone] Vera Crowe MD Obstructive sleep apnea syndrome (Primary Dx); Dietary counseling; Exercise counseling; Class 1 obesity with serious comorbidity and body mass index (BMI) of 33.0 to 33.9 in adult, unspecified obesity type; Moderate persistent asthma without complication; Anxiety; Essential hypertension; Open-angle glaucoma, mild stage, unspecified laterality, unspecified open-angle glaucoma type 09/05/2024 Travel 08/25/2024 Patient Outreach [facility] [address] [place] [phone] Vera Crowe MD Pre-visit Planning (SDOH screening completed on 05/29/2024) 08/19/2024 Orders Only [facility] External Provider, [facility] 06/18/2024 Refill [facility] WALK-IN [address] [phone] Name, MD Haile Essential hypertension 06/10/2024 11:20 AM EST Office Visit [facility] [address] [id number] Meghan Phoenix MD Moderate persistent asthma without complication (Primary Dx); Acute upper respiratory infection from Last 3 Months Immunizations Immunization Administration [...] Not Answered Alcohol Use Standard Drinks/Week Comments Not Asked 0 (1 standard drink = 0.6 oz pur e alcohol) Depression Answer Date Recorded Patient Health Questionnaire-9 Score 6 09/05/2024 Patient Health Questionnaire-9 Score 6 09/05/2024 Last PHQ-9: Questionnaire Data Not on file 0 09/05/2024 Housing Stability Answer Date Recorded What is [...] Answer Date Recorded Patient Health Questionnaire-2 Score 2 09/05/2024 Internet Access Answer Date Recorded Internet Access [...] Sign Reading Time Taken Comments Blood Pressure 136/81 09/05/2024 11:08 AM EDT Pulse 67 09/05/2024 11:08 AM EDT Temperature 36.2 ??C (97.2 ??F) 09/05/2024 1 1:08 AM EDT Respiratory Rate 14 09/05/2024 11:0 8 AM EDT Oxygen Saturation 97% 06/10/2024 11: 36 AM EST Inhaled Oxygen Concentration - - Weight 83.8 kg (184 lb 12.8 oz) 025 11:08 AM EDT Height 157.5 cm (5' 2 ) 09/05/2024 11:0 8 AM EDT Body Mass Index 33.8 09/05/2024 11:08 AM EDT Plan of Treatment Health Maintenance Due Date Last Done Comments CT Colonography 1955 FIT DNA/Cologuard 1955 FIT 1955 FOBT 1955 Sigmoidoscopy 1955 Alcohol/Substance Use Screening 1967 Pneumococcal Vaccine: 50+ Years (1 of 2 - PCV) 1974 RSV Patients and Patients Aged 60 years or older (1 - Risk 60-74 years 1-dose series) 2015 COVID-19 Vaccine (2023- season) 2023 03/16/2022, 07/24/2021, 02/24/2021, Additional history exists Influenza Vaccine (#1) 2023 , 12/22/2021, 01/22/2019, Additional history exists SDOH Screening 05/29/2025 05/29/2024 Depression Screening 09/05/2025 09/05/2024, 09/06/19 25 Tobacco Screening 09/05/2025 09/05/2024 Mammogram 01/13/2026 01/14/2024, 10/2023, 08/03/2023, Additional history [...] EDT Narrative 08/19/2024 11:01 AM EDT ? [facility] ?[address] ?[place] [address] ? Magnetic Resonance Report ? Signed ? Patient: Brent,Cayt ?MR#: [id number] ?? 0 ? : 1955 ?Acct:[id number] ? Age/Sex: 69 / F ?ADM Date: 05/13/25 ? Loc: HO.MRI ? Attending Dr: Monster PAULA ? Ordering Physician: Monster Garcai ?? Date of Service: 08/19/24 ?? Procedure(s): MR lumbar spine wo con ?? Accession Number(s): [id number] ? cc: Monster Garcia; Vera Crowe ? [...] DD/ 1016 ? TD/TT: 08/19/24 1031 ? Algorithm Developer: ? Procedure Note Donpatricio, Image - 08/19/2024 [place] [address] Magnetic Resonance Report Signed Patient: Zina Kennedy MMR#: [id number] 0 : 6Acct:[id number] Age/Sex: 69 / FADM Date: 08/19/24 Loc: HO.MRI Attending Dr: Monster PAULA Ordering Physician: Monster Garcia Date of Service: 08/19/24 Procedure(s): MR lumbar spine wo con Accession Number(s): [id number] cc: Monster Garcia; Vera Crowe EXAMINATION: MR [...] 08/19/24 1058 DD/ 1016 TD/TT: 08/19/24 1031 Algorithm Developer: [facility] External Provider IMG MRI PROCEDURES Final Result * POCT Influenza B manually resulted (06/10/2024 11:38 AM EST) Rapid Influenza B Ag Negative Negative, Indeterminate QC Media Lot # [id number] Lot# Expiration Date Swab 06/10/2024 11:3 8 AM EST Meghan Phoenix MD POINT OF CARE TEST ENTER/E DIT ORDERABLES Final Result * POCT Influenza A manually resulted (06/10/2024 11:38 AM EST) Rapid Influenza A Ag Negative Negative, Indeterminate QC Media Lot # [id number] Lot# Expiration Date Swab Nasopharyngeal structure / Unknown 06/10/2024 11:38 AM EST us Meghan Phoenix MD POINT OF CARE TEST ENTER/E DIT ORDERABLES Final Result * POCT Rapid COVID Ag (06/10/2024 11:37 AM EST) Rapid COVID Ag Negative QC Media Lot # [id number] Lot# Expiration Date Swab 06/10/2024 11:3 7 AM EST us Meghan Phoenix MD POINT OF CARE TEST ENTER/E DIT ORDERABLES Final Result * BI US Breast Limited Left (01/14/2024 1:42 PM EDT) Anatomical Region Laterality Modality Breast Left Ultrasound 01/14/2024 1:42 PM EDT Narrative 01/14/2024 2:10 PM EDT ? [facility] ? [address] ?[place] [address] ? Ultrasound Report ? Signed ? Patient: Zina Kennedy ?MR#: [id number] ?? 0 ? : 1955 ?Acct:[id number] ? Age/Sex: 68 / F ?ADM Date: 01/14/24 ? Loc: HO.MAMMO ? Attending Dr: Zina Honeycutt MD ? Ordering Physician: Zina Mejia MD ?? Date of Service: 01/14/24 ?? Procedure(s): US breast LT limited mamm only ?? Accession Number(s): [id number] ? cc: Vera Crowe; Zina Mejia MD [...] DD/ 1342 ? TD/TT: 01/14/24 1353 ? Algorithm Developer: ? Procedure Note Donnicolasinterpreter, Image - 01/14/2024 [facility] [address] [place] [address] Ultrasound Report Signed Patient: Zina Kennedy MMR#: [id number] 0 : 6Acct:[id number] Age/Sex: 68 / FADM Date: 01/14/24 Loc: HO.MAMMO Attending Dr: Zina Honeycutt MD Ordering Physician: Zina Mejia MD Date of Service: 01/14/24 Procedure(s): US breast LT limited mamm only Accession Number(s): [id number] cc: Vera Crowe; Zina Mejia MD EXAMINATION: [...] 01/14/24 1407 DD/ 1342 TD/TT: 01/14/24 1353 Algorithm Developer: us Zina Honeycutt MD [facility] US PROCEDURES Final Result * Hepatitis Panel, General (03/23/2023 11:42 AM EST) Hepatitis A IgM Nonreactive Nonreactive [facility] Comment:IgM antibodies to HOWARD V not detected; does not exclude earlyacute or recovered HAV infection. ~Hepatitis B Surface Antibody NONREACTIVE Nonreactive [facility] Comment:Nonreactive: < 8.00 mIU/mL Hepatitis B Core Antibody Nonreactive Nonreactive [facility] Hepatitis C Antibody Nonreactive Nonreactive [facility] Comment:Antibodies to HCV no t detected; does not exclude early acuteHCV infection. Hepatitis B Surface Ag Negative Negative [facility] 03/23/2023 11:4 2 AM EST 03/23/2023 11:42 AM EST us Generic External Data Provider LAB BLOOD ORDERAB LES Final Result [facility] [address] [place] [phone] * Lipid Panel, Standard (07/20/2022 11:15 AM EDT) Cholesterol, Total 149 <200 mg/dL [facility] HDL Cholesterol 62 > OR = 50 mg/dL [facility] Triglycerides 130 <150 mg/dL [facility] LDL Cholesterol 66 mg/dL (calc) [facility] Comment: Reference range: <100 Desirable range <100 mg/dL for primary prevention; ?? <70 mg/dL for patients with CHD or diabetic patients with > or = 2 CHD risk factors. LDL-C is now calculated using the Vinay calculation, which is a validated novel method providing better accuracy than the Friedewald equation in the estimation of LDL-C. Wolf PICKETT et al. DALILA. 2013;310(19): 9818-6917 (http://education.medineering.[employer]/faq/WVV095) Chol/HDLC Ratio 2.4 <5.0 (calc) [facility] Non-HDL Cholesterol 87 <130 mg/dL (calc) [facility] Comment: For patients with diabetes plus 1 major ASCVD risk factor, treating to a non-HDL-C goal of <100 mg/dL (LDL-C of <70 mg/dL) is considered a therapeutic option. Blood Venous blood specimen / Unknown 07/20/2022 11:15 AM EDT 07/20/2022 11:15 AM EDT Narrative [facility] - 07/21/2022 6:33 AM EDT FASTING:NO FASTING: NO Vera Crowe MD LAB BLOOD ORDERABLES Final Res ult [facility] [address], [place] [address] [facility] [address] [place] [address] * Hm Colonoscopy (03/29/2021) Colonoscopy Normal Normal Comment:Repeat procedure in 10 yrs, ( see scanned report) 03/29/2021 Vera Crowe MD HEALTH MAINTENANCE Final Resul t from Last 3 Months or Most Recently Relevant to Health Maintenance [place] [address] [place] [address] STANDARD [facility] MEDICARE REPLACEMENT Care Teams Operations Trainer Relationship Specialty Start Date End Date Vera Crowe MD [address] [place] [phone] PCP - General Family Medicine 06/16/22
== END 2024-09-05 11:47 | disposition home or self-care (01) ==
LOC: HO.MAMMO 11:46
PROVIDERS: PCP General Practice; Visit Provider General Practice
DX: Z12.31 Encounter for screening mammogram for malignant neoplasm of breast (principal)
CPT/HCPCS: 77063; 77067

== ENCOUNTER → 2024-09-05 12:30 | Outpatient (BNV) | payer MEDICARE, MEDICAID, SELFPAY | PROVIDERS: PCP General Practice; Visit Provider Internal Medicine | DX: Z12.31 Encounter for screening mammogram for malignant neoplasm of breast (principal) | CPT/HCPCS: 77063; 77067 ==

== ENCOUNTER 2024-11-27 11:15 | Outpatient (REF) | payer MEDICARE, MEDICAID, SELFPAY ==
--- NOTE | ~2024-11-27 | XR_ITS ---
EXAMINATION: XR CHEST CLINICAL INFORMATION: 1 month h/o cough, non-smoker. COMPARISON: December 22, 2019 TECHNIQUE: 2 views of the chest were obtained. FINDINGS: Lungs are clear and well aerated. There is no sign of a pleural effusion. Heart size is within normal limits. Hilar and mediastinal structures are unremarkable. No bony abnormality is evident. XR/XR chest 2V IMPRESSION: No acute disease. Electronically signed by: Nikolas Pryor MD 11/27/2024 12:32 PM EDT
--- OUTSIDE RECORDS SUMMARY | 2024-11-27 12:56 | XMS_ITS | Clinical Summary ---
Author Organization [employer] Address [address] [facility] [address] [place] [address] Care Team Providers Care Rehabilitation Medicine Physician Name Role Phone Vera Crowe MD Primary Care Provider [phone] Allergies No known active allergies Medications Ventolin HFA 108 (90 Base) MCG/ACT inhaler INHALE 2 PUFFS BY MOUTH EVERY 4 TO 6 HOURS NEEDED FOR WHEEZING OR SHORTNESS OF BREATH 3 Active latanoprost (Xalatan) 0.005 % ophthalmic solution INSTILL 1 DROP IN EACH EYE AT BEDTIME 3 Active pantoprazole (ProtoNix) 40 MG EC tablet Take 40 mg by mouth in the morning. 3 Active polyethylene glycol, PEG, 3350 (Glycolax) 17 GM/SCOOP powder MIX 238 GRAM WITH WATER AND TAKE BY MOUTH DIRECTED BY PHYSICIAN. 3 Active rosuvastatin (Crestor) 5 MG tablet TAKE 1 TABLET BY MOUTH DAILY IN THE MORNING 90 tablet 3 4 Active ramelteon (Rozerem) 8 MG tablet Take 8 mg by mouth at bedtime. for sleep 4 Active Breztri Aerosphere 160-9-4.8 MCG/ACT aerosol 4 Active montelukast (Singulair) 10 MG tablet 4 Active sertraline (Zoloft) 100 MG tablet Take 1 tablet by mouth Once per day. 5 Active Semaglutide-Weigh t Management (Wegovy) 0.25 MG/0.5ML solution auto-injector Inject 0.5 mL (0.25 mg) under the skin 1 (one) time per week. 2 mL 1 5 Active buPROPion XL (Wellbutrin XL) 150 MG 24 hr tabletIndications :Moderate major depression (CMS/HCC) Take 1 tablet (150 mg) by mouth Once per day. Do not crush, chew, or split. For anxiety 30 tablet 11 5 09/09/19 26 Active cholecalciferol (D3 Super Strength) 50 MCG (2000 UT) capsuleIndication s:Vitamin D deficiency Take 1 capsule (50 mcg) by mouth Once per day. 90 capsule 3 5 Active diclofenac (Voltaren) 50 MG EC tabletIndications :Low back pain at multiple sites Take 1 tablet (50 mg) by mouth if needed in the morning and at bedtime (back pain). Do not crush, chew, or split. 60 tablet 2 5 Active losartan (Cozaar) 100 MG tabletIndications :Essential hypertension Take 1 tablet (100 mg) by mouth Once per day. 90 tablet 3 5 Active azithromycin (Zithromax Z-Luis F) 250 MG tablet Take 2 tablets once on day 1, then 1 tablet 1x/day for 4 days. 6 tablet 5 Active Misc. Devices (Pulse Oximeter For Finger) misc 1 each 2 times daily. Should be 95% or above. 1 each 5 Active predniSONE (Deltasone) 20 MG tablet Take 2 tablets (40 mg) by mouth Once per day for 5 days. 10 tablet 5 11/25/19 25 Active Problems Problem Noted Date Diagnosed Date [...] 33.9 in adult 07/23/2023 Assessment & Plan (09/08/2024 8:49 AM EDT): Weight is hurtling her back and knees. She has trialled Metformin and Topimax in 2023 without loss of weight She cannot tolerate Phentermine due to HTN and anxiety. Will submit PA for Wegovy 0.25mg for obesity with HTN and asthma Has seen brokerage office manager Assessment & Plan (07/23/2023 1:27 PM EDT): Continue Topimax Start Metformin 500mg BID, A1C 5.9 today Has seen brokerage office manager Urinary frequency 07/20/2023 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 Assessment [...] Glaucoma 03/20/2017 Overview (05/01/2022): Care managed by [facility] Appt 03/23/22 Continue medications for [...] Encounters Date Type Department Care Team Description 11/19/2024 10:00 AM EDT Office Visit [facility] [address] [place] [address] Heber Pierson MD Moderate persistent asthma without complication (Primary Dx); Cough in adult patient 11/19/2024 Travel 09/05/2024 11:15 AM EDT Office Visit [facility] [address] [place] [address] Vera Crowe MD Essential hypertension (Primary Dx); Dietary counseling; Exercise counseling; Class 1 obesity with serious comorbidity and body mass index (BMI) of 33.0 to 33.9 in adult, unspecified obesity type; Obstructive sleep apnea syndrome; Moderate persistent asthma without complication; Anxiety; Open-angle glaucoma, mild stage, unspecified laterality, unspecified open-angle glaucoma type; Low back pain at multiple sites; Moderate major depression (CMS/HCC); Vitamin D deficiency 09/05/2024 Travel from Last 3 Months Immunizations Immunization Administration [...] drink = 0.6 oz pur e alcohol) Alcohol Answer Date Recorded How often do you have a drink containing alcohol ? 0 09/05/2024 Average Number of Drinks Not on file 025 How often do you have six or more drinks on one occasion? 0 09/05/2024 Depression Answer Date Recorded Patient Health Questionnaire-9 [...] t he electric, gas, oil or water [employer] threatened to shut off services in your [...] Sign Reading Time Taken Comments Blood Pressure 134/59 11/19/2024 10:03 AM EDT Pulse 74 11/19/2024 10:03 AM EDT Temperature 36.7 C (98.1 F) 11/19/2024 10:03 AM EDT Respiratory Rate 20 11/19/2024 10:03 AM EDT Oxygen Saturation 95% 11/19/2024 10:32 AM EDT Inhaled Oxygen Concentration - - Weight 83.9 kg (185 lb) 11/19/2024 10:03 AM EDT Height 157.5 cm (5' 2 ) 09/05/2024 11:08 AM EDT Body Mass Index 33.84 09/05/2024 11:08 AM EDT Plan of Treatment Health Maintenance Due Date Last Done Comments CT Colonography 1955 FIT DNA/Cologuard 1955 FIT 1955 FOBT 1955 Sigmoidoscopy 1955 Pneumococcal Vaccine: 50+ Years (1 of 2 - PCV) 1974 RSV Patients and Patients Aged 60 years or older (1 - Risk 60-74 years 1-dose series) 2015 COVID-19 Vaccine ( season) 2023 03/16/2022, 07/24/2021, 02/24/2021, Additional history exists Influenza Vaccine (#1) 2024 , 12/22/2021, 01/22/2019, Additional history exists SDOH Screening 05/29/2025 05/29/2024 Alcohol/Substance Use Screening 09/05/2025 09/05/2024 Depression Screening 09/05/2025 09/05/2024, 09/06/19 Tobacco Screening 11/19/2025 11/19/2024 Mammogram 09/05/2026 09/05/2024, 100 10/2023, 01/14/2024, Additional history exists Lipid Panel 07/21/2027 07/20/2022, [...] Procedure Name Priority Date/Time Associated Diagnosis Comments XR CHEST 2 VIEWS Routine 11/27/2024 12:0 7 PM EDT Moderate persistent asthma without complication Cough in adult patient POCT INFLUENZA B (ID NOW RAPID MOLECULAR) Routine 11/19/2024 10:13 AM EDT Cough in adult patient POCT INFLUENZA A (ID NOW RAPID MOLECULAR) Routine 11/19/2024 10:13 AM EDT Cough in adult patient POCT RAPID COVID ANTIGEN Routine 11/19/2024 10:08 AM EDT Cough in adult patient BI MAMMOGRAM SCREENING TOMOSYNTHESIS BILATERAL Routine 09/05/2024 11:50 AM EDT HEPATITIS PANEL, GENERAL Routine 03/23/2023 11:42 AM EST LIPID PANEL, STANDARD Routine 07/20/2022 11:15 AM EDT Essential hypertension HM COLONOSCOPY Routine 03/29/2021 from Last 3 Months or Most Recently Relevant to Health Maintenance Results * XR Chest 2 Views (11/27/2024 12:07 PM EDT) Anatomical Region Laterality Modality Chest Radiographic Alba ging 11/27/2024 12:0 7 PM EDT Narrative 11/27/2024 12:34 [place] [address] XRay Report Signed Patient: Zina Kennedy MR#: [id number] 0 : 1955 Acct:[id number] Age/Sex: 69 / F ADM Date: 11/27/24 Loc: .HHCX Attending Dr: Heber Pierson MD Ordering Physician: HEBER PIERSON MD Date of Service: 11/27/24 Procedure(s): XR chest 2V Accession Number(s): [id number] cc: HEBER PIERSON MD; Vera Crowe EXAMINATION: XR CHEST CLINICAL INFORMATION: 1 month h/o cough, non-smoker. COMPARISON: December 22, 2019 TECHNIQUE: 2 views of the chest were obtained. FINDINGS: Lungs are clear and well aerated. There is no sign of a pleural effusion. Heart size is within normal limits. Hilar and mediastinal structures are unremarkable. No bony abnormality is evident. XR/XR chest 2V IMPRESSION: No acute disease. Electronically signed by: Nikolas Pryor MD 11/27/2024 12:32 PM EDT Dictated By: Nikolas Pryor MD Signed By: <Electronically signed by Nikolas Pryor MD in OV> 11/27/24 1232 DD/ 1207 TD/TT: 11/27/24 1210 Storage Receipt Poster: Procedure Note Donotuseinterpreter, Image - 11/27/2024 [facility] [address] [place] [address] XRay Report Signed Patient: Zina Kennedy MMR#: [id number] 0 : 6Acct:[id number] Age/Sex: 69 / FADM Date: 11/27/24 Loc: .HHCX Attending Dr: Heber Pierson MD Ordering Physician: HEBER PIERSON MD Date of Service: 11/27/24 Procedure(s): XR chest 2V Accession Number(s): [id number] cc: HEBER PIERSON MD; Vera Crowe EXAMINATION: XR CHEST CLINICAL INFORMATION: 1 month h/o cough, non-smoker. COMPARISON: December 22, 2019 TECHNIQUE: 2 views of the chest were obtained. FINDINGS: Lungs are clear and well aerated. There is no sign of a pleural effusion. Heart size is within normal limits. Hilar and mediastinal structures are unremarkable. No bony abnormality is evident. XR/XR chest 2V IMPRESSION: No acute disease. Electronically signed by: Nikolas Pryor MD 11/27/2024 12:32 PM EDT RP Dictated By: Nikolas Pryor MD Signed By: <Electronically signed by Nikolas Pryor MD in OV> 11/27/24 1232 DD/ 1207 TD/TT: 11/27/24 1210 Storage Receipt Poster: us Heber Pierson MD IMG XR PROCEDURES Final Result * POCT Rapid Influenza B LUNDBERG ID NOW (11/19/2024 10:13 AM EDT) Influenza B Negative Negative, Indeterminate [facility] Swab 11/19/2024 10:1 3 AM EDT us Heber Pierson MD POINT OF CARE TEST ENTER/EDIT OR DERABLES Final Result [facility] [address] [place] [phone] * POCT Rapid Influenza A LUNDBERG ID NOW (11/19/2024 10:13 AM EDT) Influenza A Negative Negative, Indeterminate [facility] Swab 11/19/2024 10:1 3 AM EDT us Heber Pierson MD POINT OF CARE TEST ENTER/EDIT OR DERABLES Final Result Performing Organization Address [facility] Co de Phone Number [facility] [address] [place] [phone] * POCT Rapid Covid-19 BinaxNOW (11/19/2024 10:08 AM EDT) Rapid COVID Ag Negative QC Media Lot # [id number] Lot# Expiration Date Swab 11/19/2024 10:0 8 AM EDT us Heber Pierson MD POINT OF CARE TEST ENTER/EDIT OR DERABLES Final Result * BI Mammogram Screening Tomosynthesis Bilateral (09/05/2024 11:50 AM EDT) Anatomical Region Laterality Modality Breast Bilateral Mammography 09/05/2024 11:5 0 AM EDT Narrative 09/13/2024 9:11 AM EDT [facility] [address] [place] [address] Mammography Report Signed Patient: Zina Kennedy MR#: [id number] 0 : 1955 Acct:[id number] Age/Sex: 69 / F ADM Date: 09/05/24 Loc: MAMMO Attending Dr: Vera Crowe MD Ordering Physician: Vera Crowe Results: 1Negative Date of Service: 09/05/24 Follow Up: 1 Year From Orig inal Mammogram Procedure(s): MM tomosynthesis screening BI Accession Number(s): [id number] cc: Vera Crowe EXAMINATION: MM SCREENING DIGITAL BREAST TOMOSYNTHESIS, BILATERAL CLINICAL INFORMATION: Screening. Asymptomatic. COMPARISON: Mammography: Comparison is made with available priors TECHNIQUE: Digital breast mammography with tomosynthesis is performed in both the craniocaudal and mediolateral oblique views along with computer-aided detection (CAD). FINDINGS: There are scattered areas of fibroglandular density (ACR BI-RADS breast composition Category b). There are no significant masses, abnormal calcifications, or other abnormalities. MM/MM tomosynthesis screening BI IMPRESSION: No mammographic evidence of malignancy. ASSESSMENT: BI-RADS BI-RADS 1 - Negative RECOMMENDATION: Routine annual mammography screening. 1 year F/U This examination should not preclude the clinical evaluation of a suspicious palpable abnormality. This patient's information was entered into a reminder system with a target due date for their next mammogram. Electronically signed by: Jackelin Ortega DO 09/13/2024 09:09 AM EDT Dictated By: Jackelin Ortega DO Signed By: <Electronically signed by Jackelin Ortega DO in OV> 09/13/24 0909 DD/ 1150 TD/TT: 09/05/24 1207 Storage Receipt Poster: Procedure Note Donotuseinterpreter, Image - 09/13/2024 [facility] [address] [place] [address] Mammography Report Signed Patient: Zina Kennedy [facility]#: [id number] 0 : 6Acct:[id number] Age/Sex: 69 / FADM Date: 09/05/24 Loc: ROCIO Attending Dr: Vera Crowe MD Ordering Physician: Cecilia Croweults: 1Negative Date of Service: 09/05/24Follow Up: 1 Year From Orig inal Mammogram Procedure(s): MM tomosynthesis screening BI Accession Number(s): [id number] cc: Vera Crowe EXAMINATION: MM SCREENING DIGITAL BREAST TOMOSYNTHESIS, BILATERAL CLINICAL INFORMATION: Screening. Asymptomatic. COMPARISON: Mammography: Comparison is made with available priors TECHNIQUE: Digital breast mammography with tomosynthesis is performed in both the craniocaudal and mediolateral oblique views along with computer-aided detection (CAD). FINDINGS: There are scattered areas of fibroglandular density (ACR BI-RADS breast composition Category b). There are no significant masses, abnormal calcifications, or other abnormalities. MM/MM tomosynthesis screening BI IMPRESSION: No mammographic evidence of malignancy. ASSESSMENT: BI-RADS BI-RADS 1 - Negative RECOMMENDATION: Routine annual mammography screening. 1 year F/U This examination should not preclude the clinical evaluation of a suspicious palpable abnormality. This patient's information was entered into a reminder system with a target due date for their next mammogram. Electronically signed by: Jackelin Ortega DO 09/13/2024 09:09 AM EDT RP Dictated By: Jackelin Ortega DO Signed By: <Electronically signed by Jackelin Ortega DO in OV> 09/13/24 0909 DD/ 1150 TD/TT: 09/05/24 1207 Storage Receipt Poster: Vera Crowe MD IMG BI PROCEDURES Edited Resul t - Final * Hepatitis Panel, General (03/23/2023 11:42 AM EST) Hepatitis A IgM Nonreactive Nonreactive [facility] Comment:IgM antibodies to HOWARD V not detected; does not exclude earlyacute or recovered HAV infection. ~Hepatitis B Surface Antibody NONREACTIVE Nonreactive [facility] Comment:Nonreactive: < 8.00 mIU/mL Hepatitis B Core Antibody Nonreactive Nonreactive [facility] Hepatitis C Antibody Nonreactive Nonreactive [facility] Comment:Antibodies to HCV no t detected; does not exclude early acuteHCV infection. Hepatitis B Surface Ag Negative Negative [facility] 03/23/2023 11:4 2 AM EST 03/23/2023 11:42 AM EST Generic External Data Provider LAB BLOOD ORDERAB LES Final Result [facility] [address] [place] [phone] * Lipid Panel, Standard (07/20/2022 11:15 AM EDT) Cholesterol, Total 149 <200 mg/dL [facility] HDL Cholesterol 62 > OR = 50 mg/dL [facility] Triglycerides 130 <150 mg/dL [facility] LDL Cholesterol 66 mg/dL (calc) [facility] Comment: Reference range: <100 Desirable range <100 mg/dL for primary prevention; <70 mg/dL for patients with CHD or diabetic patients with > or = 2 CHD risk factors. LDL-C is now calculated using the Vinay calculation, which is a validated novel method providing better accuracy than the Friedewald equation in the estimation of LDL-C. Wolf SS et al. DALILA. 2013;310(19): 3221-9868 (http://education.CorrectNet/faq/CZY877) Chol/HDLC Ratio 2.4 <5.0 (calc) [facility] Non-HDL Cholesterol 87 <130 mg/dL (calc) [facility] Comment: For patients with diabetes plus 1 [...] BLOOD ORDERABLES Final Res ult [facility] [address], [place] [address] [facility] [address] [place] [phone] * Hm Colonoscopy (03/29/2021) Colonoscopy Normal Normal Comment:Repeat procedure in 10 yrs, ( see scanned report) 03/29/2021 Vera Crowe MD HEALTH MAINTENANCE Final Resul t from Last 3 Months or Most Recently Relevant to Health Maintenance [place] [address] [place] [address] STANDARD [employer] MEDICARE REPLACEMENT Care Teams Rehabilitation Medicine Physician Relationship Specialty Start Date End Date Vera Crowe MD [address] [place] [address] PCP - General Family Medicine 06/16/22
== END 2024-11-27 11:16 | disposition home or self-care (01) ==
LOC: HO.HHCX 11:15
PROVIDERS: PCP General Practice; Visit Provider Emergency Medicine
DX: R05.9 Cough, unspecified (principal); J45.40 Moderate persistent asthma, uncomplicated
CPT/HCPCS: 71046

== ENCOUNTER → 2024-11-27 11:36 | Outpatient (BNV) | payer MEDICARE, MEDICAID, SELFPAY | PROVIDERS: PCP General Practice; Visit Provider Radiology Diagnostic Radiology | DX: R05.3 Chronic cough (principal) | CPT/HCPCS: 71046 ==

== ENCOUNTER 2024-12-04 11:14 | Outpatient (AMB) | payer MEDICARE, MEDICAID, SELFPAY ==
--- NOTE | 2024-12-04 11:30 | MHC.OFFVIS ---
Vital Signs 12/04/24 11:41 Height 5 ft 2 in Weight 182 lb BMI 33.3 BP 148/66 H Blood Pressure Location Lt brachial Position Sitting Pulse 85 Pulse Source Pulse Oximeter Pulse Oximetry (%) 99 Oxygen Delivery Method Room Air Intake Visit Reasons: Follow Up Pt Request Intake Note: Pain today 11/16 Batting Machine Operator Required: No Accompanied by: Self / Same As Patient Allergies No Known Allergies Allergy (Verified 12/04/24 11:40) HPI Comments Details: The patient is a 69-year-old female presenting with back pain due to a bulging disc at L4-L5 with compression. The issue started with a progression of the bulging disc at L4-L5 on the right side, causing more compression. The patient has undergone physical therapy and medication trials but has not opted for injections due to glaucoma concerns. She was seen by our colleagues at [facility] and was offered right L4-5 decompression possible diskectomy. Updated lumbar MRI showed: Right subarticular and foraminal broad-based disc herniation L4-5 encroaching likely compressing right L5 nerve root and encroaching right L4 nerve root. There is central spinal canal stenosis at L4-5. The patient experiences pain primarily on the right side of the lower back, which spreads across and increases with movement. She reports weakness and clumsiness in the right leg, which affects her ability to stand for more than five minutes without pain. Denies any bowel or bladder dysfunction or saddle anesthesia. The patient has a history of glaucoma, which complicates the use of certain pain management interventions such as injections. Additionally, she has sleep apnea, which limits the use of certain medications like oxycodone. She is willing to trial short dose of tramadol and follow-up with Neurosurgery to proceed with back surgery as previously discussed. - Onset: Progression of bulging disc at L4-L5 - Quality: Pain primarily on the right side of the lower back, spreading across; shooting, throbbing, numbness, tingling, spasming, aching, sharp at times - Exacerbating factors: Movement increases pain, walking or standing for more than five minutes - Relieving factors: Rest, activity modifications, heat, Tylenol, NSAIDs, tizanidine - Interference: Affects ability to stand or walk for extended periods - Affect: Pain impacts ability to stand and perform daily activities - Analgesia: Ibuprofen used for inflammation, tramadol prescribed for severe pain - Adverse Effects: Gabapentin not tolerated, oxycodone contraindicated due to sleep apnea - Activities of Daily Living: Pain limits standing or walking time to five minutes - Aberrant Drug Related Behaviors: None reported PRIOR: Patient presents today for follow-up to discuss potential right L5 selective nerve block after recent neurosurgical evaluation at [facility]. She continues to endorse right-sided radiculopathy with activities, rest and sleep. Lumbar spine MRI was completed on 12/29/23 as noted below. Denies any recent cough, cold, infection, fever or other significant changes in medical history since last office visit. Neurosurgery evaluation by Monster Garcia PA-C 01/11/24: 68-year-old female presents with chronic low back pain localized over the middle of her lumbar spine radiating out to both sides and intermittent pain in the right hip and lateral thigh. In terms of anatomical structure of her lumbar spine, her disc quality is excellent. I do not think her pain is discogenic. There are no Modic endplate changes, spondylolisthesis or other significant osteophyte overgrowth. There are no disc herniations. She does have some mild disc bulging on the right at L4-5 which may cause some crowding of the lateral recess impinging on the right L5 nerve root. I am not sure if her symptoms qualify as a true radiculopathy or if it is more localized to the hip. She does respond to the hip injections. I told her we could consider doing a right L5 TFESI with Dr. Heath to see if the L5 nerve is involved in her right hip pain and lateral thigh pain. She really did not want to proceed with injections at this time. In terms of the back pain, things get a little more complicated because she does significant amount of lifting of her disabled 40-year-old daughter and certainly she could have some overuse and muscular strain in her back. Certainly she has no discogenic issues as her disc quality is excellent given her age. I do not think spinal fusion would help her back pain. Right now she is really not interested in surgery or intervention at all. PRIOR: Patient is a pleasant 68-year-old female with history of osteoarthritis, glaucoma, asthma, osteopenia, chronic low back pain, fibromyalgia, right hip and knee pain, right sciatic nerve pain, piriformis syndrome of right side, presents today for initial evaluation of low back pain with radiation into her right lateral hip. Denies any past recent trauma, injury or falls. Patient reports she takes care of her 41-year-old daughter the cerebral palsy who has been wheelchair dependent since 2017. Patient's also assists with daughter's care. Patient reports increasing pain with bending,heavy lifting, twisting, movements, ADLs, and flexing forward. She reports imbalance with walking or movements at times. Patient completed physical therapy at [facility] in May this year and has received therapeutic injections by Rheumatology provider with partial relief. Denies previous spine surgery or injections. Pain affects her daily activities, functioning, mobility, sleep, mood, and social interactions. Back pain has been resistant to conservative treatments. Denies any fever, chills, weight loss, abdominal or groin pain, bladder or bowel dysfunction or saddle anesthesia. Oswestry low back disability score =24 (moderate disability) Location: Right lateral hip, lower back, widespread body pain Duration: Chronic pain for 10 + years Characteristics of symptom or complaint: Aching, searing, tingling, numbness, burning, stabbing, throbbing Aggravating or associated factors: Standing, sitting, laying flat, bending, pulling, heavy lifting, twisting Relieving factors: Ibuprofen, heat therapy, rest, Tylenol, tizanidine Treatment: PT, injections PFSH Medical History Glaucoma Osteoarthritis of hands, bilateral Right sciatic nerve pain Piriformis syndrome of right side Tubulovillous adenoma Extraintestinal yersiniosis GERD (gastroesophageal reflux disease) IBS (irritable bowel syndrome) Sleep apnea Asthma Surgical History History of esophagogastroduodenoscopy (EGD) Hx of eye surgery Hx of endoscopy Hx of colonoscopy Family History Mother Diabetes Hypertension Father Prostate cancer Social History Household Members: Spouse and Children Housing: House Are you a primary infant childcare provider to a significant other at home: No Do you presently have visiting nurse or other home services: No Patient Tobacco Use Status: Never used Tobacco Review of Systems Const Details: - Musculoskeletal: Reports pain on the right side of the lower back, spreading across - Neurological: Reports weakness and clumsiness in the leg - Ophthalmologic: Reports glaucoma - Respiratory: Reports sleep apnea All systems reviewed & are unremarkable except as noted in HPI and below Physical Exam General: Appears afebrile. Alert and oriented. Mood and affect appropriate. Follows and participates in conversation appropriately. Respiratory effort is unlabored. No cough. Able to transition from sit to stand unassisted. Ambulates with bilaterally normal heel strike and toe off. General: Yes no CVA tenderness Back/Spine/Pelvis Other: Limited lumbar ROM. Mildly antalgic gait with no limping. Lumbar extension and axial rotations reproduce moderate pain. Flexion is grossly intact and reproduces mild pain. Demonstrates 5/5 left 4/5 right strength of quadriceps bilaterally as well as flexion/dorsiflexion of bilateral feet against resistance. 2+ pedal pulses bilaterally. Straight leg rise with dorsiflexion positive on the right. +1 +2 left patellar and +1 achilles reflexes bilaterally. Facet loading test positive bilaterally. Kai sign, Guanakito?s, Gaenslen, Pelvic compression and Stinchfield tests reproduce right hip and right low back pain. Slight groin pain with right I/E hip rotations. Valsalva maneuver is positive. Back: no CVA tenderness Cervical Spine: loss of normal cervical lordosis, cervical muscular tenderness, pain with cervical ROM and No Cervical spine tenderness Thoracic/Lumbar Spine: thoracic and lumbar spine normal to inspection, No Thoracic/lumbar spine scar(s), Lasegue's sign positive on the right and localized, pain with thoraco-lumbar ROM, paraspinal muscle tenderness, thoraco-lumbar ROM limited, No thoracic spinal tenderness and lumbar spinal tenderness (L3-S1) Pelvis: buttock tenderness on the right Sacroiliac joints: bilaterally (right>left) tender to palpation Extrem General: Yes capillary refill normal, Yes no clubbing, cyanosis or edema and Yes no calf tenderness Results Reviewed Results Reviewed: XR LUMBOSACRAL SPINE 02/22/22 CLINICAL INFORMATION: Low back pain COMPARISON: Previous x-ray January 2019 FINDINGS: Bone alignment is normal. No fracture or dislocation. Mild disc space narrowing at L2-L3. Lower lumbar spine facet arthritis. IMPRESSION: Mild degenerative changes. XR DEXA axial skeleton 06/02/20 Osteopenia based on the lowest T-score value of -1.8 in the femoral neck applying World Health Organization criteria. MR LUMBAR SPINE WITHOUT CONTRAST 08/19/24 CLINICAL INFORMATION: Radiculopathy, lumbar region. COMPARISON: December 29, 2023. TECHNIQUE: MRI of the lumbar spine was obtained using routine sequences without contrast. FINDINGS: Last rib-bearing vertebra labeled T12. No bone marrow STIR signal abnormality. Multilevel disc desiccation, T12 L1/L4 5 level. Grade 1 retrolisthesis L5-S1 on a degenerative basis. Conus medullaris ends at the intervertebral disc T12-L1 with normal signal. T11-12: No disc herniation. No neuroforamina stenosis. T12-L1: No disc herniation. No neuroforamina stenosis. L1-2: No disc herniation. No neuroforamina stenosis. L2-3: Broad-based disc bulging. Facet joint and ligamentum flavum hypertrophy. No compression upon neural elements. L3-4: Broad-based disc bulging. Facet joint and ligamentum flavum hypertrophy. Reduced AP diameter of the thecal sac and neuroforamina. L4-5: Right subarticular and foraminal broad-based disc herniation encroaching likely compressing the right L5 nerve root on its lateral recess. There is right neuroforamina narrowing encroaching the right L4 nerve root. Central spinal canal stenosis. L5-S1: Broad-based disc bulging. Facet joint and ligamentum flavum hypertrophy. Reduced AP diameter of the thecal sac and the neural foramina likely encroaching the exiting nerve roots. No prevertebral compartment hematoma, mass or fluid collection. Probable multiple bilateral renal cysts, bilaterally. IMPRESSION: Right subarticular and foraminal broad-based disc herniation L4-5 encroaching likely compressing right L5 nerve root and encroaching right L4 nerve root. There is central spinal canal stenosis at L4-5. Assessment & Plan Assessment & Plan (1) Right sciatic nerve pain: Code(s): M54.31 - Sciatica, right side Category: Medical (2) Lumbar radiculopathy, right: Code(s): M54.16 - Radiculopathy, lumbar region Category: Medical (3) Lumbar spinal stenosis: Code(s): M48.061 - Spinal stenosis, lumbar region without neurogenic claudication Category: Medical (4) Lumbosacral spondylosis: Code(s): M47.817 - Spondylosis without myelopathy or radiculopathy, lumbosacral region Category: Medical (5) Sacroiliac joint pain: Code(s): M53.3 - Sacrococcygeal disorders, not elsewhere classified Category: Medical (6) Fibromyalgia: Code(s): M79.7 - Fibromyalgia Category: Medical Plan The patient has a bulging disc at L4-L5 with compression, causing significant pain and functional limitations. Surgical intervention, specifically right L4-L5 decompression and possibly discectomy, has been recommended with a success rate of about 90%. Due to glaucoma, patient prefers to hold on steroidal injections and would require ophthalmologic clearance. We also discussed to nonsteroidal selective nerve blocks right L4-L5 level, patient reports her symptoms have significantly worsen and she cannot tolerate standing or walking for over 5 minutes and requires frequent rests. The patient is advised to consult with Neurosurgery for potential surgical scheduling and is provided with tramadol for pain management until then. Side effects and precautions were discussed with patient. Narcan also sent and discussed its use and administration with patient. All questions and concerns have been answered and patient agreed with the treatment plan. Follow up as needed. Patient was informed and verbally consented to the use of an ambient scribe for clinic note documentation during this visit. Medications: New tramadol 50 mg PO Q8H PRN 30 tabs 0RF pain 10 days M48.061 - Spinal stenosis, lumbar region without neurogenic claudication, M54.16 - Radiculopathy, lumbar region, M54.31 - Sciatica, right side naloxone 4 mg/actuation (Narcan) spray 1 dose into ONE nostril; alternate nostrils w each dose until help arrives 4 mg intranasal Q2M PRN 2 ea 0RF opioid overdose Coding Level of Care Code Est Pt Level 4 (59037) Complex EM visit Add On G2211 Diagnoses Right sciatic nerve pain M54.31 Lumbar radiculopathy, right M54.16 Lumbar spinal stenosis M48.061 Lumbosacral spondylosis M47.817 Sacroiliac joint pain M53.3 Fibromyalgia M79.7
[2024-12-04 11:41] VITALS: BP 148/66; PULSE 85; O2SAT 99; BMI 33.3
--- OUTSIDE RECORDS SUMMARY | 2024-12-04 12:34 | XMS_ITS | Encounter Summary ---
Author Organization [employer] Address [address] [facility] [address] [place] [address] Care Team Providers Care Final Assembly Inspector Name Role Phone Vera Crowe MD Primary Care Provider [phone] Reason for Visit * Reason Onset Date Comments Results 11/28/2024 Encounter Details Date Type Department Care Team ([facility] st Contact Info) Description 11/28/2024 Results Follow-Up [facility] [address] [place], [place] [phone] Heber Blood MD [address] [place] [address] XR Chest 2 Views Social History Tobacco Use Types Packs/Day Years Used Date Smoking Tobacco: Never Passive Smoke Exposure: Never Smokeless Tobacco: Never Alcohol Use Standard Drinks/Week Comments Not Asked [...] AM EDT documented as of this encounter Miscellaneous Notes * Telephone Encounter - Mariposa Escobar RN - 11/29/2024 10:25 AM EDT Telephone call placed to pt. Informed CXR normal. Pt verbalized understanding and denied having anyfurther questions or concerns at this time. * Telephone Encounter - Mariposa Escobar RN - 11/29/2024 9:09 AM EDT ----- Message from Heber Blood MD sent at 11/28/2024 10:09 PM EDT ----- Please notify Zina that her CXR yesterday was read as normal. Thanks. Manuel ----- Message ----- From: Jackie, Ris Results In Sent: 11/27/2024 12:35 PM EDT To: Heber Blood MD documented in this encounter Plan of Treatment Not on file documented as of this encounter Visit Diagnoses Not on filedocumented in this encounter Additional Health Concerns Assessment Noted Time PHQ-9 Depression Total Score: 6 09/06/19 25 11:34 AM EDT documented as of this encounter Care Teams Final Assembly Inspector Relationship Specialty Start Date End Date Vera Crowe MD [address] [place] [address] PCP - General Family Medicine 06/16/22 documented as of this encounter
--- OUTSIDE RECORDS SUMMARY | 2024-12-04 12:34 | XMS_ITS | Encounter Summary ---
Author Organization [employer] Address [address] [facility] [address] [place] [address] Care Team Providers Care Authorization Coordinator Name Role Phone Vic See MD Primary Care Provider Erlinda Johnson Primary Care Provider Vera Winter MD Primary Care Provider [phone] Encounter Details Date Type Department Care Team (Latest Contact Info) Description 04/30/2018 Abstract [facility] CONVERSIONS Dental, Provider, DDS Social History Tobacco [...] as of this encounter Plan of Treatment Not on file documented as of this encounter Visit Diagnoses Not on filedocumented in this encounter Care Teams Authorization Coordinator Relationship Specialty Start Date End Date Vic See MD PCP - General Family Medicine 09/26/19 05/02/22 Erlinda Fink FNP PCP - General Family Medicine 05/03/22 06/15/22 Vera Crowe MD [address] [place] [phone] PCP - General Family Medicine 06/16/22 documented as of this encounter
--- OUTSIDE RECORDS SUMMARY | 2024-12-04 12:34 | XMS_ITS | Clinical Summary ---
Author Organization [employer] Address [address] [facility] [address] [place] [address] Care Team Providers Care Brewery Technician Name Role Phone Vera Crowe MD Primary Care Provider [phone] Allergies No known active allergies Medications Ventolin [...] obesity with HTN and asthma Has seen microarray specialist Assessment & Plan (07/23/2023 1:27 PM EDT): Continue Topimax Start Metformin 500mg BID, A1C 5.9 today Has seen microarray specialist Urinary frequency 07/20/2023 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 Assessment [...] Glaucoma 03/20/2017 Overview (05/01/2022): Care managed by [facility] Appt 03/23/22 Continue medications for eyes: [...] Encounters Date Type Department Care Team Description 11/28/2024 Results Follow-Up [facility] [address] [place] [id number] Heber Pierson MD XR Chest 2 Views 11/19/2024 10:00 AM EDT Office Visit [facility] [address] [place] [phone] Heber Pierson MD Moderate persistent asthma without complication (Primary Dx); Cough in adult patient 11/19/2024 Travel 09/05/2024 11:15 AM EDT Office Visit [facility] [address] [place] [phone] Vera Crowe MD Essential hypertension (Primary Dx); [...] Additional history exists Influenza Vaccine (#1) 2024 3, 12/22/2021, 01/22/2019, Additional history exists SDOH Screening 05/29/2025 05/29/2024 Alcohol/Substance Use Screening 09/05/2025 09/05/2024 Depression Screening 09/05/2025 09/05/2024, 09/06/19 Tobacco Screening 11/19/2025 11/19/2024 Mammogram 09/05/2026 09/05/2024, 10/2023, 01/14/2024, Additional history exists Lipid Panel [...] PM EDT Narrative 11/27/2024 12:34 PM EDT [address] [address] XRay Report Signed Patient: Zina Kennedy MR#: [id number] 0 : 1955 Acct:[id number] Age/Sex: 69 / F ADM Date: 11/27/24 Loc: HO.HHCX Attending Dr: Heber Pierson MD Ordering Physician: HEBER PIERSON MD Date of Service: 11/27/24 Procedure(s): XR chest 2V Accession Number(s): [id number] cc: HEBER PIERSON MD; Vera Crowe EXAMINATION: [...] 11/27/24 1232 DD/ 1207 TD/TT: 11/27/24 1210 Pigs Feet Cleaner: Procedure Note Donotuseinterpreter, Image - 11/27/2024 [facility] [address] [place] [address] XRay Report Signed Patient: Zina Kennedy MMR#: [id number] 0 : 1955cct:[id number] Age/Sex: 69 / FADM Date: 11/27/24 Loc: HO.HHCX Attending Dr: Heber Pierson MD Ordering Physician: HEBER PIERSON MD Date of Service: 11/27/24 Procedure(s): XR chest 2V Accession Number(s): [id number] cc: HEBER PIERSON MD; Vera Crowe EXAMINATION: [...] 11/27/24 1232 DD/ 1207 TD/TT: 11/27/24 1210 Pigs Feet Cleaner: Heber Pierson MD IMG XR PROCEDURES Final Result * POCT Rapid Influenza B LUNDBERG ID NOW (11/19/2024 10:13 AM EDT) Influenza B Negative Negative, Indeterminate [facility] Swab 11/19/2024 10:1 3 AM EDT us Heber Pierson MD POINT OF CARE TEST ENTER/EDIT OR DERABLES Final Result Performing Organization Address City/[facility]/ZIP Co de Phone Number [facility] [address] [place] [address] [phone] * POCT Rapid Influenza A LUNDBERG ID NOW (11/19/2024 10:13 AM EDT) Influenza A Negative Negative, Indeterminate [facility] Swab 11/19/2024 10:1 3 AM EDT us Heber Pierson MD POINT OF CARE TEST ENTER/EDIT OR DERABLES Final Result Performing Organization Address [facility] Co de Phone Number [facility] [address] [place] [address] [phone] * POCT Rapid Covid-19 BinaxNOW (11/19/2024 [...] AM EDT Narrative 09/13/2024 9:11 AM EDT [address] [place] [address] Mammography Report Signed Patient: Zina Kennedy MR#: [id number] 0 : 1955 Acct:[id number] Age/Sex: 69 / F ADM Date: 09/05/24 Loc: HO.MAMMO Attending Dr: Vera Crowe MD Ordering Physician: Vera Crowe Results: 1Negative Date of Service: 09/05/24 Follow Up: 1 Year From Orig ina Mammogram Procedure(s): MM tomosynthesis screening BI Accession Number(s): [id number] cc: Vera Crowe EXAMINATION: MM SCREENING DIGITAL [...] 09/13/24 0909 DD/ 1150 TD/TT: 09/05/24 1207 Pigs Feet Cleaner: Procedure Note Donotuseinterpreter, Image - 09/13/2024 [facility] [address] [place] [address] Mammography Report Signed Patient: Zina Kennedy [facility]#: [id number] 0 : 6Acct:[id number] Age/Sex: 69 / FADM Date: 09/05/24 Loc: ROCIO Attending Dr: Vera Crowe MD Ordering Physician: Cecilia Croweults: 1Negative Date of Service: 05/30/25Follow Up: 1 Year From Orig ina Mammogram Procedure(s): MM tomosynthesis screening BI Accession Number(s): [id number] cc: Vera Crowe EXAMINATION: MM SCREENING DIGITAL [...] 09/13/24 0909 DD/ 1150 TD/TT: 09/05/24 1207 Pigs Feet Cleaner: Vera Crowe MD IM BI PROCEDURES Edited Resul t - Final * Hepatitis Panel, General (03/23/2023 11:42 AM EST) Hepatitis A IgM Nonreactive Nonreactive [facility] Comment:IgM antibodies to HOWARD V not detected; does not exclude earlyacute or recovered HAV infection. ~Hepatitis B Surface Antibody NONREACTIVE Nonreactive [facility] Comment:Nonreactive: < 8.00 mIU/mL Hepatitis B Core Antibody Nonreactive Nonreactive [facility] Hepatitis C Antibody Nonreactive Nonreactive [facility] Comment:Antibodies to HCV no t detected; does not exclude early acuteHCV infection. Hepatitis B Surface Ag Negative Negative [facility] 03/23/2023 11:4 2 AM EST 03/23/2023 11:42 AM EST us Generic External Data Provider LAB BLOOD ORDERAB LES Final Result Performing Organization Address [facility]/ZIP Co de Phone Number [facility] [address] [place] [phone] * Lipid Panel, Standard (07/20/2022 11:15 AM EDT) Cholesterol, Total 149 <200 mg/dL [facility] HDL Cholesterol 62 > OR = 50 mg/dL [facility] Triglycerides 130 <150 mg/dL [facility] LDL Cholesterol 66 mg/dL (calc) [facility] Comment: Reference range: <100 Desirable range <100 mg/dL for primary prevention; <70 mg/dL for patients with CHD or diabetic patients with > or = 2 CHD risk factors. LDL-C is now calculated using the Wolf-Nithya calculation, which is a validated novel method providing better accuracy than the Friedewald equation in the estimation of LDL-C. Wolf SS et al. DALILA. 2013;310(19): 1957-1952 (http://education.[facility]/faq/HYS067) Chol/HDLC Ratio 2.4 <5.0 (calc) [facility] Non-HDL Cholesterol 87 <130 mg/dL (calc) [facility] Comment: For patients with diabetes plus 1 [...] BLOOD ORDERABLES Final Res ult [facility] [address], [place] [address] [facility] [address] [place] [address] * Colonoscopy (03/29/2021) Colonoscopy Normal Normal Comment:Repeat procedure in 10 yrs, ( see scanned report) 03/29/2021 Vera Crowe MD HEALTH MAINTENANCE Final Resul t from Last 3 Months or Most Recently Relevant to Health Maintenance Insurance [employer] [facility] MEDICARE REPLACEMENT Care Teams Brewery Technician Relationship Specialty Start Date End Date Vera Crowe MD [address] [place] [address] PCP - General Family Medicine 06/16/22
--- OUTSIDE RECORDS SUMMARY | 2024-12-04 12:34 | XMS_ITS | Encounter Summary ---
Author Organization [employer] Address [address] [facility] 7t [place] [address] Care Team Providers Care 3D Animator Name Role Phone eVra Crowe MD Primary Care Provider [phone] Reason for Visit * Reason Comments Med Refill Encounter Details Date Type Department Care Team ([facility] st Contact Info) Description 08/15/2023 Refill [facility] [address] [place], [place] [phone] Vera Crowe MD [address] [place], [place] [phone] Social History Tobacco Use Types Packs/Day Years [...] on filedocumented in this encounter Care Teams 3D Animator Relationship Specialty Start Date End Date Vera Crowe MD [address] [place] [address] PCP - General Family Medicine 06/16/22 documented as of this encounter
== END 2024-12-04 12:11 | disposition home or self-care (01) ==
PROVIDERS: PCP General Practice; Visit Provider Nurse Practitioner Family
DX: M54.31 Sciatica, right side (principal); M54.16 Radiculopathy, lumbar region; M48.061 Spinal stenosis, lumbar region without neurogenic claudication; M47.817 Spondylosis without myelopathy or radiculopathy, lumbosacral region; M53.3 Sacrococcygeal disorders, not elsewhere classified; M79.7 Fibromyalgia
CPT/HCPCS: 99214; G2211

== ENCOUNTER → 2024-12-04 11:14 | Outpatient (BNVA) | payer MEDICARE, MEDICAID, SELFPAY | PROVIDERS: PCP General Practice; Visit Provider Nurse Practitioner Family | DX: M54.31 Sciatica, right side (principal); M54.16 Radiculopathy, lumbar region; M48.061 Spinal stenosis, lumbar region without neurogenic claudication; M47.817 Spondylosis without myelopathy or radiculopathy, lumbosacral region; M53.3 Sacrococcygeal disorders, not elsewhere classified; M79.7 Fibromyalgia | CPT/HCPCS: 99212 ==

== ENCOUNTER 2024-12-12 09:27 | Outpatient (AMB) | payer MEDICARE, MEDICAID, SELFPAY ==
[2024-12-12 09:37] VITALS: BMI 33.3
--- NOTE | 2024-12-12 09:37 | HO.SPINEOV ---
Vital Signs 12/12/24 09:37 Height 5 ft 2 in Weight 182 lb BMI 33.3 Intake Visit Reasons: to discuss surgery Intake Note: Mrs. Dinero is here today to Discuss Surgery. [employer] Mdm Developer Required: No Allergies No Known Allergies Allergy (Verified 12/12/24 09:38) Physical Exam Vital Signs: BMI result Body Mass Index 33.3 Assessment & Plan Assessment & Plan (1) Lumbar radiculopathy, right: Code(s): M54.16 - Radiculopathy, lumbar region Category: Medical Plan Mrs Dinero came back into review her clinical situation again. She was seen in pain management but is not a candidate for injections because of her glaucoma. We looked at her MRI done at [facility] in August 2024 again, she has a right L4-5 disc bulging causing compression of the lateral recess that would fit with the pain that is going down from the right side of her low back into her buttock, hip and into her posterolateral thigh. We previously offered her a right L4-5 decompression with possible diskectomy. At that time she wanted to think about it, but the pain has just gotten too bad. She has completed physical therapy, trialed NSAIDs etc. all without any effect. She has no focal deficits on her exam. We discussed the surgery again, risks, benefits, quoting success rate at 90%. The patient wants to proceed and we have tentatively booked her for 01/08/2025. The patient was given risk and benefits of surgery including but not limited to infection, hematoma, nerve injury, durotomy, weakness, bowel/bladder injury, persistent pain,[ ]. We also discussed the option to continue with conservative treatment and patient wishes to proceed with surgery. They are aware they should stop NSAIDs 7 days prior to surgery. All questions were answered to the best of our ability. If there is anything about this patients medical history that we have overlooked or concerns you have about us proceeding with surgery we would appreciate any input you can offer Total amount of time spent in this visit was 20 minutes in discussion of symptoms, lumbar imaging results and subsequent plan of care Monster Brennan MD,PhD [facility] Coding Level of Care Code Est Pt Level 3 (97031) Diagnoses Lumbar radiculopathy, right M54.16
--- OUTSIDE RECORDS SUMMARY | 2024-12-12 10:08 | XMS_ITS | Encounter Summary ---
Author Organization [employer] Address [address] [facility] 7 [place] [address] Care Team Providers Care Auctioneer Automobile Name Role Phone Vic See MD Primary Care Provider Erlinda Johnson Primary Care Provider Vera Winter MD Primary Care Provider [phone] Encounter Details Date Type Department Care Team [...] on filedocumented in this encounter Care Teams Auctioneer Automobile Relationship Specialty Start Date End Date Vic See MD PCP - General Family Medicine 09/26/19 05/02/22 Erlinda Fink FNP PCP - General Family Medicine 05/03/22 06/15/22 Vera Crowe MD [address] [place] [phone] PCP - General Family Medicine 06/16/22 documented as of this encounter
--- OUTSIDE RECORDS SUMMARY | 2024-12-12 10:08 | XMS_ITS | Encounter Summary ---
Author Organization [employer] Address 75 [facility] 7t [place] [address] Care Team Providers Care Engineering Professionals Name Role Phone Vera Crowe MD Primary Care Provider [phone] Reason for Visit * Reason Comments Med Refill Encounter Details Date Type Department Care Team ([facility] st Contact Info) Description 08/15/2023 Refill [facility] 230 [place], [place] [phone] Vera Crowe MD 230 [place], [place] [phone] Social History Tobacco Use Types Packs/Day Years [...] on filedocumented in this encounter Care Teams Engineering Professionals Relationship Specialty Start Date End Date Vera Crowe MD [address] [place] [address] PCP - General Family Medicine 06/16/22 documented as of this encounter
--- OUTSIDE RECORDS SUMMARY | 2024-12-12 10:08 | XMS_ITS | Clinical Summary ---
Author Organization [employer] Address [address] [facility] 7t [place] [address] Care Team Providers Care Product Management Intern Name Role Phone Vera Crowe MD Primary Care Provider [phone] Allergies No known active allergies Medications Ventolin [...] obesity with HTN and asthma Has seen synthetic filament extruder Assessment & Plan (07/23/2023 1:27 PM EDT): Continue Topimax Start Metformin 500mg BID, A1C 5.9 today Has seen synthetic filament extruder Urinary frequency 07/20/2023 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 Assessment [...] 03/20/2017 Overview (05/01/2022): Care managed by [facility] Appt 03/23/22 Continue medications for eyes: [...] Department Care Team Description 11/28/2024 Results Follow-Up [facility] [address] [place] [address] Heber Pierson MD XR Chest 2 Views 11/19/2024 10:00 AM EDT Office Visit [facility] 230 [place] [address] Heber Pierson MD Moderate persistent asthma without complication (Primary Dx); Cough in adult patient 11/19/2024 Travel from Last 3 Months Immunizations Immunization [...] Tobacco Screening 11/19/2025 11/19/2024 Mammogram 09/05/2026 09/05/2024, 10/0 10/2023, 01/14/2024, Additional history exists Lipid Panel [...] PM EDT Narrative 11/27/2024 12:34 PM EDT [address] [address] XRay Report Signed Patient: Zina Kennedy MR#: [id number] 0 : 1955 Acct:[id number] Age/Sex: 69 / F ADM Date: 11/27/24 Loc: HO.HHCX Attending Dr: Heber Pierson MD Ordering Physician: HEBER PIERSON MD Date of Service: 11/27/24 Procedure(s): XR chest 2V Accession Number(s): [id number] cc: HEBER PIERSON MD; Vera Crowe EXAMINATION: [...] 11/27/24 1232 DD/ 1207 TD/TT: 11/27/24 1210 Devulcanizer Head: Procedure Note Donotuseinterpreter, Image - 11/27/[address] [address] XRay Report Signed Patient: Zina Kennedy MMR#: [id number] 0 : 6Acct:[id number] Age/Sex: 69 / FADM Date: 11/27/24 Loc: HO.HHCX Attending Dr: Heber Pierson MD Ordering Physician: HEBER PIERSON MD Date of Service: 11/27/24 Procedure(s): XR chest 2V Accession Number(s): [id number] cc: HEBER PIERSON MD; Vera Crowe EXAMINATION: [...] 11/27/24 1232 DD/ 1207 TD/TT: 11/27/24 1210 Devulcanizer Head: Heber Pierson MD IMG XR PROCEDURES Final Result * POCT Rapid Influenza B LUNDBERG ID NOW (11/19/2024 10:13 AM EDT) [facility] Influenza B Negative Negative, Indeterminate [facility] Swab 11/19/2024 10:1 3 AM EDT Heber Pierson MD POINT OF CARE TEST ENTER/EDIT OR DERABLES Final Result [facility] [address] [place] [phone] * POCT Rapid Influenza A LUNDBERG ID NOW (11/19/2024 10:13 AM EDT) [facility] Influenza A Negative Negative, Indeterminate [facility] Swab 11/19/2024 10:1 3 AM EDT us Heber Pierson MD POINT OF CARE TEST ENTER/EDIT OR DERABLES Final Result [facility] [address] [place] [phone] * POCT Rapid Covid-19 BinaxNOW (11/19/2024 [...] AM EDT Narrative 09/13/2024 9:11 AM EDT [address] [place] [address] Mammography Report Signed Patient: Zina Kennedy MR#: [id number] 0 : 1955 Acct:[id number] Age/Sex: 69 / F ADM Date: 09/05/24 Loc: HO.MAMMO Attending Dr: Vera Crowe MD Ordering Physician: Vera Crowe Results: 1Negative Date of Service: 09/05/24 Follow Up: 1 Year From Orig inal Mammogram Procedure(s): MM tomosynthesis screening BI Accession Number(s): [id number] cc: Vera Crowe EXAMINATION: MM SCREENING DIGITAL [...] 09/13/24 0909 DD/ 1150 TD/TT: 09/05/24 1207 Devulcanizer Head: Procedure Note Donotuseinterpreter, Image - 09/13/[facility] [address] [place] [address] Mammography Report Signed Patient: Zina Kennedy MMR#: [id number] 0 : 1955cct:[id number] Age/Sex: 69 / FADM Date: 09/05/24 Loc: HO.MAMMO Attending Dr: Vera Crowe MD Ordering Physician: Cecilia Croweults: 1Negative Date of Service: 09/05/24Follow Up: 1 Year From Orig inal Mammogram Procedure(s): MM tomosynthesis screening BI Accession Number(s): [id number] cc: Vera Crowe EXAMINATION: MM SCREENING DIGITAL [...] 09/13/24 0909 DD/ 1150 TD/TT: 09/05/24 1207 Devulcanizer Head: Vera Crowe MD IMG BI PROCEDURES Edited Resul t - Final * Hepatitis Panel, General (03/23/2023 11:42 AM EST) Hepatitis A IgM Nonreactive Nonreactive [facility] Comment:IgM antibodies to HOWARD V not detected; does not exclude earlyacute or recovered HAV infection. ~Hepatitis B Surface Antibody NONREACTIVE Nonreactive [facility] Comment:Nonreactive: < 8.00 mIU/mL Hepatitis B Core Antibody Nonreactive Nonreactive [facility] Hepatitis C Antibody Nonreactive Nonreactive [facility] Comment:Antibodies to HCV no t detected; does not exclude early acuteHCV infection. Hepatitis B Surface Ag Negative Negative [facility] 03/23/2023 11:4 2 AM EST 03/23/2023 11:42 AM EST us Generic External Data Provider LAB BLOOD ORDERAB LES Final Result [facility] [address] [place] [phone] * Lipid Panel, Standard (07/20/2022 11:15 AM EDT) Cholesterol, Total 149 <200 mg/dL [employer] [facility] HDL Cholesterol 62 > OR = 50 mg/dL [employer] [place] [employer] Triglycerides 130 <150 mg/dL [employer] [place] [employer] LDL Cholesterol 66 mg/dL (calc) [employer] [place] [facility] Comment: Reference range: <100 Desirable range <100 mg/dL for primary prevention; <70 mg/dL for patients with CHD or diabetic patients with > or = 2 CHD risk factors. LDL-C is now calculated using the Vinay calculation, which is a validated novel method providing better accuracy than the Friedewald equation in the estimation of LDL-C. Wolf SS et al. DALILA. 2013;310(19): 5530-4977 (http://education.re3D/faq/ZVY599) Chol/HDLC Ratio 2.4 <5.0 (calc) [employer] [place] [employer] Non-HDL Cholesterol 87 <130 mg/dL (calc) [employer] [place] [facility] Comment: For patients with diabetes plus 1 major ASCVD risk factor, treating to a non-HDL-C goal of <100 mg/dL (LDL-C of <70 mg/dL) is considered a therapeutic option. Blood Venous blood specimen / Unknown 07/20/2022 11:15 AM EDT 07/20/2022 11:15 AM EDT Narrative [facility] - 07/21/2022 6:33 AM EDT FASTING:NO FASTING: NO Vera Crowe MD LAB BLOOD ORDERABLES Final Res ult [facility] [address], [place] [address] [employer] [place] [employer] [address] [place] [phone] * Hm Colonoscopy (03/29/2021) Colonoscopy Normal Normal Comment:Repeat procedure in 10 yrs, ( see scanned report) 03/29/2021 Vera Crowe MD HEALTH MAINTENANCE Final Resul t from Last 3 Months or Most Recently Relevant to Health Maintenance [place] [address] [address] STANDARD [facility] MEDICARE REPLACEMENT Care Teams Product Management Intern Relationship Specialty Start Date End Date Vera Crowe MD [address] [place] [phone] PCP - General Family Medicine 06/16/22
== END 2024-12-12 10:29 | disposition home or self-care (01) ==
LOC: HO.HNS 09:27
PROVIDERS: PCP General Practice; Visit Provider Physician Assistant
DX: M54.16 Radiculopathy, lumbar region (principal)
CPT/HCPCS: 99213

== ENCOUNTER → 2024-12-12 09:27 | Outpatient (BNVA) | payer MEDICARE, MEDICAID, SELFPAY | PROVIDERS: PCP General Practice; Visit Provider Physician Assistant | DX: M54.16 Radiculopathy, lumbar region (principal) | CPT/HCPCS: 99212 ==

== ENCOUNTER → 2024-12-31 11:12 | Outpatient (BNV) | payer MEDICARE, MEDICAID, SELFPAY | PROVIDERS: PCP General Practice; Visit Provider Internal Medicine Cardiovascular Disease | DX: Z01.818 Encounter for other preprocedural examination (principal) | CPT/HCPCS: 93010 ==

== ENCOUNTER 2025-01-08 06:03 | Day surgery (SDC) | payer MEDICARE, SELFPAY ==
--- OUTSIDE RECORDS SUMMARY | 2024-12-16 10:39 | XMS_ITS | Clinical Summary ---
Author Organization [employer] Address 75 [facility] 7t [place] [address] Care Team Providers Care Firmware Manager Name Role Phone Vera Crowe MD Primary Care Provider [phone] Allergies No known active allergies Medications Ventolin [...] obesity with HTN and asthma Has seen program admin Assessment & Plan (07/23/2023 1:27 PM EDT): Continue Topimax Start Metformin 500mg BID, A1C 5.9 today Has seen program admin Urinary frequency 07/20/2023 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 Assessment [...] Glaucoma 03/20/2017 Overview (05/01/2022): Care managed by [facility] Appt 03/23/22 Continue medications for [...] Department Care Team Description 11/28/2024 Results Follow-Up [facility] [address] [place] [phone] Heber Pierson MD XR Chest 2 Views 11/19/2024 10:00 AM EDT Office Visit [facility] [address] [place] [address] Heber Pierson MD Moderate persistent asthma without [...] 1-dose series) 2015 COVID-19 Vaccine ( season) 2024 03/16/2022, 07/24/2021, 02/24/2021, Additional history exists Influenza [...] PM EDT Narrative 11/27/2024 12:34 PM EDT [address] [address] XRay Report Signed Patient: Zina Kennedy MR#: [id number] 0 : 1955 Acct:[id number] Age/Sex: 69 / F ADM Date: 11/27/24 Loc: HO.HHCX Attending Dr: Heber Pierson MD Ordering Physician: HEBER PIERSON MD Date of Service: 11/27/24 Procedure(s): XR chest 2V Accession Number(s): [id number] cc: HEBER PIERSON MD; Vera Crowe EXAMINATION: [...] 11/27/24 1232 DD/ 1207 TD/TT: 11/27/24 1210 Collection Analyst: Procedure Note Donotuseinterpreter, Image - 11/27/[address] [address] XRay Report Signed Patient: Zina Kennedy MMR#: [id number] 0 : 6Acct:[id number] Age/Sex: 69 / FADM Date: 11/27/24 Loc: HO.HHCX Attending Dr: Heber Pierson MD Ordering Physician: HEBER PIERSON MD Date of Service: 11/27/24 Procedure(s): XR chest 2V Accession Number(s): [id number] cc: HEBER PIERSON MD; Vera Crowe EXAMINATION: [...] IMPRESSION: No acute disease. Electronically signed by: Nkiolas Pryor MD 11/27/2024 12:32 PM EDT RP Dictated By: Nikolas Pryor MD Signed By: <Electronically signed by Nikolas Pryor MD in OV> 11/27/24 1232 DD/ 1207 TD/TT: 11/27/24 1210 Collection Analyst: Heber Pierson MD IMG XR PROCEDURES Final Result * POCT Rapid Influenza B LUNDBERG ID NOW (11/19/2024 10:13 AM EDT) [facility] Influenza B Negative Negative, Indeterminate [facility] Swab 11/19/2024 10:1 3 AM EDT Heber Pierson MD POINT OF CARE TEST ENTER/EDIT OR DERABLES Final Result [facility] [address] [place] [phone] * POCT Rapid Influenza A LUNDBERG ID NOW (11/19/2024 10:13 AM EDT) [facility] Influenza A Negative Negative, Indeterminate [facility] Swab 11/19/2024 10:1 3 AM EDT us Heber Pierson MD POINT OF CARE TEST ENTER/EDIT OR DERABLES Final Result [facility] [address] [place] [address] [phone] * POCT Rapid Covid-19 BinaxNOW (11/19/2024 [...] AM EDT Narrative 09/13/2024 9:11 AM EDT [address] [place] [address] Mammography Report Signed Patient: Zina Kennedy MR#: [id number] 0 : 1955 Acct:[id number] Age/Sex: 69 / F ADM Date: 09/05/24 Loc: HO.MAMMO Attending Dr: Vera Crowe MD Ordering Physician: Vera Crowe Results: 1Negative Date of Service: 09/05/24 Follow Up: 1 Year From Orig inal Mammogram Procedure(s): MM tomosynthesis screening BI Accession Number(s): [id number] cc: Vera Crowe EXAMINATION: MM SCREENING DIGITAL [...] 09/13/24 0909 DD/ 1150 TD/TT: 09/05/24 1207 Collection Analyst: Procedure Note Donotuseinterpreter, Image - 09/13/2024 [facility] [address] [place] [address] Mammography Report Signed Patient: Zina Kennedy MMR#: [id number] 0 : 1955cct:[id number] Age/Sex: 69 / FADM Date: 09/05/24 Loc: HO.MAMMO Attending Dr: Vera Crowe MD Ordering Physician: Cecilia Croweults: 1Negative Date of Service: 09/05/24Follow Up: 1 Year From Orig inal Mammogram Procedure(s): MM tomosynthesis screening BI Accession Number(s): [id number] cc: Vera Crowe EXAMINATION: MM SCREENING DIGITAL [...] 09/13/24 0909 DD/ 1150 TD/TT: 09/05/24 1207 Collection Analyst: Vera Crowe MD IMG BI PROCEDURES Edited Resul t - Final * Hepatitis Panel, General (03/23/2023 11:42 AM EST) Hepatitis A IgM Nonreactive Nonreactive [facility] Comment:IgM antibodies to HOWARD V not detected; does not exclude earlyacute or recovered HAV infection. ~Hepatitis B Surface Antibody NONREACTIVE Nonreactive [facility] Comment:Nonreactive: < 8.00 mIU/mL Hepatitis B Core Antibody Nonreactive Nonreactive [facility] Hepatitis C Antibody Nonreactive Nonreactive [facility] Comment:Antibodies to HCV no t detected; does not exclude early acuteHCV infection. Hepatitis B Surface Ag Negative Negative [facility] 03/23/2023 11:4 2 AM EST 03/23/2023 11:42 AM EST us Generic External Data Provider LAB BLOOD ORDERAB LES Final Result [facility] [address] [place] [phone] * Lipid Panel, Standard (07/20/2022 11:15 AM EDT) Cholesterol, Total 149 <200 mg/dL [employer] [facility] HDL Cholesterol 62 > OR = 50 mg/dL [employer] [place] [employer] Triglycerides 130 <150 mg/dL [employer] [place] [employer] LDL Cholesterol 66 mg/dL (calc) [employer] [place] [facility] Comment: Reference range: <100 Desirable range <100 mg/dL for primary prevention; <70 mg/dL for patients with CHD or diabetic patients with > or = 2 CHD risk factors. LDL-C is now calculated using the Vinay calculation, which is a validated novel method providing better accuracy than the Friedewald equation in the estimation of LDL-C. Wolf SS et al. DALILA. 2013;310(19): 5857-7423 (http://education.SPARQ/faq/AYR536) Chol/HDLC Ratio 2.4 <5.0 (calc) [employer] [place] [employer] Non-HDL Cholesterol 87 <130 mg/dL (calc) [employer] [place] [employer] Comment: For patients with diabetes plus 1 major ASCVD risk factor, treating to a non-HDL-C goal of <100 mg/dL (LDL-C of <70 mg/dL) is considered a therapeutic option. Blood Venous blood specimen / Unknown 07/20/2022 11:15 AM EDT 07/20/2022 11:15 AM EDT Narrative [facility] - 07/21/2022 6:33 AM EDT FASTING:NO FASTING: NO Vera Crowe MD LAB BLOOD ORDERABLES Final Res ult [facility] [address], [place] [address] [employer] [place] [employer] [address] [place] [address] * Hm Colonoscopy (03/29/2021) Colonoscopy Normal Normal Comment:Repeat procedure in 10 yrs, ( see scanned report) 03/29/2021 Vera Crowe MD HEALTH MAINTENANCE Final Resul t from Last 3 Months or Most Recently Relevant to Health Maintenance Insurance [place] [address] STANDARD [facility] MEDICARE REPLACEMENT Care Teams Firmware Manager Relationship Specialty Start Date End Date Vera Crowe MD [address] [place] [phone] PCP - General Family Medicine 06/16/22
--- OUTSIDE RECORDS SUMMARY | 2024-12-16 10:40 | XMS_ITS | Encounter Summary ---
Author Organization [employer] Address [address] [facility] 7t [place] [address] Care Team Providers Care Rater Associate Name Role Phone Vic See MD Primary Care Provider Erlinda Johnson Primary Care Provider Vera Winter MD Primary Care Provider [phone] Encounter Details Date Type Department Care Team [...] on filedocumented in this encounter Care Teams Rater Associate Relationship Specialty Start Date End Date Vic See MD PCP - General Family Medicine 09/26/19 05/02/22 Erlinda Fink FNP PCP - General Family Medicine 05/03/22 06/15/22 Vera Crowe MD [address] [place] [phone] PCP - General Family Medicine 06/16/22 documented as of this encounter
--- OUTSIDE RECORDS SUMMARY | 2024-12-16 10:40 | XMS_ITS | Encounter Summary ---
Author Organization [employer] Address 75 [facility] 7t [place] [address] Care Team Providers Care Resort Host Name Role Phone Vera Crowe MD Primary Care Provider [phone] Reason for Visit * Reason Comments Med Refill Encounter Details Date Type Department Care Team ([facility] st Contact Info) Description 08/15/2023 Refill [facility] [address] [place], [place] [phone] Vera Crowe MD [address] [place], [place] [phone] Social History Tobacco Use Types Packs/Day Years [...] on filedocumented in this encounter Care Teams Resort Host Relationship Specialty Start Date End Date Vera Crowe MD [address] [place] [address] PCP - General Family Medicine 06/16/22 documented as of this encounter
--- NOTE | 2024-12-31 | ECG_ITS ---
Test Reason : pre op Blood Pressure : */* mmHG Vent. Rate : 63 BPM Atrial Rate : 63 BPM P-R Int : 122 ms QRS Dur : 88 ms QT Int : 406 ms P-R-T Axes : 20 7 33 degrees QTcB Int : 415 ms Normal sinus rhythm Normal ECG No previous ECGs available Referred By: Azra Monet Electronically Signed By: Fidel Will
[2024-12-31 10:34] VITALS: BP 125/59; PULSE 68; RESP 17; O2SAT 96; BMI 34.4
--- NOTE | 2024-12-31 10:52 | HO.ANESPROP2 ---
Documented by User: Azra Monet NP 12/31/24 11:30 HPI - Anesthesia Eval Consult details Narrative: 69 yr old female for right L4-5 Decompression (possible discectomy) scheduled for 01/08/25 seen in [facility] on 12/31/24 No CP/SOB with limited physical activity due to back pain. Asthma: on maintenance inhaler, intermittent albuterol use, can be twice daily depending on cough. Was seen at walk in clinic in Nov 2024 for cough. ИВАН: not using CPAP PMF Active Problems Active Problems: All Active Problems Lumbar spinal stenosis (Acute) Lumbar radiculopathy, right (Acute) Sacroiliac joint pain (Acute) Lumbosacral spondylosis (Acute) Environmental allergies (Acute) Fibromyalgia (Acute) ИВАН (obstructive sleep apnea) (Acute) Osteoarthritis of hands, bilateral (Acute) Right sciatic nerve pain (Acute) Piriformis syndrome of right side (Acute) Tubulovillous adenoma (Acute) Extraintestinal yersiniosis (Acute) Asthma (Acute) Past Medical History Medical History Vitamin D deficiency Arthritis Cough Elevated cholesterol HTN (hypertension) Allergic rhinitis Breast mass Back pain Insomnia Obesity Anxiety Depression Glaucoma Osteoarthritis of hands, bilateral Right sciatic nerve pain Piriformis syndrome of right side Tubulovillous adenoma Extraintestinal yersiniosis GERD (gastroesophageal reflux disease) IBS (irritable bowel syndrome) Sleep apnea Asthma Family History Family History Mother Diabetes Hypertension Father Prostate cancer Family history of problems with anesthesia: No Surgical History Surgical History Hx of tubal ligation History of esophagogastroduodenoscopy (EGD) Hx of eye surgery Hx of endoscopy Hx of colonoscopy History of Problems with Anesthesia: No Social History Social History Household Members: Spouse and Children Housing: House Are you a primary care administrative tech to a significant other at home: Yes Do you presently have visiting nurse or other home services: No Patient Tobacco Use Status: Never used Tobacco Use of substances other than those prescribed or required for medical reasons: No Have you been hit, kicked, punched, or otherwise hurt by someone within the past year? If so, by whom?: No Are you DNR?: No Advance Directives: No Advance Directives Information Provided: Yes Advance Directives on File: No Patient : No : No Meds Allergies Allergy/AdvReac Type Severity Reaction Status Date / Time No Known Allergies Allergy Verified 12/12/24 09:38 Home Medications ?Medication ?Instructions ?Recorded ?Confirmed ?Last Taken ?Type acetaminophen 650 mg 650 mg PO Q8H PRN Pain 03/30/20 01/08/25 Unknown History tablet,extended release (Tylenol Arthritis Pain) cetirizine 10 mg capsule (Zyrtec) 10 mg PO DAILY 03/30/20 01/08/25 Unknown History latanoprost 0.005 % eye drops 1 drp ophthalmic (eye) BEDTIME 03/30/20 01/08/25 Unknown History cholecalciferol (vitamin D3) 50 50 mcg PO DAILY 02/14/22 01/08/25 Unknown History mcg (2,000 unit) capsule (Vitamin D3) rosuvastatin 5 mg tablet 5 mg PO DAILY 02/14/22 01/08/25 Unknown History losartan 100 mg tablet 100 mg PO DAILY 01/23/24 01/08/25 Unknown History bupropion HCl 300 mg 24 hr tablet, 300 mg PO DAILY 12/04/24 01/08/25 01/08/25 History extended release sertraline 100 mg tablet 100 mg PO BEDTIME 12/04/24 01/08/25 Unknown History Exam Height,Weight and Vital Signs: Height 5 ft 2 in Weight 85.275 kg Last Vital Signs Pulse 68 12/31/24 10:34 Resp 17 12/31/24 10:34 BP 125/59 L 12/31/24 10:34 Pulse Ox 96 12/31/24 10:34 O2 Del Method Room Air 12/31/24 10:34 Airway Mallampati Class: II TM Dist: >3cm Neck ROM: Full Loose/Missing/Broken Teeth: No Heart: RRR Lungs: CTAB Assessment and Plan Final Anesthetic Review Family History of Problems with Anesthesia: No History of Problems with Anesthesia: No Documented by User: Orquidea Molina MD 01/08/25 08:15 [facility] [place] Past Medical History Medical History Vitamin D deficiency Arthritis Cough Elevated cholesterol HTN (hypertension) Allergic rhinitis Breast mass Back pain Insomnia Obesity Anxiety Depression Glaucoma Osteoarthritis of hands, bilateral Right sciatic nerve pain Piriformis syndrome of right side Tubulovillous adenoma Extraintestinal yersiniosis GERD (gastroesophageal reflux disease) IBS (irritable bowel syndrome) Sleep apnea Asthma Family History Family History Mother Diabetes Hypertension Father Prostate cancer Surgical History Surgical History Hx of tubal ligation History of esophagogastroduodenoscopy (EGD) Hx of eye surgery Hx of endoscopy Hx of colonoscopy Social History Social History Household Members: Spouse and Children Housing: House Are you a primary care administrative tech to a significant other at home: Yes Do you presently have visiting nurse or other home services: No Patient Tobacco Use Status: Never used Tobacco Use of substances other than those prescribed or required for medical reasons: No Have you been hit, kicked, punched, or otherwise hurt by someone within the past year? If so, by whom?: No Are you DNR?: No Advance Directives: No Advance Directives Information Provided: Yes Advance Directives on File: No Patient : No : No Meds Allergies Allergy/AdvReac Type Severity Reaction Status Date / Time No Known Allergies Allergy Verified 12/12/24 09:38 Home Medications ?Medication ?Instructions ?Recorded ?Confirmed ?Last Taken ?Type acetaminophen 650 mg 650 mg PO Q8H PRN Pain 03/30/20 01/08/25 Unknown History tablet,extended release (Tylenol Arthritis Pain) cetirizine 10 mg capsule (Zyrtec) 10 mg PO DAILY 03/30/20 01/08/25 Unknown History latanoprost 0.005 % eye drops 1 drp ophthalmic (eye) BEDTIME 03/30/20 01/08/25 Unknown History cholecalciferol (vitamin D3) 50 50 mcg PO DAILY 02/14/22 01/08/25 Unknown History mcg (2,000 unit) capsule (Vitamin D3) rosuvastatin 5 mg tablet 5 mg PO DAILY 02/14/22 01/08/25 Unknown History losartan 100 mg tablet 100 mg PO DAILY 01/23/24 01/08/25 Unknown History bupropion HCl 300 mg 24 hr tablet, 300 mg PO DAILY 12/04/24 01/08/25 01/08/25 History extended release sertraline 100 mg tablet 100 mg PO BEDTIME 12/04/24 01/08/25 Unknown History Assessment and Plan Assessment Anesthesia Assessment: Anesthesia Plan Discussed and Chart Reviewed Final Anesthetic Review NPO: Yes ASA Class: III Final Preanesthetic Review: No Changes in Pt Med Stat, Meds/Allgs Chart Reviewed, Consent Obtained/Reviewed and Anes Risks/Benef Reviewed Patient Risk: Intermediate Procedure Risk: Intermediate Anesthetic Plan Anesthetic Plan: GA Disposition: Standard PACU
[2024-12-31 13:02] LABS: Anion Gap 14 (12-20); Blood Urea Nitrogen 12 mg/dL (9-16); Calcium 9.5 mg/dL (8.4-10.2); Carbon Dioxide 28 mmol/L (22-29); Chloride 103 mmol/L (96-108); Creatinine Clr Calc Pharmacy 76.8; Estimated Glomerular Filt Rate > 60; Potassium 3.9 mmol/L (3.3-5.1); Sodium 141 mmol/L (135-145)
[2025-01-01 09:57] LABS: Hematocrit 39.1 % (37.0-47.0); Hemoglobin 13.3 g/dl (12.0-16.0); Mean Corpuscular HGB Conc 34.0 g/dl (31.0-35.0); Mean Corpuscular Hemoglobin 28.9 pg (27.0-33.0); Mean Corpuscular Volume 84.8 fL (80.0-98.0); NRBC Abs Auto 0.000 X10*3/uL (0.0-0.012); NRBC Pct Auto 0.0 /100WBC (0.0-0.2); Platelet Count 268 X10*3/uL (160-400); Red Blood Count 4.61 X10*6/uL (4.20-5.50); White Blood Count 4.9 X10*3/uL (4.8-10.8)
--- NOTE | 2025-01-06 15:40 | PM.DS ---
DS: Providers Provider Date of Service: 01/08/25 Date of discharge: 01/08/25 Primary care physician: Vera Crowe MD Admitting clinician: Demarcus Brennan DS: Diagnosis Discharge Diagnosis (1) Lumbar spinal stenosis: Status: Acute DS: Summary Time Attestation Discharge Coordination Time (in mins): 5 Quality: Safe Use of Opioids Does Pt have an Active Cancer Diagnosis on the Problem List?: No Quality: Stroke Does the patient have a stroke diagnosis?: No Physical Exam Vital Signs: Vital Signs: Last Vital Signs Pulse 68 12/31/24 10:34 Resp 17 12/31/24 10:34 BP 125/59 L 12/31/24 10:34 Pulse Ox 96 12/31/24 10:34 O2 Del Method Room Air 12/31/24 10:34 BMI result Body Mass Index 34.4 Discharge Plan Discharge Patient Disposition: Home, Self-Care Referrals: Vera Crowe MD [Primary Care Provider, Internal Medicine] - 1 Week Discharge Medications: New tramadol 50 mg tablet 50 mg PO Q6H PRN (Reason: pain) Qty: 20 0RF Continued montelukast 10 mg tablet 10 mg PO DAILY Qty: 30 6RF Breztri Aerosphere 160-9-4.8 mcg/actuation HFA aerosol inhaler 2 inh inhalation BID Qty: 1 6RF albuterol sulfate [Ventolin HFA] 90 mcg/actuation HFA aerosol inhaler 2 puff PO Q4-6H PRN (Reason: for wheezing) Qty: 18 3RF Zyrtec 10 mg capsule 10 mg PO DAILY latanoprost 0.005 % drops 1 drp ophthalmic (eye) BEDTIME acetaminophen [Tylenol Arthritis Pain] 650 mg tablet extended release 650 mg PO Q8H PRN (Reason: Pain) (DME) cock up splint See Rx Instructions .Route .MEDSUPPLY Qty: 2 0RF Rx Instructions: wear at night cholecalciferol (vitamin D3) [Vitamin D3] 50 mcg (2,000 unit) capsule 50 mcg PO DAILY rosuvastatin 5 mg tablet 5 mg PO DAILY pantoprazole 40 mg tablet,delayed release (DR/EC) 40 mg PO DAILY Qty: 90 4RF bupropion HCl 300 mg tablet extended release 24 hr 300 mg PO DAILY sertraline 100 mg tablet 100 mg PO BEDTIME losartan 100 mg tablet 100 mg PO DAILY Discharge Orders: Discharge Order (Routine); Ordered 01/08/25 Ordered By: Monster Garcia Diet: Advance to usual diet Activity on Discharge: As tolerated Activity Restrictions/Additional Instructions: After your spinal surgery we ask you to observe the following restrictions/guidelines: Activity: It is normal to feel some discomfort as you increase your activity, but that will improve with time. We ask you avoid heavy lifting or acitivities that cause pain. As a general rule, 8lbs is a safe limit for lifting right after surgery. Walk as much as you feel comfortable but not to exhaustion. You will feel extra tired the first few days after surgery. Stay well hydrated. It is OK to walk up and down stairs You may return to driving when you are off narcotics (such as vicodin, oxycodone, dilaudid, etc), and you are back to normal functional capacity. If you have any concerns please check with office before driving. Return to work is specific to each patient and each surgery, so please speak with your doctor/PA at first follow up. Please bring paperwork such as FMLA at that time if you need it filled out. Medications: For optimum pain control, it is best to start with a combination of 500 mg of Tylenol every 4 hours with 600 mg of Motrin every 8 hours, and use narcotics as needed in between for breakthrough pain. We will give you a short supply of narcotics after surgery (usually one weeks worth). If you need more please call the office but do not use more than prescribed. You will need to give our office 48 hours notice if you need narcotics refilled and we do not fill narcotics on weekends or evenings. If you are on a narcotic, it is a good idea to take a stool softener such as colace or senna to avoid constipation If you take blood thinner such as aspirin, Plavix, Coumadin, Effient, Eliquis etc for conditions such as Afib, DVT, Pulmonary embolus, coronary disease, stents etc please speak with your surgeon about specific details as to when you can resume these medications. Follow up: Please call the office, , after surgery to arrange a 3 week follow up for wound check. Wound Care: You may remove your dressing on the first day after surgery. ?You may ?leave open to air. Please do not remove the steri strips underneath. they will fall off on their own in one week. IT IS NORMAL FOR THE WOUND TO OOZE OR BE BLOODY FOR A FEW DAYS AFTER SURGERY. ?IF THIS HAPPENS JUST PLACE NEW DRESSING OVER IT TO AVOID STAINING CLOTHES. You may shower on post op day # 1 We ask that you do not let the water soak the wound. If it does get wet, just towel dry lightly. Please do not scrub your incision or place any type of chemical/ointment on the wound. No tub baths, pools or jacuzzis for one month. If you have any leaking or redness from your wound, or fevers, please call office Print Language: Scottish
[2025-01-08] VITALS (11 sets, daily range): BP systolic 98–135; BP diastolic 43–69; PULSE 66–98; RESP 12–18; TEMP 36.3; O2SAT 93–100
--- NOTE | ~2025-01-08 | FL_ITS ---
EXAMINATION: XR FLUOROSCOPY WITH IMAGES CLINICAL INFORMATION: L4-5 right decompression. COMPARISON: MR lumbar 08/19/2024. TECHNIQUE: Fluoroscopy provided to: Dr. Brennan Fluoroscopy time: 2.2 seconds DAP: 0.5827 Gycm2 Images: 1 FINDINGS: Solitary spot image of the lower lumbar spine obtained during L4-5 right-sided decompression. Please refer to full operative report for detail. FL/FL guidance in OR IMPRESSION: Fluoroscopic guidance. Electronically signed by: Mani Das MD 01/08/2025 09:57 AM EDT
[2025-01-08] MEDS: Lactated Ringers 1,000 ML 100 ML IVCONT (07:02)
--- NOTE | 2025-01-08 07:06 | P.HPSUR_ITS ---
Pre-Procedural Eval Section A - 24 Hr Update-Section A only Date of Service: 01/08/25 The patient is an INPATIENT: No Changes since office visit: No Cold of Flu in the past 2 weeks, No New Medical Problems, No Changes in Medication and No Patient answered all questions The patient has been examined within 24 hours of the surgical procedure. The History & Physical has been completed within 30 days and I have reviewed it.: No Section B - Complete if H&P > 30 days Chief Complaint: Spinal stenosis, lumbar region without neurogenic Allergies: Allergies Allergy/AdvReac Type Severity Reaction Status Date / Time No Known Allergies Allergy Verified 12/12/24 09:38 Review of Systems Sugical H&P ROS: Negative: Constitution, Cardiovascular, Respiratory, Neurological, Psychiatric, Hem-Onc, Allergic/Immunologic, Gastrointestinal, Genitourinary, Musculoskeletal, Integumentary, Endocrine and Eyes/Ears/Nose/Thro at Exam Surgical H&P Exam: Normal: HEENT, Normal: Heart, Normal: Lungs, Normal: Extremities, Normal: Abdomen, Normal: Skin and Normal: Neurological (awake, alert,oriented x 3 ) Plan Diagnosis/Plan: Unchanged right L4-5 decompression, possible diskectomy Time Spent With Patient Time: Total time managing care of this patient today _5___ minutes.
--- NOTE | 2025-01-08 09:26 | W.PM.OPN ---
Operative Note Operative Note Date of Service: 01/08/25 Narrative: Preoperative Diagnosis: L4-5 spinal stenosis/lateral recess stenosis/neural foraminal stenosis Operation: Right L4-5 Laminotomy, Partial facetectomy and foraminotomy with use of microscope Consent Informed Consent was obtained for this operation. I have explained the nature, purpose and benefits of the operation. I have discussed the risks and benefit of the operation including possible complications or adverse events with patient/family. Alternative(s) were discussed with the patient with their relative benefits and risks as well as the consequences of not accepting the operation were included in obtaining consent. Surgeon: JOLYNN OLIVARES MD, PHD Procedure Assisted By: Monster Lugo Description of Procedure This patient is suffering from unilateral neurogenic claudication due to lateral recess stenosis compressing the right L5 nerve root. The patient was offered a decompression. The procedure complications were explained. The patient was consented. The patient was brought to the operating room and endotracheally intubated. The patient was turned in prone position on the Venkat frame. Prep and drape was done followed by timeout. The Physician assistant media planner provided access. A mid lumbar incision was made followed by release of the paravertebral muscle on the right side to expose the L4-5 lamina and facet joints. An intraoperative x-ray was obtained to confirm the correct level. The microscope was brought in. I took over the procedure. The high-speed drill was used to do a L4-5 laminotomy until flavum ligament was reached. A #2 Kerrison was used to expand the laminotomy near flush to the pedicles and to include a partial facetectomy. The flavum ligament was opened and resected with a #3 Kerrison to decompress the underlying thecal sac. The flavum ligament was removed to decompress the lateral recess and the exiting L5 nerve root. The nerve hook was retracted medially to inspected disc space. No significant compression was found coming from the disc space. A long nerve hook could be easily passed along the medial side of the pedicle as a sign of adequate decompression. The microscope was removed. Hemostasis was done. The physician assistant media planner close the Incision in 2 layers. Steri-Strips were used to approximate incision. An OpSite with Tegaderm was used to cover the incision. All sponge needle counts were correct. Patient was extubated and transported in stable is to recovery room. Anesthesia: General Estimated Blood Loss (ml): 20 Complications: None Duration of Surgery: 45 Minutes Postoperative Plan: Discharge to home
[2025-01-08] MEDS: Albuterol Sulfate (0.083%) 2.5 MG/3 ML VIAL.NEB INHALE (10:04)
== END 2025-01-08 11:17 | disposition home or self-care (01) ==
LOC: HO.SSS 06:03
PROVIDERS: Nurse Practitioner; PCP General Practice; Visit Provider Neurological Surgery
PROC: (CPT 63047; principal; 2025-01-08 08:30)
DX: M48.062 Spinal stenosis, lumbar region with neurogenic claudication (principal); M54.16 Radiculopathy, lumbar region; M47.897 Other spondylosis, lumbosacral region; H40.9 Unspecified glaucoma; J45.909 Unspecified asthma, uncomplicated; M79.7 Fibromyalgia; I10 Essential (primary) hypertension; E78.00 Pure hypercholesterolemia, unspecified; E55.9 Vitamin D deficiency, unspecified; A28 Other zoonotic bacterial diseases, not elsewhere classified; G47.33 Obstructive sleep apnea (adult) (pediatric); Z79.899 Other long term (current) drug therapy; Z98.890 Other specified postprocedural states
CPT/HCPCS: 63047; 36415; 80048; 85027; 93005; J0131; J0690; J1100; J1885; J2003; J2405; J2704; J3010

== ENCOUNTER → 2025-01-08 06:03 | Outpatient (BNV) | payer MEDICARE, SELFPAY | PROVIDERS: PCP General Practice; Visit Provider Neurological Surgery | DX: M48.061 Spinal stenosis, lumbar region without neurogenic claudication (principal) | CPT/HCPCS: 63047; 99499 ==

== ENCOUNTER 2025-01-20 10:48 | Outpatient (AMB) | payer MEDICARE, SELFPAY ==
[2025-01-20 11:04] VITALS: BP 132/72; PULSE 96; O2SAT 96; BMI 33.3
--- NOTE | 2025-01-20 11:04 | MHC.OFFVIS ---
Vital Signs 01/20/25 11:04 Height 5 ft 2 in Weight 182 lb BMI 33.3 BP 132/72 Blood Pressure Location Rt brachial Position Sitting Pulse 96 Pulse Source Pulse Oximeter Pulse Oximetry (%) 96 Oxygen Delivery Method Room Air Intake Visit Reasons: persistent cough Allergies No Known Allergies Allergy (Verified 01/20/25 11:07) HPI HPI persistent cough: Details: 69-year-old lady, nonsmoker, followed for asthma and severe obstructive sleep apnea.? Patient cannot the use CPAP as she felt that her symptoms are worse while using it. Patient was tried on Dupixent, however she did not have any significant symptomatic benefit. She continued on Breztri and Singulair with excellent symptom control until approximately October of 2024 when she developed nonproductive cough. She was tried on a course of systemic glucocorticoids and antibiotics with some improvement, but later recurrent while off therapy. She was evaluated by primary care with recent normal chest x-ray. [facility] Medical History Vitamin D deficiency Arthritis Cough Elevated cholesterol HTN (hypertension) Allergic rhinitis Breast mass Back pain Insomnia Obesity Anxiety Depression Glaucoma Osteoarthritis of hands, bilateral Right sciatic nerve pain Piriformis syndrome of right side Tubulovillous adenoma Extraintestinal yersiniosis GERD (gastroesophageal reflux disease) IBS (irritable bowel syndrome) Sleep apnea Asthma Surgical History Hx of tubal ligation History of esophagogastroduodenoscopy (EGD) Hx of eye surgery Hx of endoscopy Hx of colonoscopy Family History Mother Diabetes Hypertension Father Prostate cancer Social History Household Members: Spouse and Children Housing: House Are you a primary healthcare interpreter to a significant other at home: Yes Do you presently have visiting nurse or other home services: No Patient Tobacco Use Status: Never used Tobacco Review of Systems Const Denies daytime sleepiness, Denies excessive sweating, Denies fatigue, Denies fever(s), Denies lethargy, Denies malaise, Denies night sweats, Denies snoring and Denies weight loss Eyes Denies blurry vision and Denies itchy eyes ENT Denies nasal congestion, Denies post nasal drip, Denies sinus pain, Denies sinus pressure and Denies other ( Thrush) Card Denies chest pain, Denies pedal edema, Denies dyspnea, Denies orthopnea and Denies paroxysmal nocturnal dyspnea Resp Reports cough, Denies hemoptysis, Denies excessive phlegm production, Denies dyspnea, Denies snoring and Denies wheezing GI Denies abdominal pain and Denies heartburn Musc Denies myalgias, Denies arthralgias and Denies joint swelling Skin/Breast Denies rash Neuro Denies memory loss and Denies seizure-like activity Psych Denies abnormal sleep pattern, Denies anxiety and Denies memory loss Endo Denies excessive sweating, Denies fatigue and Denies heat intolerance Jose/Lymph Denies easy bruising Aller/Immun Denies itchy eyes, Denies seasonal rhinorrhea and Denies wheezing Physical Exam Vital Signs: Last Vital Signs Pulse 96 01/20/25 11:04 BP 132/72 01/20/25 11:04 Pulse Ox 96 01/20/25 11:04 Oxygen Delivery Method Room Air 01/20/25 11:04 BMI result Body Mass Index 33.3 Const General: no acute distress and alert Nutritional Appearance: not obese Orientation/consciousness: Other orientation findings ( oriented) HEENT Head: Yes atraumatic Eyes General: appearance normal, both eyes and all related structures Sclerae: sclerae normal EOM: EOMs intact bilaterally Neck Neck: Yes supple Lymphatic: no lymphadenopathy noted Resp Effort & Inspection: normal respiratory effort and no use of accessory muscles Auscultation: clear to auscultation bilaterally Cardio Rate: regular rate Rhythm: regular rhythm Heart sounds: no gallops, no murmurs and no rubs Skin General skin exam: other ( warm) Extrem General: No clubbing, No cyanosis and No edema Assessment & Plan Assessment & Plan (1) Asthma: Code(s): J45.909 - Unspecified asthma, uncomplicated Category: Medical Plan: Previously well controlled on Breztri and albuterol MDI. Now with chronic nonproductive cough. Will treat with prolonged prednisone taper. (2) Environmental allergies: Code(s): Z91.09 - Other allergy status, other than to drugs and biological substances Category: Medical Plan: Well controlled on Singulair. Continue current regimen. Medications: New prednisone Take 4 tabs daily for 7 days, then go down by 1 tab every 7 days. 10 mg PO DIRECTED 70 tabs 0RF Coding Level of Care Code Est Pt Level 4 (60574) Diagnoses Asthma J45.909 Environmental allergies Z91.09
--- OUTSIDE RECORDS SUMMARY | 2025-01-20 12:54 | XMS_ITS | Encounter Summary ---
Author Organization [employer] Address [address] [place] [address] Care Team Providers Care Rn Behavioral Health Name Role Phone Vera Crowe MD Primary Care Provider [phone] Reason for Visit * Reason Onset Date Comments uanble to post or run dental insurance Encounter Details Date Type Department Care Team (Late st Contact Info) Description 12/22/2024 Telephone [facility] [address], [place] [id number] Michele King, DMD [address] [place] [address] uanble to post or run dental insurance Social History Tobacco Use Types Packs/Day Years [...] encounter Miscellaneous Notes * Telephone Encounter - [place] Mcclain - 12/22/2024 8:58 AM EDT Patient is coming in for 11:30 emergency dental visit. [employer]. Added to chart. PAR side unable to run or post [employer] insurance. DR documented in this encounter Plan of Treatment Upcoming Encounters Date Type Department Care Team (Late st Contact Info) Description 03/09/2025 10:00 AM EST Office Visit [facility] [address] [place] [address] Werner Cali DDS [address] [place] [address] documented as of this encounter Visit Diagnoses Not on filedocumented in this encounter Additional Health Concerns Assessment Noted Time PHQ-9 Depression Total Score: 6 09/06/19 25 11:34 AM EDT documented as of this encounter Care Teams Rn Behavioral Health Relationship Specialty Start Date End Date Vera Crowe MD [address] [place] [id number] PCP - General Family Medicine 06/16/22 documented as of this encounter
--- OUTSIDE RECORDS SUMMARY | 2025-01-20 12:54 | XMS_ITS | Clinical Summary ---
Author Organization [email or web address] Address [address] [facility] [address] [place] [address] Care Team Providers Care Clinic Administrator Name Role Phone Vera Crowe MD Primary [...] 24 hr tabletIndications :Moderate major depression (CMS/HCC) (HCC) Take 1 tablet (150 mg) by mouth [...] 95% or above. 1 each 5 Active amoxicillin (Amoxil) 500 MG capsule Take 1 capsule (500 mg) by mouth every 8 (eight) hours for 7 days. 21 capsule 5 12/30/19 25 chlorhexidine (Peridex) 0.12 % solution Use 15 mL in the mouth or throat if needed in the morning, at noon, and at bedtime (PROPHYLAXIS) for up to 5 days. 110 mL 5 12/28/19 25 acetaminophen (Tylenol) 500 MG tablet Take 1 tablet (500 mg) by mouth every 8 (eight) hours if needed for mild pain or moderate pain for up to 5 days. 15 tablet 5 12/28/19 25 Active Problems Problem Noted Date Diagnosed [...] obesity with HTN and asthma Has seen health care attorney Assessment & Plan (07/23/2023 1:27 PM EDT): Continue Topimax Start Metformin 500mg BID, A1C 5.9 today Has seen health care attorney Urinary frequency 07/20/2023 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 Assessment [...] Glaucoma 03/20/2017 Overview (05/01/2022): Care managed by [facility] Appt 03/23/22 Continue medications for eyes: [...] Encounters Date Type Department Care Team Description 01/08/2025 Orders Only [facility] External Provider, [facility] 12/22/2024 11:30 AM EDT Office Visit [facility] [address] [place] [address] Michele King DMD 12/22/2024 Telephone [facility] [address] [place] [address] Michele King DMD uanble to post or run dental insurance 11/28/2024 Results Follow-Up [facility] [address] [place] [address] Hebre Pierson MD XR Chest 2 Views 11/19/2024 10:00 AM EDT Office Visit [facility] [address] [place] [address] Heber Pierson MD Moderate persistent asthma without [...] 09/05/2024 11:08 AM EDT Plan of Treatment Upcoming Encounters Date Type Department Care Team (Late st Contact Info) Description 03/09/2025 10:00 AM EST Office Visit [facility] [address] [place] [address] Werner Cali DDS [address] [place] [address] Health Maintenance Due Date Last Done Comments CT Colonography 1955 FIT DNA/Cologuard 1955 FIT 1955 FOBT 1955 Sigmoidoscopy 1955 Pneumococcal Vaccine: 50+ Years (1 of 2 - PCV) 1974 RSV Patients and Patients Aged 60 years or older (1 - Risk 60-74 years 1-dose series) 2015 Dental Oral Exam 08/09/2018 02/08/2018 Dental X-Ray: Bitewings 02/09/2019 02/08/2018 Dental Prophylaxis 05/02/2019 10/29/2018, 04/30/2018 Dental X-Ray: Full Mouth 02/09/2021 02/08/2018 COVID-19 Vaccine ( season) 2024 03/16/2022, 07/24/2021, 02/24/2021, Additional history exists Influenza Vaccine (#1) 2024 , 12/22/2021, 01/22/2019, Additional history exists SDOH Screening 05/29/2025 05/29/2024 Alcohol/Substance Use Screening 09/05/2025 09/05/2024 Depression Screening 09/05/2025 09/05/2024, 09/06/19 Tobacco Screening 12/22/2025 12/22/2024 Mammogram 09/05/2026 09/05/2024, 1010/2023, 01/14/2024, Additional history exists Lipid Panel 07/21/2027 [...] Procedure Name Priority Date/Time Associated Diagnosis Comments FL GUIDANCE IN OR Routine 01/08/2025 8:0 0 AM EDT CBC Routine 01/01/2025 9:17 AM EDT BASIC METABOLIC PANEL Routine 12/31/2024 11:20 AM EDT INTRAORAL - PERIAPICAL EACH ADDITIONAL RADIOGRAPHIC IMAGE Routine 12/22/2024 11:30 AM EDT INTRAORAL - PERIAPICAL FIRST RADIOGRAPHIC IMAGE Routine 12/22/2024 11:30 AM EDT PALLIATIVE (EMERGENCY) TREATMENT OF DENTAL PAIN - MINOR PROCEDURE Routine 12/22/2024 11:30 AM EDT XR CHEST 2 VIEWS Routine 11/27/2024 12:0 [...] EDT Essential hypertension HM COLONOSCOPY Routine 03/29/2021 PROPHYLAXIS - ADULT Routine 10/29/2018 1 2:00 AM EDT INTRAORAL - COMPLETE SERIES OF RADIOGRAPHIC IMAGES Routine 02/08/2018 12:00 AM EDT COMPREHENSIVE ORAL EVALUATION - NEW OR ESTABLISHED PATIENT Routine 02/08/2018 12:00 AM EDT from Last 3 Months or Most Recently Relevant to Health Maintenance Results * FL Guidance in OR (01/08/2025 8:00 AM EDT) Anatomical Region Laterality Modality X-Ray Angiograph y 01/08/2025 8:00 AM EDT Narrative 01/08/2025 9:59 AM EDT [place] [address] Fluoroscopy Report Signed Patient: Zina Kennedy MR#: [id number] 0 : 1955 Acct:[id number] Age/Sex: 69 / F ADM Date: 01/08/25 Loc: HO.SSS Attending Dr: Demarcus Brennan MD, PhD Ordering Physician: Demarcus Brennan MD, PhD Date of Service: 01/08/25 Procedure(s): FL guidance in OR Accession Number(s): [id number] cc: Vera Crowe; Demarcus Brennan MD, PhD Reason for Exam: l4-5 decompression right EXAMINATION: XR FLUOROSCOPY WITH IMAGES CLINICAL INFORMATION: L4-5 right decompression. COMPARISON: MR lumbar 08/19/2024. TECHNIQUE: Fluoroscopy provided to: Dr. Brennan Fluoroscopy time: 2.2 seconds DAP: 0.5827 Gycm2 Images: 1 FINDINGS: Solitary spot image of the lower lumbar spine obtained during L4-5 right-sided decompression. Please refer to full operative report for detail. FL/FL guidance in OR IMPRESSION: Fluoroscopic guidance. Electronically signed by: Mani Das MD 01/08/2025 09:57 AM EDT Dictated By: Mani Das MD Signed By: <Electronically signed by Mani Das MD in OV> 01/08/25956 DD/ 9 TD/TT: 01/08/25911 Termite Treater: Procedure Note Donmegter, Image - 01/08/2025 [place] [address] Fluoroscopy Report Signed Patient: Zina Kennedy MMR#: [id number] 0 : 1955cct:[id number] Age/Sex: 69 / FADM Date: 01/08/25 Loc: HO.SSS Attending Dr: Demarcus Brennan MD, PhD Ordering Physician: Demarcus Brennan MD, PhD Date of Service: 01/08/25 Procedure(s): FL guidance in OR Accession Number(s): [id number] cc: Vera Crowe; Demarcus Brennan MD, PhD Reason for Exam: l4-5 decompression right EXAMINATION: XR FLUOROSCOPY WITH IMAGES CLINICAL INFORMATION: L4-5 right decompression. COMPARISON: MR lumbar 08/19/2024. TECHNIQUE: Fluoroscopy provided to: Dr. Brennan Fluoroscopy time: 2.2 seconds DAP: 0.5827 Gycm2 Images: 1 FINDINGS: Solitary spot image of the lower lumbar spine obtained during L4-5 right-sided decompression. Please refer to full operative report for detail. FL/FL guidance in OR IMPRESSION: Fluoroscopic guidance. Electronically signed by: Mani Das MD 01/08/2025 09:57 AM EDT Dictated By: Mani Das MD Signed By: <Electronically signed by Mani Das MD in OV> 01/08/25956 DD/ 9 TD/TT: 01/08/25911 Termite Treater: [facility] External Provider IMG IR PROCEDURES Edited Result - Final * CBC (01/01/2025 9:17 AM EDT) White Blood Count 4.9 4.8 - 10.8 X10*3/uL [facility] Red Blood Count 4.61 4.20 - 5.50 X10*6/uL [facility] Hemoglobin 13.3 12.0 - 16.0 g/dl [facility] Hematocrit 39.1 37.0 - 47.0 % [facility] Mean Corpuscular Volume 84.8 80.0 - 98.0 fL [facility] Mean Corpuscular Hemoglobin 28.9 27.0 - 33.0 pg [facility] Mean Corpuscular HGB Conc 34.0 31.0 - 35.0 g/dl [facility] Red Cell Distribution Width 12.9 11.0 - 16.0 % [facility] Platelet Count 268 160 - 400 X10*3/uL [facility] Mean Platelet Volume 10.4 9.4 - 12.3 fL [facility] NRBC Pct Auto 0.0 0.0 - 0.2 /100WBC [facility] NRBC Abs Auto 0.000 0.0 - 0.012 X10*3/uL [facility] 01/01/2025 9:17 AM EDT 01/01/2025 9:17 AM EDT us Generic External Data Provider LAB BLOOD ORDERAB LES Final Result [facility] [address] [place] [phone] * Basic Metabolic Panel (12/31/2024 11:20 AM EDT) Sodium 141 135 - 145 mmol/L [facility] Potassium 3.9 3.3 - 5.1 mmol/L [facility] Chloride 103 96 - 108 mmol/L [facility] Carbon Dioxide 28 22 - 29 mmol/L [facility] Anion Gap 14 12 - 20 [facility] Urea Nitrogen (BUN) 12 9 - 16 mg/dL [facility] Creatinine, Serum 0.70 0.5 - 1.4 mg/dL [facility] Creatinine Clr Calc Pharmacy 76.8 [facility] Comment:Provided height and weight: 157.48 cm,85.275 kg.eGFR (calculated from the MDRD study equation) and eCrCl(calculated from the Cockcroft-Gault equation) are based ondifferent parameters and may not yield comparable results.If eCrCl result is absurd, please check patient'sheight/weight. Estimated Glomerular Filt Rate >60 [facility] Comment:Chronic Kidney Disea se: Estimated GFR < 60 mL/min/1.27q5Xmekyn Kidney Disease: Estimated GFR < 15 mL/min/1.73m2 Glucose 92 60 - 115 mg/dL [facility] Calcium 9.5 8.4 - 10.2 mg/dL [facility] 12/31/2024 11:2 0 AM EDT 12/31/2024 11:20 AM EDT us Generic External Data Provider LAB BLOOD ORDERAB LES Final Result Performing Organization Address City/State/[facility] Co de Phone Number [facility] [address] [place] [phone] * XR Chest 2 Views (11/27/2024 12:07 PM EDT) Anatomical Region Laterality Modality Chest Radiographic Alba ging 11/27/2024 12:0 7 PM EDT Narrative 11/27/2024 12:34 PM EDT [address] [address] XRay Report Signed Patient: Zina Kennedy MR#: [id number] 0 : 1955 Acct:[id number] Age/Sex: 69 / F ADM Date: 11/27/24 Loc: HO.HHCX Attending Dr: Heber Pierson MD Ordering Physician: HEBER PIERSON MD Date of Service: 11/27/24 Procedure(s): XR chest 2V Accession Number(s): [id number] cc: HEBER PIERSON MD; Vera Crowe EXAMINATION: [...] 11/27/24 1232 DD/ 1207 TD/TT: 11/27/24 1210 Termite Treater: Procedure Note Donotuseinterpreter, Image - 11/27/2024 [place] [address] XRay Report Signed Patient: Zina Kennedy [facility]#: [id number] 0 : 6Acct:[id number] Age/Sex: 69 / FADM Date: 11/27/24 Loc: HO.HHCX Attending Dr: Heber Pierson MD Ordering Physician: HEBER PIERSON MD Date of Service: 11/27/24 Procedure(s): XR chest 2V Accession Number(s): [id number] cc: HEBER PIERSON MD; Vera Crowe EXAMINATION: [...] 11/27/24 1232 DD/ 1207 TD/TT: 11/27/24 1210 Termite Treater: us Heber Pierson MD IMG XR PROCEDURES Final Result * POCT Rapid Influenza B LUNDBERG ID NOW (11/19/2024 10:13 AM EDT) Influenza B Negative Negative, Indeterminate [facility] Swab 11/19/2024 10:1 3 AM EDT us Heber Pierson MD POINT OF CARE TEST ENTER/EDIT OR DERABLES Final Result Performing Organization Address [facility] Co de Phone Number [facility] [address] [place] [phone] * POCT Rapid Influenza A LUNDBERG ID NOW (11/19/2024 10:13 AM EDT) Influenza A Negative Negative, Indeterminate [facility] Swab 11/19/2024 10:1 3 AM EDT us Heber Pierson MD POINT OF CARE TEST ENTER/EDIT OR DERABLES Final Result Performing Organization Address [facility] Co de Phone Number [facility] [address] [place] [phone] * POCT Rapid Covid-19 BinaxNOW (11/19/2024 10:08 AM EDT) Pathologist [facility] Rapid COVID Ag Negative QC Media Lot # [id number] Lot# Expiration Date Swab 11/19/2024 10:0 8 AM EDT us Heber Pierson MD POINT OF CARE TEST ENTER/EDIT OR DERABLES Final Result * BI Mammogram Screening Tomosynthesis Bilateral (09/05/2024 11:50 AM EDT) Anatomical Region Laterality Modality Breast Bilateral Mammography 09/05/2024 11:5 0 AM EDT Narrative 09/13/2024 9:11 AM EDT [address] [place] [address] Mammography Report Signed Patient: Zina Kennedy MR#: [id number] 0 : 1955 Acct:[id number] Age/Sex: 69 / F ADM Date: 09/05/24 Loc: HO.MAMMO Attending Dr: Vera Crowe MD Ordering Physician: Vera Crowe Results: 1Negative Date of Service: 09/05/24 Follow Up: 1 Year From Orig ina Mammogram Procedure(s): MM tomosynthesis screening BI Accession Number(s): [id number] cc: Vera Crowe EXAMINATION: MM SCREENING DIGITAL [...] 09/13/24 0909 DD/ 1150 TD/TT: 09/05/24 1207 Termite Treater: Procedure Note Donotuseinterpreter, Image - 09/13/[address] [place] [address] Mammography Report Signed Patient: Zina Kennedy MMR#: [id number] 0 : 6Acct:[id number] Age/Sex: 69 / FADM Date: 09/05/24 Loc: HO.MAMMO Attending Dr: Vera Crowe MD Ordering Physician: Cecilia Croweults: 1Negative Date of Service: 09/05/24Follow Up: 1 Year From Orig inal Mammogram Procedure(s): MM tomosynthesis screening BI Accession Number(s): [id number] cc: Vera Crowe EXAMINATION: MM SCREENING DIGITAL [...] 09/13/24 0909 DD/ 1150 TD/TT: 09/05/24 1207 Termite Treater: us Vera Crowe MD IMG BI PROCEDURES Edited Resul t - Final * Hepatitis Panel, General (03/23/2023 11:42 AM EST) Hepatitis A IgM Nonreactive Nonreactive [facility] Comment:IgM antibodies to HOWARD V not detected; does not exclude earlyacute or recovered HAV infection. ~Hepatitis B Surface Antibody NONREACTIVE Nonreactive [facility] Comment:Nonreactive: < 8.00 mIU/mL Hepatitis B Core Antibody Nonreactive Nonreactive [facility] Hepatitis C Antibody Nonreactive Nonreactive [facility] Comment:Antibodies to HCV no t detected; does not exclude early acuteHCV infection. Hepatitis B Surface Ag Negative Negative [facility] 03/23/2023 11:4 2 AM EST 03/23/2023 11:42 AM EST us Generic External Data Provider LAB BLOOD ORDERAB LES Final Result [facility] [address] [place] [phone] [phone] * Lipid Panel, Standard (07/20/2022 11:15 AM EDT) Cholesterol, Total 149 <200 mg/dL [employer] [facility] [facility] HDL Cholesterol 62 > OR = 50 mg/dL [facility] Triglycerides 130 <150 mg/dL [facility] LDL Cholesterol 66 mg/dL (calc) [facility] Comment: Reference range: <100 Desirable range <100 mg/dL for primary prevention; <70 mg/dL for patients with CHD or diabetic patients with > or = 2 CHD risk factors. LDL-C is now calculated using the Wolf-Nithya calculation, which is a validated novel method providing better accuracy than the Friedewald equation in the estimation of LDL-C. Wolf SS et al. DALILA. 2013;310(19): 9926-6367 (http://education.Believe.in/faq/NKB996) Chol/HDLC Ratio 2.4 <5.0 (calc) [facility] [place] [facility] Non-HDL Cholesterol 87 <130 mg/dL (calc) [facility] Comment: For patients with diabetes plus 1 major ASCVD risk factor, treating to a non-HDL-C goal of <100 mg/dL (LDL-C of <70 mg/dL) is considered a therapeutic option. Blood Venous blood specimen / Unknown 07/20/2022 11:15 AM EDT 07/20/2022 11:15 AM EDT Narrative [facility] - 07/21/2022 6:33 AM EDT FASTING:NO FASTING: NO Vera Crowe MD LAB BLOOD ORDERABLES Final Res ult [facility] [address] [facility], [facility], [place] [address] [facility] [address] [place] [phone] * Hm Colonoscopy (03/29/2021) Colonoscopy Normal Normal Comment:Repeat procedure in 10 yrs, ( see scanned report) 03/29/2021 Vera Crowe MD HEALTH MAINTENANCE Final Resul t from Last 3 Months or Most Recently Relevant to Health Maintenance [place] [address] STANDARD DENTAL [facility] - [facility] PARTIAL (MEDICAID) Care Teams Clinic Administrator Relationship Specialty Start Date End Date Vera Crowe MD [address] [place] [phone] PCP - General Family Medicine 06/16/22
--- OUTSIDE RECORDS SUMMARY | 2025-01-20 12:54 | XMS_ITS | Encounter Summary ---
Author Organization [employer] Address [address] [facility] [address] [place] [address] Care Team Providers Care Auto Driver Name Role Phone Vera Crowe MD Primary Care Provider [phone] Reason for Visit * Reason Comments Med Refill Encounter Details Date Type Department Care Team ([facility] st Contact Info) Description 08/15/2023 Refill [facility] [address] [place], [place] [phone] Vera Crowe MD [address] [place], [place] [phone] Social History Tobacco Use Types Packs/Day Years [...] Description 03/09/2025 10:00 AM EST Office Visit [facility] [address] [place], [place] [phone] Werner Cali DDS [address] [place] [address] documented as of this encounter Visit Diagnoses Not on filedocumented in this encounter Care Teams Auto Driver Relationship Specialty Start Date End Date Vera Crowe MD [address] [place] [address] PCP - General Family Medicine 06/16/22 documented as of this encounter
--- OUTSIDE RECORDS SUMMARY | 2025-01-20 12:54 | XMS_ITS | Encounter Summary ---
Author Organization [employer] Address [address] [facility] [address] [place] [address] Care Team Providers Care Tapper Balance Wheel Screw Hole Name Role Phone Vic See MD Primary Care Provider Erlinda Johnson Primary Care Provider Vera Winter MD Primary Care Provider [phone] Encounter Details Date Type Department Care Team (Latest Contact Info) Description 04/30/2018 Abstract [facility] Dental, Provider, DDS Social History Tobacco [...] Care Team ( st Contact Info) Description 03/09/2025 10:00 AM EST Office Visit [facility] [address] [place] [address] Werner Cali DDS [address] [place] [address] documented as of this encounter Visit Diagnoses Not on filedocumented in this encounter Care Teams Tapper Balance Wheel Screw Hole Relationship Specialty Start Date End Date Vic See MD PCP - General Family Medicine 09/26/19 05/02/22 Erlinda Fink FNP PCP - General Family Medicine 05/03/22 06/15/22 Vera Crowe MD [address] [place] [address] PCP - General Family Medicine 06/16/22 documented as of this encounter
== END 2025-01-20 11:23 | disposition home or self-care (01) ==
LOC: HO.HPS 10:49
PROVIDERS: PCP General Practice; Visit Provider Internal Medicine Pulmonary Disease
DX: J45.909 Unspecified asthma, uncomplicated (principal); Z91.09 Other allergy status, other than to drugs and biological substances
CPT/HCPCS: 99214

== ENCOUNTER → 2025-01-20 10:48 | Outpatient (BNVA) | payer MEDICARE, SELFPAY | PROVIDERS: PCP General Practice; Visit Provider Internal Medicine Pulmonary Disease | DX: J45.909 Unspecified asthma, uncomplicated (principal); Z91.09 Other allergy status, other than to drugs and biological substances | CPT/HCPCS: 99212 ==

== ENCOUNTER 2025-01-29 09:15 | Outpatient (AMB) | payer MEDICARE, SELFPAY ==
--- NOTE | 2025-01-29 09:17 | A.SPINEOV_ITS ---
Vital Signs 01/29/25 09:20 Height 5 ft 2 in Weight 182 lb BMI 33.3 Intake Visit Reasons: 1st post op Intake Note: Ms. Kennedy is here today for her 1st post op. School Plant Consultant Required: No Allergies No Known Allergies Allergy (Verified 01/29/25 09:18) Physical Exam Vital Signs: BMI result Body Mass Index 33.3 Assessment & Plan Assessment & Plan (1) Status post lumbar spine surgery for decompression of spinal cord: Code(s): Z98.890 - Other specified postprocedural states Category: Medical Plan Operation: Right L4-5 Laminotomy, Partial facetectomy and foraminotomy Zina is a pleasant 69-year-old female comes in today for 1st postoperative visit after having a right-sided L4-[address] Brennan a few weeks ago. She reports that overall she has been doing well since her surgery. She does have improvements in her low back pain in the cramping pain her bilateral lower extremities. Unfortunately she still experiences quite a bit of left- sided leg cramping with ambulation. Given this, she reports that she is able to walk longer distances, and stand for much longer than she could before surgery. Most recently she stood upright doing things around the home for over an hour before needing to sit down and rest. She leon this is a notable improvement. She has not been taking the pain able to mitigate the bulk of her symptoms with ibuprofen and Tylenol. We discussed the postoperative healing course, and I answered any questions that she had. No new neurological deficits. The patient ambulates well and rises from a seated position without difficulty. Her posterior incision site is closed and well healing. She uses no assistive devices to ambulate. I would like to follow up with Zina again in 6 weeks for his 2nd postoperative visit. I believe the bulk of the residual cramping/pain that she has as a result of postoperative inflammation which likely resolve on its own in the coming weeks. Keith Brennan MD,PhD [facility] Coding Level of Care Code Global (92369) Diagnoses Status post lumbar spine surgery for decompression of spinal cord Z98.890
[2025-01-29 09:20] VITALS: BMI 33.3
--- OUTSIDE RECORDS SUMMARY | 2025-01-29 10:10 | XMS_ITS | Encounter Summary ---
Author Organization [employer] Address [address] [facility] 7[address] [place] [address] Care Team Providers Care Regulatory Product Manager Name Role Phone Vera Crowe MD Primary Care Provider [phone] Reason for Visit * Reason Comments Med Refill Encounter Details Date Type Department Care Team ([facility] st Contact Info) Description 08/15/2023 Refill [facility] [address] [place], [place] [phone] Vera Crowe MD [address] [place], [place] [phone] Social History Tobacco Use Types Packs/Day Years [...] Description 03/09/2025 10:00 AM EST Office Visit [facility] [address] [place] [address] Werner Cali DDS [address] [place] [address] 03/18/2025 9:15 AM EST Office Visit [facility] [address] [place] [address] Vera Crowe MD [address] [place] [address] documented as of this encounter Visit Diagnoses Not on filedocumented in this encounter Care Teams Regulatory Product Manager Relationship Specialty Start Date End Date Vera Crowe MD [address] [place] [address] PCP - General Family Medicine 06/16/22 documented as of this encounter
--- OUTSIDE RECORDS SUMMARY | 2025-01-29 10:10 | XMS_ITS | Clinical Summary ---
Author Organization [employer] Address [address] [facility] 7t [place] [address] Care Team Providers Care Hydrator Name Role Phone Vera Crowe MD Primary Care Provider [phone] Allergies No known active allergies Medications Ventolin [...] 95% or above. 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 Appt 03/23/22 Continue medications for eyes: [...] 01/08/2025 Orders Only [facility] External Provider, [facility] 12/22/2024 11:30 AM EDT Office Visit [facility] ADULT DENTAL [address] [place] [address] Michele King DMD 12/22/2024 Telephone [facility] ADULT DENTAL [address] [place] [address] Michele King DMD uanble to post or run dental insurance 11/28/2024 Results Follow-Up [facility] [address] [place] [phone] Heber Piesron MD XR Chest 2 Views 11/19/2024 10:00 AM EDT Office Visit [facility] [address] [place] [address] Heber Pierson MD Moderate persistent asthma without [...] Description 03/09/2025 10:00 AM EST Office Visit [facility] ADULT DENTAL [address] [place] [phone] Werner Cali DDS [address] [place] [address] 03/18/2025 9:15 AM EST Office Visit [facility] MEDICINE [address] [place] [address] Vera Crowe MD [address] [place] [address] Health Maintenance Due Date Last Done Comments [...] Tobacco Screening 12/22/2025 12/22/2024 Mammogram 09/05/2026 09/05/2024, 10/2023, 01/14/2024, Additional history [...] AM EDT Narrative 01/08/2025 9:59 AM EDT [address] [address] Fluoroscopy Report Signed Patient: Zina Kennedy MR#: [id number] 0 : 1955 Acct:[id number] Age/Sex: 69 / F ADM Date: 01/08/25 Loc: [facility] Attending Dr: Demarcus Brennan MD, PhD Ordering Physician: Demarcus Brennan MD, PhD Date of Service: 01/08/25 Procedure(s): FL guidance in OR Accession Number(s): [id number] cc: Vera Crowe; Demarcus Brennan MD, PhD [...] in OV> 01/08/25956 DD/ 9 TD/TT: 01/08/25911 Medical Affairs Director: Procedure Note Donotuseinterpreter, Image - 01/08/[address] [address] Fluoroscopy Report Signed Patient: Zina Kennedy MMR#: [id number] 0 : 1955cct:[id number] Age/Sex: 69 / FADM Date: 01/08/25 Loc: HO.SSS Attending Dr: Demarcus Brennan MD, PhD Ordering Physician: Demarcus Brennan MD, PhD Date of Service: 01/08/25 Procedure(s): FL guidance in OR Accession Number(s): [id number] cc: Vera Crowe; Demarcus Brennan MD, PhD Reason for Exam: l4-5 decompression right EXAMINATION: XR FLUOROSCOPY WITH IMAGES CLINICAL INFORMATION: L4-5 right decompression. COMPARISON: MR lumbar 08/19/2024. TECHNIQUE: Fluoroscopy provided to: Dr. rBennan Fluoroscopy time: 2.2 seconds DAP: 0.5827 Gycm2 Images: 1 FINDINGS: Solitary spot image of the lower lumbar spine obtained during L4-5 right-sided decompression. Please refer to full operative report for detail. FL/FL guidance in OR IMPRESSION: Fluoroscopic guidance. Electronically signed by: Mani Das MD 01/08/2025 09:57 AM EDT Dictated By: Mani Das MD Signed By: <Electronically signed by Mani Das MD in OV> 01/08/25 0957 DD/ 0800 TD/TT: 01/08/25 0912 Medical Affairs Director: us [facility] External Provider IMG IR PROCEDURES Edited [...] LES Final Result [facility] [address] [place] [address] [phone] * Basic Metabolic Panel (12/31/2024 11:20 [...] Kidney Disea se: Estimated GFR < 60 mL/min/1.44o8Fisemy Kidney Disease: Estimated GFR < 15 mL/min/1.73m2 Glucose 92 60 - 115 mg/dL [facility] Calcium 9.5 8.4 - 10.2 mg/dL [facility] 12/31/2024 11:2 0 AM EDT 12/31/2024 11:20 AM EDT us Generic External Data Provider LAB BLOOD ORDERAB LES Final Result [facility] [address] [place] [phone] * XR Chest 2 Views (11/27/2024 12:07 PM EDT) Anatomical Region Laterality Modality Chest Radiographic Alba ging 11/27/2024 12:0 7 PM EDT Narrative 11/27/2024 12:34 PM EDT [address] [address] XRay Report Signed Patient: Zina Kennedy MR#: [id number] 0 : 1955 Acct:[id number] Age/Sex: 69 / F ADM Date: 11/27/24 Loc: HO.HHCX Attending Dr: Heber Pierson MD Ordering Physician: HEBER PIERSON MD Date of Service: 11/27/24 Procedure(s): XR chest 2V Accession Number(s): [id number] cc: HEBER PIERSON MD; Vera Crowe EXAMINATION: [...] 11/27/24 1232 DD/ 1207 TD/TT: 11/27/24 1210 Medical Affairs Director: Procedure Note Donotuseinterpreter, Image - 11/27/[address] [address] XRay Report Signed Patient: Zina Kennedy MMR#: [id number] 0 : 1955cct:[id number] Age/Sex: 69 / FADM Date: 11/27/24 Loc: HO.HHCX Attending Dr: Heber Pierson MD Ordering Physician: HEBER PIERSON MD Date of Service: 11/27/24 Procedure(s): XR chest 2V Accession Number(s): [id number] cc: HEBER PIERSON MD; Vera Crowe EXAMINATION: [...] 11/27/24 1232 DD/ 1207 TD/TT: 11/27/24 1210 Medical Affairs Director: Heber Pierson MD IMG XR PROCEDURES Final Result * POCT Rapid Influenza B LUNDBERG ID NOW (11/19/2024 10:13 AM EDT) Influenza B Negative Negative, Indeterminate [facility] Swab 11/19/2024 10:1 3 AM EDT us Heber Pierson MD POINT OF CARE TEST ENTER/EDIT OR DERABLES Final Result Performing Organization Address City/[facility]/ZIP Co de Phone Number [facility] [address] [place] [address] [phone] * POCT Rapid Influenza A LUNDBERG ID NOW (11/19/2024 10:13 AM EDT) Influenza A Negative Negative, Indeterminate [facility] Swab 11/19/2024 10:1 3 AM EDT us Heber Pierson MD POINT OF CARE TEST ENTER/EDIT OR DERABLES Final Result Performing Organization Address [facility] Co de Phone Number [facility] [address] [place] [address] [phone] * POCT Rapid Covid-19 BinaxNOW (11/19/2024 [...] AM EDT Narrative 09/13/2024 9:11 AM EDT [address] [place] [address] Mammography Report Signed Patient: Zina Kennedy MR#: [id number] 0 : 1955 Acct:[id number] Age/Sex: 69 / F ADM Date: 09/05/24 Loc: HO.MAMMO Attending Dr: Vera Crowe MD Ordering Physician: Vera Crowe Results: 1Negative Date of Service: 09/05/24 Follow Up: 1 Year From Orig inal Mammogram Procedure(s): MM tomosynthesis screening BI Accession Number(s): [id number] cc: Vera Crowe EXAMINATION: MM SCREENING DIGITAL [...] 09/13/24 0909 DD/ 1150 TD/TT: 09/05/24 1207 Medical Affairs Director: Procedure Note Donotuseinterpreter, Image - 09/13/2024 [facility] [address] [place] [address] Mammography Report Signed Patient: Zina Kennedy [facility]#: [id number] 0 : 6Acct:[id number] Age/Sex: 69 / FADM Date: 09/05/24 Loc: ROC[facility] Attending Dr: Vera Crowe MD Ordering Physician: Cecilia Croweults: 1Negative Date of Service: 09/05/24Follow Up: 1 Year From Orig inal Mammogram Procedure(s): MM tomosynthesis screening BI Accession Number(s): [id number] cc: Vera Crowe EXAMINATION: MM SCREENING DIGITAL [...] 09/13/24 0909 DD/ 1150 TD/TT: 09/05/24 1207 Medical Affairs Director: Vera Crowe MD IM BI PROCEDURES Edited [...] ORDERAB LES Final Result Performing Organization Address City/[facility]/ZIP Co de Phone Number [facility] [address] [place] [address] [phone] * Lipid Panel, Standard (07/20/2022 11:15 AM EDT) Cholesterol, Total 149 <200 mg/dL [facility] HDL Cholesterol 62 > OR = 50 mg/dL [facility] Triglycerides 130 <150 mg/dL [facility] LDL Cholesterol 66 mg/dL (calc) [facility] Comment: Reference range: <100 Desirable range <100 mg/dL for primary prevention; <70 mg/dL for patients with CHD or diabetic patients with > or = 2 CHD risk factors. LDL-C is now calculated using the Wolf-Nithya calculation, which is a validated novel method providing better accuracy than the Friedewald equation in the estimation of LDL-C. Wolf SS et al. DALILA. 2013;310(19): 4985-4331 (http://education.InboxQ/faq/JDF185) Chol/HDLC Ratio 2.4 <5.0 (calc) [facility] Non-HDL Cholesterol 87 <130 mg/dL (calc) [facility] Comment: For patients with diabetes plus 1 [...] BLOOD ORDERABLES Final Res ult [facility] [address], [place] [address] [facility] [address] [place] [address] * Colonoscopy (03/29/2021) Colonoscopy Normal Normal Comment:Repeat procedure in 10 yrs, ( see scanned report) 03/29/2021 Vera Crowe MD HEALTH MAINTENANCE Final Resul t from Last 3 Months or Most Recently Relevant to Health Maintenance [place] [address] [address] [address] DENTAL [facility] DENTAL - N PARTIAL (MEDICAID) Care Teams Hydrator Relationship Specialty Start Date End Date Vera Crowe MD [address] [place] [phone] PCP - General Family Medicine 06/16/22
--- OUTSIDE RECORDS SUMMARY | 2025-01-29 10:10 | XMS_ITS | Encounter Summary ---
Author Organization [employer] Address 75 [facility] 7 [place] [address] Care Team Providers Care Press Tender Smoke Signal Name Role Phone Vic See MD Primary Care Provider Erlinda Johnson Primary Care Provider Vera Winter MD Primary Care Provider [phone] Encounter Details Date Type Department Care Team (Latest Contact Info) Description 04/30/2018 Abstract [facility] CONVERSIONS Dental, Provider, DDS Social History [...] Description 03/09/2025 10:00 AM EST Office Visit [facility] ADULT DENTAL [address] [place] [address] Werner Cali DDS [address] [place] [address] 03/18/2025 9:15 AM EST Office Visit [facility] MEDICINE [address] [place] [address] Vera Crowe MD [address] [place] [address] documented as of this encounter Visit Diagnoses Not on filedocumented in this encounter Care Teams Press Tender Smoke Signal Relationship Specialty Start Date End Date Vic See MD PCP - General Family Medicine 09/26/19 05/02/22 Erlinda Fink FNP PCP - General Family Medicine 05/03/22 06/15/22 Vera Crowe MD [address] [place] [address] PCP - General Family Medicine 06/16/22 documented as of this encounter
--- OUTSIDE RECORDS SUMMARY | 2025-01-29 10:10 | XMS_ITS | Encounter Summary ---
Author Organization [employer] Address 75 [facility] 7t [place] [address] Care Team Providers Care Radio Interference Trouble Shooter Name Role Phone Vera Crowe MD Primary Care Provider [phone] Reason for Visit * Reason Onset Date Comments uanble to post or run dental insurance Encounter Details Date Type Department Care Team (Late st Contact Info) Description 12/22/2024 Telephone [facility] ADULT DENTAL [address] [place], [place] [phone] Michele King, DMD [address] [place] [address] uanble to post or run dental insurance [...] in for 11:30 emergency dental visit. Carries [employer]. Added to chart. PAR side unable to run or post [employer] insurance. documented in this encounter Plan of Treatment Upcoming Encounters Date Type Department Care Team (Late st Contact Info) Description 03/09/2025 10:00 AM EST Office Visit [facility] ADULT DENTAL [address] [place] [address] Werner Cali DDS [address] [place] [address] 03/18/2025 9:15 AM EST Office Visit [facility] MEDICINE [address] [place] [address] Vera Crowe MD [address] [place] [address] documented as of this encounter Visit Diagnoses Not on filedocumented in this encounter Additional Health Concerns Assessment Noted Time PHQ-9 Depression Total Score: 6 09/06/19 25 11:34 AM EDT documented as of this encounter Care Teams Radio Interference Trouble Shooter Relationship Specialty Start Date End Date Vear Crowe MD [address] [place] [address] PCP - General Family Medicine 06/16/22 documented as of this encounter
== END 2025-01-29 09:38 | disposition home or self-care (01) ==
LOC: HO.HNS 09:15
PROVIDERS: PCP General Practice; Visit Provider Physician Assistant
DX: Z98.890 Other specified postprocedural states (principal)
CPT/HCPCS: 99024

== ENCOUNTER → 2025-01-29 09:15 | Outpatient (BNVA) | payer MEDICARE, SELFPAY | PROVIDERS: PCP General Practice; Visit Provider Physician Assistant | DX: M54.9 Dorsalgia, unspecified (principal); Z98.890 Other specified postprocedural states | CPT/HCPCS: 99212 ==

== ENCOUNTER 2025-03-12 09:27 | Outpatient (AMB) | payer MEDICARE, SELFPAY ==
--- OUTSIDE RECORDS SUMMARY | 2025-03-09 10:00 | XMS_ITS | Encounter Summary ---
Author Organization [employer] Address 75 [facility] 7t [place] [address] Care Team Providers Care Press Pipe Inspector Name Role Phone Vera Crowe MD Primary Care Provider [phone] Reason for Visit * Reason Comments Extraction Encounter Details Date Type Department Care Team (Late st Contact Info) Description 03/09/2025 10:00 AM EST Office Visit [facility] ADULT DENTAL [address] [place], [place] [phone] Werner Cali DDS [address] [place], [place] [phone] Dental caries (Primary Dx) Social History Tobacco Use Types Packs/Day Years Used Date Smoking Tobacco: Never Passive Smoke Exposure: Never Smokeless Tobacco: Never Alcohol Use Standard Drinks/Week Comments Not Asked 0 (1 standard drink = 0.6 oz pur e alcohol) Alcohol Answer Date Recorded How often do you have a drink containing alcohol ? 0 03/09/2025 Average Number of Drinks Not on file 025 How often do you have six or more drinks on one occasion? 0 03/09/2025 Depression Answer Date Recorded Patient Health Questionnaire-9 [...] AM EDT documented as of this encounter Last Filed Vital Signs Vital Sign Reading Time Taken Comments Blood Pressure 132/74 03/09/2025 10:07 AM EST Pulse 70 03/09/2025 10:07 AM EST Temperature - - Respiratory Rate - - Oxygen Saturation - - Inhaled Oxygen Concentration - - Weight - - Height - - Body Mass Index - - documented in this encounter Progress Notes * Werner Cali DDS - 03/09/2025 10:00 AM EST Patient ID: Zina Kennedy is a 69 y.o. female. Time Out: Timeout Date: 03/09/25, Timeout Time: 1004 (ext on tooth#29 , 31) Location: [facility] Tooth: Mandible, #29, and #31 Procedure: Extraction Verified the above with patient, retirement assistant, and provider. Confirmed via patient's chart, intraorally and by radiographs. Principal Web Developer: not applicable Chief Complaint Patient presents with Extraction Medical Hx: Vitals: Blood pressure 132/74, pulse 70. Medical History[1] Medications: Encounter Medications[2] Consent Obtained: The risks, benefits, indications, potential complications, and alternatives were explained to the patient and informed consent was obtained with good understanding. Treatment Provided: Dental procedures in this visit D7140 - EXTRACTION, ERUPTED TOOTH OR EXPOSED ROOT (ELEVATION/FORCEPS REMOVAL) 31 (Completed) Service provider: Werner Cali DDS Billing provider: Werner Cali DDS D7140 - EXTRACTION, ERUPTED TOOTH OR EXPOSED ROOT (ELEVATION/FORCEPS REMOVAL) 29 (Completed) Service provider: Werner Cali DDS Billing provider: Werner Cali DDS Diagnosis: Caries Topical: 20% Benzocaine Anesthesia: 2% Lidocaine (Xylocaine) w/ 1:100,000 epinephrine Number of Cartridges: 2 Injection Type: Inferior alveolar nerve block, Long buccal nerve block, Mental nerve block, and Intrapapillary injection Confirmed profound anesthesia. Pharyngeal curtain and bite block placed. Removed tooth with elevators and forceps. Apices intact. Surgical Extraction: Yes, #29,31 Socket curetted & irrigated with sterile water. Compressed alveolar bone. Sutures: None Needed All adjacent teeth intact. Hemostasis achieved. Complications: None. Pt tolerated procedure well. Zina states having analgesics at home. Written and verbal post-op instructions given. Patient discharged in stable condition; ambulatory, alert, and oriented. NV: F/U as needed / Referred back to Dr. King Yacht Master: Gabrielle Rubi Dentist: Werner Cali DDS [1] Past Medical History: Diagnosis Date Arthritis Asthma Hypertension [2] Outpatient Encounter Medications as of 03/09/2025 Medication Sig Dispense Refill azithromycin (Zithromax Z-Luis F) 250 MG tablet Take 2 tablets once on day 1, then 1 tablet 1x/day for4 days. 6 tablet 0 Breztri Aerosphere 160-9-4.8 MCG/ACT aerosol buPROPion XL (Wellbutrin XL) 150 MG 24 hr tablet Take 1 tablet (150 mg) by mouth Once per day. Do not crush, chew, or split. For anxiety 30 tablet 11 cholecalciferol (D3 Super Strength) 50 MCG (2000 UT) capsule Take 1 capsule (50 mcg) by mouth Once per day. 90 capsule 3 diclofenac (Voltaren) 50 MG EC tablet Take 1 tablet (50 mg) by mouth if needed in the morning and at bedtime (back pain). Do not crush, chew, or split. 60 tablet 2 latanoprost (Xalatan) 0.005 % ophthalmic solution INSTILL 1 DROP IN EACH EYE AT BEDTIME losartan (Cozaar) 100 MG tablet Take 1 tablet (100 mg) by mouth Once per day. 90 tablet 3 Misc. Devices (Pulse Oximeter For Finger) misc 1 each 2 times daily. Should be 95% or above. 1 each0 montelukast (Singulair) 10 MG tablet pantoprazole (ProtoNix) 40 MG EC tablet Take 40 mg by mouth in the morning. polyethylene glycol, PEG, 3350 (Glycolax) 17 GM/SCOOP powder MIX 238 GRAM WITH WATER AND TAKE BY MOUTH DIRECTED BY PHYSICIAN. ramelteon (Rozerem) 8 MG tablet Take 8 mg by mouth at bedtime. for sleep rosuvastatin (Crestor) 5 MG tablet TAKE 1 TABLET BY MOUTH DAILY IN THE MORNING 90 tablet 3 Semaglutide-Weight Management (Wegovy) 0.25 MG/0.5ML solution auto-injector Inject 0.5 mL (0.25 mg)under the skin 1 (one) time per week. 2 mL 1 sertraline (Zoloft) 100 MG tablet Take 1 tablet by mouth Once per day. Ventolin HFA 108 (90 Base) MCG/ACT inhaler INHALE 2 PUFFS BY MOUTH EVERY 4 TO 6 HOURS NEEDED FORWHEEZING OR SHORTNESS OF BREATH No facility-administered encounter medications on file as of 03/09/2025. documented in this encounter Plan of Treatment Upcoming Encounters Date Type Department Care Team (Late st Contact Info) Description 03/18/2025 9:15 AM EST Office Visit [facility] MEDICINE [address] [place] [address] Vera Crowe MD [address] [place] [address] 06/12/2025 9:30 AM EST Office Visit [facility] ADULT DENTAL [address] [place] [address] Savannah Jimenez documented as of this encounter Procedures Procedure Name Priority Date/Time Associated Diagnosis Comments 29 EXTRACTION, ERUPTED TOOTH OR EXPOSED ROOT (ELEVATION/FORCEPS REMOVAL) Routine 03/09/2025 10:00 AM EST 31 EXTRACTION, ERUPTED TOOTH OR EXPOSED ROOT (ELEVATION/FORCEPS REMOVAL) Routine 03/09/2025 10:00 AM EST documented in this encounter Visit Diagnoses Diagnosis Dental caries- Primary Unspecified dental caries documented in this encounter Additional Health Concerns Assessment Noted Time PHQ-9 Depression Total Score: 6 09/06/19 25 11:34 AM EDT documented as of this encounter Care Teams Press Pipe Inspector Relationship Specialty Start Date End Date Vera Crowe MD [address] [place] [address] PCP - General Family Medicine 06/16/22 documented as of this encounter
--- NOTE | 2025-03-12 09:24 | A.SPINEOV_ITS ---
Intake Visit Reasons: 2nd post op Intake Note: Ms. Kennedy is here today for her 2nd post op. Shear Tender Required: No Allergies No Known Allergies Allergy (Verified 03/12/25 09:33) Assessment & Plan Assessment & Plan (1) Status post lumbar spine surgery for decompression of spinal cord: Code(s): Z98.890 - Other specified postprocedural states Category: Medical Plan Operation: Right L4-5 Laminotomy, Partial facetectomy and foraminotomy Zina is a pleasant 69 year old female who underwent the above listed procedure with Dr. Brennan on 01/08 for right sided radiculopathy with neurogenic claudication. She comes in today for her 2nd postoperative visit. She reports that overall she has been doing very well since her surgery. She reports that the pain in her legs has completely resolved. The only pain that she reports today is a cramping pain in her low back that occurs primarily with increased activity such as walking for 30 minutes or more, or doing intensive housework. Other than that she reports that she has not needed any medication for the last few weeks, and has been doing very well. She is overall very happy with her procedure. We discussed the postoperative healing course, and I informed her that sometimes symptoms of neurogenic claudication can take time to resolve especially in the context of deconditioning. No new neurological deficits. The patient ambulates well and rises from a seated position without difficulty. She uses no assistive devices to ambulate. There is no need for continued routine follow up with Zina. She may follow up in the future on an as-needed basis. Keith Brennan MD,PhD [facility] Coding Level of Care Code Global (27703) Diagnoses Status post lumbar spine surgery for decompression of spinal cord Z98.890
--- OUTSIDE RECORDS SUMMARY | 2025-03-12 10:43 | XMS_ITS | Encounter Summary ---
Author Organization [employer] Address 75 [facility] 7t [place] [address] Care Team Providers Care Manager Line Name Role Phone Vera Crowe MD Primary Care Provider [phone] Reason for Visit * Reason Onset Date Comments uanble to post or run dental insurance Encounter Details Date Type Department Care Team (Late st Contact Info) Description 12/22/2024 Telephone [facility] ADULT DENTAL [address] [place], [place] [phone] Michele King, DMD [address] [place] [address] uanble to post or run dental insurance [...] in for 11:30 emergency dental visit. Carries [employer]. Added to chart. PAR side unable to run or post [employer] insurance. DR documented in this encounter Plan of Treatment Upcoming Encounters Date Type Department Care Team (Late st Contact Info) Description 03/18/2025 9:15 AM EST Office Visit [facility] MEDICINE [address] [place] [address] Vera Crowe MD [address] [place] [address] 06/12/2025 9:30 AM EST Office Visit [facility] ADULT DENTAL [address] [place] [address] Savannha Jimenez documented as of this encounter Visit Diagnoses Not on filedocumented in this encounter Additional Health Concerns Assessment Noted Time PHQ-9 Depression Total Score: 6 09/06/19 25 11:34 AM EDT documented as of this encounter Care Teams Manager Line Relationship Specialty Start Date End Date Vera Crowe MD [address] [place] [address] PCP - General Family Medicine 06/16/22 documented as of this encounter
--- OUTSIDE RECORDS SUMMARY | 2025-03-12 10:43 | XMS_ITS | Encounter Summary ---
Author Organization [employer] Address 75 [facility] 7 [place] [address] Care Team Providers Care Staff Antisubmarine Officer Name Role Phone Vic See MD Primary Care Provider Erlinda Johnson Primary Care Provider Vera Winter MD Primary Care Provider [phone] Encounter Details Date Type Department Care Team (Latest Contact Info) Description 04/30/2018 Abstract [facility] CONVERSIONS Dental, Provider, DDS Social History [...] Description 03/18/2025 9:15 AM EST Office Visit [facility] MEDICINE [address] [place] [phone] Vera Crowe MD [address] [place] [address] 06/12/2025 9:30 AM EST Office Visit [facility] ADULT DENTAL [address] [place] [phone] Savannah Jimenez documented as of this encounter Visit Diagnoses Not on filedocumented in this encounter Care Teams Staff Antisubmarine Officer Relationship Specialty Start Date End Date Vic See MD PCP - General Family Medicine 09/26/19 05/02/22 Erlinda Fink FNP PCP - General Family Medicine 05/03/22 06/15/22 Vera Crowe MD [address] [place] [address] PCP - General Family Medicine 06/16/22 documented as of this encounter
--- OUTSIDE RECORDS SUMMARY | 2025-03-12 10:43 | XMS_ITS | Encounter Summary ---
Author Organization [facility] Address [address] [facility] 7t [place] [address] Care Team Providers Care Spray Dyer Name Role Phone Vera Crowe MD Primary Care Provider [phone] Reason for Visit * Reason Comments Med Refill Encounter Details Date Type Department Care Team ([facility] st Contact Info) Description 08/15/2023 Refill [facility] [address] [place], [place] [phone] Vera Crowe MD [address] [place], [place] [phone] Social History Tobacco Use Types Packs/Day Years [...] Description 03/18/2025 9:15 AM EST Office Visit [facility] [address] [place] [address] Vera Crowe MD [address] [place] [address] 06/12/2025 9:30 AM EST Office Visit [facility] [address] [place], [place] [phone] Savannah Jimenez documented as of this encounter Visit Diagnoses Not on filedocumented in this encounter Care Teams Spray Dyer Relationship Specialty Start Date End Date Vera Crowe MD [address] [place], [place] [phone] PCP - General Family Medicine 06/16/22 documented as of this encounter
--- OUTSIDE RECORDS SUMMARY | 2025-03-12 10:43 | XMS_ITS | Clinical Summary ---
Author Organization [facility] [employer] Address [address] [facility] 7t [place] [address] Care Team Providers Care Botany Professor Name Role Phone Vera Crowe MD Primary Care Provider [phone] Allergies No known active allergies Medications Ventolin [...] Active Problems Problem Noted Date Diagnosed Date Dental caries 03/09/2025 Fat necrosis (segmental) of breast 01/30/2024 Overview [...] obesity with HTN and asthma Has seen dental prosthetist Assessment & Plan (07/23/2023 1:27 PM EDT): Continue Topimax Start Metformin 500mg BID, A1C 5.9 today Has seen dental prosthetist Urinary frequency 07/20/2023 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 Assessment [...] Glaucoma 03/20/2017 Overview (05/01/2022): Care managed by [facility] Appt 03/23/22 Continue medications for eyes: [...] Encounters Date Type Department Care Team Description 03/09/2025 10:00 AM EST Office Visit [facility] [address] [place] [phone] Werner Cali DDS Dental caries (Primary Dx) 01/08/2025 Orders Only [facility] External Provider, [facility] 12/22/2024 11:30 AM EDT Office Visit [facility] [address] [place] [address] Michele King DMD 12/22/2024 Telephone [facility] [address] [place] [address] Michele King DMD uanble to post or run dental insurance from Last 3 Months Immunizations Immunization Administration [...] Pulse 70 03/09/2025 10:07 AM EST Temperature 36.7 C (98.1 F) 11/19/2024 10:03 [...] EST Office Visit [facility] [address] [place] [address] Vera Crowe MD [address] [place] [address] 06/12/2025 9:30 AM EST Office Visit [facility] [address] [place] [address] Savannah Jimenez Health Maintenance Due Date Last Done Comments CT Colonography 1955 FIT DNA/Cologuard 1955 FIT 1955 FOBT 1955 Sigmoidoscopy 1955 Pneumococcal Vaccine: 50+ Years (1 of 2 - PCV) 1974 RSV Patients and Patients Aged 60 years or older (1 - Risk 50-74 years 1-dose series) 2005 Dental Oral Exam 08/09/2018 02/08/2018 Dental X-Ray: Bitewings 02/09/2019 02/08/2018 Dental Prophylaxis 05/02/2019 10/29/2018, 04/30/2018 Dental X-Ray: Full Mouth 02/09/2021 02/08/2018 COVID-19 Vaccine ( season) 2024 03/16/2022, 07/24/2021, 02/24/2021, Additional history exists Influenza Vaccine (#1) 2024 , 12/22/2021, 01/22/2019, Additional history exists SDOH Screening 05/29/2025 05/29/2024 Depression Screening 09/05/2025 09/05/2024, 09/06/19 Alcohol/Substance Use Screening 03/09/2026 03/09/2025 Tobacco Screening 03/09/2026 03/09/2025 Mammogram 09/05/2026 09/05/2024, 10/2023, 01/14/2024, Additional history [...] (ELEVATION/FORCEPS REMOVAL) Routine 03/09/2025 10:00 AM EST FL GUIDANCE IN OR Routine 01/08/2025 8:0 0 AM EDT CBC Routine 01/01/2025 9:17 AM EDT BASIC METABOLIC PANEL Routine 12/31/2024 11:20 AM EDT INTRAORAL - PERIAPICAL EACH ADDITIONAL RADIOGRAPHIC IMAGE Routine 12/22/2024 11:30 AM EDT INTRAORAL - PERIAPICAL FIRST RADIOGRAPHIC IMAGE Routine 12/22/2024 11:30 AM EDT PALLIATIVE (EMERGENCY) TREATMENT OF DENTAL PAIN - MINOR PROCEDURE Routine 12/22/2024 11:30 AM EDT BI MAMMOGRAM SCREENING TOMOSYNTHESIS BILATERAL Routine 09/05/2024 [...] AM EDT Narrative 01/08/2025 9:59 AM EDT [address] [address] Fluoroscopy Report Signed Patient: Zina Kennedy MR#: [id number] 0 : 1955 Acct:[id number] Age/Sex: 69 / F ADM Date: 01/08/25 Loc: HO.SSS Attending Dr: Demarcus Brennan MD, PhD Ordering Physician: Demarcus Brennan MD, PhD Date of Service: 01/08/25 Procedure(s): FL guidance in OR Accession Number(s): [id number] cc: Vera Crowe; Demarcus Brennan MD, PhD [...] 01/08/25 0957 DD/ 0800 TD/TT: 01/08/25 0912 Ware Server: Procedure Note Donotuseinterpreter, Image - 01/08/2025 [place] [address] Fluoroscopy Report Signed Patient: Zina Kennedy [facility]#: [id number] 0 : 1955cct:[id number] Age/Sex: 69 / FADM Date: 01/08/25 Loc: HO.SSS Attending Dr: Demarcus Brennan MD, PhD Ordering Physician: Demarcus Brennan MD, PhD Date of Service: 01/08/25 Procedure(s): FL guidance in OR Accession Number(s): [id number] cc: Vera Crowe; Demarcus Brennan MD, PhD [...] signed by Mani Das MD in OV> 01/08/2557 DD/ 9 TD/TT: 01/08/25911 Ware Server: [facility] External Provider IMG IR PROCEDURES Edited Result - Final * CBC (01/01/2025 9:17 AM EDT) White Blood Count 4.9 4.8 - 10.8 X10*3/uL [facility] Red Blood Count 4.61 4.20 - 5.50 X10*6/uL [facility] Hemoglobin 13.3 12.0 - 16.0 g/dl [facility] Hematocrit 39.1 37.0 - 47.0 % [facility] Mean Corpuscular Volume 84.8 80.0 - 98.0 fL [facility] Mean Corpuscular Hemoglobin 28.9 27.0 - 33.0 pg [facility] Mean Corpuscular HGB Conc 34.0 31.0 - 35.0 g/dl [facility] Red Cell Distribution Width 12.9 11.0 - 16.0 % [facility] Platelet Count 268 160 - 400 X10*3/uL [facility] Mean Platelet Volume 10.4 9.4 - 12.3 fL [facility] NRBC Pct Auto 0.0 0.0 - 0.2 /100WBC [facility] NRBC Abs Auto 0.000 0.0 - 0.012 X10*3/uL [facility] 01/01/2025 9:17 AM EDT 01/01/2025 9:17 AM EDT us Generic External Data Provider LAB BLOOD ORDERAB LES Final Result Performing Organization Address City/[facility]/ZIP Co de Phone Number [facility] [address] [place] [phone] * Basic Metabolic Panel (12/31/2024 11:20 AM EDT) Sodium 141 135 - 145 mmol/L [facility] Potassium 3.9 3.3 - 5.1 mmol/L [facility] Chloride 103 96 - 108 mmol/L [facility] Carbon Dioxide 28 22 - 29 mmol/L [facility] Anion Gap 14 12 - 20 [facility] Urea Nitrogen (BUN) 12 9 - 16 mg/dL [facility] Creatinine, Serum 0.70 0.5 - 1.4 mg/dL [facility] Creatinine Clr Calc Pharmacy 76.8 [facility] Comment:Provided height and weight: 157.48 cm,85.275 kg.eGFR (calculated from the MDRD study equation) and eCrCl(calculated from the Cockcroft-Gault equation) are based ondifferent parameters and may not yield comparable results.If eCrCl result is absurd, please check patient'sheight/weight. Estimated Glomerular Filt Rate >60 [facility] Comment:Chronic Kidney Disea se: Estimated GFR < 60 mL/min/[id number] Kidney Disease: Estimated GFR < 15 mL/min/1.73m2 Glucose 92 60 - 115 mg/dL [facility] Calcium 9.5 8.4 - 10.2 mg/dL [facility] 12/31/2024 11:2 0 AM EDT 12/31/2024 11:20 AM EDT us Generic External Data Provider LAB BLOOD ORDERAB LES Final Result Performing Organization Address City/[facility]/ZIP Co de Phone Number [facility] [address] [place] [phone] * BI Mammogram Screening Tomosynthesis Bilateral (09/05/2024 11:50 AM EDT) Anatomical Region Laterality Modality Breast Bilateral Mammography 09/05/2024 11:5 0 AM EDT Narrative 09/13/2024 9:11 AM EDT [facility] [address] [place], [place] [address] Mammography Report Signed Patient: Zina Kennedy MR#: [id number] 0 : 1955 Acct:[id number] Age/Sex: 69 / F ADM Date: 09/05/24 Loc: HO.MAMMO Attending Dr: Vera Crowe MD Ordering Physician: Vera Crowe Results: 1Negative Date of Service: 09/05/24 Follow Up: 1 Year From Orig ina Mammogram Procedure(s): MM tomosynthesis screening BI Accession Number(s): [id number] cc: Vera Crowe EXAMINATION: MM SCREENING DIGITAL [...] 09/13/24 0909 DD/ 1150 TD/TT: 09/05/24 1207 Ware Server: Procedure Note Donotuseinterpreter, Image - 09/13/2024 [facility] [address] [place] [address] Mammography Report Signed Patient: Zina Kennedy MMR#: [id number] 0 : 6Acct:[id number] Age/Sex: 69 / FADM Date: 09/05/24 Loc: HO.MAMMO Attending Dr: Vera Crowe MD Ordering Physician: Cecilia Croweults: 1Negative Date of Service: 09/05/24Follow Up: 1 Year From Orig inal Mammogram Procedure(s): MM tomosynthesis screening BI Accession Number(s): [id number] cc: Vera Crowe EXAMINATION: MM SCREENING DIGITAL [...] 09/13/24 0909 DD/ 1150 TD/TT: 09/05/24 1207 Ware Server: Vera Crowe MD IMG BI PROCEDURES Edited Resul t - Final * Hepatitis Panel, General (03/23/2023 11:42 AM EST) Hepatitis A IgM Nonreactive Nonreactive [facility] Comment:IgM antibodies to HOWARD V not detected; does not exclude earlyacute or recovered HAV infection. ~Hepatitis B Surface Antibody NONREACTIVE Nonreactive [facility] Comment:Nonreactive: < 8.00 mIU/mL Hepatitis B Core Antibody Nonreactive Nonreactive [facility] Hepatitis C Antibody Nonreactive Nonreactive [facility] Comment:Antibodies to HCV no t detected; does not exclude early acuteHCV infection. Hepatitis B Surface Ag Negative Negative [facility] 03/23/2023 11:4 2 AM EST 03/23/2023 11:42 AM EST us Generic External Data Provider LAB BLOOD ORDERAB LES Final Result [facility] [address] [place] [phone] * Lipid Panel, Standard (07/20/2022 11:15 AM EDT) Cholesterol, Total 149 <200 mg/dL [facility] [employer] HDL Cholesterol 62 > OR = 50 mg/dL [employer] Triglycerides 130 <150 mg/dL [employer] LDL Cholesterol 66 mg/dL (calc) [employer] Comment: Reference range: <100 Desirable range <100 mg/dL for primary prevention; <70 mg/dL for patients with CHD or diabetic patients with > or = 2 CHD risk factors. LDL-C is now calculated using the Wolf-Nithya calculation, which is a validated novel method providing better accuracy than the Friedewald equation in the estimation of LDL-C. Wolf SS et al. DALILA. 2013;310(19): 4294-8036 (http://education.Food [employer]/faq/SLE213) Chol/HDLC Ratio 2.4 <5.0 (calc) [employer] Non-HDL Cholesterol 87 <130 mg/dL (calc) [employer] Comment: For patients with diabetes plus 1 major ASCVD risk factor, treating to a non-HDL-C goal of <100 mg/dL (LDL-C of <70 mg/dL) is considered a therapeutic option. Blood Venous blood specimen / Unknown 07/20/2022 11:15 AM EDT 07/20/2022 11:15 AM EDT Narrative [facility] - 07/21/2022 6:33 AM EDT FASTING:NO FASTING: NO Vera Crowe MD LAB BLOOD ORDERABLES Final Res ult [facility] [address], [place] [phone] [employer] [facility] [address] [place] [address] * Colonoscopy (03/29/2021) Colonoscopy Normal Normal Comment:Repeat procedure in 10 yrs, ( see scanned report) 03/29/2021 Vera Crowe MD HEALTH MAINTENANCE Final Resul t from Last 3 Months or Most Recently Relevant to Health Maintenance Insurance [address] [address] [address] MEDICARE REPLACEMENT DENTAL [facility] PARTIAL (MEDICAID) Care Teams Botany Professor Relationship Specialty Start Date End Date Vera Crowe MD [address] [place] [address] [phone] PCP - General Family Medicine 06/16/22
== END 2025-03-12 09:38 | disposition home or self-care (01) ==
LOC: HO.HNS 09:28
PROVIDERS: PCP General Practice; Visit Provider Physician Assistant
DX: Z98.890 Other specified postprocedural states (principal)
CPT/HCPCS: 99024

== ENCOUNTER → 2025-03-12 09:27 | Outpatient (BNVA) | payer MEDICARE, SELFPAY | PROVIDERS: PCP General Practice; Visit Provider Physician Assistant | DX: M48.062 Spinal stenosis, lumbar region with neurogenic claudication (principal); Z98.890 Other specified postprocedural states | CPT/HCPCS: 99212 ==